=== PATIENT | male | born 1990 | race Caucasian/White ===

== ENCOUNTER 2017-10-20 15:43 | Emergency (ER) | payer BC | END 2017-10-20 18:57 | disposition home or self-care (01) | LOC: M ED 15:43 | DX: M94.0 Chondrocostal junction syndrome [Tietze] (principal); F31.9 Bipolar disorder, unspecified; Z77.098 Contact with and (suspected) exposure to other hazardous, chiefly nonmedicinal, chemicals; Z88.2 Allergy status to sulfonamides; Z79.899 Other long term (current) drug therapy; Z79.82 Long term (current) use of aspirin | CPT/HCPCS: 71046 ==

== ENCOUNTER → 2018-10-04 | Outpatient (REF) | payer OTHER ==
[~2018-10-04] MED LIST: ASPI81CH PO; CEFD1CAP8 PO; FISH100049 PO; IBUP-1022 PO; MULT1TAB8 PO; NALT50TA4 PO; PRIL20CA9 PO; TRAZ-163 PO; TRIL600T PO; VRAY4.5C PO
== END ==
LOC: M SFHCPLAZ 13:21
PROVIDERS: ATTEND Family Medicine
DX: B07.8 Other viral warts (principal)

== ENCOUNTER → 2018-11-08 | Outpatient (CLI) | payer OTHER ==
[~2018-11-08] MED LIST changes: -ASPI81CH PO; +ASPI81CH49 PO
--- NOTE | 2018-11-11 20:46 | SLEEPHOME ---
DATE OF PROCEDURE: 11/08/2018 ORDERED BY: Katy Howard Diagnostic home sleep testing was performed due to concern for the obstructive sleep apnea syndrome in this patient with a history of hypertension. For testing, a nocturnal T3 respiratory monitoring device was used. Continuous record was made of pulse, oxygen saturation, airflow, chest, abdominal strain and body position. 9 hours and 59 minutes of data were reviewed. Of these, 6 hours and 5 minutes were marked as time in bed. During the interval marked time in bed, there were 83 respiratory events identified of 10 seconds in duration or greater for a respiratory event index of 13.6. The events were primarily obstructive. Baseline pulse rate 75 beats per minute, pulse rate ranged from 59 to 174. Baseline saturation 93%. Saturations fell as low as 81%. Testing was performed in both the supine and nonsupine positions. IMPRESSION: Abnormal home sleep testing with repetitive respiratory events and oxygen desaturations to 81% with a respiratory event index of 13.6 is consistent with the obstructive sleep apnea syndrome. RECOMMENDATIONS: The patient should be encouraged to undergo a formal sleep evaluation and in laboratory pressure titration.
== END ==
LOC: M SLEEP HO 10:24
PROVIDERS: ATTEND Nurse Practitioner Family
DX: R40.0 Somnolence (principal)

== ENCOUNTER 2018-12-10 02:43 | Emergency (ER) | payer OTHER ==
[~2018-12-10] VITALS: Ht 185.4 cm; Wt 161.4 kg
[2018-12-10 02:43] VITALS: BP 149/85
[2018-12-10] MEDS ORDERED: LOSA100T50 PO (03:15)
[2018-12-10] MEDS ORDERED: BENA25CA4 PO (04:19)
== END 2018-12-10 04:23 | disposition home or self-care (01) ==
LOC: M ED 02:43
DX: F43.0 Acute stress reaction (principal); I10 Essential (primary) hypertension; G47.30 Sleep apnea, unspecified; F41.9 Anxiety disorder, unspecified; K21.9 Gastro-esophageal reflux disease without esophagitis; E66.9 Obesity, unspecified; Z72.0 Tobacco use; Z79.899 Other long term (current) drug therapy; Z88.2 Allergy status to sulfonamides

== ENCOUNTER → 2019-04-05 | Outpatient (CLI) | payer OTHER ==
[~2019-04-05] MED LIST changes: +BENA25CA4 PO; +LOSA100T50 PO; -TRAZ-163 PO; +TRAZ-257 PO
--- NOTE | 2019-04-09 08:09 | SLEEPCENT ---
DATE OF PROCEDURE: 04/05/2019 ORDERING PROVIDER: Katy Howard NP, copy to JIGAR Ames. INTERPRETATION: Nocturnal polysomnography was performed for the titration of pressure therapy in this patient with a clinical diagnosis of obstructive sleep apnea syndrome confirmed by home testing revealing respiratory event index of 13.6. For testing a ResMed 20 AirFit full-face mask initially of small size was used and 5 cm of water pressure were applied to the circuit, and the lights were extinguished. 7 hours and 27 minutes of data were reviewed. There were 315.5 minutes of sleep identified. Sleep latency was normal at 17.5 minutes. Rapid eye movement (REM) latency was delayed at 182 minutes. Sleep architecture was quite fragmented early in the study. Overall sleep efficiency was 71.3%. The patient's electrocardiogram showed sinus rhythm with an average heart rate of 78 beats per minute. EEG showed some coarsening in background, otherwise, normal waveforms for awake and sleep. Respiratory events persisted prompting a change to a medium sized mask later in the study. Best sleep was seen on a CPAP pressure of +8 delivered via medium sized mask. There was some scattered limb activity noted as well. Limb movement arousal index of 5.7. IMPRESSION: Obstructive sleep apnea syndrome (G47.33) RECOMMENDATIONS: Initiation of pressure therapy with CPAP 8 cm would seem reasonable based on these results. Given the difficulty the patient had in the lab, close clinical followup is recommended.
== END ==
LOC: M SLEEP 15:05
PROVIDERS: ATTEND Nurse Practitioner Family
DX: G47.33 Obstructive sleep apnea (adult) (pediatric) (principal)

== ENCOUNTER → 2019-04-10 | Outpatient (REF) | payer OTHER ==
[2019-04-10 13:51] LABS: CREATININE, URINE 47.1 MG/DL; MALB URINE SIEMENS 7.8 MG/L; MAU/CREAT RATIO 16.5 MCG/MG (0.0-30.0)
[2019-04-10 13:52] LABS: ALBUMIN 3.7 GM/DL (3.2-5.2); ALT/SGPT 35 U/L (12-78); BILIRUBIN,TOTAL 0.2 MG/DL (0.2-1.0); BLOOD UREA NITROGEN 8 MG/DL (7-18); CALCIUM LEVEL 9.1 MG/DL (8.5-10.1); CARBON DIOXIDE LEVEL 26 MEQ/L (21-32); CHLORIDE LEVEL 106 MEQ/L (98-107); CHOLESTEROL LEVEL 132 MG/DL (<200); CHOLESTEROL RISK RATIO 4.551 (<5); CREATININE FOR GFR 0.89 MG/DL (0.70-1.30); GLOMERULAR FILTRATION RATE > 60.0 (>60); GLUCOSE, FASTING 104 MG/DL (70-100); HDL CHOLESTEROL 29 MG/DL (>40); LDL CHOLESTEROL 52 MG/DL (<100); NON-HDL-C 103 MG/DL; POTASSIUM SERUM 4.3 MEQ/L (3.5-5.1); SODIUM LEVEL 139 MEQ/L (136-145); TOTAL PROTEIN 6.9 GM/DL (6.4-8.2); TRIGLYCERIDES LEVEL 255 MG/DL (<150)
== END ==
LOC: M SFHCPLAZ 09:56
PROVIDERS: ATTEND Nurse Practitioner Family
DX: Z13.220 Encounter for screening for lipoid disorders (principal); E66.01 Morbid (severe) obesity due to excess calories; I10 Essential (primary) hypertension

== ENCOUNTER → 2019-08-19 | Outpatient (CLI) | payer OTHER ==
[2019-08-19 11:21] LABS: BASO # 0.1 10^3/uL (0.0-0.2); BASO % 0.6 % (0.0-1.0); EOS # 0.2 10^3/uL (0.0-0.5); EOS % 1.7 % (0.0-3.0); HEMATOCRIT 44.1 % (42.0-52.0); HEMOGLOBIN 14.3 g/dl (13.5-17.5); LYMPH # 2.4 10^3/uL (1.5-5.0); LYMPH % 28.1 % (24.0-44.0); MEAN CORPUSCULAR HEMOGLOBIN 28.3 pg (27.0-33.0); MEAN CORPUSCULAR HGB CONC 32.4 g/dl (32.0-36.5); MEAN CORPUSCULAR VOLUME 87.2 fl (80.0-96.0); MONO # 0.9 10^3/uL (0.0-0.8); MONO % 9.8 % (0.0-5.0); NEUTROPHILS # 5.1 10^3/uL (1.5-8.5); NEUTROPHILS % 58.4 % (36.0-66.0); PLATELET COUNT, AUTOMATED 232 10^3/uL (150-450); RED BLOOD COUNT 5.06 10^6/uL (4.30-6.10); WHITE BLOOD COUNT 8.7 10^3/uL (4.0-10.0)
[2019-08-19 11:52] LABS: ALBUMIN 3.7 GM/DL (3.2-5.2); ALT/SGPT 52 U/L (12-78); BILIRUBIN,TOTAL 0.2 MG/DL (0.2-1.0); BLOOD UREA NITROGEN 9 MG/DL (7-18); CALCIUM LEVEL 8.4 MG/DL (8.5-10.1); CARBON DIOXIDE LEVEL 25 MEQ/L (21-32); CHLORIDE LEVEL 108 MEQ/L (98-107); CHOLESTEROL LEVEL 154 MG/DL (<200); CHOLESTEROL RISK RATIO 6.416 (<5); CREATININE FOR GFR 0.93 MG/DL (0.70-1.30); FREE T4 0.93 NG/DL (0.76-1.46); GLOMERULAR FILTRATION RATE > 60.0 (>60); GLUCOSE, FASTING 119 MG/DL (70-100); HDL CHOLESTEROL 24 MG/DL (>40); LDL CHOLESTEROL 53 MG/DL (<100); NON-HDL-C 130 MG/DL; POTASSIUM SERUM 4.5 MEQ/L (3.5-5.1); SODIUM LEVEL 141 MEQ/L (136-145); TOTAL PROTEIN 6.4 GM/DL (6.4-8.2); TRIGLYCERIDES LEVEL 385 MG/DL (<150)
[2019-08-19 11:54] LABS: TOTAL 25(OH) VITAMIN D 15.5 NG/ML (30.0-100.0)
[2019-08-19 11:55] LABS: VITAMIN B12 LEVEL 521 PG/ML (247-911)
--- NOTE | 2019-08-19 21:22 | ECGEPIP ---
[facility] Test Date: 2019-08-19 Pat Name: KATHERYN BLACKMON Department: Room: - Gender: Male Client Leader: IRAM : 1990 Requested By: Diallo Leiva Order Number: [id number] Reading MD: Silver Melo Measurements Intervals [place] Rate: 78 P: 35 HI: 137 QRS: 0 QRSD: 98 T: 56 QT: 376 QTc: 429 Interpretive Statements SINUS RHYTHM Electronically Signed on 08-19-2019 21:21:46 EST by Silver Melo
== END ==
LOC: M LAB 10:36
PROVIDERS: ATTEND Psychiatry & Neurology Child & Adolescent Psychiatry
DX: F31.9 Bipolar disorder, unspecified (principal)

== ENCOUNTER → 2020-09-07 | Outpatient (REF) | payer OTHER ==
[2020-09-07 14:33] LABS: HEMOGLOBIN A1c 6.2 %
[2020-09-07 14:37] LABS: ALBUMIN 3.7 GM/DL (3.2-5.2); ALT/SGPT 49 U/L (12-78); BILIRUBIN,TOTAL 0.2 MG/DL (0.2-1.0); BLOOD UREA NITROGEN 21 MG/DL (7-18); CALCIUM LEVEL 9.2 MG/DL (8.5-10.1); CARBON DIOXIDE LEVEL 28 MEQ/L (21-32); CHLORIDE LEVEL 103 MEQ/L (98-107); CHOLESTEROL LEVEL 175 MG/DL (<200); CREATININE FOR GFR 0.96 MG/DL (0.70-1.30); FREE T4 0.96 NG/DL (0.76-1.46); GLOMERULAR FILTRATION RATE > 60.0 (>60); GLUCOSE, FASTING 137 MG/DL (70-100); HDL CHOLESTEROL 35 MG/DL (>40); LDL CHOLESTEROL 80 MG/DL (<100); MAGNESIUM LEVEL 2.3 MG/DL (1.8-2.4); NON-HDL-C 140 MG/DL; POTASSIUM SERUM 4.7 MEQ/L (3.5-5.1); SODIUM LEVEL 140 MEQ/L (136-145); TOTAL PROTEIN 6.8 GM/DL (6.4-8.2); TRIGLYCERIDES LEVEL 301 MG/DL (<150)
[2020-09-07 14:39] LABS: TOTAL 25(OH) VITAMIN D 24.4 NG/ML (30.0-100.0)
== END ==
LOC: M SFHCPLAZ 12:01
PROVIDERS: ATTEND Nurse Practitioner Family
DX: I10 Essential (primary) hypertension (principal); E66.01 Morbid (severe) obesity due to excess calories; E78.2 Mixed hyperlipidemia; R73.03 Prediabetes; F17.290 Nicotine dependence, other tobacco product, uncomplicated

== ENCOUNTER → 2020-12-27 | Outpatient (REF) | payer OTHER ==
[2020-12-27 13:54] LABS: HEMOGLOBIN A1c 6.5 %
[2020-12-27 14:04] LABS: ALBUMIN 3.6 GM/DL (3.2-5.2); ALT/SGPT 76 U/L (12-78); BILIRUBIN,TOTAL 0.3 MG/DL (0.2-1.0); BLOOD UREA NITROGEN 16 MG/DL (7-18); CALCIUM LEVEL 8.8 MG/DL (8.5-10.1); CARBON DIOXIDE LEVEL 26 MEQ/L (21-32); CHLORIDE LEVEL 104 MEQ/L (98-107); CHOLESTEROL LEVEL 155 MG/DL (<200); CHOLESTEROL RISK RATIO 4.843 (<5); CREATININE FOR GFR 0.94 MG/DL (0.70-1.30); GLOMERULAR FILTRATION RATE > 60.0 (>60); GLUCOSE, FASTING 143 MG/DL (70-100); HDL CHOLESTEROL 32 MG/DL (>40); LDL CHOLESTEROL 49 MG/DL (<100); NON-HDL-C 123 MG/DL; POTASSIUM SERUM 4.2 MEQ/L (3.5-5.1); SODIUM LEVEL 139 MEQ/L (136-145); TOTAL PROTEIN 7.1 GM/DL (6.4-8.2); TRIGLYCERIDES LEVEL 368 MG/DL (<150)
[2020-12-27 14:15] LABS: MAU/CREAT RATIO 78.3 MCG/MG (0.0-30.0)
[2020-12-27 14:16] LABS: TOTAL 25(OH) VITAMIN D 30.2 NG/ML (30.0-100.0)
== END ==
LOC: M PLALAB 11:06
PROVIDERS: ATTEND Nurse Practitioner Family
DX: R73.03 Prediabetes (principal); E78.2 Mixed hyperlipidemia; I10 Essential (primary) hypertension; E55.9 Vitamin D deficiency, unspecified

== ENCOUNTER → 2021-04-19 | Outpatient (CLI) | payer OTHER ==
[2021-04-19 15:12] LABS: ALBUMIN 3.6 GM/DL (3.2-5.2); ALT/SGPT 82 U/L (12-78); BILIRUBIN,TOTAL 0.4 MG/DL (0.2-1.0); BLOOD UREA NITROGEN 12 MG/DL (7-18); CALCIUM LEVEL 8.7 MG/DL (8.5-10.1); CARBON DIOXIDE LEVEL 26 MEQ/L (21-32); CHLORIDE LEVEL 108 MEQ/L (98-107); CREATININE FOR GFR 0.73 MG/DL (0.70-1.30); GLOMERULAR FILTRATION RATE > 60.0 (>60); GLUCOSE, FASTING 114 MG/DL (70-100); POTASSIUM SERUM 4.6 MEQ/L (3.5-5.1); SODIUM LEVEL 141 MEQ/L (136-145); TOTAL PROTEIN 6.7 GM/DL (6.4-8.2)
[2021-04-19 15:17] LABS: TOTAL 25(OH) VITAMIN D 45.9 NG/ML (30.0-100.0)
[2021-04-19 15:38] LABS: MALB URINE SIEMENS 29.7 MG/L; MAU/CREAT RATIO 17.6 MCG/MG (0.0-30.0)
[2021-04-19 16:40] LABS: HEMOGLOBIN A1c 6.2 %
== END ==
LOC: M PLALAB 11:18
PROVIDERS: ATTEND Nurse Practitioner Family
DX: E11.9 Type 2 diabetes mellitus without complications (principal); I10 Essential (primary) hypertension; E55.9 Vitamin D deficiency, unspecified

== ENCOUNTER → 2021-06-02 | Outpatient (CLI) | payer OTHER ==
--- NOTE | 2021-06-02 13:17 | REP ---
INDICATION: PRE EMPLOYMENT. COMPARISON: 10/20/2017 the latest prior TECHNIQUE: PA and lateral FINDINGS: The superior mediastinal structures are midline. The cardiac silhouette is unremarkable in size, shape, and position. The diaphragmatic surfaces of the lungs are regular, and the costophrenic angles are clear. The pulmonary rush are clear. The imaged osseous structures are intact. IMPRESSION: There is no acute cardiopulmonary disease. <Electronically signed by Jake Patel > 06/02/21 [id number]
== END ==
LOC: M WUC 10:51
PROVIDERS: ATTEND Nurse Practitioner Family
DX: Z02.1 Encounter for pre-employment examination (principal)

== ENCOUNTER 2021-06-17 16:47 | Inpatient (IN) | payer OTHER ==
[~2021-06-17] VITALS: Ht 185.4 cm; Wt 186.4 kg
--- OUTSIDE RECORDS SUMMARY | 2021-06-17 17:01 | CCD ---
Author Author Trae Denson Organization Unknown Address [address] [place] [address] Phone Care Team Providers Care Psychologist Developmental Name Role Phone Zackary Denson PCP Allergies, Adverse Reactions, Alerts Concept Allergy Name Reaction Severity Onset Date Status Documentation Date Phone Number Npid Taxonomy Code Taxonomy Desc Author Last Name Author Fi rst Name Concept Type 402767 lithium carbonate unspecified 07/08/2015 Active 015 [id number] [facility] RXNORM [id number] Zyprexa unspecified 07/08/2015 Active 07/08/2015 [id number] [facility] 123856 Lamictal rash 07/08/2015 Active 07/08/2015 [id number] 747 [id number] [facility]iat[facility] RXNORM 491 Sulfa (Sulfonamide Antibiotics) Group unspecified Ac tive 12/01/2014 [facility]DC Problem List Concept Problem Description Status Start Date Created Date Resolv ed Date Snomed Code F31.31 Bipolar I Disorder, Current or most rece nt episode depressed, Mild Active 06/05/2018 06/05/2018 F10.120 Alcohol abuse with intoxication, uncomplicated Active 05/06/2021 F17.290 Nicotine dependence, other tobacco product, uncomplica kamille Active 05/06/2021 F12.10 Cannabis Use Disorder, Mild Active 05/06/2021 Medications Rx Norm Medication Route Route Concept Start Date Stop Date Dosage García quency Duration Formula Strength Dosage Form Dosage Form Code Dosage Description Medication Id Account Npid Author First Name Author Last Name Taxonomy Code Taxonomy Desc Phone Number [phone] Vraylar by mouth [id number] 03/15/2021 05/21/2021 every other day 30 1.5 mg capsule 43417 [phone] Trena Sierra [id number] N urse Practitioner [phone] [id number] Vraylar by mouth [id number] 03/15/2021 05/21/2021 every night 30 3 mg capsule 38351 [id number] Trena Sierra [id number] N urse Practitioner [id number] Strattera by mouth [id number] 02/01/2021 06/20/2021 every morning 30 80 mg capsule 87393 129910 [id number] Trena Sierra [id number] N urse Practitioner [id number] Social History Social History Element Description Concept Effective Date Smoking Status Unknown if ever smoked [id number] Immunizations No Data in Section Vital Signs No Data in Section Procedures Date Concept Id Description Targeted Site Concept Targeted Site Concept Type 05/03/2021 45166 Extended Individual Psychotherapy - 45 min CPT Patient has no history of implantable de vices Encounters Encounter Start Date End Date Encounter Type Description Diagnosis Di agnosis Desc Location Author First Name Author Last Name Npid Taxonomy Cod e Taxonomy Desc Phone Number Location Addr1 Location Addr2 Location [facility] Location Sta te Location Zip [id number] 05/03/2021 05/03/2021 73038 Extended Individual Psych otherapy - 45 min F31.31 Bipolar Disorder, Current Episode Depressed, Mild Comm [facility] [phone] [id number] Office Support Associate [phone] [phone] Plan of Treatment No Data in Section Lab Results No Data in Section Instructions No Data in Section Insurance Providers Insurance Id Policy Effective Date Policy Thru Date Company N jeyson [id number] 2018 [facility]
--- OUTSIDE RECORDS SUMMARY | 2021-06-17 17:01 | CCD ---
Author Author Trae Hameed Organization Unknown Address [address] [place] [address] Phone Care Team Providers Care Clinical Social Work Aide Name Role Phone Henny Hameed PCP Allergies, Adverse Reactions, Alerts Concept Allergy Name Reaction Severity Onset Date Status Documentation Date Phone Number Npid Taxonomy Code Taxonomy Desc Author Last Name Author Fi rst Name Concept Type 833064 lithium carbonate unspecified 07/08/2015 Active 015 [id number] [facility] 532197 Zyprexa unspecified 07/08/2015 Active 07/08/2015 [id number] [facility]iat[facility] RXNORM 236387 Lamictal rash 07/08/2015 Active 07/08/2015 [id number] Psychiatry [facility] RXNORM 491 Sulfa (Sulfonamide Antibiotics) Group unspecified Ac tive 12/01/2014 [facility]DC Problem List Concept Problem Description Status Start Date Created Date Resolv ed Date Snomed Code F31.31 Bipolar I Disorder, Current or most rece nt episode depressed, Mild Active 06/05/2018 06/05/2018 F10.120 Alcohol abuse with intoxication, uncomplicated Active 04/15/2021 F17.290 Nicotine dependence, other tobacco product, uncomplica kamille Active 04/15/2021 F12.10 Cannabis Use Disorder, Mild Active 04/15/2021 Medications Rx Norm Medication Route Route Concept Start Date Stop Date Dosage García quency Duration Formula Strength Dosage Form Dosage Form Code Dosage Description Medication Id Account Npid Author First Name Author Last Name Taxonomy Code Taxonomy Desc Phone Number [phone] Vraylar by mouth [id number] 03/15/2021 05/12/2021 every other day 30 1.5 mg capsule 08732 [phone] Brian Franks [id number] Psychia try [phone] [id number] Vraylar by mouth S90464 03/15/2021 05/12/2021 every night 30 3 mg capsule 77702 557583 [id number] Brian Franks [id number] Psychia try [id number] 731067 Strattera by mouth [id number] 02/01/2021 06/11/2021 every morning 30 80 mg capsule 18775 482812 [id number] Brian Joyarez [id number] Psychia try [id number] Social History Social History Element Description Concept Effective Date Smoking Status Unknown if ever smoked [id number] Immunizations No Data in Section Vital Signs No Data in Section Procedures Date Concept Id Description Targeted Site Concept Targeted Site Concept Type 04/14/2021 15809 Extended Individual Psychotherapy - 45 min CPT Patient has no history of implantable de vices Encounters Encounter Start Date End Date Encounter Type Description Diagnosis Di agnosis Desc Location Author First Name Author Last Name Npid Taxonomy Cod e Taxonomy Desc Phone Number Location Addr1 Location Addr2 Location City Location Sta [place] Location Zip [id number] 04/14/2021 04/14/2021 94436 Extended Individual Psych otherapy - 45 min F31.31 Bipolar Disorder, Current Episode Depressed, Mild Comm [facility] Yoseph Inman [phone] [id number] Custom Seamstress [phone] [address] Plan of Treatment No Data in Section Lab Results No Data in Section Instructions No Data in Section Insurance Providers Insurance Id Policy Effective Date Policy Thru Date Company N [employer]yson [id number] [facility]
--- OUTSIDE RECORDS SUMMARY | 2021-06-17 17:01 | CCD ---
Author Author Trae Hameed Organization Unknown Address [address] [place] [address] Phone Care Team Providers Care Chisel Trimmer Name Role Phone Henny Hameed PCP Allergies, Adverse Reactions, Alerts Concept Allergy Name Reaction Severity Onset Date Status Documentation Date Phone Number Npid Taxonomy Code Taxonomy Desc Author Last Name Author Fi rst Name Concept Type 492340 lithium carbonate unspecified 07/08/2015 Active 015 [id number] [facility] 473657 Zyprexa unspecified 07/08/2015 Active 07/08/2015 [id number] [facility]iatry [facility] RXNORM 920771 Lamictal rash 07/08/2015 Active 07/08/2015 [id number] 649 [id number] Psychiatry [facility] RXNORM 491 Sulfa (Sulfonamide Antibiotics) Group unspecified Ac tive 12/01/2014 [facility]DC Problem List Concept Problem Description Status Start Date Created Date Resolv ed Date Snomed Code F31.31 Bipolar I Disorder, Current or most rece nt episode depressed, Mild Active 06/05/2018 06/05/2018 F10.120 Alcohol abuse with intoxication, uncomplicated Active 04/08/2021 F17.290 Nicotine dependence, other tobacco product, uncomplica kamille Active 04/08/2021 F12.10 Cannabis Use Disorder, Mild Active 04/08/2021 Medications Rx Norm Medication Route Route Concept Start Date Stop Date Dosage García quency Duration Formula Strength Dosage Form Dosage Form Code Dosage Description Medication Id Account Npid Author First Name Author Last Name Taxonomy Code Taxonomy Desc Phone Number [phone] Vraylar by mouth [id number] 03/15/2021 04/14/2021 every other day 30 1.5 mg capsule 04699 [id number] Brian Franks [id number] Psychia try [phone] 7564962 Vraylar by mouth R31069 03/15/2021 04/14/2021 every night 30 3 mg capsule 19092 905730 [id number] Brian Franks [id number] Psychia try [phone] 307747 Strattera by mouth R89232 02/01/2021 04/30/2021 every morning 30 80 mg capsule 28100 792947 [id number] Brian Joyarez [id number] Psychia try [id number] Social History Social History Element Description Concept Effective Date Smoking Status Unknown if ever smoked [id number] Immunizations No Data in Section Vital Signs No Data in Section Procedures Date Concept Id Description Targeted Site Concept Targeted Site Concept Type 04/07/2021 26309 Extended Individual Psychotherapy - 45 min CPT Patient has no history of implantable de vices Encounters Encounter Start Date End Date Encounter Type Description Diagnosis Di agnosis Desc Location Author First Name Author Last Name Npid Taxonomy Cod e Taxonomy Desc Phone Number Location Addr1 Location Addr2 Location City Location Sta te Location Zip [id number] 04/07/2021 04/07/2021 79697 Extended Individual Psych otherapy - 45 min F31.31 Bipolar Disorder, Current Episode Depressed, Mild Comm [facility] Yoseph Inman [phone] [id number] Aircraft Line Assembler [phone] [address] Plan of Treatment No Data in Section Lab Results No Data in Section Instructions No Data in Section Insurance Providers Insurance Id Policy Effective Date Policy Thru Date Company N jeyson [id number] 2018 [facility]
--- OUTSIDE RECORDS SUMMARY | 2021-06-17 17:01 | CCD ---
Author Author [facility] Organization [facility] Address Unknown Phone Unavailable Care Team Providers Care Bulk Plant Supervisor Name Role Phone Laly Franks MD Unavailable Unavailable Laly Franks MD Unavailable Unavailable Laly Franks MD Unavailable Unavailable Laly Franks MD Unavailable Unavailable Zackary Denson Unavailable Zackary Denson Unavailable TERRI KRISS VIC TRANSIT BUS OPERATOR-C Unavailable Unavailable TERRI KRISS VIC TRANSIT BUS OPERATOR-C Unavailable Unavailable TERRI, KRISS VIC TRANSIT BUS OPERATOR-C Unavailable Unavailable TERRI, KRISS VIC TRANSIT BUS OPERATOR-C Unavailable Unavailable TERRI, KRISS VIC TRANSIT BUS OPERATOR-C Unavailable Unavailable TERRI, KRISS VIC TRANSIT BUS OPERATOR-C Unavailable Unavailable TERRI, KRISS VIC TRANSIT BUS OPERATOR-C Unavailable Unavailable TERRI, KRISS VIC TRANSIT BUS OPERATOR-C Unavailable Unavailable TERRI, KRISS VIC TRANSIT BUS OPERATOR-C Unavailable Unavailable TERRI, KRISS VIC TRANSIT BUS OPERATOR-C Unavailable Unavailable TERRI, KRISS VIC TRANSIT BUS OPERATOR-C Unavailable Unavailable TERRI, KRISS VIC TRANSIT BUS OPERATOR-C Unavailable Unavailable TERRI, KRISS VIC TRANSIT BUS OPERATOR-C Unavailable Unavailable TERRI, KRISS VIC TRANSIT BUS OPERATOR-C Unavailable Unavailable TERRI, KRISS VIC TRANSIT BUS OPERATOR-C Unavailable Unavailable TERRI, KRISS VIC TRANSIT BUS OPERATOR-C Unavailable Unavailable TERRI, KRISS VIC TRANSIT BUS OPERATOR-C Unavailable Unavailable Henny Hameed Unavailable Re-disclosure Warning The records that you are about to access may contain information from federally-assisted alcohol or drug abuse programs. If such information is present, then the following federally mandated warning applies: This information has been disclosed to you from records protected by federal confidentiality rules (42 CFR part 2). The federal rules prohibit you from making any further disclosure of this information unless further disclosure is expressly permitted by the written consent of the person to whom it pertains or as otherwise permitted by 42 CFR part 2. A general authorization for the release of medical or other information is NOT sufficient for this purpose. The Federal rules restrict any use of the information to criminally investigate or prosecute any alcohol or drug abuse patient.The records that you are about to access may contain highly sensitive health information, the redisclosure of which is protected by Article 27-F of the [facility] Public Health law. If you continue you may have access to information: Regarding HIV / AIDS; Provided by facilities licensed or operated by the [facility] Office of Mental Health; or Provided by the [facility] Office for People With Developmental Disabilities. If such information is present, then the following [facility] mandated warning applies: This information has been disclosed to you from confidential records which are protected by state law. State law prohibits you from making any further disclosure of this information without the specific written consent of the person to whom it pertains, or as otherwise permitted by law. Any unauthorized further disclosure in violation of state law may result in a fine or group home sentence or both. A general authorization for the release of medical or other information is NOT sufficient authorization for further disc losure. Allergies and Adverse Reactions Type Description Substance Reaction Status Data Source(s ) Propensity to adverse reactions to substance Sulfa (Joy lfonamide Antibiotics) Group Sulfa (Sulfonamide Antibiotics) Group Active [facility] ([facility]) Propensity to adverse reactions to substance Lamictal lamotrigine 25 MG Oral Tablet [Lamictal] rash Active [facility] ([facility]) Propensity to adverse reactions to substance Zyprexa olanzapine 5 MG/ML Injectable Solution [Zyprexa] Active [facility] ([facility]) Propensity to adverse reactions to substance lithium carbona te [place] Carbonate 150 MG Oral Capsule Active [facility] ([facility]) Propensity to adverse reactions to substance Sulfa (Joy lfonamide Antibiotics) Group Sulfa (Sulfonamide Antibiotics) Group Active [facility] ([facility]) Propensity to adverse reactions to substance Lamictal lamotrigine 25 MG Oral Tablet [Lamictal] rash Active [facility] ([facility]) Propensity to adverse reactions to substance Zyprexa olanzapine 5 MG/ML Injectable Solution [Zyprexa] Active [facility] ([facility]) Propensity to adverse reactions to substance lithium carbona te [place] Carbonate 150 MG Oral Capsule Active [facility] ([facility]) Family History Family Member Name Family Member Gender Family Member Status Date o f Status Description Data Source(s) Unknown Male Problem [facility] ([facility]) Encounters Encounter Providers Location Date Indications Data Source(s ) Attender: Zackary Denson 05/06/2021 12:00:00 AM EDT [facility] ([facility]) Extended Individual Psychotherapy - 45 min Attender: Jayson Denson [facility] 05/03/2021 04:45:00 AM EDT - 05/03/2021 04:45:00 AM EDT [facility] ([facility]) Extended Individual Psychotherapy - 45 min Attender: Aguilar Hameed [facility] 04/21/2021 02:00:00 AM EDT - 04/21/2021 02:00:00 AM EDT [facility] ([facility]) [place] [address] [place] [address] 04/21/2021 12:00:00 AM EDT [facility] Attender: Henny Hameed 04/21/2021 12:00:00 AM EDT [facility] ([facility]) Attender: Henny Hameed 04/15/2021 12:00:00 AM EDT [facility] ([facility]) Extended Individual Psychotherapy - 45 min Attender: Aguilar Hameed [facility] 04/14/2021 02:00:00 AM EDT - 04/14/2021 02:00:00 AM EDT [facility] ([facility]) Attender: Henny Hameed 04/08/2021 12:00:00 AM EDT [facility] ([facility]) Extended Individual Psychotherapy - 45 min Attender: Aguilar vinay Hameed [facility] 04/07/2021 02:00:00 AM EDT - 04/07/2021 02:00:00 AM EDT [facility] ([facility]) Attender: Henny Hameed 03/18/2021 12:00:00 AM EDT [facility] ([facility]) Extended Individual Psychotherapy - 45 min Attender: Aguilar Hameed [facility] 03/17/2021 03:30:00 AM EDT - 03/17/2021 03:30:00 AM EDT [facility] ([facility]) Unknown [address] [place] [address] 02/28/2021 12:00:00 AM EDT [facility] Attender: Henny Hameed 02/25/2021 12:00:00 AM EDT [facility] ([facility]) Extended Individual Psychotherapy - 45 min Attender: Aguilar Hameed [facility] 02/24/2021 02:00:00 AM EDT - 02/24/2021 02:00:00 AM EDT [facility] ([facility]) Extended Individual Psychotherapy - 45 min Attender: Aguilar Hameed [facility] 02/03/2021 02:00:00 AM EDT - 02/03/2021 02:00:00 AM EDT [facility] ([facility]) Attender: Henny Hameed 02/03/2021 12:00:00 AM EDT [facility] ([facility]) [place] [address] [place] [address] 01/28/2021 12:00:00 AM EDT [facility]) Extended Individual Psychotherapy - 45 min Attender: Aguilar Hameed [facility] 01/27/2021 02:00:00 AM EDT - 01/27/2021 02:00:00 AM EDT [facility] ([facility]) Attender: Henny Thomsonan 01/27/2021 12:00:00 AM EDT [facility] ([facility]) Extended Individual Psychotherapy - 45 min Attender: Aguilar Hameed [facility] 01/20/2021 02:15:00 AM EDT - 01/20/2021 02:15:00 AM EDT [facility] ([facility]) Attender: Henny Thomsonan 01/20/2021 12:00:00 AM EDT [facility] ([facility]) [place] [address] [place] [address] 01/18/2021 12:00:00 AM EDT [facility] [place] [address] [place] [address] 01/17/2021 12:00:00 AM EDT [facility]) Outpatient Attender: VIC Burk/Linwood/Geo/Walker gary 01/07/2021 11:15:00 AM EDT [facility] ([facility]) Outpatient Attender: Brian Franks MD [facility] Yonathan padron 01/04/2021 01:30:00 AM EDT - 01/04/2021 01:30:00 AM EDT [facility] ([facility]) Attender: Brian Franks MD 01/04/2021 12:00:00 AM EDT [facility] ([facility]) Extended Individual Psychotherapy - 45 min Attender: Aguilar Hameed [facility] 12/30/2020 02:00:00 AM EDT - 12/30/2020 02:00:00 AM EDT [facility] ([facility]) Attender: Henny Hameed 12/30/2020 12:00:00 AM EDT [facility] ([facility]) Outpatient [address] [facility] [address] 12/28/2020 12:00:00 AM EDT [facility] Attender: Henny Hameed 12/24/2020 12:00:00 AM EDT [facility] ([facility]) Extended Individual Psychotherapy - 45 min Attender: Aguilar Hameed [facility] 12/23/2020 02:00:00 AM EDT - 12/23/2020 02:00:00 AM EDT [facility] ([facility]) Attender: Henny Hameed 12/17/2020 12:00:00 AM EDT [facility] ([facility]) Extended Individual Psychotherapy - 45 min Attender: Aguilarisaac mclean Yoseph [facility] 12/16/2020 02:00:00 AM EDT - 12/16/2020 02:00:00 AM EDT [facility] ([facility]) Attender: Henny Hameed 12/15/2020 12:00:00 AM EDT [facility] ([facility]) TEMPMHCTelemed--Crisis Brief Attender: Henny Hameed [facility] 12/13/2020 01:40:00 AM EDT - 12/13/2020 01:40:00 AM EDT [facility] ([facility]) Attender: Henny Hameed 12/10/2020 12:00:00 AM EDT [facility] ([facility]) Extended Individual Psychotherapy - 45 min Attender: Aguilar Hameed [facility] 12/09/2020 02:00:00 AM EDT - 12/09/2020 02:00:00 AM EDT [facility] ([facility]) [facility] 12/07/2020 01:30:00 AM EDT - 12/07/2020 01:30:00 AM EDT [facility] ([facility]) Attender: Brian Franks MD 12/07/2020 12:00:00 AM EDT [facility] ([facility]) Extended Individual Psychotherapy - 45 min Attender: Aguilar Hameed [facility] 11/25/2020 02:00:00 AM EDT - 11/25/2020 02:00:00 AM EDT [facility] ([facility]) Attender: Henny Hameed 11/25/2020 12:00:00 AM EDT [facility] ([facility]) Attender: Henny Hameed 11/19/2020 12:00:00 AM EDT [facility] ([facility]) Extended Individual Psychotherapy - 45 min Attender: Aguilar Hameed [facility] 11/18/2020 02:00:00 AM EDT - 11/18/2020 02:00:00 AM EDT [facility] ([facility]) Attender: Henny Hameed 10/07/2020 12:00:00 AM EST [facility] ([facility]) Extended Individual Psychotherapy - 45 min Attender: Aguilar vinay Hameed [facility] 10/06/2020 05:00:00 AM EST - 10/06/2020 05:00:00 AM EST [facility] ([facility]) Attender: Henny Hameed 09/23/2020 12:00:00 AM EST [facility] ([facility]) Extended Individual Psychotherapy - 45 min Attender: Aguilarisaac mclean Yoseph [facility] 09/22/2020 05:00:00 AM EST - 09/22/2020 05:00:00 AM EST [facility] ([facility]) [place]patient [address] [place] [address] 09/14/2020 12:00:00 AM EST [facility] Outpatient Attender: Brian Franks MD [facility] nereida 09/09/2020 02:00:00 AM EST - 09/09/2020 02:00:00 AM EST [facility] ([facility]) Attender: Henny Hameed 09/09/2020 12:00:00 AM EST [facility] ([facility]) Attender: Brian Franks MD 09/09/2020 12:00:00 AM EST [facility] ([facility]) Extended Individual Psychotherapy - 45 min Attender: Aguilar Hameed [facility] 09/08/2020 05:15:00 AM EST - 09/08/2020 05:15:00 AM EST [facility] ([facility]) [place] [address] [place] [address] 09/07/2020 12:00:00 AM EST [facility] Unknown [address] [address] 08/24/2020 12:00:00 AM EST [facility] Unknown [address] [address] 08/02/2020 12:00:00 AM EST [facility] Attender: Henny Hameed 07/22/2020 12:00:00 AM EST [facility] ([facility]) Extended Individual Psychotherapy - 45 min Attender: Aguilar Hameed [facility] 07/21/2020 05:00:00 AM EST - 07/21/2020 05:00:00 AM EST [facility] ([facility]) Attender: Henny Hameed 07/09/2020 12:00:00 AM EST [facility] ([facility]) Extended Individual Psychotherapy - 45 min Attender: Aguilar Hameed [facility] 07/07/2020 05:00:00 AM EST - 07/07/2020 05:00:00 AM EST [facility] ([facility]) Attender: Henny Hameed 06/11/2020 12:00:00 AM EST [facility] ([facility]) Extended Individual Psychotherapy - 45 min Attender: Aguilar Hameed [facility] 06/10/2020 03:00:00 AM EST - 06/10/2020 03:00:00 AM EST [facility] ([facility]) [id number]"Psychotherapy Attender: Henny Yoseph [facility] 05/21/2020 01:15:00 AM EDT - 05/21/2020 01:15:00 AM EDT [facility] ([facility]) Attender: Henny Hameed 05/21/2020 12:00:00 AM EDT [facility] ([facility]) [id number]"Psychotherapy Attender: Henny Yoseph [facility] 05/14/2020 01:15:00 AM EDT - 05/14/2020 01:15:00 AM EDT [facility] ([facility]) Attender: Henny Hameed 05/14/2020 12:00:00 AM EDT [facility] ([facility]) [id number]"Psychotherapy Attender: Henny Thomsonan [facility] 04/30/2020 01:15:00 AM EDT - 04/30/2020 01:15:00 AM EDT [facility] ([facility]) Attender: Henny Hameed 04/30/2020 12:00:00 AM EDT [facility] ([facility]) Attender: Henny Hameed 04/26/2020 12:00:00 AM EDT [facility] ([facility]) [id number]"Psychotherapy Attender: Hennypilar Hameed [facility] 04/23/2020 01:15:00 AM EDT - 04/23/2020 01:15:00 AM EDT [facility] ([facility] Functional Status Immunizations Vaccine Date Status Description Data Source(s) COVID-19 dose #2 given elsewhere Unspecified 12/28/2020 02:2 5:00 PM EDT completed [facility] COVID-19 dose #2 given elsewhere Unspecified 12/28/2020 02:2 5:00 PM EDT completed [facility] ([facility]) COVID-19 dose #2 given elsewhere Unspecified 12/28/2020 02:2 5:00 PM EDT completed [facility]1 ([facility]) COVID-19 dose #2 given elsewhere Unspecified 12/28/2020 02:2 5:00 PM EDT completed [facility] ([facility]) COVID-19 dose #2 given elsewhere Unspecified 12/28/2020 02:2 5:00 PM EDT completed [facility] ([facility]) COVID-19 dose #2 given elsewhere Unspecified 12/28/2020 02:2 5:00 PM EDT completed [facility] ([facility]) COVID-19 dose #1 given elsewhere Unspecified 12/28/2020 02:2 4:00 PM EDT completed [facility] ([facility]) COVID-19 dose #1 given elsewhere Unspecified 12/28/2020 02:2 4:00 PM EDT completed [facility] ([facility]) COVID-19 dose #1 given elsewhere Unspecified 12/28/2020 02:2 4:00 PM EDT completed [facility] ([facility]) COVID-19 dose #1 given elsewhere Unspecified 12/28/2020 02:2 4:00 PM EDT completed [facility] ([facility]) COVID-19 dose #1 given elsewhere Unspecified 12/28/2020 02:2 4:00 PM EDT completed [facility] ([facility]) COVID-19 dose #1 given elsewhere Unspecified 12/28/2020 02:2 4:00 PM EDT completed [facility] ([facility]) COVID-19 VACCINE Moderna 12/18/2020 12:00:00 AM EDT completed [facility] Vaccine Series Complete: YESThis Data wa s Submitted to [facility] Via [employer]. COVID-19 VACCINE Moderna 11/20/2020 12:00:00 AM EDT completed [facility] Vaccine Series Complete: NOThis Data was Submitted to [facility] Via [employer]. Medications Medication Brand Name Start Date Product Form Dose Route Admi nistrative Instructions Pharmacy Instructions Status Indications Reaction Description Data Source(s) Vraylar Vraylar 03/15/2021 12:00:00 AM EDT 3 mg by mouth completed <td ID="MedicationRxNorm_2">4091953</td><td ID="MedicationMedication_2">Vraylar</td><td ID="MedicationRoute_2">by mouth</td><td ID="MedicationRouteConcept_2">S77013</td><td ID="MedicationStartDate_2">03/15/2021</td><td ID="MedicationStopDate_2">05/21/2021</td><td ID="MedicationDosageFrequency_2">every night</td><td ID="MedicationDuration_2">30</td><td ID="MedicationFormulaStrength_2">3 mg</td><td ID="MedicationDosageForm_2">capsule</td><td ID="MedicationDosageFormCode_2"></td><td ID="MedicationDosageDescription_2"></td><td ID="MedicationMedicationId_2">[id number]</td><td ID="MedicationAccount_2">[id number]</td><td ID="MedicationNpid_2">[id number]</td><td ID="MedicationAuthorFirstName_2">Trena</td><td ID="MedicationAuthorLastName_2">Rigo</td><td ID="MedicationTaxonomyCode_2">[id number]</td><td ID="MedicationTaxonomyDesc_2">Nurse Practitioner</td><td ID="MedicationPhoneNumber_2">[phone]</td> [facility] Vraylar Vraylar 03/15/2021 12:00:00 AM EDT 1.5 mg by mouth completed <td ID="MedicationRxNorm_1">[id number]</td><td ID="MedicationMedication_1">Vraylar</td><td ID="MedicationRoute_1">by mouth</td><td ID="MedicationRouteConcept_1">J54556</td><td ID="MedicationStartDate_1">03/15/2021</td><td ID="MedicationStopDate_1">05/21/2021</td><td ID="MedicationDosageFrequency_1">every other day</td><td ID="MedicationDuration_1">30</td><td ID="MedicationFormulaStrength_1">1.5 mg</td><td ID="MedicationDosageForm_1">capsule</td><td ID="MedicationDosageFormCode_1"></td><td ID="MedicationDosageDescription_1"> </td><td ID="MedicationMedicationId_1">[id number]</td><td ID="MedicationAccount_1">[id number]</td><td ID="MedicationNpid_1">[id number]</td><td ID="MedicationAuthorFirstName_1">Trena</td><td ID="MedicationAuthorLastName_1">Rigo</td><td ID="MedicationTaxonomyCode_1">[id number]</td><td ID="MedicationTaxonomyDesc_1">Nurse Practitioner</td><td ID="MedicationPhoneNumber_1">[phone]</td> [facility] ([facility]) Docusate Sodium 100 MG Oral Capsule [Colace] Colace 100 MG C olace 100 MG 02/01/2021 12:00:00 AM EDT 1.0 {capsule_as_needed} active Colace 100 MG eCW1 ([facility] Docusate Sodium 100 MG Oral Capsule [Colace] Colace 100 MG C olace 100 MG 02/01/2021 12:00:00 AM EDT 1.0 {capsule_as_needed} active Colace 100 MG eCW1 ([facility]) Docusate Sodium 100 MG Oral Capsule [Colace] Colace 100 MG C olace 100 MG 02/01/2021 12:00:00 AM EDT 1.0 {capsule_as_needed} active Colace 100 MG eCW1 ([facility]) atomoxetine 80 MG Oral Capsule [Strattera] Strattera 02/01 12:00:00 AM EDT 80 mg by mouth completed <td ID="Medic ationRxNorm_3">112790</td><td ID="MedicationMedication_3">Strattera</td><td ID="MedicationRoute_3">by mouth</td><td ID="MedicationRouteConcept_3">Y32131</td><td ID="MedicationStartDate_3">02/01/2021</td><td ID="MedicationStopDate_3">06/20/2021</td><td ID="MedicationDosageFrequency_3">every morning</td><td ID="MedicationDuration_3">30</td><td ID="MedicationFormulaStrength_3">80 mg</td><td ID="MedicationDosageForm_3">capsule</td><td ID="MedicationDosageFormCode_3"></td><td ID="MedicationDosageDescription_3"> </td><td ID="MedicationMedicationId_3">[id number]</td><td ID="MedicationAccount_3">[id number]</td><td ID="MedicationNpid_3">[id number]</td><td ID="MedicationAuthorFirstName_3">Trena</td><td ID="MedicationAuthorLastName_3">Rigo</td><td ID="MedicationTaxonomyCode_3">[id number]</td><td ID="MedicationTaxonomyDesc_3">Nurse Practitioner</td><td ID="MedicationPhoneNumber_3">[phone]</td> [facility] ([facility]) atomoxetine 80 MG Oral Capsule [Strattera] Strattera 02/01 12:00:00 AM EDT 80 mg by mouth completed <td ID="Medic ationRxNorm_1">[id number]</td><td ID="MedicationMedication_1">Strattera</td><td ID="MedicationRoute_1">by mouth</td><td ID="MedicationRouteConcept_1">I89220</td><td ID="MedicationStartDate_1">02/01/2021</td><td ID="MedicationStopDate_1">04/02/2021</td><td ID="MedicationDosageFrequency_1">every morning</td><td ID="MedicationDuration_1">30</td><td ID="MedicationFormulaStrength_1">80 mg</td><td ID="MedicationDosageForm_1">capsule</td><td ID="MedicationDosageFormCode_1"></td><td ID="MedicationDosageDescription_1"> </td><td ID="MedicationMedicationId_1">[id number]</td><td ID="MedicationAccount_1">[id number]</td><td ID="MedicationNpid_1">[id number]</td><td ID="MedicationAuthorFirstName_1">Brian</td><td ID="MedicationAuthorLastName_1">Franks</td><td ID="MedicationTaxonomyCode_1">[id number]</td><td ID="MedicationTaxonomyDesc_1">Psychiatry</td><td ID="MedicationPhoneNumber_1">[phone]</td> [facility] ([facility]) Betamethasone 0.5 MG/ML / Clotrimazole 1 0 MG/ML Topical Cream Clotrimazole- Betamethasone 1-0.05 % Clotrimazole-Betamethasone 1-0.05 % 01/18/2021 12:00:0 0 AM EDT active Clotrimazole-Beta methasone 1-0.05 % eCW1 ([facility]) Betamethasone 0.5 MG/ML / Clotrimazole 1 0 MG/ML Topical Cream Clotrimazole- Betamethasone 1-0.05 % Clotrimazole-Betamethasone 1-0.05 % 01/18/2021 12:00:0 0 AM EDT active Clotrimazole-Beta methasone 1-0.05 % eCW1 ([facility]) Betamethasone 0.5 MG/ML / Clotrimazole 1 0 MG/ML Topical Cream Clotrimazole- Betamethasone 1-0.05 % Clotrimazole-Betamethasone 1-0.05 % 01/18/2021 12:00:0 0 AM EDT active Clotrimazole-Beta methasone 1-0.05 % eCW1 ([facility]) Betamethasone 0.5 MG/ML / Clotrimazole 1 0 MG/ML Topical Cream Clotrimazole- Betamethasone 1-0.05 % Clotrimazole-Betamethasone 1-0.05 % 01/18/2021 12:00:0 0 AM EDT active Clotrimazole-Beta methasone 1-0.05 % eCW1 ([facility]) Betamethasone 0.5 MG/ML / Clotrimazole 1 0 MG/ML Topical Cream Clotrimazole- Betamethasone 1-0.05 % Clotrimazole-Betamethasone 1-0.05 % 01/18/2021 12:00:0 0 AM EDT active Clotrimazole-Beta methasone 1-0.05 % eCW1 ([facility]) 24 HR Metformin hydrochloride 500 MG Ext ended Release Oral Tablet MetFORMIN HCl ER 500 MG MetFORMIN HCl ER 500 MG 12/28/2020 12:00:00 AM EDT active MetFORMIN HCl ER 500 MG [facility]) 24 HR Metformin hydrochloride 500 MG Ext ended Release Oral Tablet metFORMIN HCl ER 500 MG metFORMIN HCl ER 500 MG 12/28/2020 12:00:00 AM EDT active metFORMIN HCl ER 500 MG eCW1 ([facility]) 24 HR Metformin hydrochloride 500 MG Ext ended Release Oral Tablet metFORMIN HCl ER 500 MG metFORMIN HCl ER 500 MG 12/28/2020 12:00:00 AM EDT active metFORMIN HCl ER 500 MG eCW1 ([facility]) 24 HR Metformin hydrochloride 500 MG Ext ended Release Oral Tablet metFORMIN HCl ER 500 MG metFORMIN HCl ER 500 MG 12/28/2020 12:00:00 AM EDT active metFORMIN HCl ER 500 MG eCW1 ([facility]) 24 HR Metformin hydrochloride 500 MG Ext ended Release Oral Tablet metFORMIN HCl ER 500 MG metFORMIN HCl ER 500 MG 12/28/2020 12:00:00 AM EDT active metFORMIN HCl ER 500 MG eCW1 ([facility]) Covid-19 vaccine, Unspecified 12/18/2020 12:00:00 AM EDT completed [facility] ([place] [facility] Medication administered onsite Covid-19 vaccine, Unspecified 11/20/2020 12:00:00 AM EDT completed MEDENT ([facility]) Medication administered onsite Vitamin D3 125 MCG (5000 UT) Vitamin D3 125 MCG (5000 UT) 12:00:00 AM EST 1.0 {capsule} active Vitamin D3 125 MCG (5000 UT) eCW1 ([facility]) Vitamin D3 125 MCG (5000 UT) Vitamin D3 125 MCG (5000 UT) 12:00:00 AM EST 1.0 {capsule} active Vitamin D3 125 MCG (5000 UT) eCW1 ([facility]) Vitamin D3 125 MCG (5000 UT) Vitamin D3 125 MCG (5000 UT) 12:00:00 AM EST 1.0 {capsule} active Vitamin D3 125 MCG (5000 UT) eCW1 ([facility]) Vitamin D3 125 MCG (5000 UT) Vitamin D3 125 MCG (5000 UT) 12:00:00 AM EST 1.0 {capsule} active Vitamin D3 125 MCG (5000 UT) eCW1 ([facility]) Vitamin D3 125 MCG (5000 UT) Vitamin D3 125 MCG (5000 UT) 12:00:00 AM EST 1.0 {capsule} active Vitamin D3 125 MCG (5000 UT) eCW1 ([facility]) Vitamin D3 125 MCG (5000 UT) Vitamin D3 125 MCG (5000 UT) 12:00:00 AM EST 1.0 {capsule} active Vitamin D3 125 MCG (5000 UT) eCW1 ([facility]) 3 mg 05/07/2020 12:00:00 AM EDT capsule 30 TAKE ONE CAPSULE BY MOUTH EVERY DAY TAKE ONE CAPSULE BY MOUTH EVERY DAY SOLD: 05/07/2020 [facility] 3 mg 05/07/2020 12:00:00 AM EDT capsule 30 TAKE ONE CAPSULE BY MOUTH EVERY DAY TAKE ONE CAPSULE BY MOUTH EVERY DAY SOLD: 06/04/2020 [facility] 3 mg 05/07/2020 12:00:00 AM EDT capsule 30 TAKE ONE CAPSULE BY MOUTH EVERY DAY TAKE ONE CAPSULE BY MOUTH EVERY DAY SOLD: 07/02/2020 [facility] 40 mg 01/12/2020 12:00:00 AM EDT capsule,delayed release (DR/EC) 30 TAKE ONE CAPSULE BY MOUTH EVERY DAY TAKE ONE CAPSULE BY MOUTH EVERY DAY SOLD: 06/13/2020 [facility] 40 mg 01/12/2020 12:00:00 AM EDT capsule,delayed release (DR/EC) 30 TAKE ONE CAPSULE BY MOUTH EVERY DAY TAKE ONE CAPSULE BY MOUTH EVERY DAY SOLD: 07/10/2020 [facility] 40 mg 01/12/2020 12:00:00 AM EDT capsule,delayed release (DR/EC) 30 TAKE ONE CAPSULE BY MOUTH EVERY DAY TAKE ONE CAPSULE BY MOUTH EVERY DAY SOLD: 05/16/2020 [facility] 100 mg 01/01/2020 12:00:00 AM EDT tablet 30 TAKE ONE TABLET BY MOUTH EVERY DAY TAKE ONE TABLET BY MOUTH EVERY DAY SOLD: 05/16/2020 [facility] 100 mg 01/01/2020 12:00:00 AM EDT tablet 30 TAKE ONE TABLET BY MOUTH EVERY DAY TAKE ONE TABLET BY MOUTH EVERY DAY SOLD: 06/13/2020 [facility] Insurance Providers Payer name Policy type / Coverage type Policy ID Covered constitution party ID Covered constitution party's relationship to eklly Policy Kelly Plan Information BLUE CROSS [id number] BLUE CROSS [id number] F [id number] [place] PPO 302/[id number] FA2 [id number] [facility] [id number] SP [id number] ANSI-Not a Secondary Insurance [id number] BLUE CROSS [id number] STEPAR [id number] ANSI-Not a Secondary Insurance [id number] ANSI-Not a Secondary Insurance [id number] ANSI-Not a Secondary Insurance [id number] ANSI-Not a Secondary Insurance [id number] [facility] U/W Commercial [id number] Family Dependent VY [id number] [facility] U/W Commercial [id number] Family Dependent VY [id number] [employer] BCBS B [id number] C [id number] BCBS OF [facility] 306/806 [id number] [employer]CE[employer] BCBS FEDERAL [id number] BCBS OF [facility] 306/806 [id number] [id number] PROCLAIM [facility] [id number] FA [id number] [facility] [id number] FA [id number] SELF PAY UNAVAILABLE SP UNAVAILA BLE BCBS OF [facility] 306/806 [id number] FA [id number] BC [facility] [id number] [facility] TRANSITIONSAL LI 1 SP 1 [id number] [facility] [id number] SP [id number] [facility] [id number] SP [id number] Problems, Conditions, and Diagnoses Code Display Name Description Problem Type Effective Dates Data Source(s) F12.10 Cannabis abuse, uncomplicated Cannabis Use Disorder, M ild Condition 05/06/2021 12:00:00 AM EDT [facility] ([facility]) F17.290 Nicotine dependence, other tobacco produ ct, uncomplicated Nicotine dependence, other tobacco product, uncomplicated Condition 05/06 12:00:00 AM EDT [facility] ([facility]) F10.120 Alcohol abuse with intoxication, uncompl icated Alcohol abuse with intoxication, uncomplicated Condition 05/06/2021 12:00:00 AM EDT [facility] ([facility]) F31.31 Bipolar disorder, current episode depres sed, mild Bipolar I Disorder, Current or most recent episode depressed, Mild Condition 021 12:00:00 AM EDT [facility] ([facility]) Z68.44 [id number] BMI 60.0-69.9, adult Problem 12/28/2020 12:0 0:00 AM EDT eCW1 ([facility]) E11.9 [id number] Type 2 diabetes tana itus without complication, without long-term current use of insulin Problem 12/28/2020 12:00:00 AM EDT eCW1 ([facility]) E55.9 Vitamin D deficiency Vitamin D deficiency Problem 09/14/2020 12:00:00 AM EST eCW1 ([facility]) F10.19 Alcohol abuse with unspecified alcohol-i nduced disorder Alcohol abuse with unspecified alcohol-induced disorder Condition 09/09/2020 12:00:0 0 AM EST [facility] ([facility]) F17.290 Tobacco user Other tobacco product nicotine d ependence, uncomplicated Problem 09/07/2020 12:00:00 AM EST eCW1 ([facility]) Z68.44 [id number] Adult BMI 60.0-69.9 kg/sq m Problem 09/07/19 12:00:00 AM EST eCW1 ([facility]) F10.10 Alcohol abuse, uncomplicated Alcohol Use Disorder, Mil d Condition 06/11/2020 12:00:00 AM EST [facility] ([facility]) Surgeries/Procedures Procedure Description Date Indications Data Source(s) Extended Individual Psychotherapy - 45 min 05/06/2021 12:00:00 AM EDT - 05/06/2021 12:00:00 AM EDT [facility] ([facility]) Extended Individual Psychotherapy - 45 min 12:00:00 AM EDT [facility] ([facility]) Extended Individual Psychotherapy - 45 min 04/21/2021 12:00:00 AM EDT - 04/21/2021 12:00:00 AM EDT [facility] ([facility]) Extended Individual Psychotherapy - 45 min 12:00:00 AM EDT [facility] ([facility]) Extended Individual Psychotherapy - 45 min 04/15/2021 12:00:00 AM EDT - 04/15/2021 12:00:00 AM EDT [facility] ([facility]) Extended Individual Psychotherapy - 45 min 12:00:00 AM EDT [facility] ([facility]) Extended Individual Psychotherapy - 45 min 04/08/2021 12:00:00 AM EDT - 04/08/2021 12:00:00 AM EDT [facility] ([facility]) Extended Individual Psychotherapy - 45 min 12:00:00 AM EDT [facility] ([facility]) Extended Individual Psychotherapy - 45 min 03/18/2021 12:00:00 AM EDT - 03/18/2021 12:00:00 AM EDT [facility] ([facility]) Extended Individual Psychotherapy - 45 min 12:00:00 AM EDT [facility] ([facility]) Extended Individual Psychotherapy - 45 min 02/25/2021 12:00:00 AM EDT - 02/25/2021 12:00:00 AM EDT [facility] ([facility]) Extended Individual Psychotherapy - 45 min 12:00:00 AM EDT [facility] ([facility]) Extended Individual Psychotherapy - 45 min 02/03/2021 12:00:00 AM EDT - 02/03/2021 12:00:00 AM EDT [facility] ([facility]) Extended Individual Psychotherapy - 45 min 12:00:00 AM EDT [facility] ([facility]) Extended Individual Psychotherapy - 45 min 01/27/2021 12:00:00 AM EDT - 01/27/2021 12:00:00 AM EDT [facility] ([facility]) Extended Individual Psychotherapy - 45 min 12:00:00 AM EDT [facility] ([facility]) Extended Individual Psychotherapy - 45 min 01/20/2021 12:00:00 AM EDT - 01/20/2021 12:00:00 AM EDT [facility] ([facility]) Extended Individual Psychotherapy - 45 min 12:00:00 AM EDT [facility] ([facility]) MHCTelemed E/M Lvl 4--Est pt 01/04/2021 12:00:00 AM EDT - 01/04/2021 12:00:00 AM EDT [facility] ([facility]) MHCTelemed E/M Lvl 4--Est pt 01/04/2021 12:00:00 AM ED T [facility] ([facility]) Extended Individual Psychotherapy - 45 min 12/30/2020 12:00:00 AM EDT - 12/30/2020 12:00:00 AM EDT [facility] ([facility]) Extended Individual Psychotherapy - 45 min 12:00:00 AM EDT [facility] ([facility]) Extended Individual Psychotherapy - 45 min 12/24/2020 12:00:00 AM EDT - 12/24/2020 12:00:00 AM EDT [facility] ([facility]) Extended Individual Psychotherapy - 45 min 12:00:00 AM EDT [facility] ([facility]) Extended Individual Psychotherapy - 45 min 12/17/2020 12:00:00 AM EDT - 12/17/2020 12:00:00 AM EDT [facility] ([facility]) Extended Individual Psychotherapy - 45 min 12:00:00 AM EDT [facility] ([facility]) TEMPMHCTelemed--Crisis Brief 12/15/2020 12:00:00 AM EDT - 12/15/2020 12:00:00 AM EDT [facility] ([facility]) TEMPMHCTelemed--Crisis Brief 12/13/2020 12:00:00 AM ED T [facility] ([facility]) Extended Individual Psychotherapy - 45 min 12/10/2020 12:00:00 AM EDT - 12/10/2020 12:00:00 AM EDT [facility] ([facility]) Extended Individual Psychotherapy - 45 min 12:00:00 AM EDT [facility] ([facility]) MHC Telemed E/M Lvl 3--Est pt 12/07/2020 12:00:00 AM EDT - 12/07/2020 12:00:00 AM EDT [facility] ([facility]) MHC Telemed E/M Lvl 3--Est pt 12/07/2020 12:00:00 AM E DT [facility] ([facility]) Extended Individual Psychotherapy - 45 min 11/25/2020 12:00:00 AM EDT - 11/25/2020 12:00:00 AM EDT [facility] ([facility]) Extended Individual Psychotherapy - 45 min 12:00:00 AM EDT [facility] ([facility]) Extended Individual Psychotherapy - 45 min 11/19/2020 12:00:00 AM EDT - 11/19/2020 12:00:00 AM EDT [facility] ([facility]) Extended Individual Psychotherapy - 45 min 12:00:00 AM EDT [facility] ([facility]) Extended Individual Psychotherapy - 45 min 10/07/2020 12:00:00 AM EST - 10/07/2020 12:00:00 AM EST [facility] ([facility]) Extended Individual Psychotherapy - 45 min 12:00:00 AM EST [facility] ([facility]) Extended Individual Psychotherapy - 45 min 09/23/2020 12:00:00 AM EST - 09/23/2020 12:00:00 AM EST [facility] ([facility]) Extended Individual Psychotherapy - 45 min 1 12:00:00 AM EST [facility] ([facility]) Extended Individual Psychotherapy - 45 min 09/09/2020 12:00:00 AM EST - 09/09/2020 12:00:00 AM EST [facility] ([facility]) MHC Telemed E/M Lvl 3--Est pt 09/09/2020 12:00:00 AM EST - 09/09/2020 12:00:00 AM EST [facility] ([facility]) MHC Telemed E/M Lvl 3--Est pt 09/09/2020 12:00:[address] [facility] ([facility]) Extended Individual Psychotherapy - 45 min 1 12:00:00 AM EST [facility] ([facility]) Extended Individual Psychotherapy - 45 min 07/22/2020 12:00:00 AM EST - 07/22/2020 12:00:00 AM EST [facility] ([facility]) Extended Individual Psychotherapy - 45 min 0 12:00:00 AM EST [facility] ([facility]) Extended Individual Psychotherapy - 45 min 07/09/2020 12:00:00 AM EST - 07/09/2020 12:00:00 AM EST [facility] ([facility]) Extended Individual Psychotherapy - 45 min 0 12:00:00 AM EST [facility] ([facility]) Extended Individual Psychotherapy - 45 min 06/11/2020 12:00:00 AM EST - 06/11/2020 12:00:00 AM EST [facility] ([facility]) Extended Individual Psychotherapy - 45 min 0 12:00:00 AM EST [facility] ([facility]) [id number]"Psychotherapy 0 12:00:00 AM EDT - 05/21/2020 12:00:00 AM EDT [facility] ([facility]) [id number]"Psychotherapy 05/21/2020 12:00:00 AM EDT [facility] ([facility]) [id number]"Psychotherapy 0 12:00:00 AM EDT - 05/14/2020 12:00:00 AM EDT [facility] ([facility]) [id number]"Psychotherapy 05/14/2020 12:00:00 AM EDT [facility] ([facility]) [id number]"Psychotherapy 0 12:00:00 AM EDT - 04/30/2020 12:00:00 AM EDT [facility] ([facility]) [id number]"Psychotherapy 04/30/2020 12:00:00 AM EDT [facility] ([facility]) [id number]"Psychotherapy 0 12:00:00 AM EDT - 04/26/2020 12:00:00 AM EDT [facility] ([facility]) [id number]"Psychotherapy 04/23/2020 12:00:00 AM EDT [facility] ([facility]) Results ID Date Data Source LIPID PANEL (CARDIAC RISK) 09/07/2020 12:00:00 AM EST eCW1 ( [facility]) Name Value Range Interpretation Code Description Data Edwige rce(s) Supporting Document(s) Cholesterol [Moles/volume] in Serum or Plasma 175 <200 CHOLESTEROL LEVEL eCW1 ([facility]) Triglyceride [Mass/volume] in Serum or Plasma by calculation 301 <150 TRIGLYCERIDES LEVEL eCW1 ([facility]) Cholesterol in HDL [Moles/volume] in Serum or Plasma 35 >40 HDL CHOLESTEROL eCW1 ([facility]) 5.000 <5 CHOLESTEROL RISK RATIO eCW1 ([facility]) Cholesterol in LDL [Mass/volume] in Serum or Plasma by calculation 80 <100 LDL CHOLESTEROL eCW1 ([facility]) 140 NON-HDL-C eCW1 ([facility]) ID Date Data Source MAGNESIUM LEVEL 09/07/2020 12:00:00 AM EST eCW1 ([facility]) Name Value Range Interpretation Code Description Data Edwige rce(s) Supporting Document(s) 2.3 1.8-2.4 eCW1 ([facility]) ID Date Data Source VITAMIN D [id number] 09/07/2020 12:00:00 AM EST eCW1 ([facility]) Name Value Range Interpretation Code Description Data Edwige rce(s) Supporting Document(s) 24.4 30.0-100.0 eCW1 ([facility]) ID Date Data Source [id number] 09/07/2020 12:00:00 AM EST eCW1 ([facility]) Name Value Range Interpretation Code Description Data Edwige rce(s) Supporting Document(s) Hemoglobin A1c/Hemoglobin.total in Blood 6.2 eCW1 ([facility]) ID Date Data Source FREE T4 & TSH PANEL 09/07/2020 12:00:00 AM EST eCW1 ([facility]) Name Value Range Interpretation Code Description Data Edwige rce(s) Supporting Document(s) 2.230 0.358-3.740 eCW1 ([facility]) 0.96 0.76-1.46 eCW1 ([facility]) ID Date Data Source Comprehensive Metabolic Profile (CMP) 09/07/2020 12:00:00 AM EST eCW1 ([facility]) Name Value Range Interpretation Code Description Data Edwige rce(s) Supporting Document(s) 137 70-100 GLUCOSE, FASTING eCW1 ([facility]) 0.96 0.70-1.30 CREATININE FOR GFR eCW1 ([facility]) 4.7 3.5-5.1 POTASSIUM SERUM eCW1 ([facility]) > 60.0 >60 GLOMERULAR FILTRATION RATE eCW 1 ([facility]) 140 136-145 SODIUM LEVEL eCW1 ([facility]) 21 7-18 BLOOD UREA NITROGEN eCW1 ([facility]) 28 21-32 CARBON DIOXIDE LEVEL eCW1 ([facility]) 27 7-37 AST/SGOT eCW1 ([facility]) 103 98-107 CHLORIDE LEVEL eCW1 ([facility]) 9.2 8.5-10.1 CALCIUM LEVEL eCW1 ([facility]) 49 12-78 ALT/SGPT eCW1 ([facility]) 84 45-117 ALKALINE PHOSPHATASE eCW1 ([facility]) 6.8 6.4-8.2 TOTAL PROTEIN eCW1 ([facility]) 1.2 ALBUMIN/GLOBULIN RATIO eCW1 ([facility]) 0.2 0.2-1.0 BILIRUBIN,TOTAL eCW1 ([facility]) 3.7 3.2-5.2 ALBUMIN eCW1 ([facility]) Procedure Social History Code Duration Value Status Description Data Source(s ) Smoking 05/06/2021 12:00:00 AM EDT Unknown if ever smoked comp leted Unknown if ever smoked [facility] ([facility]) Smoking 04/21/2021 12:00:00 AM EDT Former Smoker completed Former Smoker eCW1 ([facility]) Smoking 04/21/2021 12:00:00 AM EDT Unknown if ever smoked comp leted Unknown if ever smoked [facility] ([facility]) Smoking 04/15/2021 12:00:00 AM EDT Unknown if ever smoked comp leted Unknown if ever smoked [facility] ([facility]) Smoking 04/08/2021 12:00:00 AM EDT Unknown if ever smoked comp leted Unknown if ever smoked [facility] ([facility]) Smoking 03/18/2021 12:00:00 AM EDT Unknown if ever smoked comp leted Unknown if ever smoked [facility] ([facility]) Smoking 02/25/2021 12:00:00 AM EDT Unknown if ever smoked comp leted Unknown if ever smoked [facility] ([facility]) Smoking 02/03/2021 12:00:00 AM EDT Unknown if ever smoked comp leted Unknown if ever smoked [facility] ([facility]) Smoking 01/27/2021 12:00:00 AM EDT Unknown if ever smoked comp leted Unknown if ever smoked [facility] ([facility]) Smoking 01/20/2021 12:00:00 AM EDT Unknown if ever smoked comp leted Unknown if ever smoked [facility] ([facility]) Smoking 01/18/2021 12:00:00 AM EDT Former Smoker completed Former Smoker eCW1 ([facility]) Smoking 01/18/2021 12:00:00 AM EDT Former Smoker completed Former Smoker eCW1 ([facility]) Smoking 01/18/2021 12:00:00 AM EDT Former Smoker completed Former Smoker eCW1 ([facility]) Smoking 01/18/2021 12:00:00 AM EDT Former Smoker completed Former Smoker eCW1 ([facility]) Smoking 01/04/2021 12:00:00 AM EDT Unknown if ever smoked comp leted Unknown if ever smoked [facility] ([facility]) Smoking 12/30/2020 12:00:00 AM EDT Unknown if ever smoked comp leted Unknown if ever smoked [facility] ([facility]) Smoking 12/28/2020 12:00:00 AM EDT Former Smoker completed Former Smoker eCW1 ([facility]) Smoking 12/24/2020 12:00:00 AM EDT Unknown if ever smoked comp leted Unknown if ever smoked [facility] ([facility]) Smoking 12/17/2020 12:00:00 AM EDT Unknown if ever smoked comp leted Unknown if ever smoked [facility] ([facility]) Smoking 12/15/2020 12:00:00 AM EDT Unknown if ever smoked comp leted Unknown if ever smoked [facility] ([facility]) Smoking 12/10/2020 12:00:00 AM EDT Unknown if ever smoked comp leted Unknown if ever smoked [facility] ([facility]) Smoking 12/07/2020 12:00:00 AM EDT Unknown if ever smoked comp leted Unknown if ever smoked [facility] ([facility]) Smoking 11/25/2020 12:00:00 AM EDT Unknown if ever smoked comp leted Unknown if ever smoked [facility] ([facility]) Smoking 11/19/2020 12:00:00 AM EDT Unknown if ever smoked comp leted Unknown if ever smoked [facility] ([facility]) Smoking 10/07/2020 12:00:00 AM EST Unknown if ever smoked comp leted Unknown if ever smoked [facility] ([facility]) Smoking 09/23/2020 12:00:00 AM EST Unknown if ever smoked comp leted Unknown if ever smoked [facility] ([facility]) Smoking 09/14/2020 12:00:00 AM EST Former Smoker completed Former Smoker eCW1 ([facility]) Smoking 09/09/2020 12:00:00 AM EST Unknown if ever smoked comp leted Unknown if ever smoked [facility] ([facility]) Smoking 09/07/2020 12:00:00 AM EST Former Smoker completed Former Smoker eCW1 ([facility]) Smoking 07/22/2020 12:00:00 AM EST Unknown if ever smoked comp leted Unknown if ever smoked [facility] ([facility]) Smoking 07/09/2020 12:00:00 AM EST Unknown if ever smoked comp leted Unknown if ever smoked [facility] ([facility]) Smoking 06/11/2020 12:00:00 AM EST Unknown if ever smoked comp leted Unknown if ever smoked [facility] ([facility]) Smoking 05/21/2020 12:00:00 AM EDT Unknown if ever smoked comp leted Unknown if ever smoked [facility] ([facility]) Smoking 05/14/2020 12:00:00 AM EDT Unknown if ever smoked comp leted Unknown if ever smoked [facility] ([facility]) Smoking 04/30/2020 12:00:00 AM EDT Unknown if ever smoked comp leted Unknown if ever smoked [facility] ([facility]) Smoking 04/26/2020 12:00:00 AM EDT Unknown if ever smoked comp leted Unknown if ever smoked [facility] ([facility]) Vital Signs ID Date Data Source UNK Name Value Range Interpretation Code Description Data Source(s) Body weight 455 [lb_av] 455 [lb_av] eCW1 ([facility]) Body height 73 [in_i] 73 [in_i] eCW1 ([facility]) Body mass index (BMI) [Ratio] 60.02 kg/m2 60.02 kg/m2 eCW1 ([facility]) Heart rate 88 /min 88 /min eCW1 ([facility]) Respiratory rate 20 /min 20 /min eCW1 ([facility]) Body temperature 97 [degF] 97 [degF] eCW1 ([facility]) Systolic blood pressure 140 mm[Hg] 140 mm[Hg] e CW1 ([facility]) Diastolic blood pressure 80 mm[Hg] 80 mm[Hg] eCW1 ([facility]) Body weight 483 [lb_av] 483 [lb_av] eCW1 ([facility]) Body height 73 [in_i] 73 [in_i] eCW1 ([facility]) Body mass index (BMI) [Ratio] 63.72 kg/m2 63.72 kg/m2 eCW1 ([facility]) Heart rate 88 /min 88 /min eCW1 ([facility]) Respiratory rate 22 /min 22 /min eCW1 ([facility]) Body temperature 97 [degF] 97 [degF] eCW1 ([facility]) Systolic blood pressure 140 mm[Hg] 140 mm[Hg] e CW1 ([facility]) Diastolic blood pressure 80 mm[Hg] 80 mm[Hg] eCW1 ([facility]) [place] body weight 184 [lb_av] 184 [lb_av] MEDEN T ([facility], ) Body weight 222.264 kg 222.264 kg [facility] ([facility], ) Body surface area Derived from formula 3.15 m2 3.15 m2 MED[facility] ([facility], ) Heart rate 95 /min 95 /min [facility] ([facility], ) Oxygen saturation in Arterial blood by Pulse oximetry 98 % 98 % [facility] ([facility], ) Body height 73 [in_i] 73 [in_i] [facility] 6'1" Body weight 490.00 [lb_av] 490.00 [lb_av] MEDEN T ([facility], ) Body mass index (BMI) [Ratio] 64.6 kg/m2 64.6 k g/m2 MEDENT ([facility], ) Systolic blood pressure 140 mm[Hg] 140 mm[Hg] M EDENT ([facility], ) Diastolic blood pressure 90 mm[Hg] 90 mm[Hg] [facility] ([facility], ) Body height 0.00 in Normal (applies to non-numeric resu lts) 0.00 in [facility] ([facility]) Body weight Measured 0.00 lbs Normal (applies to n on-numeric results) 0.00 lbs [facility] ([facility]) Body mass index (BMI) [Ratio] 0.00 kg/m2 No rmal (applies to non-numeric results) 0.00 kg/m2 [facility] ([facility]) Systolic blood pressure 0 mm[Hg] Normal (applies t o non-numeric results) 0 mm[Hg] [facility] ([facility]) Diastolic blood pressure 0 mm[Hg] Normal (applies to non-numeric results) 0 mm[Hg] [facility] ([facility]) Body weight 488 [lb_av] 488 [lb_av] eCW1 ([facility]) Body height 73 [in_i] 73 [in_i] eCW1 ([facility]) Body mass index (BMI) [Ratio] 64.38 kg/m2 64.38 kg/m2 eCW1 ([facility]) Heart rate 88 /min 88 /min eCW1 ([facility]) Respiratory rate 22 /min 22 /min eCW1 ([facility]) Body temperature 98.2 [degF] 98.2 [degF] eCW1 ( [facility]) Systolic blood pressure 140 mm[Hg] 140 mm[Hg] e CW1 ([facility]) Diastolic blood pressure 80 mm[Hg] 80 mm[Hg] eCW1 ([facility]) Body height 0.00 in Normal (applies to non-numeric resu lts) 0.00 in [facility] ([facility]) Body weight Measured 0.00 lbs Normal (applies to n on-numeric results) 0.00 lbs [facility] ([facility]) Body mass index (BMI) [Ratio] 0.00 kg/m2 No rmal (applies to non-numeric results) 0.00 kg/m2 [facility] ([facility]) Systolic blood pressure 0 mm[Hg] Normal (applies t o non-numeric results) 0 mm[Hg] [facility] ([facility]) Diastolic blood pressure 0 mm[Hg] Normal (applies to non-numeric results) 0 mm[Hg] [facility] ([facility]) Body weight 469 [lb_av] 469 [lb_av] eCW1 ([facility]) Body height 73 [in_i] 73 [in_i] eCW1 ([facility]) Body mass index (BMI) [Ratio] 61.87 kg/m2 61.87 kg/m2 W1 ([facility]) Heart rate 90 /min 90 /min eCW1 ([facility]) Respiratory rate 22 /min 22 /min eCW1 ([facility]) Body temperature 97.4 [degF] 97.4 [degF] eCW1 ( [facility]) Systolic blood pressure 140 mm[Hg] 140 mm[Hg] e CW1 ([facility]) Diastolic blood pressure 80 mm[Hg] 80 mm[Hg] eCW1 ([facility]) Body mass index (BMI) [Ratio] 0.00 kg/m2 No rmal (applies to non-numeric results) 0.00 kg/m2 [facility]) Systolic blood pressure 0 mm[Hg] Normal (applies t o non-numeric results) 0 mm[Hg] [facility] ([facility]) Diastolic blood pressure 0 mm[Hg] Normal (applies to non-numeric results) 0 mm[Hg] [facility]) Body height 0.00 in Normal (applies to non-numeric resu lts) 0.00 in [facility] ([facility]) Body weight Measured 0.00 lbs Normal (applies to n on-numeric results) 0.00 lbs [facility] ([facility]) Heart rate 90 /min 90 /min eCW1 ([facility]) Body mass index (BMI) [Ratio] 62.53 kg/m2 62.53 kg/m2 eCW1 ([facility]) Body temperature 97 [degF] 97 [degF] eCW1 ([facility]) Body weight 474 [lb_av] 474 [lb_av] eCW1 ([facility]) Body height 73 [in_i] 73 [in_i] eCW1 ([facility]) Respiratory rate 20 /min 20 /min eCW1 ([facility]) Systolic blood pressure 130 mm[Hg] 130 mm[Hg] e CW1 ([facility]) Diastolic blood pressure 80 mm[Hg] 80 mm[Hg] eCW1 ([facility]) Patient Treatment Plan of Care Planned Activity Planned Date Details Description Data Source (s) Docusate Sodium 100 MG Oral Capsule [Colace] 02/01/2021 12:00:00 AM EDT eCW1 ([facility]) Docusate Sodium 100 MG Oral Capsule [Colace] 02/01/2021 12:00:00 AM EDT eCW1 ([facility]) Betamethasone 0.5 MG/ML / Clotrimazole 10 MG/ML Topica l Cream 01/18/2021 12:00:00 AM EDT eCW1 ([facility]) Betamethasone 0.5 MG/ML / Clotrimazole 10 MG/ML Topica l Cream 01/18/2021 12:00:00 AM EDT eCW1 ([facility]) Betamethasone 0.5 MG/ML / Clotrimazole 10 MG/ML Topica l Cream 01/18/2021 12:00:00 AM EDT eCW1 ([facility]) Betamethasone 0.5 MG/ML / Clotrimazole 10 MG/ML Topica l Cream 01/18/2021 12:00:00 AM EDT eCW1 ([facility]) 24 HR Metformin hydrochloride 500 MG Extended Release Oral Tablet 12/28/2020 12:00:00 AM EDT eCW1 ([facility]) Vitamin D3 125 MCG (5000 UT) 09/14/2020 12:00:00 AM EST eCW1 ([facility]) Vitamin D3 125 MCG (5000 UT) 09/14/2020 12:00:00 AM EST eCW1 ([facility])
--- OUTSIDE RECORDS SUMMARY | 2021-06-17 17:01 | CCD ---
Author Author Trae Hameed Organization Unknown Address [address] [place] [address] Phone Care Team Providers Care Control Room Helper Name Role Phone Henny Hameed PCP Allergies, Adverse Reactions, Alerts Concept Allergy Name Reaction Severity Onset Date Status Documentation Date Phone Number Npid Taxonomy Code Taxonomy Desc Author Last Name Author Fi rst Name Concept Type 223847 lithium carbonate unspecified 07/08/2015 Active 015 [id number] [facility] 033784 Zyprexa unspecified 07/08/2015 Active 07/08/2015 [id number] [facility] 991904 Lamictal rash 07/08/2015 Active 07/08/2015 [id number] [facility] 491 Sulfa (Sulfonamide Antibiotics) Group unspecified Ac tive 12/01/2014 [facility] Problem List Concept Problem Description Status Start Date Created Date Resolv ed Date Snomed Code F31.31 Bipolar I Disorder, Current or most rece nt episode depressed, Mild Active 06/05/2018 06/05/2018 F10.120 Alcohol abuse with intoxication, uncomplicated Active 04/21/2021 F17.290 Nicotine dependence, other tobacco product, uncomplica kamille Active 04/21/2021 F12.10 Cannabis Use Disorder, Mild Active 04/21/2021 Medications Rx Norm Medication Route Route Concept Start Date Stop Date Dosage García quency Duration Formula Strength Dosage Form Dosage Form Code Dosage Description Medication Id Account Npid Author First Name Author Last Name Taxonomy Code Taxonomy Desc Phone Number [id number] Vraylar by mouth [id number] 03/15/2021 05/12/2021 every other day 30 1.5 mg capsule 41317 [id number] Brian Franks [id number] Psychia try [id number] Vraylar by mouth [id number] 03/15/2021 05/12/2021 every night 30 3 mg capsule 49244 [id number] Brian Franks [id number] Psychia try [id number] 045874 Strattera by mouth [id number] 02/01/2021 06/11/2021 every morning 30 80 mg capsule 34720 [id number] Brian Joyarez [id number] Psychia try [id number] Social History Social History Element Description Concept Effective Date Smoking Status Unknown if ever smoked [id number] Immunizations No Data in Section Vital Signs No Data in Section Procedures Date Concept Id Description Targeted Site Concept Targeted Site Concept Type 04/21/2021 00859 Extended Individual Psychotherapy - 45 min CPT Patient has no history of implantable de vices Encounters Encounter Start Date End Date Encounter Type Description Diagnosis Di agnosis Desc Location Author First Name Author Last Name Npid Taxonomy Cod e Taxonomy Desc Phone Number Location Addr1 Location Addr2 Location City Location Sta te Location Zip [id number] 04/21/2021 04/21/2021 37774 Extended Individual Psych otherapy - 45 min F31.31 Bipolar Disorder, Current Episode Depressed, Mild Comm [facility] [id number] Room Service Waiter [id number] [phone] [phone] Plan of Treatment No Data in Section Lab Results No Data in Section Instructions No Data in Section Insurance Providers Insurance Id Policy Effective Date Policy Thru Date Company N jeyson [id number] [facility]
--- OUTSIDE RECORDS SUMMARY | 2021-06-17 17:01 | CCD ---
Author Author [facility] Organization [facility] Address Unknown Phone Unavailable Care Team Providers Care Transporter Driver Name Role Phone Anne Nguyen Unavailable PROBLEMS Type Condition ICD9-CM Code [id number] Code Onset Dates Condition S tatus W/U Status Risk SNOMED Code Notes Problem Bipolar disorder with depression F31.30 Active confirmed 192839446 Problem Hypertension, unspecified type I10 Active confir med 81362001 Problem Morbid (severe) obesity due to excess calories E66 .01 Active confirmed 35094534482731 Problem Daytime somnolence R40.0 Active confirmed 1 40365823714 Problem 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 Active confirmed 398 779495 Problem CRISTIAN (obstructive sleep apnea) G47.33 Active confirm ed 81001263 Problem BMI 50.0-59.9, adult Z68.43 Active confirmed 899246363 Problem Type 2 diabetes mellitus wit hout complication, without long-term current use of insulin E11.9 Active confirmed 736868441 Problem Body mass index (BMI) of 45.0-49.9 in adult Z68.42 Active confirmed 257978376 Problem BMI 60.0-69.9, adult Z68.44 Active confirmed 439793783 Problem Gastroesophageal reflux disease, esophagitis pre sence not specified K21.9 Active confirmed 471114064 Problem Mixed hyperlipidemia E78.2 Active confirmed 668728861 Problem Pre-diabetes R73.03 Active confirmed 7803422 02 Problem Other tobacco product nicotine dependence, uncomplicated F17.290 Active confirmed 643963188 Problem Vitamin D deficiency E55.9 Active confirmed 53654175 ALLERGIES Allergen (clinical drug ingredient) Drug/Non Drug Allergy do cumented on EMR Reaction Allergy Type Onset Date Status Sulfa (for allergy use only) infant reaction- hives Drug A llergy Active Dog dander dog dander runny nose, itchy eyes Non Drug Allergy Active ENCOUNTERS from 1992 to 2021-04-25 Encounter Location Date Provider Diagnosis [facility] [address] [facility] [phone] [place] [address] 16 Apr, 2021 Anne Nguyen Type 2 diabetes mellitus wit hout complication, without long-term current use of insulin E11.9 ; Mixed hyperlipidemia E78.2 ; Hypertension, unspecified type I10 ; Gastroesophageal reflux disease, esophagitis presence not specified K21.9 ; Vitamin D deficiency E55.9 ; Morbid (severe) obesity due to excess calories E66.01 and BMI 60.0-69.9, adult Z68.44 IMMUNIZATIONS Vaccine Route Administration Date Status COVID-19 dose #2 given elsewhere Unspecified Unknown December 28, 2020 Administered COVID-19 dose #1 given elsewhere Unspecified Unknown December 28, 2020 Administered Influenza 18 yrs & older Flublok IM Intramuscular Sep 25, 2019 Administered SOCIAL HISTORY Tobacco Use: Social History Observation Description Date Details (start date - stop date) Former Smoker Sex Assigned At : Social History Observation Description Sex Assigned At Unknown Education: Question Answer Notes Level of Education: College Audit Question Answer Notes Total Score: 0 Interpretation: Alcohol Education Language: Question Answer Notes Languages spoken: Icelandic [facility]: Question Answer Notes [employer] Sexual Hx: Question Answer Notes Had sex in the last 12 months (vaginal, oral, or anal)? Yes Have you ever had an STD? No Prevention Strategies discussed: Condoms with Women only Use protection? No Drug and Alcohol Question Answer Notes Total Score: 0 Interpretation: No problems reported BMI Care Goal Follow-Up Question Answer Notes Above Normal BMI Follow-Up Giving encouragement to exercise Tobacco Use: Question Answer Notes Are you a: former smoker How long has it been since you last smoked? 1-5 years REASON FOR REFERRAL from 1992 to 2021-04-25 Reason please eval for MNT for type 2 DM with HTN, HLD and morbid obesity Diagnosis 1 Type 2 diabetes mellitus wit hout complication, without long-term current use of insulin (E11.9) Referral Organization [facility] Referring Provider First Name Referring Provider Last Name Nguyen Referring Provider Specialty Family Medicine Referred Organization [facility] Referred Provider Veronica Campos Referred Address [address] [facility] [facility],,[place], [place],[address] Referred Provider Specialty Nutrition Referral Priority Routine VITAL SIGNS Weight 455 lbs Apr, Height 73 in Apr, BMI 60.02 kg/m2 Apr, Heart Rate 88 /min Apr, Respiratory Rate 20 /min Apr, Temperature 97 degrees Fahrenheit Apr, Oximetry 97 Apr, Blood pressure systolic 140 mm Hg Apr, Blood pressure diastolic 80 mm Hg Apr, MEDICATIONS Medication SIG (Take, Route, Frequency, Duration) Notes Start Da te End Date Status metFORMIN HCl ER 500 MG TAKE 2 TABLET BY MOUTH FOR X 1 WEEK, THEN 2 TABS WITH EVENING MEAL ONCE A DAY orally once daily Active Clotrimazole-Betamethasone 1-0.05 % 1 application to a ffected area of rectum Externally Twice a day for 14 day(s) Jan, Active Vitamin D3 125 MCG (5000 UT) 1 capsule Orally Once a day with a meal Active Colace 100 MG 1 capsule as needed Orally Once a day for 30 day (s) Jan, Active Losartan Potassium 100 1 tablet once a day oral 30 day(s) for 90 day( s) Active Omeprazole 40 MG take 1 capsule by mouth daily for 90 day(s) Active metFORMIN HCl ER 500 MG 2 tablets with evening meal Orally Once a day for 90 day(s) Active Vraylar 3 MG 1 capsule Orally Once a day. 1.5 every other day [facility] Active Strattera 80 MG 1 capsule in the morning Orally Once a day Active PROCEDURES No Information RESULTS No Results REASON FOR VISIT r/s 3 mo FU labs, HTN MEDICAL (GENERAL) HISTORY Type Description Date Medical History HTN Medical History Bioplar Disorder type 1 Medical History childhood asthma Medical History Sleep apnea Medical History GERD Medical History Mixed hyperlipidemia Medical History Pre-diabetes Medical History Vitamin D deficiency Medical History Other tobacco product nicotine dependenc e, uncomplicated Medical History Morbid (severe) obesity due to excess ca lories Medical History Type 2 DM Surgical History hydrocele repair- infant Surgical History ECT -[facility] 2013 Hospitalization History [facility]- dx bipolar disorder type1 Hospitalization History [facility] 2013 Hospitalization History [facility] 2014 Goals Section No Information Health Concerns No Information MEDICAL EQUIPMENT No Information MENTAL STATUS No Information FUNCTIONAL STATUS No Information ASSESSMENTS Encounter Date Diagnosis Assessment Notes Treatment Notes Treatm ent Clinical Notes Apr, Type 2 diabetes mellitus wit hout complication, without long-term current use of insulin (ICD-10 - E11.9) improved on med - advised to schedule eye exam Apr, Mixed hyperlipidemia (ICD-10 - E78.2) . We discussed the importance of lifestyle modifications to lower cardiovascular disease risk. These recommendations included eating a heart healthy diet, regular aerobic exercise and working towards a desirable body weight Apr, Hypertension, unspecified type (ICD-10 - I10) continue current med Apr, Gastroesophageal reflux dise ase, esophagitis presence not specified (ICD-10 - K21.9) Apr, Vitamin D deficiency (ICD-10 - E55.9) Apr, Morbid (severe) obesity due to excess calories ( ICD-10 - E66.01) diet & exercise reviewed with patient Apr, BMI 60.0-69.9, adult (ICD-10 - Z68.44) PLAN OF TREATMENT Medication Medication Name Sig Start Date Stop Date Omeprazole 40 MG take 1 capsule by mouth daily for 90 day(s) metFORMIN HCl ER 500 MG 2 tablets with evening meal Orally Once a day for 90 day(s) Losartan Potassium 100 1 tablet once a day oral 30 day(s) for 90 day(s) Vitamin D3 125 MCG (5000 UT) 1 capsule Orally Once a day with a meal Treatment Notes Assessment Notes Clinical Notes Type 2 diabetes mellitus without complic ation, without long-term current use of insulin improved on med - advised to schedule eye exam Mixed hyperlipidemia . We discussed the importanc e of lifestyle modifications to lower cardiovascular disease risk. These recommendations included eating a heart healthy diet, regular aerobic exercise and working towards a desirable body weight Hypertension, unspecified type continue current med Morbid (severe) obesity due to excess calories diet & exercise reviewed with patient Referrals Referral Date Details please eval for MNT for type 2 DM with HTN, HLD and morbid obesity, Veronica Campos, [address] [place], [phone], Next Appt Details 3 months - transfer care Reason: Insurance Providers Payer Name Payer Address Payer Phone Insured Name Patient Relati onship to Insured Coverage Start Date Coverage End Date [facility] [address] [facility] [phone] KATHERYN BLACKMON self
[2021-06-17] MEDS ORDERED: METF-838 PO (17:22)
[2021-06-17] MEDS ORDERED: LOSARTAN 50MG TABLET PO ONE (23:30)
[2021-06-17] MEDS ORDERED: OMEPRAZOLE 20 MG CAP PO ONE (23:30)
[2021-06-17] MEDS ORDERED: CARIPRAZINE 1.5MG CAPSULE (VRAYLAR) PO STA (23:42)
[2021-06-18] MEDS ORDERED: metFORMIN XR 500MG TAB *GLUCOPHAGE XR PO ONE (00:35)
[2021-06-18 01:32] LABS: HEMATOCRIT 45.4 % (42.0-52.0); HEMOGLOBIN 15.6 g/dl (13.5-17.5); MEAN CORPUSCULAR HEMOGLOBIN 29.8 pg (27.0-33.0); MEAN CORPUSCULAR HGB CONC 34.4 g/dl (32.0-36.5); MEAN CORPUSCULAR VOLUME 86.8 fl (80.0-96.0); PLATELET COUNT, AUTOMATED 278 10^3/uL (150-450); RED BLOOD COUNT 5.23 10^6/uL (4.30-6.10); WHITE BLOOD COUNT 11.3 10^3/uL (4.0-10.0)
[2021-06-18 02:04] LABS: ACETAMINOPHEN LEVEL < 2.0 UG/ML (10.0-30.0); ALBUMIN 3.9 GM/DL (3.2-5.2); ALT/SGPT 53 U/L (12-78); BILIRUBIN,DIRECT 0.1 MG/DL (0.0-0.2); BILIRUBIN,TOTAL 0.4 MG/DL (0.2-1.0); BLOOD UREA NITROGEN 11 MG/DL (7-18); CALCIUM LEVEL 9.3 MG/DL (8.5-10.1); CARBON DIOXIDE LEVEL 26 MEQ/L (21-32); CHLORIDE LEVEL 106 MEQ/L (98-107); CREATININE FOR GFR 0.91 MG/DL (0.70-1.30); GLOMERULAR FILTRATION RATE > 60.0 (>60); GLUCOSE, FASTING 147 MG/DL (70-100); POTASSIUM SERUM 3.3 MEQ/L (3.5-5.1); SALICYLATE LEVEL < 1.7 MG/DL (5.0-30.0); SODIUM LEVEL 140 MEQ/L (136-145)
[2021-06-18 02:05] LABS: ETHYL ALCOHOL (ETHANOL) < 0.003 % (0.000-0.010)
[2021-06-18 02:51] LABS: AMPHETAMINES LEVEL URINE NEGATIVE (NEGATIVE); BARBITURATES URINE NEGATIVE (NEGATIVE); BENZODIAZEPINES URINE NEGATIVE (NEGATIVE); CANNABINOIDS URINE POSITIVE (NEGATIVE); COCAINE METABOLITE URINE NEGATIVE (NEGATIVE); METHADONE URINE NEGATIVE (NEGATIVE); OPIATES URINE NEGATIVE (NEGATIVE); PHENCYCLIDINE URINE NEGATIVE (NEGATIVE)
--- OUTSIDE RECORDS SUMMARY | 2021-06-18 02:59 | CCD ---
Author Author [facility] Organization [facility] Address Unknown Phone Unavailable Care Team Providers Care Livestock Inspector Name Role Phone Laly Franks MD Unavailable Unavailable Laly Franks MD Unavailable Unavailable Laly Franks MD Unavailable Unavailable Laly Franks MD Unavailable Unavailable Zackary Denson Unavailable Zackary Denson Unavailable TERRI KRISS VIC ASSISTANT CORPORATION COUNSEL-C Unavailable Unavailable TERRI KRISS VIC ASSISTANT CORPORATION COUNSEL-C Unavailable Unavailable TERRI, KRISS VIC ASSISTANT CORPORATION COUNSEL-C Unavailable Unavailable TERRI, KRISS VIC ASSISTANT CORPORATION COUNSEL-C Unavailable Unavailable TERRI, KRISS VIC ASSISTANT CORPORATION COUNSEL-C Unavailable Unavailable TERRI, KRISS VIC ASSISTANT CORPORATION COUNSEL-C Unavailable Unavailable TERRI, KRISS VIC ASSISTANT CORPORATION COUNSEL-C Unavailable Unavailable TERRI, KRISS VIC ASSISTANT CORPORATION COUNSEL-C Unavailable Unavailable TERRI, KRISS VIC ASSISTANT CORPORATION COUNSEL-C Unavailable Unavailable TERRI, KRISS VIC ASSISTANT CORPORATION COUNSEL-C Unavailable Unavailable TERRI, KRISS VIC ASSISTANT CORPORATION COUNSEL-C Unavailable Unavailable TERRI, KRISS VIC ASSISTANT CORPORATION COUNSEL-C Unavailable Unavailable TERRI, KRISS VIC ASSISTANT CORPORATION COUNSEL-C Unavailable Unavailable TERRI, KRISS VIC ASSISTANT CORPORATION COUNSEL-C Unavailable Unavailable TERRI, KRISS VIC ASSISTANT CORPORATION COUNSEL-C Unavailable Unavailable TERRI, KRISS VIC ASSISTANT CORPORATION COUNSEL-C Unavailable Unavailable TERRI, KRISS VIC ASSISTANT CORPORATION COUNSEL-C Unavailable Unavailable Henny Hameed Unavailable Re-disclosure Warning [...] is protected by Article 27-F of the [facility] Public Health law. If you continue you may have access to information: Regarding HIV / AIDS; Provided by facilities licensed or operated by the [facility] Office of Mental Health; or Provided by the [facility] Office for People With Developmental Disabilities. If such information is present, then the following [facility] mandated warning applies: This information has been [...] law may result in a fine or intermediate sentence or both. A general authorization for the release of medical or other information is NOT sufficient authorization for further disc losure. Allergies and Adverse Reactions Type Description Substance Reaction Status Data Source(s ) Propensity to adverse reactions to substance Sulfa (Joy lfonamide Antibiotics) Group Sulfa (Sulfonamide Antibiotics) Group Active [facility] ([facility]) Propensity to adverse reactions to substance Lamictal lamotrigine 25 MG Oral Tablet [Lamictal] rash Active [facility] ([facility]) Propensity to adverse reactions to substance Zyprexa olanzapine 5 MG/ML Injectable Solution [Zyprexa] Active [facility] ([facility]) Propensity to adverse reactions to substance lithium carbon[place] Carbonate 150 MG Oral Capsule Active [facility] ([facility]) Propensity to adverse reactions to substance Sulfa (Joy lfonamide Antibiotics) Group Sulfa (Sulfonamide Antibiotics) Group Active [facility] ([facility]) Propensity to adverse reactions to substance Lamictal lamotrigine 25 MG Oral Tablet [Lamictal] rash Active [facility] ([facility]) Propensity to adverse reactions to substance Zyprexa olanzapine 5 MG/ML Injectable Solution [Zyprexa] Active [facility] ([facility]) Propensity to adverse reactions to substance lithium carbona [place] Carbonate 150 MG Oral Capsule Active [facility] ([facility]) Family History Family Member Name Family Member Gender Family Member Status Date o f Status Description Data Source(s) Unknown Male Problem [facility] ([facility]) Encounters Encounter Providers Location Date Indications Data Source(s ) Attender: Zackary Denson 05/06/2021 12:00:00 AM EDT [facility] ([facility]) Extended Individual Psychotherapy - 45 min Attender: Jayson Denson [facility] 05/03/2021 04:45:00 AM EDT - 05/03/2021 04:45:00 AM EDT [facility] ([facility]) Extended Individual Psychotherapy - 45 min Attender: Aguilar Hameed [facility] 04/21/2021 02:00:00 AM EDT - 04/21/2021 02:00:00 AM EDT [facility] ([facility]) [place] [address] [address] 04/21/2021 12:00:00 AM EDT eCW1 ([facility]) Attender: Henny Hameed 04/21/2021 12:00:00 AM EDT [facility] ([facility]) Attender: Henny Hameed 04/15/2021 12:00:00 AM EDT [facility] ([facility]) Extended Individual Psychotherapy - 45 min Attender: Aguilar Hameed [facility] 04/14/2021 02:00:00 AM EDT - 04/14/2021 02:00:00 AM EDT [facility] ([facility]) Attender: Henny Hameed 04/08/2021 12:00:00 AM EDT [facility] ([facility]) Extended Individual Psychotherapy - 45 min Attender: Aguilar vinay Hameed [facility] 04/07/2021 02:00:00 AM EDT - 04/07/2021 02:00:00 AM EDT [facility] ([facility]) Attender: Henny Hameed 03/18/2021 12:00:00 AM EDT [facility] ([facility]) Extended Individual Psychotherapy - 45 min Attender: Aguilar Hameed [facility] 03/17/2021 03:30:00 AM EDT - 03/17/2021 03:30:00 AM EDT [facility] ([facility]) [place] [address] [address] 02/28/2021 12:00:00 AM EDT eCW1 ([facility]) Attender: Henny Hameed 02/25/2021 12:00:00 AM EDT [facility] ([facility]) Extended Individual Psychotherapy - 45 min Attender: Aguilar Hameed [facility] 02/24/2021 02:00:00 AM EDT - 02/24/2021 02:00:00 AM EDT [facility] ([facility]) Extended Individual Psychotherapy - 45 min Attender: Aguilar Hameed [facility] 02/03/2021 02:00:00 AM EDT - 02/03/2021 02:00:00 AM EDT [facility] ([facility]) Attender: Henny Hameed 02/03/2021 12:00:00 AM EDT [facility] ([facility]) [place] [address] [address] 01/28/2021 12:00:00 AM EDT eCW1 ([facility]) Extended Individual Psychotherapy - 45 min Attender: Aguilar Hameed [facility] 01/27/2021 02:00:00 AM EDT - 01/27/2021 02:00:00 AM EDT [facility] ([facility]) Attender: Henny Thomsonan 01/27/2021 12:00:00 AM EDT [facility] ([facility]) Extended Individual Psychotherapy - 45 min Attender: Aguilar Hameed [facility] 01/20/2021 02:15:00 AM EDT - 01/20/2021 02:15:00 AM EDT [facility] ([facility]) Attender: Henny Thomsonan 01/20/2021 12:00:00 AM EDT [facility] ([facility]) [place] [address] [address] 01/18/2021 12:00:00 AM EDT eCW1 ([facility]) [place] [address] [address] 01/17/2021 12:00:00 AM EDT eCW1 ([facility]) Outpatient Attender: VIC Burk/Linwood/Geo/Walker gary 01/07/2021 11:15:00 AM EDT [facility] ([facility]) Outpatient Attender: Brian Franks MD [facility] Yonathan padron 01/04/2021 01:30:00 AM EDT - 01/04/2021 01:30:00 AM EDT [facility] ([facility]) Attender: Brian Franks MD 01/04/2021 12:00:00 AM EDT [facility] ([facility]) Extended Individual Psychotherapy - 45 min Attender: Aguilar Hameed [facility] 12/30/2020 02:00:00 AM EDT - 12/30/2020 02:00:00 AM EDT [facility] ([facility]) Attender: Henny Hameed 12/30/2020 12:00:00 AM EDT [facility] ([facility]) Outpatient [address] [id number] 12/28/2020 12:00:00 AM EDT eCW1 ([facility]) Attender: Henny Hameed 12/24/2020 12:00:00 AM EDT [facility] ([facility]) Extended Individual Psychotherapy - 45 min Attender: Aguilar Hameed [facility] 12/23/2020 02:00:00 AM EDT - 12/23/2020 02:00:00 AM EDT [facility] ([facility]) Attender: Henny Hameed 12/17/2020 12:00:00 AM EDT [facility] ([facility]) Extended Individual Psychotherapy - 45 min Attender: Aguilarisaac mclean Yoseph [facility] 12/16/2020 02:00:00 AM EDT - 12/16/2020 02:00:00 AM EDT [facility] ([facility]) Attender: Henny Hameed 12/15/2020 12:00:00 AM EDT [facility] ([facility]) TEMPMHCTelemed--Crisis Brief Attender: Henny Hameed [facility] 12/13/2020 01:40:00 AM EDT - 12/13/2020 01:40:00 AM EDT [facility] ([facility]) Attender: Henny Hameed 12/10/2020 12:00:00 AM EDT [facility] ([facility]) Extended Individual Psychotherapy - 45 min Attender: Aguilar Hameed [facility] 12/09/2020 02:00:00 AM EDT - 12/09/2020 02:00:00 AM EDT [facility] ([facility]) [facility] 12/07/2020 01:30:00 AM EDT - 12/07/2020 01:30:00 AM EDT [facility] ([facility]) Attender: Brian Franks MD 12/07/2020 12:00:00 AM EDT [facility] ([facility]) Extended Individual Psychotherapy - 45 min Attender: Aguilar Hameed [facility] 11/25/2020 02:00:00 AM EDT - 11/25/2020 02:00:00 AM EDT [facility] ([facility]) Attender: Henny Hameed 11/25/2020 12:00:00 AM EDT [facility] ([facility]) Attender: Henny Hameed 11/19/2020 12:00:00 AM EDT [facility] ([facility]) Extended Individual Psychotherapy - 45 min Attender: Aguilar Hameed [facility] 11/18/2020 02:00:00 AM EDT - 11/18/2020 02:00:00 AM EDT [facility] ([facility]) Attender: Henny Hameed 10/07/2020 12:00:00 AM EST [facility] ([facility]) Extended Individual Psychotherapy - 45 min Attender: Aguilar vinay Hameed [facility] 10/06/2020 05:00:00 AM EST - 10/06/2020 05:00:00 AM EST [facility] ([facility]) Attender: Henny Hameed 09/23/2020 12:00:00 AM EST [facility] ([facility]) Extended Individual Psychotherapy - 45 min Attender: Aguilarisaac mclean Yoseph [facility] 09/22/2020 05:00:00 AM EST - 09/22/2020 05:00:00 AM EST [facility] ([facility]) [place] [address] [address] 09/14/2020 12:00:00 AM EST [facility] Outpatient Attender: Brian Franks MD [facility] nere[facility] 09/09/2020 02:00:00 AM EST - 09/09/2020 02:00:00 AM EST [facility] ([facility]) Attender: Henny Hameed 09/09/2020 12:00:00 AM EST [facility] ([facility]) Attender: Brian Franks MD 09/09/2020 12:00:00 AM EST [facility] ([facility]) Extended Individual Psychotherapy - 45 min Attender: Aguilar Hameed [facility] 09/08/2020 05:15:00 AM EST - 09/08/2020 05:15:00 AM EST [facility] ([facility]) [place] [address] [address] 09/07/2020 12:00:00 AM EST [facility]CW1 [facility] [place] [address] [address] 08/24/2020 12:00:00 AM EST [facility]CW1 [facility] [place] [address] [place] [address] 08/02/2020 12:00:00 AM EST [facility]CW1 [facility] Attender: Henny Hameed 07/22/2020 12:00:00 AM EST [facility] ([facility]) Extended Individual Psychotherapy - 45 min Attender: Aguilar Hameed [facility] 07/21/2020 05:00:00 AM EST - 07/21/2020 05:00:00 AM EST [facility] ([facility]) Attender: Henny Hameed 07/09/2020 12:00:00 AM EST [facility] ([facility]) Extended Individual Psychotherapy - 45 min Attender: Aguilar Hameed [facility] 07/07/2020 05:00:00 AM EST - 07/07/2020 05:00:00 AM EST [facility] ([facility]) Attender: Henny Hameed 06/11/2020 12:00:00 AM EST [facility] ([facility]) Extended Individual Psychotherapy - 45 min Attender: Aguilar Hameed [facility] 06/10/2020 03:00:00 AM EST - 06/10/2020 03:00:00 AM EST [facility] ([facility]) [id number]"Psychotherapy Attender: Henny Yoseph [facility] 05/21/2020 01:15:00 AM EDT - 05/21/2020 01:15:00 AM EDT [facility] ([facility]) Attender: Henny Hameed 05/21/2020 12:00:00 AM EDT [facility] ([facility]) [id number]"Psychotherapy Attender: Henny Yoseph [facility] 05/14/2020 01:15:00 AM EDT - 05/14/2020 01:15:00 AM EDT [facility] ([facility]) Attender: Henny Hameed 05/14/2020 12:00:00 AM EDT [facility] ([facility]) [id number]"Psychotherapy Attender: Henny Thomsonan [facility] 04/30/2020 01:15:00 AM EDT - 04/30/2020 01:15:00 AM EDT [facility] ([facility]) Attender: Henny Hameed 04/30/2020 12:00:00 AM EDT [facility] ([facility]) Attender: Henny Hameed 04/26/2020 12:00:00 AM EDT [facility] ([facility]) [id number]"Psychotherapy Attender: Hennypilar Hameed [facility] 04/23/2020 01:15:00 AM EDT - 04/23/2020 01:15:00 AM EDT [facility] ([facility]) Functional Status Immunizations Vaccine Date Status Description Data Source(s) COVID-19 dose #2 given elsewhere Unspecified 12/28/2020 02:2 5:00 PM EDT completed eCW1 ([facility]) COVID-19 dose #2 given elsewhere Unspecified 12/28/2020 02:2 5:00 PM EDT completed eCW1 ([facility]) COVID-19 dose #2 given elsewhere Unspecified 12/28/2020 02:2 5:00 PM EDT completed eCW1 ([facility]) COVID-19 dose #2 given elsewhere Unspecified 12/28/2020 02:2 5:00 PM EDT completed eCW1 ([facility]) COVID-19 dose #2 given elsewhere Unspecified 12/28/2020 02:2 5:00 PM EDT completed eCW1 ([facility]) COVID-19 dose #2 given elsewhere Unspecified 12/28/2020 02:2 5:00 PM EDT completed eCW1 ([facility]) COVID-19 dose #1 given elsewhere Unspecified 12/28/2020 02:2 4:00 PM EDT completed eCW1 ([facility]) COVID-19 dose #1 given elsewhere Unspecified 12/28/2020 02:2 4:00 PM EDT completed eCW1 ([facility]) COVID-19 dose #1 given elsewhere Unspecified 12/28/2020 02:2 4:00 PM EDT completed eCW1 ([facility]) COVID-19 dose #1 given elsewhere Unspecified 12/28/2020 02:2 4:00 PM EDT completed eCW1 ([facility]) COVID-19 dose #1 given elsewhere Unspecified 12/28/2020 02:2 4:00 PM EDT completed eCW1 ([facility]) COVID-19 dose #1 given elsewhere Unspecified 12/28/2020 02:2 4:00 PM EDT completed eC1 ([facility]) COVID-19 VACCINE Moderna 12/18/2020 12:00:00 AM EDT completed NYSIIS Vaccine Series Complete: YESThis Data wa s Submitted to [facility] Via [employer]. COVID-19 VACCINE Moderna 11/20/2020 12:00:00 AM EDT completed NYSIIS Vaccine Series Complete: NOThis Data was Submitted to [facility] Via [employer]. Medications Medication Brand Name Start Date Product Form Dose Route Admi nistrative Instructions Pharmacy Instructions Status Indications Reaction Description Data Source(s) Vraylar Vraylar 03/15/2021 12:00:00 AM EDT 3 mg by mouth completed <td ID="MedicationRxNorm_2">[id number]</td><td ID="MedicationMedication_2">Vraylar</td><td ID="MedicationRoute_2">by mouth</td><td ID="MedicationRouteConcept_2">[id number]</td><td ID="MedicationStartDate_2">03/15/2021</td><td ID="MedicationStopDate_2">05/21/2021</td><td ID="MedicationDosageFrequency_2">every night</td><td ID="MedicationDuration_2">30</td><td ID="MedicationFormulaStrength_2">3 mg</td><td ID="MedicationDosageForm_2">capsule</td><td ID="MedicationDosageFormCode_2"></td><td ID="MedicationDosageDescription_2"></td><td ID="MedicationMedicationId_2">[id number]</td><td ID="MedicationAccount_2">[id number]</td><td ID="MedicationNpid_2">[id number]</td><td ID="MedicationAuthorFirstName_2">Trena</td><td ID="MedicationAuthorLastName_2">Rigo</td><td ID="MedicationTaxonomyCode_2">[id number]</td><td ID="MedicationTaxonomyDesc_2">Nurse Practitioner</td><td ID="MedicationPhoneNumber_2">[phone]</td> [facility] ([facility]) Vraylar Vraylar 03/15/2021 12:00:00 AM EDT 1.5 mg by mouth completed <td ID="MedicationRxNorm_1">[id number]</td><td ID="MedicationMedication_1">Vraylar</td><td ID="MedicationRoute_1">by mouth</td><td ID="MedicationRouteConcept_1">[id number]</td><td ID="MedicationStartDate_1">03/15/2021</td><td ID="MedicationStopDate_1">05/21/2021</td><td ID="MedicationDosageFrequency_1">every other day</td><td ID="MedicationDuration_1">30</td><td ID="MedicationFormulaStrength_1">1.5 mg</td><td ID="MedicationDosageForm_1">capsule</td><td ID="MedicationDosageFormCode_1"></td><td ID="MedicationDosageDescription_1"> </td><td ID="MedicationMedicationId_1">[id number]</td><td ID="MedicationAccount_1">[id number]</td><td ID="MedicationNpid_1">[id number]</td><td ID="MedicationAuthorFirstName_1">Trena</td><td ID="MedicationAuthorLastName_1">Rigo</td><td ID="MedicationTaxonomyCode_1">[id number]</td><td ID="MedicationTaxonomyDesc_1">Nurse Practitioner</td><td ID="MedicationPhoneNumber_1">[phone]</td> [facility] ([facility]) Docusate Sodium 100 MG Oral Capsule [Colace] Colace 100 MG C olace 100 MG 02/01/2021 12:00:00 AM EDT 1.0 {capsule_as_needed} active Colace 100 MG eCW1 ([facility]) Docusate Sodium 100 MG Oral Capsule [Colace] Colace 100 MG C olace 100 MG 02/01/2021 12:00:00 AM EDT 1.0 {capsule_as_needed} active Colace 100 MG eCW1 ([facility]) Docusate Sodium 100 MG Oral Capsule [Colace] Colace 100 MG C olace 100 MG 02/01/2021 12:00:00 AM EDT 1.0 {capsule_as_needed} active Colace 100 MG eCW1 ([facility]) atomoxetine 80 MG Oral Capsule [Strattera] Strattera 02/01 12:00:00 AM EDT 80 mg by mouth completed <td ID="Medic ationRxNorm_3">[id number]</td><td ID="MedicationMedication_3">Strattera</td><td ID="MedicationRoute_3">by mouth</td><td ID="MedicationRouteConcept_3">[id number]</td><td ID="MedicationStartDate_3">02/01/2021</td><td ID="MedicationStopDate_3">06/20/2021</td><td ID="MedicationDosageFrequency_3">every morning</td><td ID="MedicationDuration_3">30</td><td ID="MedicationFormulaStrength_3">80 mg</td><td ID="MedicationDosageForm_3">capsule</td><td ID="MedicationDosageFormCode_3"></td><td ID="MedicationDosageDescription_3"> </td><td ID="MedicationMedicationId_3">[id number]</td><td ID="MedicationAccount_3">[id number]</td><td ID="MedicationNpid_3">[id number]</td><td ID="MedicationAuthorFirstName_3">Trena</td><td ID="MedicationAuthorLastName_3">Rigo</td><td ID="MedicationTaxonomyCode_3">[id number]</td><td ID="MedicationTaxonomyDesc_3">Nurse Practitioner</td><td ID="MedicationPhoneNumber_3">[phone]</td> [facility] ([facility]) atomoxetine 80 MG Oral Capsule [Strattera] Strattera 02/01 12:00:00 AM EDT 80 mg by mouth completed <td ID="Medic ationRxNorm_1">[id number]</td><td ID="MedicationMedication_1">Strattera</td><td ID="MedicationRoute_1">by mouth</td><td ID="MedicationRouteConcept_1">[id number]</td><td ID="MedicationStartDate_1">02/01/2021</td><td ID="MedicationStopDate_1">04/02/2021</td><td ID="MedicationDosageFrequency_1">every morning</td><td ID="MedicationDuration_1">30</td><td ID="MedicationFormulaStrength_1">80 mg</td><td ID="MedicationDosageForm_1">capsule</td><td ID="MedicationDosageFormCode_1"></td><td ID="MedicationDosageDescription_1"> </td><td ID="MedicationMedicationId_1">[id number]</td><td ID="MedicationAccount_1">[id number]</td><td ID="MedicationNpid_1">[id number]</td><td ID="MedicationAuthorFirstName_1">Brian</td><td ID="MedicationAuthorLastName_1">Franks</td><td ID="MedicationTaxonomyCode_1">[id number]</td><td ID="MedicationTaxonomyDesc_1">Psychiatry</td><td ID="MedicationPhoneNumber_1">[phone]</td> [facility] ([facility]) Betamethasone 0.5 MG/ML / Clotrimazole 1 0 MG/ML Topical Cream Clotrimazole- Betamethasone 1-0.05 % Clotrimazole-Betamethasone 1-0.05 % 01/18/2021 12:00:0 0 AM EDT active Clotrimazole-Beta methasone 1-0.05 % eCW1 ([facility]) Betamethasone 0.5 MG/ML / Clotrimazole 1 0 MG/ML Topical Cream Clotrimazole- Betamethasone 1-0.05 % Clotrimazole-Betamethasone 1-0.05 % 01/18/2021 12:00:0 0 AM EDT active Clotrimazole-Beta methasone 1-0.05 % eCW1 ([facility]) Betamethasone 0.5 MG/ML / Clotrimazole 1 0 MG/ML Topical Cream Clotrimazole- Betamethasone 1-0.05 % Clotrimazole-Betamethasone 1-0.05 % 01/18/2021 12:00:0 0 AM EDT active Clotrimazole-Beta methasone 1-0.05 % eCW1 ([facility]) Betamethasone 0.5 MG/ML / Clotrimazole 1 0 MG/ML Topical Cream Clotrimazole- Betamethasone 1-0.05 % Clotrimazole-Betamethasone 1-0.05 % 01/18/2021 12:00:0 0 AM EDT active Clotrimazole-Beta methasone 1-0.05 % eCW1 ([facility]) Betamethasone 0.5 MG/ML / Clotrimazole 1 0 MG/ML Topical Cream Clotrimazole- Betamethasone 1-0.05 % Clotrimazole-Betamethasone 1-0.05 % 01/18/2021 12:00:0 0 AM EDT active Clotrimazole-Beta methasone 1-0.05 % eCW1 ([facility]) 24 HR Metformin hydrochloride 500 MG Ext ended Release Oral Tablet MetFORMIN HCl ER 500 MG MetFORMIN HCl ER 500 MG 12/28/2020 12:00:00 AM EDT active MetFORMIN HCl ER 500 MG eCW1 ([facility]) 24 HR Metformin hydrochloride 500 MG Ext ended Release Oral Tablet metFORMIN HCl ER 500 MG metFORMIN HCl ER 500 MG 12/28/2020 12:00:00 AM EDT active metFORMIN HCl ER 500 MG eCW1 ([facility]) 24 HR Metformin hydrochloride 500 MG Ext ended Release Oral Tablet metFORMIN HCl ER 500 MG metFORMIN HCl ER 500 MG 12/28/2020 12:00:00 AM EDT active metFORMIN HCl ER 500 MG eCW1 ([facility]) 24 HR Metformin hydrochloride 500 MG Ext ended Release Oral Tablet metFORMIN HCl ER 500 MG metFORMIN HCl ER 500 MG 12/28/2020 12:00:00 AM EDT active metFORMIN HCl ER 500 MG eCW1 ([facility]) 24 HR Metformin hydrochloride 500 MG Ext ended Release Oral Tablet metFORMIN HCl ER 500 MG metFORMIN HCl ER 500 MG 12/28/2020 12:00:00 AM EDT active metFORMIN HCl ER 500 MG eCW1 ([facility]) Covid-19 vaccine, Unspecified 12/18/2020 12:00:00 AM EDT completed MEDENT ([facility], ) Medication administered onsite Covid-19 vaccine, Unspecified 11/20/2020 12:00:00 AM EDT completed MEDENT ([facility]) Medication administered onsite Vitamin D3 125 MCG (5000 UT) Vitamin D3 125 MCG (5000 UT) 12:00:00 AM EST 1.0 {capsule} active Vitamin D3 125 MCG (5000 UT) eCW1 ([facility]) Vitamin D3 125 MCG (5000 UT) Vitamin D3 125 MCG (5000 UT) 12:00:00 AM EST 1.0 {capsule} active Vitamin D3 125 MCG (5000 UT) eCW1 ([facility]) Vitamin D3 125 MCG (5000 UT) Vitamin D3 125 MCG (5000 UT) 12:00:00 AM EST 1.0 {capsule} active Vitamin D3 125 MCG (5000 UT) eCW1 ([facility]) Vitamin D3 125 MCG (5000 UT) Vitamin D3 125 MCG (5000 UT) 12:00:00 AM EST 1.0 {capsule} active Vitamin D3 125 MCG (5000 UT) eCW1 ([facility]) Vitamin D3 125 MCG (5000 UT) Vitamin D3 125 MCG (5000 UT) 12:00:00 AM EST 1.0 {capsule} active Vitamin D3 125 MCG (5000 UT) eCW1 ([facility]) Vitamin D3 125 MCG (5000 UT) Vitamin D3 125 MCG (5000 UT) 12:00:00 AM EST 1.0 {capsule} active Vitamin D3 125 MCG (5000 UT) eCW1 ([facility]) 3 mg 05/07/2020 12:00:00 AM EDT capsule [...] type / Coverage type Policy ID Covered democrat ID Covered democrat's relationship to kelly Policy Kelly Plan Information BLUE CROSS [id number] BLUE CROSS [id number] BCBS [place] PPO 302/307 [id number] FA2 [id number] [facility] [id number] SP [id number] ANSI-Not a Secondary Insurance [id number] BLUE CROSS [id number] STEPAR [id number] ANSI-Not a Secondary Insurance [id number] ANSI-Not a Secondary Insurance [id number] ANSI-Not a Secondary Insurance [id number] ANSI-Not a Secondary Insurance [id number] [facility] U/W Commercial [id number] Family Dependent VY [id number] [facility] U/W Commercial [id number] Family Dependent VY [id number] [employer] BCBS B [id number] C [id number] [facility] [facility] 306/806 [id number] FA2 [id number] [employer]CELL[employer] BCBS FEDERAL [id number] [employer] [facility] 306/806 [id number] [id number] PROCLAIM [facility] [id number] FA [id number] PROCLAIM [facility] [id number] FA [id number] SELF PAY UNAVAILABLE SP UNAVAILA BLE [employer] [facility] 306/806 [id number] FA [id number] BC BS [facility] [id number] [facility] TRANSITIONSAL LI 1 SP 1 [id number] [facility] [id number] SP [id number] [facility] [id number] SP [id number] Problems, Conditions, and Diagnoses Code Display Name Description Problem Type Effective Dates Data Source(s) F12.10 Cannabis abuse, uncomplicated Cannabis Use Disorder, M ild Condition 05/06/2021 12:00:00 AM EDT [facility] ([facility]) F17.290 Nicotine dependence, other tobacco produ ct, uncomplicated Nicotine dependence, other tobacco product, uncomplicated Condition 05/06 12:00:00 AM EDT [facility] ([facility]) F10.120 Alcohol abuse with intoxication, uncompl icated Alcohol abuse with intoxication, uncomplicated Condition 05/06/2021 12:00:00 AM EDT [facility] ([facility]) F31.31 Bipolar disorder, current episode depres sed, mild Bipolar I Disorder, Current or most recent episode depressed, Mild Condition 021 12:00:00 AM EDT [facility] ([facility]) Z68.44 [id number] BMI 60.0-69.9, adult Problem 12/28/2020 12:0 0:00 AM EDT eCW1 ([facility]) E11.9 [id number] Type 2 diabetes tana itus without complication, without long-term current use of insulin Problem 12/28/2020 12:00:00 AM EDT eCW1 ([facility]) E55.9 Vitamin D deficiency Vitamin D deficiency Problem 09/14/2020 12:00:00 AM EST eCW1 ([facility]) F10.19 Alcohol abuse with unspecified alcohol-i nduced disorder Alcohol abuse with unspecified alcohol-induced disorder Condition 09/09/2020 12:00:0 0 AM EST [facility] ([facility]) F17.290 Tobacco user Other tobacco product nicotine d ependence, uncomplicated Problem 09/07/2020 12:00:00 AM EST eCW1 ([facility]) Z68.44 [id number] Adult BMI 60.0-69.9 kg/sq m Problem 09/07/19 12:00:00 AM EST eCW1 ([facility]) F10.10 Alcohol abuse, uncomplicated Alcohol Use Disorder, Mil d Condition 06/11/2020 12:00:00 AM EST [facility] ([facility]) Surgeries/Procedures Procedure Description Date Indications Data Source(s) Extended Individual Psychotherapy - 45 min 05/06/2021 12:00:00 AM EDT - 05/06/2021 12:00:00 AM EDT [facility] ([facility]) Extended Individual Psychotherapy - 45 min 12:00:00 AM EDT [facility] ([facility]) Extended Individual Psychotherapy - 45 min 04/21/2021 12:00:00 AM EDT - 04/21/2021 12:00:00 AM EDT [facility] ([facility]) Extended Individual Psychotherapy - 45 min 12:00:00 AM EDT [facility] ([facility]) Extended Individual Psychotherapy - 45 min 04/15/2021 12:00:00 AM EDT - 04/15/2021 12:00:00 AM EDT [facility] ([facility]) Extended Individual Psychotherapy - 45 min 12:00:00 AM EDT [facility] ([facility]) Extended Individual Psychotherapy - 45 min 04/08/2021 12:00:00 AM EDT - 04/08/2021 12:00:00 AM EDT [facility] ([facility]) Extended Individual Psychotherapy - 45 min 12:00:00 AM EDT [facility] ([facility]) Extended Individual Psychotherapy - 45 min 03/18/2021 12:00:00 AM EDT - 03/18/2021 12:00:00 AM EDT [facility] ([facility]) Extended Individual Psychotherapy - 45 min 12:00:00 AM EDT [facility] ([facility]) Extended Individual Psychotherapy - 45 min 02/25/2021 12:00:00 AM EDT - 02/25/2021 12:00:00 AM EDT [facility] ([facility]) Extended Individual Psychotherapy - 45 min 12:00:00 AM EDT [facility] ([facility]) Extended Individual Psychotherapy - 45 min 02/03/2021 12:00:00 AM EDT - 02/03/2021 12:00:00 AM EDT [facility] ([facility]) Extended Individual Psychotherapy - 45 min 12:00:00 AM EDT [facility] ([facility]) Extended Individual Psychotherapy - 45 min 01/27/2021 12:00:00 AM EDT - 01/27/2021 12:00:00 AM EDT [facility] ([facility]) Extended Individual Psychotherapy - 45 min 12:00:00 AM EDT [facility] ([facility]) Extended Individual Psychotherapy - 45 min 01/20/2021 12:00:00 AM EDT - 01/20/2021 12:00:00 AM EDT [facility] ([facility]) Extended Individual Psychotherapy - 45 min 12:00:00 AM EDT [facility] ([facility]) MHCTelemed E/M Lvl 4--Est pt 01/04/2021 12:00:00 AM EDT - 01/04/2021 12:00:00 AM EDT [facility] ([facility]) MHCTelemed E/M Lvl 4--Est pt 01/04/2021 12:00:00 AM ED T [facility] ([facility]) Extended Individual Psychotherapy - 45 min 12/30/2020 12:00:00 AM EDT - 12/30/2020 12:00:00 AM EDT [facility] ([facility]) Extended Individual Psychotherapy - 45 min 12:00:00 AM EDT [facility] ([facility]) Extended Individual Psychotherapy - 45 min 12/24/2020 12:00:00 AM EDT - 12/24/2020 12:00:00 AM EDT [facility] ([facility]) Extended Individual Psychotherapy - 45 min 12:00:00 AM EDT [facility] ([facility]) Extended Individual Psychotherapy - 45 min 12/17/2020 12:00:00 AM EDT - 12/17/2020 12:00:00 AM EDT [facility] ([facility]) Extended Individual Psychotherapy - 45 min 12:00:00 AM EDT [facility] ([facility]) TEMPMHCTelemed--Crisis Brief 12/15/2020 12:00:00 AM EDT - 12/15/2020 12:00:00 AM EDT [facility] ([facility]) TEMPMHCTelemed--Crisis Brief 12/13/2020 12:00:00 AM ED T [facility] ([facility]) Extended Individual Psychotherapy - 45 min 12/10/2020 12:00:00 AM EDT - 12/10/2020 12:00:00 AM EDT [facility] ([facility]) Extended Individual Psychotherapy - 45 min 12:00:00 AM EDT [facility] ([facility]) MHC Telemed E/M Lvl 3--Est pt 12/07/2020 12:00:00 AM EDT - 12/07/2020 12:00:00 AM EDT [facility] ([facility]) MHC Telemed E/M Lvl 3--Est pt 12/07/2020 12:00:00 AM E DT [facility] ([facility]) Extended Individual Psychotherapy - 45 min 11/25/2020 12:00:00 AM EDT - 11/25/2020 12:00:00 AM EDT [facility] ([facility]) Extended Individual Psychotherapy - 45 min 12:00:00 AM EDT [facility] ([facility]) Extended Individual Psychotherapy - 45 min 11/19/2020 12:00:00 AM EDT - 11/19/2020 12:00:00 AM EDT [facility] ([facility]) Extended Individual Psychotherapy - 45 min 12:00:00 AM EDT [facility] ([facility]) Extended Individual Psychotherapy - 45 min 10/07/2020 12:00:00 AM EST - 10/07/2020 12:00:00 AM EST [facility] ([facility]) Extended Individual Psychotherapy - 45 min 12:00:00 AM EST [facility] ([facility]) Extended Individual Psychotherapy - 45 min 09/23/2020 12:00:00 AM EST - 09/23/2020 12:00:00 AM EST [facility] ([facility]) Extended Individual Psychotherapy - 45 min 1 12:00:00 AM EST [facility] ([facility]) Extended Individual Psychotherapy - 45 min 09/09/2020 12:00:00 AM EST - 09/09/2020 12:00:00 AM EST [facility] ([facility]) MHC Telemed E/M Lvl 3--Est pt 09/09/2020 12:00:00 AM EST - 09/09/2020 12:00:00 AM EST [facility] ([facility]) MHC Telemed E/M Lvl 3--Est pt 09/09/2020 12:00:[address] [facility] ([facility]) Extended Individual Psychotherapy - 45 min 1 12:00:00 AM EST [facility] ([facility]) Extended Individual Psychotherapy - 45 min 07/22/2020 12:00:00 AM EST - 07/22/2020 12:00:00 AM EST [facility] ([facility]) Extended Individual Psychotherapy - 45 min 0 12:00:00 AM EST [facility] ([facility]) Extended Individual Psychotherapy - 45 min 07/09/2020 12:00:00 AM EST - 07/09/2020 12:00:00 AM EST [facility] ([facility]) Extended Individual Psychotherapy - 45 min 0 12:00:00 AM EST [facility] ([facility]) Extended Individual Psychotherapy - 45 min 06/11/2020 12:00:00 AM EST - 06/11/2020 12:00:00 AM EST [facility] ([facility]) Extended Individual Psychotherapy - 45 min 0 12:00:00 AM EST [facility] ([facility]) [id number]"Psychotherapy 0 12:00:00 AM EDT - 05/21/2020 12:00:00 AM EDT [facility] ([facility]) [id number]"Psychotherapy 05/21/2020 12:00:00 AM EDT [facility] ([facility]) [id number]"Psychotherapy 0 12:00:00 AM EDT - 05/14/2020 12:00:00 AM EDT [facility] ([facility]) [id number]"Psychotherapy 05/14/2020 12:00:00 AM EDT [facility] ([facility]) [id number]"Psychotherapy 0 12:00:00 AM EDT - 04/30/2020 12:00:00 AM EDT [facility] ([facility]) [id number]"Psychotherapy 04/30/2020 12:00:00 AM EDT [facility] ([facility]) [id number]"Psychotherapy 0 12:00:00 AM EDT - 04/26/2020 12:00:00 AM EDT [facility] ([facility]) [id number]"Psychotherapy 04/23/2020 12:00:00 AM EDT [facility] ([facility]) Results ID Date Data Source LIPID PANEL (CARDIAC RISK) 09/07/2020 12:00:00 AM EST eCW1 ( [facility]) Name Value Range Interpretation Code Description Data Edwige rce(s) Supporting Document(s) Cholesterol [Moles/volume] in Serum or Plasma 175 <200 CHOLESTEROL LEVEL eCW1 ([facility]) Triglyceride [Mass/volume] in Serum or Plasma by calculation 301 <150 TRIGLYCERIDES LEVEL eCW1 ([facility]) Cholesterol in HDL [Moles/volume] in Serum or Plasma 35 >40 HDL CHOLESTEROL eCW1 ([facility]) 5.000 <5 CHOLESTEROL RISK RATIO eCW1 ([facility]) Cholesterol in LDL [Mass/volume] in Serum or Plasma by calculation 80 <100 LDL CHOLESTEROL eCW1 ([facility]) 140 NON-HDL-C eCW1 ([facility] 1928[facility]) ID Date Data Source MAGNESIUM LEVEL 09/07/2020 12:00:00 AM EST eCW1 ([facility]) Name Value Range Interpretation Code Description Data Edwige rce(s) Supporting Document(s) 2.3 1.8-2.4 eCW1 ([facility]) ID Date Data Source VITAMIN D [id number] 09/07/2020 12:00:00 AM EST eCW1 ([facility]) Name Value Range Interpretation Code Description Data Edwige rce(s) Supporting Document(s) 24.4 30.0-100.0 eCW1 ([facility]) ID Date Data Source [id number] 09/07/2020 12:00:00 AM EST eCW1 ([facility]) Name Value Range Interpretation Code Description Data Edwige rce(s) Supporting Document(s) Hemoglobin A1c/Hemoglobin.total in Blood 6.2 eCW1 ([facility]) ID Date Data Source FREE T4 & TSH PANEL 09/07/2020 12:00:00 AM EST eCW1 ([facility]) Name Value Range Interpretation Code Description Data Edwige rce(s) Supporting Document(s) 2.230 0.358-3.740 eCW1 ([facility]) 0.96 0.76-1.46 eCW1 ([facility]) ID Date Data Source Comprehensive Metabolic Profile (CMP) 09/07/2020 12:00:00 AM EST eCW1 ([facility]) Name Value Range Interpretation Code Description Data Edwige rce(s) Supporting Document(s) 137 70-100 GLUCOSE, FASTING eCW1 ([facility]) 0.96 0.70-1.30 CREATININE FOR GFR eCW1 ([facility]) 4.7 3.5-5.1 POTASSIUM SERUM eCW1 ([facility], [facility]) > 60.0 >60 GLOMERULAR FILTRATION RATE eCW 1 ([facility]) 140 136-145 SODIUM LEVEL eCW1 ([facility]) 21 7-18 BLOOD UREA NITROGEN eCW1 ([facility]) 28 21-32 CARBON DIOXIDE LEVEL eCW1 ([facility]) 27 7-37 AST/SGOT eCW1 ([facility]) 103 98-107 CHLORIDE LEVEL eCW1 ([facility]) 9.2 8.5-10.1 CALCIUM LEVEL eCW1 ([facility]) 49 12-78 ALT/SGPT eCW1 ([facility] 1928[facility]) 84 45-117 ALKALINE PHOSPHATASE eCW1 ([facility]) 6.8 6.4-8.2 TOTAL PROTEIN eCW1 ([facility]) 1.2 ALBUMIN/GLOBULIN RATIO eCW1 ([facility]) 0.2 0.2-1.0 BILIRUBIN,TOTAL eCW1 ([facility]) 3.7 3.2-5.2 ALBUMIN eCW1 ([facility]) Procedure Social History Code Duration Value Status Description Data Source(s ) Smoking 05/06/2021 12:00:00 AM EDT Unknown if ever smoked comp leted Unknown if ever smoked [facility] ([facility]) Smoking 04/21/2021 12:00:00 AM EDT Former Smoker completed Former Smoker eCW1 ([facility]) Smoking 04/21/2021 12:00:00 AM EDT Unknown if ever smoked comp leted Unknown if ever smoked [facility] ([facility]) Smoking 04/15/2021 12:00:00 AM EDT Unknown if ever smoked comp leted Unknown if ever smoked [facility] ([facility]) Smoking 04/08/2021 12:00:00 AM EDT Unknown if ever smoked comp leted Unknown if ever smoked [facility] ([facility]) Smoking 03/18/2021 12:00:00 AM EDT Unknown if ever smoked comp leted Unknown if ever smoked [facility] ([facility]) Smoking 02/25/2021 12:00:00 AM EDT Unknown if ever smoked comp leted Unknown if ever smoked [facility] ([facility]) Smoking 02/03/2021 12:00:00 AM EDT Unknown if ever smoked comp leted Unknown if ever smoked [facility] ([facility]) Smoking 01/27/2021 12:00:00 AM EDT Unknown if ever smoked comp leted Unknown if ever smoked [facility] ([facility]) Smoking 01/20/2021 12:00:00 AM EDT Unknown if ever smoked comp leted Unknown if ever smoked [facility] ([facility]) Smoking 01/18/2021 12:00:00 AM EDT Former Smoker completed Former Smoker eCW1 ([facility]) Smoking 01/18/2021 12:00:00 AM EDT Former Smoker completed Former Smoker eCW1 ([facility]) Smoking 01/18/2021 12:00:00 AM EDT Former Smoker completed Former Smoker eCW1 ([facility]) Smoking 01/18/2021 12:00:00 AM EDT Former Smoker completed Former Smoker eCW1 ([facility]) Smoking 01/04/2021 12:00:00 AM EDT Unknown if ever smoked comp leted Unknown if ever smoked [facility] ([facility]) Smoking 12/30/2020 12:00:00 AM EDT Unknown if ever smoked comp leted Unknown if ever smoked [facility] ([facility]) Smoking 12/28/2020 12:00:00 AM EDT Former Smoker completed Former Smoker eCW1 ([facility]) Smoking 12/24/2020 12:00:00 AM EDT Unknown if ever smoked comp leted Unknown if ever smoked [facility] ([facility]) Smoking 12/17/2020 12:00:00 AM EDT Unknown if ever smoked comp leted Unknown if ever smoked [facility] ([facility]) Smoking 12/15/2020 12:00:00 AM EDT Unknown if ever smoked comp leted Unknown if ever smoked [facility] ([facility]) Smoking 12/10/2020 12:00:00 AM EDT Unknown if ever smoked comp leted Unknown if ever smoked [facility] ([facility]) Smoking 12/07/2020 12:00:00 AM EDT Unknown if ever smoked comp leted Unknown if ever smoked [facility] ([facility]) Smoking 11/25/2020 12:00:00 AM EDT Unknown if ever smoked comp leted Unknown if ever smoked [facility] ([facility]) Smoking 11/19/2020 12:00:00 AM EDT Unknown if ever smoked comp leted Unknown if ever smoked [facility] ([facility]) Smoking 10/07/2020 12:00:00 AM EST Unknown if ever smoked comp leted Unknown if ever smoked [facility] ([facility]) Smoking 09/23/2020 12:00:00 AM EST Unknown if ever smoked comp leted Unknown if ever smoked [facility] ([facility]) Smoking 09/14/2020 12:00:00 AM EST Former Smoker completed Former Smoker eCW1 ([facility]) Smoking 09/09/2020 12:00:00 AM EST Unknown if ever smoked comp leted Unknown if ever smoked [facility] ([facility]) Smoking 09/07/2020 12:00:00 AM EST Former Smoker completed Former Smoker eCW1 ([facility]) Smoking 07/22/2020 12:00:00 AM EST Unknown if ever smoked comp leted Unknown if ever smoked [facility] ([facility]) Smoking 07/09/2020 12:00:00 AM EST Unknown if ever smoked comp leted Unknown if ever smoked [facility] ([facility]) Smoking 06/11/2020 12:00:00 AM EST Unknown if ever smoked comp leted Unknown if ever smoked [facility] ([facility]) Smoking 05/21/2020 12:00:00 AM EDT Unknown if ever smoked comp leted Unknown if ever smoked [facility] ([facility]) Smoking 05/14/2020 12:00:00 AM EDT Unknown if ever smoked comp leted Unknown if ever smoked [facility] ([facility]) Smoking 04/30/2020 12:00:00 AM EDT Unknown if ever smoked comp leted Unknown if ever smoked [facility] ([facility]) Smoking 04/26/2020 12:00:00 AM EDT Unknown if ever smoked comp leted Unknown if ever smoked [facility] ([facility]) Vital Signs ID Date Data Source UNK Name Value Range Interpretation Code Description Data Source(s) Body weight 455 [lb_av] 455 [lb_av] eCW1 ([facility]) Body height 73 [in_i] 73 [in_i] eCW1 ([facility]) Body mass index (BMI) [Ratio] 60.02 kg/m2 60.02 kg/m2 eCW1 ([facility]) Heart rate 88 /min 88 /min eCW1 ([facility]) Respiratory rate 20 /min 20 /min eCW1 ([facility]) Body temperature 97 [degF] 97 [degF] eCW1 ([facility]) Systolic blood pressure 140 mm[Hg] 140 mm[Hg] e CW1 ([facility]) Diastolic blood pressure 80 mm[Hg] 80 mm[Hg] eCW1 ([facility]) Body weight 483 [lb_av] 483 [lb_av] eCW1 ([facility]) Body height 73 [in_i] 73 [in_i] eCW1 ([facility]) Body mass index (BMI) [Ratio] 63.72 kg/m2 63.72 kg/m2 eCW1 ([facility]) Heart rate 88 /min 88 /min eCW1 ([facility]) Respiratory rate 22 /min 22 /min eCW1 ([facility]) Body temperature 97 [degF] 97 [degF] eCW1 ([facility]) Systolic blood pressure 140 mm[Hg] 140 mm[Hg] e CW1 ([facility]) Diastolic blood pressure 80 mm[Hg] 80 mm[Hg] eCW1 ([facility]) [place] body weight 184 [lb_av] 184 [lb_av] MEDEN T ([facility], ) Body weight 222.264 kg 222.264 kg MEDENT ([facility], ) Body surface area Derived from formula 3.15 m2 3.15 m2 [facility] ([facility] Systolic blood pressure 140 mm[Hg] 140 mm[Hg] M EDENT ([facility]) Diastolic blood pressure 90 mm[Hg] 90 mm[Hg] [facility] ([facility]) Heart rate 95 /min 95 /min [facility] ([facility]) Oxygen saturation in Arterial blood by Pulse oximetry 98 % 98 % [facility] ([facility]) Body height 73 [in_i] 73 [in_i] [facility] ([facility], ) 6'1" Body weight 490.00 [lb_av] 490.00 [lb_av] MEDEN T ([facility]) Body mass index (BMI) [Ratio] 64.6 kg/m2 64.6 k g/m2 [facility] ([facility]) Body height 0.00 in Normal (applies to non-numeric resu lts) 0.00 in [facility] ([facility]) Body weight Measured 0.00 lbs Normal (applies to n on-numeric results) 0.00 lbs [facility] ([facility]) Body mass index (BMI) [Ratio] 0.00 kg/m2 No rmal (applies to non-numeric results) 0.00 kg/m2 [facility] ([facility]) Systolic blood pressure 0 mm[Hg] Normal (applies t o non-numeric results) 0 mm[Hg] [facility] ([facility]) Diastolic blood pressure 0 mm[Hg] Normal (applies to non-numeric results) 0 mm[Hg] [facility] ([facility]) Body weight 488 [lb_av] 488 [lb_av] eCW1 ([facility]) Body height 73 [in_i] 73 [in_i] eCW1 ([facility]) Body mass index (BMI) [Ratio] 64.38 kg/m2 64.38 kg/m2 eCW1 ([facility]) Heart rate 88 /min 88 /min eCW1 ([facility]) Respiratory rate 22 /min 22 /min eCW1 ([facility]) Body temperature 98.2 [degF] 98.2 [degF] eCW1 ( [facility]) Systolic blood pressure 140 mm[Hg] 140 mm[Hg] e CW1 ([facility]) Diastolic blood pressure 80 mm[Hg] 80 mm[Hg] eCW1 ([facility]) Body height 0.00 in Normal (applies to non-numeric resu lts) 0.00 in [facility] ([facility]) Body weight Measured 0.00 lbs Normal (applies to n on-numeric results) 0.00 lbs [facility] ([facility]) Body mass index (BMI) [Ratio] 0.00 kg/m2 No rmal (applies to non-numeric results) 0.00 kg[facility]m2 [facility] Systolic blood pressure 0 mm[Hg] Normal (applies t o non-numeric results) 0 mm[Hg] [facility] ([facility]) Diastolic blood pressure 0 mm[Hg] Normal (applies to non-numeric results) 0 mm[Hg] [facility] ([facility]) Body weight 469 [lb_av] 469 [lb_av] eCW1 ([facility]) Body height 73 [in_i] 73 [in_i] eCW1 ([facility]) Body mass index (BMI) [Ratio] 61.87 kg/m2 61.87 kg/m2 W1 ([facility]) Heart rate 90 /min 90 /min eCW1 ([facility], [facility]) Respiratory rate 22 /min 22 /min eCW1 ([facility]) Body temperature 97.4 [degF] 97.4 [degF] eCW1 ( [facility]) Systolic blood pressure 140 mm[Hg] 140 mm[Hg] e CW1 ([facility]) Diastolic blood pressure 80 mm[Hg] 80 mm[Hg] eCW1 ([facility]) Body height 0.00 in Normal (applies to non-numeric resu lts) 0.00 in [facility] ([facility]) Body mass index (BMI) [Ratio] 0.00 kg/m2 No rmal (applies to non-numeric results) 0.00 kg/m2 [facility] ([facility]) Body weight Measured 0.00 lbs Normal (applies to n on-numeric results) 0.00 lbs [facility] ([facility]) Systolic blood pressure 0 mm[Hg] Normal (applies t o non-numeric results) 0 mm[Hg] [facility] ([facility]) Diastolic blood pressure 0 mm[Hg] Normal (applies to non-numeric results) 0 mm[Hg] [facility] ([facility]) Body weight 474 [lb_av] 474 [lb_av] eCW1 ([facility]) Body height 73 [in_i] 73 [in_i] eCW1 ([facility]) Body mass index (BMI) [Ratio] 62.53 kg/m2 62.53 kg/m2 eCW1 ([facility]) Heart rate 90 /min 90 /min eCW1 ([facility], [facility]) Respiratory rate 20 /min 20 /min eCW1 ([facility]) Body temperature 97 [degF] 97 [degF] eCW1 ([facility]) Systolic blood pressure 130 mm[Hg] 130 mm[Hg] e CW1 ([facility]) Diastolic blood pressure 80 mm[Hg] 80 mm[Hg] eCW1 ([facility]) Patient Treatment Plan of Care Planned Activity Planned Date Details Description Data Source (s) Docusate Sodium 100 MG Oral Capsule [Colace] 02/01/2021 12:00:00 AM EDT eCW1 ([facility]) Docusate Sodium 100 MG Oral Capsule [Colace] 02/01/2021 12:00:00 AM EDT eCW1 ([facility]) Betamethasone 0.5 MG/ML / Clotrimazole 10 MG/ML Topica l Cream 01/18/2021 12:00:00 AM EDT eCW1 ([facility], 1928–1983) Betamethasone 0.5 MG/ML / Clotrimazole 10 MG/ML Topica l Cream 01/18/2021 12:00:00 AM EDT eCW1 ([facility], [facility]1983) Betamethasone 0.5 MG/ML / Clotrimazole 10 MG/ML Topica l Cream 01/18/2021 12:00:00 AM EDT eCW1 ([facility], [facility]1983) Betamethasone 0.5 MG/ML / Clotrimazole 10 MG/ML Topica l Cream 01/18/2021 12:00:00 AM EDT eCW1 ([facility], [facility]1983) 24 HR Metformin hydrochloride 500 MG Extended Release Oral Tablet 12/28/2020 12:00:00 AM EDT eCW1 ([facility], [facility]) Vitamin D3 125 MCG (5000 UT) 09/14/2020 12:00:00 AM EST eCW1 ([facility]) Vitamin D3 125 MCG (5000 UT) 09/14/2020 12:00:00 AM EST eCW1 ([facility])
[2021-06-18] MEDS ORDERED: ATOM80CA6 PO (07:30)
[2021-06-18] MEDS ORDERED: OMEP-221 PO (07:30)
[2021-06-18] MEDS ORDERED: CARIPRAZINE 1.5MG CAPSULE (VRAYLAR) PO SCH (09:00)
[2021-06-18] MEDS: ATOMOXETINE HCL 40 MG CAP (STRATTERA) PO SCH (09:00)
[2021-06-18] MEDS ORDERED: LORazepam 1 MG TAB PO ONE (09:25)
[2021-06-18] MEDS ORDERED: VRAY1.5C PO (09:40)
[2021-06-18] MEDS ORDERED: VRAY3CAP PO (09:40)
[2021-06-18] MEDS ORDERED: HOME MED LIST COMPLETE! XX SCH (09:45)
[2021-06-18] MEDS ORDERED: OLANZapine ORAL DISINTEGRATING TAB 5MG PO ONE (10:55)
[2021-06-18] MEDS ORDERED: NICOTINE 21MG/24HR 1 EA TRANSDERMAL TD ONE (13:00)
--- NOTE | 2021-06-18 18:31 | ECGEPIP ---
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
[2021-06-18] MEDS: OMEPRAZOLE 20 MG CAP PO SCH (21:29)
[2021-06-18] MEDS: LOSARTAN 50MG TABLET PO SCH (21:29)
[2021-06-18] MEDS: metFORMIN XR 500MG TAB *GLUCOPHAGE XR PO SCH (21:30)
[2021-06-18] MEDS: CARIPRAZINE 1.5MG CAPSULE (VRAYLAR) PO SCH (21:30)
[2021-06-18] MEDS ORDERED: LORazepam 1 MG TAB PO STA (22:34)
[2021-06-19] MEDS: ATOMOXETINE HCL 40 MG CAP (STRATTERA) PO SCH (08:21)
[2021-06-19] MEDS ORDERED: OMEPRAZOLE 20 MG CAP PO ONE (09:00)
[2021-06-19] MEDS ORDERED: ATOMOXETINE HCL 40 MG CAP (STRATTERA) PO SCH (09:00)
[2021-06-19] MEDS ORDERED: LORazepam 1 MG TAB PO ONE (10:40)
[2021-06-19] MEDS ORDERED: OLANZapine ORAL DISINTEGRATING TAB 5MG PO ONE (12:05)
[2021-06-19] MEDS: metFORMIN XR 500MG TAB *GLUCOPHAGE XR PO SCH (18:20)
[2021-06-19] MEDS: OMEPRAZOLE 20 MG CAP PO SCH (22:34)
[2021-06-19] MEDS: LOSARTAN 50MG TABLET PO SCH (22:35)
[2021-06-19] MEDS: CARIPRAZINE 1.5MG CAPSULE (VRAYLAR) PO SCH (22:37)
[2021-06-20] MEDS ORDERED: LORazepam 1 MG TAB PO ONE (03:20)
[2021-06-20] MEDS: ATOMOXETINE HCL 40 MG CAP (STRATTERA) PO SCH (07:44)
[2021-06-20] MEDS ORDERED: LORazepam 2 MG TAB PO STA (08:47)
[2021-06-20] MEDS ORDERED: POTASSIUM CHLORIDE 10MEQ SR TABLET PO ONE (09:30)
[2021-06-20 12:19] LABS: RSV AMPLIFICATION NEGATIVE (NEGATIVE)
[2021-06-20] MEDS ORDERED: NICOTINE 7 MG/24 HR TRANSDERMAL TD ONE (14:20)
[2021-06-20] MEDS ORDERED: CARIPRAZINE 1.5MG CAPSULE (VRAYLAR) PO PRN (14:25)
[2021-06-20] MEDS ORDERED: ACETAMINOPHEN TAB 650MG DOSE (2X325MG) PO PRN (14:25)
[2021-06-20] MEDS ORDERED: MAALOX 30 ML SUSP *UDC PO PRN (14:25)
[2021-06-20] MEDS ORDERED: MOM 30ML SUSPENSION UDC PO PRN (14:25)
--- OUTSIDE RECORDS SUMMARY | 2021-06-20 15:26 | CCD ---
Author Author [facility] Organization [facility] Address Unknown Phone Unavailable Care Team Providers Care Print Press Operator Name Role Phone Laly Franks MD Unavailable Unavailable Laly Franks MD Unavailable Unavailable Laly Franks MD Unavailable Unavailable Laly Franks MD Unavailable Unavailable Zackary Denson Unavailable Zackary Denson Unavailable TERRI KRISS VIC COMMERCIAL RELATIONSHIP MANAGER-C Unavailable Unavailable TERRI KRISS VIC COMMERCIAL RELATIONSHIP MANAGER-C Unavailable Unavailable TERRI, KRISS VCI COMMERCIAL RELATIONSHIP MANAGER-C Unavailable Unavailable TERRI, KRISS VIC COMMERCIAL RELATIONSHIP MANAGER-C Unavailable Unavailable TERRI, KRISS VIC COMMERCIAL RELATIONSHIP MANAGER-C Unavailable Unavailable TERRI, KRISS VIC COMMERCIAL RELATIONSHIP MANAGER-C Unavailable Unavailable TERRI, KRISS VIC COMMERCIAL RELATIONSHIP MANAGER-C Unavailable Unavailable TERRI, KRISS VIC COMMERCIAL RELATIONSHIP MANAGER-C Unavailable Unavailable TERRI, KRISS VIC COMMERCIAL RELATIONSHIP MANAGER-C Unavailable Unavailable TERRI, KRISS VIC COMMERCIAL RELATIONSHIP MANAGER-C Unavailable Unavailable TERRI, KRISS VIC COMMERCIAL RELATIONSHIP MANAGER-C Unavailable Unavailable TERRI, KRISS VIC COMMERCIAL RELATIONSHIP MANAGER-C Unavailable Unavailable TERRI, KRISS VIC COMMERCIAL RELATIONSHIP MANAGER-C Unavailable Unavailable TERRI, KRISS VIC COMMERCIAL RELATIONSHIP MANAGER-C Unavailable Unavailable TERRI, KRISS VIC COMMERCIAL RELATIONSHIP MANAGER-C Unavailable Unavailable TERRI, KRISS VIC COMMERCIAL RELATIONSHIP MANAGER-C Unavailable Unavailable TERRI, KRISS VIC COMMERCIAL RELATIONSHIP MANAGER-C Unavailable Unavailable Henny Hameed Unavailable Re-disclosure Warning [...] is protected by Article 27-F of the [facility] Public Health law. If you continue you may have access to information: Regarding HIV / AIDS; Provided by facilities licensed or operated by the [facility] Office of Mental Health; or Provided by the [facility] Office for People With Developmental Disabilities. If such information is present, then the following [facility] mandated warning applies: This information has [...] law may result in a fine or assisted sentence or both. A general authorization for the release of medical or other information is NOT sufficient authorization for further disc losure. Allergies and Adverse Reactions Type Description Substance Reaction Status Data Source(s ) Propensity to adverse reactions to substance Sulfa (Joy lfonamide Antibiotics) Group Sulfa (Sulfonamide Antibiotics) Group Active [facility] ([facility]) Propensity to adverse reactions to substance Lamictal lamotrigine 25 MG Oral Tablet [Lamictal] rash Active [facility] ([facility]) Propensity to adverse reactions to substance Zyprexa olanzapine 5 MG/ML Injectable Solution [Zyprexa] Active [facility] ([facility]) Propensity to adverse reactions to substance lithium carbona te Callery Carbonate 150 MG Oral Capsule Active [facility] ([facility]) Propensity to adverse reactions to substance Sulfa (Joy lfonamide Antibiotics) Group Sulfa (Sulfonamide Antibiotics) Group Active [facility] ([facility]) Propensity to adverse reactions to substance Lamictal lamotrigine 25 MG Oral Tablet [Lamictal] rash Active [facility] ([facility]) Propensity to adverse reactions to substance Zyprexa olanzapine 5 MG/ML Injectable Solution [Zyprexa] Active [facility] ([facility]) Propensity to adverse reactions to substance lithium carbona te Callery Carbonate 150 MG Oral Capsule Active [facility] ([facility]) Family History Family Member Name Family Member Gender Family Member Status Date o f Status Description Data Source(s) Unknown Male Problem [facility] ([facility]) Encounters Encounter Providers Location Date Indications Data Source(s ) Attender: Zackary Denson 05/06/2021 12:00:00 AM EDT [facility] ([facility]) Extended Individual Psychotherapy - 45 min Attender: Jayson Denson [facility] 05/03/2021 04:45:00 AM EDT - 05/03/2021 04:45:00 AM EDT [facility] ([facility]) Extended Individual Psychotherapy - 45 min Attender: Aguilar Hameed [facility] 04/21/2021 02:00:00 AM EDT - 04/21/2021 02:00:00 AM EDT [facility] ([facility]) [place] [address] [address] 04/21/2021 12:00:00 AM EDT eCW1 ([facility]) Attender: Henny Hameed 04/21/2021 12:00:00 AM EDT [facility] ([facility]) Attender: Henny Hameed 04/15/2021 12:00:00 AM EDT [facility] ([facility]) Extended Individual Psychotherapy - 45 min Attender: Aguilar Hameed [facility] 04/14/2021 02:00:00 AM EDT - 04/14/2021 02:00:00 AM EDT [facility] ([facility]) Attender: Henny Hameed 04/08/2021 12:00:00 AM EDT [facility] ([facility]) Extended Individual Psychotherapy - 45 min Attender: Aguilar vinay Hameed [facility] 04/07/2021 02:00:00 AM EDT - 04/07/2021 02:00:00 AM EDT [facility] ([facility]) Attender: Henny Hameed 03/18/2021 12:00:00 AM EDT [facility] ([facility]) Extended Individual Psychotherapy - 45 min Attender: Aguilar Hameed [facility] 03/17/2021 03:30:00 AM EDT - 03/17/2021 03:30:00 AM EDT [facility] ([facility]) [place] [address] [address] 02/28/2021 12:00:00 AM EDT eCW1 ([facility]) Attender: Henny Hameed 02/25/2021 12:00:00 AM EDT [facility] ([facility]) Extended Individual Psychotherapy - 45 min Attender: Aguilar Hameed [facility] 02/24/2021 02:00:00 AM EDT - 02/24/2021 02:00:00 AM EDT [facility] ([facility]) Extended Individual Psychotherapy - 45 min Attender: Aguilar Hameed [facility] 02/03/2021 02:00:00 AM EDT - 02/03/2021 02:00:00 AM EDT [facility] ([facility]) Attender: Henny Hameed 02/03/2021 12:00:00 AM EDT [facility] ([facility]) [place] [address] [address] 01/28/2021 12:00:00 AM EDT eCW1 ([facility]) Extended Individual Psychotherapy - 45 min Attender: Aguilar Hameed [facility] 01/27/2021 02:00:00 AM EDT - 01/27/2021 02:00:00 AM EDT [facility] ([facility]) Attender: Henny Thomsonan 01/27/2021 12:00:00 AM EDT [facility] ([facility]) Extended Individual Psychotherapy - 45 min Attender: Aguilar Hameed [facility] 01/20/2021 02:15:00 AM EDT - 01/20/2021 02:15:00 AM EDT [facility] ([facility]) Attender: Henny Thomsonan 01/20/2021 12:00:00 AM EDT [facility] ([facility]) [place] [address] [address] 01/18/2021 12:00:00 AM EDT eCW1 ([facility]) [place] [address] [address] 01/17/2021 12:00:00 AM EDT eCW1 ([facility]) Outpatient Attender: VIC Burk/Linwood/Geo/Walker gary 01/07/2021 11:15:00 AM EDT [facility] ([facility]) Outpatient Attender: Brian Franks MD [facility] Yonathan padron 01/04/2021 01:30:00 AM EDT - 01/04/2021 01:30:00 AM EDT [facility] ([facility]) Attender: Brian Franks MD 01/04/2021 12:00:00 AM EDT [facility] ([facility]) Extended Individual Psychotherapy - 45 min Attender: Aguilar Hameed [facility] 12/30/2020 02:00:00 AM EDT - 12/30/2020 02:00:00 AM EDT [facility] ([facility]) Attender: Henny Hameed 12/30/2020 12:00:00 AM EDT [facility] ([facility]) Outpatient [address] [facility] [address] 12/28/2020 12:00:00 AM EDT eCW1 ([facility]) Attender: Henny Hameed 12/24/2020 12:00:00 AM EDT [facility] ([facility]) Extended Individual Psychotherapy - 45 min Attender: Aguilar Hameed [facility] 12/23/2020 02:00:00 AM EDT - 12/23/2020 02:00:00 AM EDT [facility] ([facility]) Attender: Henny Hameed 12/17/2020 12:00:00 AM EDT [facility] ([facility]) Extended Individual Psychotherapy - 45 min Attender: Aguilarisaac mclean Yoseph [facility] 12/16/2020 02:00:00 AM EDT - 12/16/2020 02:00:00 AM EDT [facility] ([facility]) Attender: Henny Hameed 12/15/2020 12:00:00 AM EDT [facility] ([facility]) TEMPMHCTelemed--Crisis Brief Attender: Henny Hameed [facility] 12/13/2020 01:40:00 AM EDT - 12/13/2020 01:40:00 AM EDT [facility] ([facility]) Attender: Henny Hameed 12/10/2020 12:00:00 AM EDT [facility] ([facility]) Extended Individual Psychotherapy - 45 min Attender: Aguilar Hameed [facility] 12/09/2020 02:00:00 AM EDT - 12/09/2020 02:00:00 AM EDT [facility] ([facility]) Outpatient [facility] 12/07/2020 01:30:00 AM EDT - 12/07/2020 01:30:00 AM EDT [facility] ([facility]) Attender: Brian Franks MD 12/07/2020 12:00:00 AM EDT [facility] ([facility]) Extended Individual Psychotherapy - 45 min Attender: Aguilar Hameed [facility] 11/25/2020 02:00:00 AM EDT - 11/25/2020 02:00:00 AM EDT [facility] ([facility]) Attender: Henny Hameed 11/25/2020 12:00:00 AM EDT [facility] ([facility]) Attender: Henny Hameed 11/19/2020 12:00:00 AM EDT [facility] ([facility]) Extended Individual Psychotherapy - 45 min Attender: Aguilar Hameed [facility] 11/18/2020 02:00:00 AM EDT - 11/18/2020 02:00:00 AM EDT [facility] ([facility]) Attender: Henny Hameed 10/07/2020 12:00:00 AM EST [facility] ([facility]) Extended Individual Psychotherapy - 45 min Attender: Aguilar vinay Hameed [facility] 10/06/2020 05:00:00 AM EST - 10/06/2020 05:00:00 AM EST [facility] ([facility]) Attender: Henny Hameed 09/23/2020 12:00:00 AM EST [facility] ([facility]) Extended Individual Psychotherapy - 45 min Attender: Aguilarisaac mclean Yoseph [facility] 09/22/2020 05:00:00 AM EST - 09/22/2020 05:00:00 AM EST [facility] ([facility]) [place] [address] [address] 09/14/2020 12:00:00 AM EST [facility] Outpatient Attender: Brian Franks MD [facility] nereida 09/09/2020 02:00:00 AM EST - 09/09/2020 02:00:00 AM EST [facility] ([facility]) Attender: Henny Hameed 09/09/2020 12:00:00 AM EST [facility] ([facility]) Attender: Brian Franks MD 09/09/2020 12:00:00 AM EST [facility] ([facility]) Extended Individual Psychotherapy - 45 min Attender: Aguilar Hameed [facility] 09/08/2020 05:15:00 AM EST - 09/08/2020 05:15:00 AM EST [facility] ([facility]) [place] [address] [address] 09/07/2020 12:00:00 AM EST [facility]CW1 ([facility]) [place] [address] [place] [address] 08/24/2020 12:00:00 AM EST [facility]CW1 ([facility]) Unknown [address] [place] [address] 08/02/2020 12:00:00 AM EST [facility]CW1 [facility] Attender: Henny Hameed 07/22/2020 12:00:00 AM EST [facility] ([facility]) Extended Individual Psychotherapy - 45 min Attender: Aguilar Hameed [facility] 07/21/2020 05:00:00 AM EST - 07/21/2020 05:00:00 AM EST [facility] ([facility]) Attender: Henny Hameed 07/09/2020 12:00:00 AM EST [facility] ([facility]) Extended Individual Psychotherapy - 45 min Attender: Aguilar Hameed [facility] 07/07/2020 05:00:00 AM EST - 07/07/2020 05:00:00 AM EST [facility] ([facility]) Attender: Henny Hameed 06/11/2020 12:00:00 AM EST [facility] ([facility]) Extended Individual Psychotherapy - 45 min Attender: Aguilar Hameed [facility] 06/10/2020 03:00:00 AM EST - 06/10/2020 03:00:00 AM EST [facility] ([facility]) [id number]"Psychotherapy Attender: Henny Yoseph [facility] 05/21/2020 01:15:00 AM EDT - 05/21/2020 01:15:00 AM EDT [facility] ([facility]) Attender: Henny Hameed 05/21/2020 12:00:00 AM EDT [facility] ([facility]) [id number]"Psychotherapy Attender: Henny Yoseph [facility] 05/14/2020 01:15:00 AM EDT - 05/14/2020 01:15:00 AM EDT [facility] ([facility]) Attender: Henny Hameed 05/14/2020 12:00:00 AM EDT [facility] ([facility]) [id number]"Psychotherapy Attender: Henny Thomsonan [facility] 04/30/2020 01:15:00 AM EDT - 04/30/2020 01:15:00 AM EDT [facility] ([facility]) Attender: Henny Hameed 04/30/2020 12:00:00 AM EDT [facility] ([facility]) Attender: Henny Hameed 04/26/2020 12:00:00 AM EDT [facility] ([facility]) [id number]"Psychotherapy Attender: Hennypilar Hameed [facility] 04/23/2020 01:15:00 AM EDT - 04/23/2020 01:15:00 AM EDT [facility] ([facility]) Functional Status Immunizations Vaccine Date Status Description Data Source(s) COVID-19 dose #2 given elsewhere Unspecified 12/28/2020 02:2 5:00 PM EDT completed eCW1 ([facility]) COVID-19 dose #2 given elsewhere Unspecified 12/28/2020 02:2 5:00 PM EDT completed eCW1 ([facility]) COVID-19 dose #2 given elsewhere Unspecified 12/28/2020 02:2 5:00 PM EDT completed eCW1 ([facility]) COVID-19 dose #2 given elsewhere Unspecified 12/28/2020 02:2 5:00 PM EDT completed eCW1 ([facility]) COVID-19 dose #2 given elsewhere Unspecified 12/28/2020 02:2 5:00 PM EDT completed eCW1 ([facility]) COVID-19 dose #2 given elsewhere Unspecified 12/28/2020 02:2 5:00 PM EDT completed eCW1 ([facility]) COVID-19 dose #1 given elsewhere Unspecified 12/28/2020 02:2 4:00 PM EDT completed eCW1 ([facility]) COVID-19 dose #1 given elsewhere Unspecified 12/28/2020 02:2 4:00 PM EDT completed eCW1 ([facility]) COVID-19 dose #1 given elsewhere Unspecified 12/28/2020 02:2 4:00 PM EDT completed eCW1 ([facility]) COVID-19 dose #1 given elsewhere Unspecified 12/28/2020 02:2 4:00 PM EDT completed eCW1 ([facility]) COVID-19 dose #1 given elsewhere Unspecified 12/28/2020 02:2 4:00 PM EDT completed eCW1 ([facility]) COVID-19 dose #1 given elsewhere Unspecified 12/28/2020 02:2 4:00 PM EDT completed eC1 ([facility]) COVID-19 VACCINE Moderna 12/18/2020 12:00:00 AM EDT completed [facility]IS Vaccine Series Complete: YESThis Data wa s Submitted to [facility] [employer]. COVID-19 VACCINE Moderna 11/20/2020 12:00:00 AM EDT completed [facility]SIIS Vaccine Series Complete: NOThis Data was Submitted to [facility] [employer]. Medications Medication Brand Name Start Date Product Form Dose Route Admi nistrative Instructions Pharmacy Instructions Status Indications Reaction Description Data Source(s) Vraylar Vraylar 03/15/2021 12:00:00 AM EDT 3 mg by mouth completed <td ID="MedicationRxNorm_2">2703307</td><td ID="MedicationMedication_2">Vraylar</td><td ID="MedicationRoute_2">by mouth</td><td ID="MedicationRouteConcept_2">F87506</td><td ID="MedicationStartDate_2">03/15/2021</td><td ID="MedicationStopDate_2">05/21/2021</td><td ID="MedicationDosageFrequency_2">every night</td><td ID="MedicationDuration_2">30</td><td ID="MedicationFormulaStrength_2">3 mg</td><td ID="MedicationDosageForm_2">capsule</td><td ID="MedicationDosageFormCode_2"></td><td ID="MedicationDosageDescription_2"></td><td ID="MedicationMedicationId_2">[id number]</td><td ID="MedicationAccount_2">[id number]</td><td ID="MedicationNpid_2">[id number]</td><td ID="MedicationAuthorFirstName_2">Trena</td><td ID="MedicationAuthorLastName_2">Rigo</td><td ID="MedicationTaxonomyCode_2">[id number]</td><td ID="MedicationTaxonomyDesc_2">Nurse Practitioner</td><td ID="MedicationPhoneNumber_2">[phone]</td> [facility] ([facility]) Vraylar Vraylar 03/15/2021 12:00:00 AM EDT 1.5 mg by mouth completed <td ID="MedicationRxNorm_1">[id number]</td><td ID="MedicationMedication_1">Vraylar</td><td ID="MedicationRoute_1">by mouth</td><td ID="MedicationRouteConcept_1">X74470</td><td ID="MedicationStartDate_1">03/15/2021</td><td ID="MedicationStopDate_1">05/21/2021</td><td ID="MedicationDosageFrequency_1">every other day</td><td ID="MedicationDuration_1">30</td><td ID="MedicationFormulaStrength_1">1.5 mg</td><td ID="MedicationDosageForm_1">capsule</td><td ID="MedicationDosageFormCode_1"></td><td ID="MedicationDosageDescription_1"> </td><td ID="MedicationMedicationId_1">[id number]</td><td ID="MedicationAccount_1">[id number]</td><td ID="MedicationNpid_1">[id number]</td><td ID="MedicationAuthorFirstName_1">Trena</td><td ID="MedicationAuthorLastName_1">Rigo</td><td ID="MedicationTaxonomyCode_1">[id number]</td><td ID="MedicationTaxonomyDesc_1">Nurse Practitioner</td><td ID="MedicationPhoneNumber_1">[phone]</td> [facility] ([facility]) Docusate Sodium 100 MG Oral Capsule [Colace] Colace 100 MG C olace 100 MG 02/01/2021 12:00:00 AM EDT 1.0 {capsule_as_needed} active Colace 100 MG eCW1 ([facility]) Docusate Sodium 100 MG Oral Capsule [Colace] Colace 100 MG C olace 100 MG 02/01/2021 12:00:00 AM EDT 1.0 {capsule_as_needed} active Colace 100 MG eCW1 ([facility]) Docusate Sodium 100 MG Oral Capsule [Colace] Colace 100 MG C olace 100 MG 02/01/2021 12:00:00 AM EDT 1.0 {capsule_as_needed} active Colace 100 MG eCW1 ([facility]) atomoxetine 80 MG Oral Capsule [Strattera] Strattera 02/01 12:00:00 AM EDT 80 mg by mouth completed <td ID="Medic ationRxNorm_3">[id number]</td><td ID="MedicationMedication_3">Strattera</td><td ID="MedicationRoute_3">by mouth</td><td ID="MedicationRouteConcept_3">T74004</td><td ID="MedicationStartDate_3">02/01/2021</td><td ID="MedicationStopDate_3">06/20/2021</td><td ID="MedicationDosageFrequency_3">every morning</td><td ID="MedicationDuration_3">30</td><td ID="MedicationFormulaStrength_3">80 mg</td><td ID="MedicationDosageForm_3">capsule</td><td ID="MedicationDosageFormCode_3"></td><td ID="MedicationDosageDescription_3"> </td><td ID="MedicationMedicationId_3">[id number]</td><td ID="MedicationAccount_3">[id number]</td><td ID="MedicationNpid_3">[id number]</td><td ID="MedicationAuthorFirstName_3">Trena</td><td ID="MedicationAuthorLastName_3">Rigo</td><td ID="MedicationTaxonomyCode_3">[id number]</td><td ID="MedicationTaxonomyDesc_3">Nurse Practitioner</td><td ID="MedicationPhoneNumber_3">[phone]</td> [facility] ([facility]) atomoxetine 80 MG Oral Capsule [Strattera] Strattera 02/01 12:00:00 AM EDT 80 mg by mouth completed <td ID="Medic ationRxNorm_1">[id number]</td><td ID="MedicationMedication_1">Strattera</td><td ID="MedicationRoute_1">by mouth</td><td ID="MedicationRouteConcept_1">M32236</td><td ID="MedicationStartDate_1">02/01/2021</td><td ID="MedicationStopDate_1">04/02/2021</td><td ID="MedicationDosageFrequency_1">every morning</td><td ID="MedicationDuration_1">30</td><td ID="MedicationFormulaStrength_1">80 mg</td><td ID="MedicationDosageForm_1">capsule</td><td ID="MedicationDosageFormCode_1"></td><td ID="MedicationDosageDescription_1"> </td><td ID="MedicationMedicationId_1">[id number]</td><td ID="MedicationAccount_1">[id number]</td><td ID="MedicationNpid_1">[id number]</td><td ID="MedicationAuthorFirstName_1">Brian</td><td ID="MedicationAuthorLastName_1">Franks</td><td ID="MedicationTaxonomyCode_1">[id number]</td><td ID="MedicationTaxonomyDesc_1">Psychiatry</td><td ID="MedicationPhoneNumber_1">[phone]</td> [facility] ([facility]) Betamethasone 0.5 MG/ML / Clotrimazole 1 0 MG/ML Topical Cream Clotrimazole- Betamethasone 1-0.05 % Clotrimazole-Betamethasone 1-0.05 % 01/18/2021 12:00:0 0 AM EDT active Clotrimazole-Beta methasone 1-0.05 % eCW1 ([facility]) Betamethasone 0.5 MG/ML / Clotrimazole 1 0 MG/ML Topical Cream Clotrimazole- Betamethasone 1-0.05 % Clotrimazole-Betamethasone 1-0.05 % 01/18/2021 12:00:0 0 AM EDT active Clotrimazole-Beta methasone 1-0.05 % eCW1 ([facility]) Betamethasone 0.5 MG/ML / Clotrimazole 1 0 MG/ML Topical Cream Clotrimazole- Betamethasone 1-0.05 % Clotrimazole-Betamethasone 1-0.05 % 01/18/2021 12:00:0 0 AM EDT active Clotrimazole-Beta methasone 1-0.05 % eCW1 ([facility]) Betamethasone 0.5 MG/ML / Clotrimazole 1 0 MG/ML Topical Cream Clotrimazole- Betamethasone 1-0.05 % Clotrimazole-Betamethasone 1-0.05 % 01/18/2021 12:00:0 0 AM EDT active Clotrimazole-Beta methasone 1-0.05 % eCW1 ([facility]) Betamethasone 0.5 MG/ML / Clotrimazole 1 0 MG/ML Topical Cream Clotrimazole- Betamethasone 1-0.05 % Clotrimazole-Betamethasone 1-0.05 % 01/18/2021 12:00:0 0 AM EDT active Clotrimazole-Beta methasone 1-0.05 % eCW1 ([facility]) 24 HR Metformin hydrochloride 500 MG Ext ended Release Oral Tablet MetFORMIN HCl ER 500 MG MetFORMIN HCl ER 500 MG 12/28/2020 12:00:00 AM EDT active MetFORMIN HCl ER 500 MG eCW1 ([facility]) 24 HR Metformin hydrochloride 500 MG Ext ended Release Oral Tablet metFORMIN HCl ER 500 MG metFORMIN HCl ER 500 MG 12/28/2020 12:00:00 AM EDT active metFORMIN HCl ER 500 MG eCW1 ([facility]) 24 HR Metformin hydrochloride 500 MG Ext ended Release Oral Tablet metFORMIN HCl ER 500 MG metFORMIN HCl ER 500 MG 12/28/2020 12:00:00 AM EDT active metFORMIN HCl ER 500 MG eCW1 ([facility]) 24 HR Metformin hydrochloride 500 MG Ext ended Release Oral Tablet metFORMIN HCl ER 500 MG metFORMIN HCl ER 500 MG 12/28/2020 12:00:00 AM EDT active metFORMIN HCl ER 500 MG eCW1 ([facility]) 24 HR Metformin hydrochloride 500 MG Ext ended Release Oral Tablet metFORMIN HCl ER 500 MG metFORMIN HCl ER 500 MG 12/28/2020 12:00:00 AM EDT active metFORMIN HCl ER 500 MG eCW1 ([facility]) Covid-19 vaccine, Unspecified 12/18/2020 12:00:00 AM EDT completed MEDENT ([facility] ) Medication administered onsite Covid-19 vaccine, Unspecified 11/20/2020 12:00:00 AM EDT completed MEDENT ([facility]) Medication administered onsite Vitamin D3 125 MCG (5000 UT) Vitamin D3 125 MCG (5000 UT) 12:00:00 AM EST 1.0 {capsule} active Vitamin D3 125 MCG (5000 UT) eCW1 ([facility]) Vitamin D3 125 MCG (5000 UT) Vitamin D3 125 MCG (5000 UT) 12:00:00 AM EST 1.0 {capsule} active Vitamin D3 125 MCG (5000 UT) eCW1 ([facility]) Vitamin D3 125 MCG (5000 UT) Vitamin D3 125 MCG (5000 UT) 12:00:00 AM EST 1.0 {capsule} active Vitamin D3 125 MCG (5000 UT) eCW1 ([facility]) Vitamin D3 125 MCG (5000 UT) Vitamin D3 125 MCG (5000 UT) 12:00:00 AM EST 1.0 {capsule} active Vitamin D3 125 MCG (5000 UT) eCW1 ([facility]) Vitamin D3 125 MCG (5000 UT) Vitamin D3 125 MCG (5000 UT) 12:00:00 AM EST 1.0 {capsule} active Vitamin D3 125 MCG (5000 UT) eCW1 ([facility]) Vitamin D3 125 MCG (5000 UT) Vitamin D3 125 MCG (5000 UT) 12:00:00 AM EST 1.0 {capsule} active Vitamin D3 125 MCG (5000 UT) eCW1 ([facility]) 3 mg 05/07/2020 12:00:00 AM EDT capsule [...] type / Coverage type Policy ID Covered green party ID Covered green party's relationship to kelly Policy Kelly Plan Information BLUE CROSS [id number] F [id number] BLUE CROSS [id number] F [id number] [place] PPO 302/307 [id number] FA2 [id number] [facility] [id number] SP [id number] ANSI-Not a Secondary Insurance [id number] BLUE CROSS [id number] STEPAR [id number] ANSI-Not a Secondary Insurance [id number] ANSI-Not a Secondary Insurance [id number] ANSI-Not a Secondary Insurance [id number] ANSI-Not a Secondary Insurance [id number] [facility] U/W Commercial [id number] Family Dependent VY [id number] [facility] [employer] Commercial [id number] Family Dependent VY [id number] [employer] BCBS B [id number] C [id number] [id number] BCBS OF [facility] 306/806 [id number] [employer]CELL[employer] BCBS FEDERAL [id number] BCBS OF [facility] 306/806 [id number] FA2 [id number] PROCLAIM [facility] [id number] FA [id number] PROCLAIM [facility] [id number] FA [id number] SELF PAY UNAVAILABLE SP UNAVAILA BLE BCBS OF [facility] 306/806 [id number] FA [id number] BC BS [facility] [id number] [facility] TRANSITIONSAL LI 1 SP 1 [id number] [facility] [id number] SP [id number] [facility] [id number] SP [id number] Problems, Conditions, and Diagnoses Code Display Name Description Problem Type Effective Dates Data Source(s) F12.10 Cannabis abuse, uncomplicated Cannabis Use Disorder, M ild Condition 05/06/2021 12:00:00 AM EDT [facility] ([facility]) F17.290 Nicotine dependence, other tobacco produ ct, uncomplicated Nicotine dependence, other tobacco product, uncomplicated Condition 05/06 12:00:00 AM EDT [facility] ([facility]) F10.120 Alcohol abuse with intoxication, uncompl icated Alcohol abuse with intoxication, uncomplicated Condition 05/06/2021 12:00:00 AM EDT [facility] ([facility]) F31.31 Bipolar disorder, current episode depres sed, mild Bipolar I Disorder, Current or most recent episode depressed, Mild Condition 021 12:00:00 AM EDT [facility] ([facility]) Z68.44 [id number] BMI 60.0-69.9, adult Problem 12/28/2020 12:0 0:00 AM EDT eCW1 ([facility]) E11.9 [id number] Type 2 diabetes tana itus without complication, without long-term current use of insulin Problem 12/28/2020 12:00:00 AM EDT eCW1 ([facility]) E55.9 Vitamin D deficiency Vitamin D deficiency Problem 09/14/2020 12:00:00 AM EST eCW1 ([facility]) F10.19 Alcohol abuse with unspecified alcohol-i nduced disorder Alcohol abuse with unspecified alcohol-induced disorder Condition 09/09/2020 12:00:0 0 AM EST [facility] ([facility]) F17.290 Tobacco user Other tobacco product nicotine d ependence, uncomplicated Problem 09/07/2020 12:00:00 AM EST eCW1 ([facility]) Z68.44 [id number] Adult BMI 60.0-69.9 kg/sq m Problem 09/07/19 12:00:00 AM EST eCW1 ([facility]) F10.10 Alcohol abuse, uncomplicated Alcohol Use Disorder, Mil d Condition 06/11/2020 12:00:00 AM EST [facility] ([facility]) Surgeries/Procedures Procedure Description Date Indications Data Source(s) Extended Individual Psychotherapy - 45 min 05/06/2021 12:00:00 AM EDT - 05/06/2021 12:00:00 AM EDT [facility] ([facility]) Extended Individual Psychotherapy - 45 min 12:00:00 AM EDT [facility] ([facility]) Extended Individual Psychotherapy - 45 min 04/21/2021 12:00:00 AM EDT - 04/21/2021 12:00:00 AM EDT [facility] ([facility]) Extended Individual Psychotherapy - 45 min 12:00:00 AM EDT [facility] ([facility]) Extended Individual Psychotherapy - 45 min 04/15/2021 12:00:00 AM EDT - 04/15/2021 12:00:00 AM EDT [facility] ([facility]) Extended Individual Psychotherapy - 45 min 12:00:00 AM EDT [facility] ([facility]) Extended Individual Psychotherapy - 45 min 04/08/2021 12:00:00 AM EDT - 04/08/2021 12:00:00 AM EDT [facility] ([facility]) Extended Individual Psychotherapy - 45 min 12:00:00 AM EDT [facility] ([facility]) Extended Individual Psychotherapy - 45 min 03/18/2021 12:00:00 AM EDT - 03/18/2021 12:00:00 AM EDT [facility] ([facility]) Extended Individual Psychotherapy - 45 min 12:00:00 AM EDT [facility] ([facility]) Extended Individual Psychotherapy - 45 min 02/25/2021 12:00:00 AM EDT - 02/25/2021 12:00:00 AM EDT [facility] ([facility]) Extended Individual Psychotherapy - 45 min 12:00:00 AM EDT [facility] ([facility]) Extended Individual Psychotherapy - 45 min 02/03/2021 12:00:00 AM EDT - 02/03/2021 12:00:00 AM EDT [facility] ([facility]) Extended Individual Psychotherapy - 45 min 12:00:00 AM EDT [facility] ([facility]) Extended Individual Psychotherapy - 45 min 01/27/2021 12:00:00 AM EDT - 01/27/2021 12:00:00 AM EDT [facility] ([facility]) Extended Individual Psychotherapy - 45 min 12:00:00 AM EDT [facility] ([facility]) Extended Individual Psychotherapy - 45 min 01/20/2021 12:00:00 AM EDT - 01/20/2021 12:00:00 AM EDT [facility] ([facility]) Extended Individual Psychotherapy - 45 min 12:00:00 AM EDT [facility] ([facility]) MHCTelemed E/M Lvl 4--Est pt 01/04/2021 12:00:00 AM EDT - 01/04/2021 12:00:00 AM EDT [facility] ([facility]) MHCTelemed E/M Lvl 4--Est pt 01/04/2021 12:00:00 AM ED T [facility] ([facility]) Extended Individual Psychotherapy - 45 min 12/30/2020 12:00:00 AM EDT - 12/30/2020 12:00:00 AM EDT [facility] ([facility]) Extended Individual Psychotherapy - 45 min 12:00:00 AM EDT [facility] ([facility]) Extended Individual Psychotherapy - 45 min 12/24/2020 12:00:00 AM EDT - 12/24/2020 12:00:00 AM EDT [facility] ([facility]) Extended Individual Psychotherapy - 45 min 12:00:00 AM EDT [facility] ([facility]) Extended Individual Psychotherapy - 45 min 12/17/2020 12:00:00 AM EDT - 12/17/2020 12:00:00 AM EDT [facility] ([facility]) Extended Individual Psychotherapy - 45 min 12:00:00 AM EDT [facility] ([facility]) TEMPMHCTelemed--Crisis Brief 12/15/2020 12:00:00 AM EDT - 12/15/2020 12:00:00 AM EDT [facility] ([facility]) TEMPMHCTelemed--Crisis Brief 12/13/2020 12:00:00 AM ED T [facility] ([facility]) Extended Individual Psychotherapy - 45 min 12/10/2020 12:00:00 AM EDT - 12/10/2020 12:00:00 AM EDT [facility] ([facility]) Extended Individual Psychotherapy - 45 min 12:00:00 AM EDT [facility] ([facility]) MHC Telemed E/M Lvl 3--Est pt 12/07/2020 12:00:00 AM EDT - 12/07/2020 12:00:00 AM EDT [facility] ([facility]) MHC Telemed E/M Lvl 3--Est pt 12/07/2020 12:00:00 AM E DT [facility] ([facility]) Extended Individual Psychotherapy - 45 min 11/25/2020 12:00:00 AM EDT - 11/25/2020 12:00:00 AM EDT [facility] ([facility]) Extended Individual Psychotherapy - 45 min 12:00:00 AM EDT [facility] ([facility]) Extended Individual Psychotherapy - 45 min 11/19/2020 12:00:00 AM EDT - 11/19/2020 12:00:00 AM EDT [facility] ([facility]) Extended Individual Psychotherapy - 45 min 12:00:00 AM EDT [facility] ([facility]) Extended Individual Psychotherapy - 45 min 10/07/2020 12:00:00 AM EST - 10/07/2020 12:00:00 AM EST [facility] ([facility]) Extended Individual Psychotherapy - 45 min 12:00:00 AM EST [facility] ([facility]) Extended Individual Psychotherapy - 45 min 09/23/2020 12:00:00 AM EST - 09/23/2020 12:00:00 AM EST [facility] ([facility]) Extended Individual Psychotherapy - 45 min 1 12:00:00 AM EST [facility] ([facility]) Extended Individual Psychotherapy - 45 min 09/09/2020 12:00:00 AM EST - 09/09/2020 12:00:00 AM EST [facility] ([facility]) MHC Telemed E/M Lvl 3--Est pt 09/09/2020 12:00:00 AM EST - 09/09/2020 12:00:00 AM EST [facility] ([facility]) MHC Telemed E/M Lvl 3--Est pt 09/09/2020 12:00:[address] [facility] ([facility]) Extended Individual Psychotherapy - 45 min 1 12:00:00 AM EST [facility] ([facility]) Extended Individual Psychotherapy - 45 min 07/22/2020 12:00:00 AM EST - 07/22/2020 12:00:00 AM EST [facility] ([facility]) Extended Individual Psychotherapy - 45 min 0 12:00:00 AM EST [facility] ([facility]) Extended Individual Psychotherapy - 45 min 07/09/2020 12:00:00 AM EST - 07/09/2020 12:00:00 AM EST [facility] ([facility]) Extended Individual Psychotherapy - 45 min 0 12:00:00 AM EST [facility] ([facility]) Extended Individual Psychotherapy - 45 min 06/11/2020 12:00:00 AM EST - 06/11/2020 12:00:00 AM EST [facility] ([facility]) Extended Individual Psychotherapy - 45 min 0 12:00:00 AM EST [facility] ([facility]) [id number]"Psychotherapy 0 12:00:00 AM EDT - 05/21/2020 12:00:00 AM EDT [facility] ([facility]) [id number]"Psychotherapy 05/21/2020 12:00:00 AM EDT [facility] ([facility]) [id number]"Psychotherapy 0 12:00:00 AM EDT - 05/14/2020 12:00:00 AM EDT [facility] ([facility]) [id number]"Psychotherapy 05/14/2020 12:00:00 AM EDT [facility] ([facility]) [id number]"Psychotherapy 0 12:00:00 AM EDT - 04/30/2020 12:00:00 AM EDT [facility] ([facility]) [id number]"Psychotherapy 04/30/2020 12:00:00 AM EDT [facility] ([facility]) [id number]"Psychotherapy 0 12:00:00 AM EDT - 04/26/2020 12:00:00 AM EDT [facility] ([facility]) [id number]"Psychotherapy 04/23/2020 12:00:00 AM EDT [facility] ([facility]) Results ID Date Data Source LIPID PANEL (CARDIAC RISK) 09/07/2020 12:00:00 AM EST eCW1 ( [facility]) Name Value Range Interpretation Code Description Data Edwige rce(s) Supporting Document(s) Cholesterol [Moles/volume] in Serum or Plasma 175 <200 CHOLESTEROL LEVEL eCW1 ([facility]) Triglyceride [Mass/volume] in Serum or Plasma by calculation 301 <150 TRIGLYCERIDES LEVEL eCW1 ([facility]) Cholesterol in HDL [Moles/volume] in Serum or Plasma 35 >40 HDL CHOLESTEROL eCW1 ([facility]) 5.000 <5 CHOLESTEROL RISK RATIO eCW1 ([facility]) Cholesterol in LDL [Mass/volume] in Serum or Plasma by calculation 80 <100 LDL CHOLESTEROL eCW1 ([facility]) 140 NON-HDL-C eCW1 ([facility]) ID Date Data Source MAGNESIUM LEVEL 09/07/2020 12:00:00 AM EST eCW1 ([facility]) Name Value Range Interpretation Code Description Data Edwige rce(s) Supporting Document(s) 2.3 1.8-2.4 eCW1 ([facility]) ID Date Data Source VITAMIN D 25-[id number] 09/07/2020 12:00:00 AM EST eCW1 ([facility]) Name Value Range Interpretation Code Description Data Edwige rce(s) Supporting Document(s) 24.4 30.0-100.0 eCW1 ([facility]) ID Date Data Source [id number] 09/07/2020 12:00:00 AM EST eCW1 ([facility]) Name Value Range Interpretation Code Description Data Edwige rce(s) Supporting Document(s) Hemoglobin A1c/Hemoglobin.total in Blood 6.2 eCW1 ([facility]) ID Date Data Source FREE T4 & TSH PANEL 09/07/2020 12:00:00 AM EST eCW1 ([facility]) Name Value Range Interpretation Code Description Data Edwige rce(s) Supporting Document(s) 2.230 0.358-3.740 eCW1 ([facility]) 0.96 0.76-1.46 eCW1 ([facility]) ID Date Data Source Comprehensive Metabolic Profile (CMP) 09/07/2020 12:00:00 AM EST eCW1 ([facility]) Name Value Range Interpretation Code Description Data Edwige rce(s) Supporting Document(s) 137 70-100 GLUCOSE, FASTING eCW1 ([facility]) 0.96 0.70-1.30 CREATININE FOR GFR eCW1 ([facility]) 4.7 3.5-5.1 POTASSIUM SERUM eCW1 ([facility]) > 60.0 >60 GLOMERULAR FILTRATION RATE eCW 1 ([facility]) 140 136-145 SODIUM LEVEL eCW1 ([facility]) 21 7-18 BLOOD UREA NITROGEN eCW1 ([facility]) 28 21-32 CARBON DIOXIDE LEVEL eCW1 ([facility]) 27 7-37 AST/SGOT eCW1 ([facility]) 103 98-107 CHLORIDE LEVEL eCW1 ([facility]) 9.2 8.5-10.1 CALCIUM LEVEL eCW1 ([facility]) 49 12-78 ALT/SGPT eCW1 ([facility]) 84 45-117 ALKALINE PHOSPHATASE eCW1 ([facility]) 6.8 6.4-8.2 TOTAL PROTEIN eCW1 ([facility]) 1.2 ALBUMIN/GLOBULIN RATIO eCW1 ([facility]) 0.2 0.2-1.0 BILIRUBIN,TOTAL eCW1 ([facility]) 3.7 3.2-5.2 ALBUMIN eCW1 ([facility]) Procedure Social History Code Duration Value Status Description Data Source(s ) Smoking 05/06/2021 12:00:00 AM EDT Unknown if ever smoked comp leted Unknown if ever smoked [facility] ([facility]) Smoking 04/21/2021 12:00:00 AM EDT Former Smoker completed Former Smoker eCW1 ([facility]) Smoking 04/21/2021 12:00:00 AM EDT Unknown if ever smoked comp leted Unknown if ever smoked [facility] ([facility]) Smoking 04/15/2021 12:00:00 AM EDT Unknown if ever smoked comp leted Unknown if ever smoked [facility] ([facility]) Smoking 04/08/2021 12:00:00 AM EDT Unknown if ever smoked comp leted Unknown if ever smoked [facility] ([facility]) Smoking 03/18/2021 12:00:00 AM EDT Unknown if ever smoked comp leted Unknown if ever smoked [facility] ([facility]) Smoking 02/25/2021 12:00:00 AM EDT Unknown if ever smoked comp leted Unknown if ever smoked [facility] ([facility]) Smoking 02/03/2021 12:00:00 AM EDT Unknown if ever smoked comp leted Unknown if ever smoked [facility] ([facility]) Smoking 01/27/2021 12:00:00 AM EDT Unknown if ever smoked comp leted Unknown if ever smoked [facility] ([facility]) Smoking 01/20/2021 12:00:00 AM EDT Unknown if ever smoked comp leted Unknown if ever smoked [facility] ([facility]) Smoking 01/18/2021 12:00:00 AM EDT Former Smoker completed Former Smoker eCW1 ([facility]) Smoking 01/18/2021 12:00:00 AM EDT Former Smoker completed Former Smoker eCW1 ([facility]) Smoking 01/18/2021 12:00:00 AM EDT Former Smoker completed Former Smoker eCW1 ([facility]) Smoking 01/18/2021 12:00:00 AM EDT Former Smoker completed Former Smoker eCW1 ([facility]) Smoking 01/04/2021 12:00:00 AM EDT Unknown if ever smoked comp leted Unknown if ever smoked [facility] ([facility]) Smoking 12/30/2020 12:00:00 AM EDT Unknown if ever smoked comp leted Unknown if ever smoked [facility] ([facility]) Smoking 12/28/2020 12:00:00 AM EDT Former Smoker completed Former Smoker eCW1 ([facility]) Smoking 12/24/2020 12:00:00 AM EDT Unknown if ever smoked comp leted Unknown if ever smoked [facility] ([facility]) Smoking 12/17/2020 12:00:00 AM EDT Unknown if ever smoked comp leted Unknown if ever smoked [facility] ([facility]) Smoking 12/15/2020 12:00:00 AM EDT Unknown if ever smoked comp leted Unknown if ever smoked [facility] ([facility]) Smoking 12/10/2020 12:00:00 AM EDT Unknown if ever smoked comp leted Unknown if ever smoked [facility] ([facility]) Smoking 12/07/2020 12:00:00 AM EDT Unknown if ever smoked comp leted Unknown if ever smoked [facility] ([facility]) Smoking 11/25/2020 12:00:00 AM EDT Unknown if ever smoked comp leted Unknown if ever smoked [facility] ([facility]) Smoking 11/19/2020 12:00:00 AM EDT Unknown if ever smoked comp leted Unknown if ever smoked [facility] ([facility]) Smoking 10/07/2020 12:00:00 AM EST Unknown if ever smoked comp leted Unknown if ever smoked [facility] ([facility]) Smoking 09/23/2020 12:00:00 AM EST Unknown if ever smoked comp leted Unknown if ever smoked [facility] ([facility]) Smoking 09/14/2020 12:00:00 AM EST Former Smoker completed Former Smoker eCW1 ([facility]) Smoking 09/09/2020 12:00:00 AM EST Unknown if ever smoked comp leted Unknown if ever smoked [facility] ([facility]) Smoking 09/07/2020 12:00:00 AM EST Former Smoker completed Former Smoker eCW1 ([facility]) Smoking 07/22/2020 12:00:00 AM EST Unknown if ever smoked comp leted Unknown if ever smoked [facility] ([facility]) Smoking 07/09/2020 12:00:00 AM EST Unknown if ever smoked comp leted Unknown if ever smoked [facility] ([facility]) Smoking 06/11/2020 12:00:00 AM EST Unknown if ever smoked comp leted Unknown if ever smoked [facility] ([facility]) Smoking 05/21/2020 12:00:00 AM EDT Unknown if ever smoked comp leted Unknown if ever smoked [facility] ([facility]) Smoking 05/14/2020 12:00:00 AM EDT Unknown if ever smoked comp leted Unknown if ever smoked [facility] ([facility]) Smoking 04/30/2020 12:00:00 AM EDT Unknown if ever smoked comp leted Unknown if ever smoked [facility] ([facility]) Smoking 04/26/2020 12:00:00 AM EDT Unknown if ever smoked comp leted Unknown if ever smoked [facility] ([facility]) Vital Signs ID Date Data Source UNK Name Value Range Interpretation Code Description Data Source(s) Body weight 455 [lb_av] 455 [lb_av] eCW1 ([facility]) Body height 73 [in_i] 73 [in_i] eCW1 ([facility]) Body mass index (BMI) [Ratio] 60.02 kg/m2 60.02 kg/m2 eCW1 ([facility]) Heart rate 88 /min 88 /min eCW1 ([facility]) Respiratory rate 20 /min 20 /min eCW1 ([facility]) Body temperature 97 [degF] 97 [degF] eCW1 ([facility]) Systolic blood pressure 140 mm[Hg] 140 mm[Hg] e CW1 ([facility]) Diastolic blood pressure 80 mm[Hg] 80 mm[Hg] eCW1 ([facility]) Body weight 483 [lb_av] 483 [lb_av] eCW1 ([facility]) Body height 73 [in_i] 73 [in_i] eCW1 ([facility]) Body mass index (BMI) [Ratio] 63.72 kg/m2 63.72 kg/m2 eCW1 ([facility]) Heart rate 88 /min 88 /min eCW1 ([facility]) Respiratory rate 22 /min 22 /min eCW1 ([facility]) Body temperature 97 [degF] 97 [degF] eCW1 ([facility]) Systolic blood pressure 140 mm[Hg] 140 mm[Hg] e CW1 ([facility]) Diastolic blood pressure 80 mm[Hg] 80 mm[Hg] eCW1 ([facility]) [place] body weight 184 [lb_av] 184 [lb_av] MEDEN T ([facility], ) Body weight 222.264 kg 222.264 kg MEDENT ([facility], ) Body surface area Derived from formula 3.15 m2 3.15 m2 [facility]ENT [facility] Systolic blood pressure 140 mm[Hg] 140 mm[Hg] M EDENT ([facility]) Diastolic blood pressure 90 mm[Hg] 90 mm[Hg] [facility] ([facility]) Heart rate 95 /min 95 /min [facility] ([facility]) Oxygen saturation in Arterial blood by Pulse oximetry 98 % 98 % [facility] ([facility]) Body height 73 [in_i] 73 [in_i] [facility] ([facility], ) 6'1" Body weight 490.00 [lb_av] 490.00 [lb_av] MEDEN T ([facility]) Body mass index (BMI) [Ratio] 64.6 kg/m2 64.6 k g/m2 [facility] ([facility]) Body height 0.00 in Normal (applies to non-numeric resu lts) 0.00 in [facility] ([facility]) Body weight Measured 0.00 lbs Normal (applies to n on-numeric results) 0.00 lbs [facility] ([facility]) Body mass index (BMI) [Ratio] 0.00 kg/m2 No rmal (applies to non-numeric results) 0.00 kg/m2 [facility] ([facility]) Systolic blood pressure 0 mm[Hg] Normal (applies t o non-numeric results) 0 mm[Hg] [facility] ([facility]) Diastolic blood pressure 0 mm[Hg] Normal (applies to non-numeric results) 0 mm[Hg] [facility] ([facility]) Body weight 488 [lb_av] 488 [lb_av] eCW1 ([facility]) Body height 73 [in_i] 73 [in_i] eCW1 ([facility]) Body mass index (BMI) [Ratio] 64.38 kg/m2 64.38 kg/m2 eCW1 ([facility]) Heart rate 88 /min 88 /min eCW1 ([facility]) Respiratory rate 22 /min 22 /min eCW1 ([facility]) Body temperature 98.2 [degF] 98.2 [degF] eCW1 ( [facility]) Systolic blood pressure 140 mm[Hg] 140 mm[Hg] e CW1 ([facility]) Diastolic blood pressure 80 mm[Hg] 80 mm[Hg] eCW1 ([facility]) Body height 0.00 in Normal (applies to non-numeric resu lts) 0.00 in [facility] ([facility]) Body weight Measured 0.00 lbs Normal (applies to n on-numeric results) [facility] Body mass index (BMI) [Ratio] 0.00 kg/m2 No rmal (applies to non-numeric results) 0.00 kg/m2 [facility] ([facility]) Systolic blood pressure 0 mm[Hg] Normal (applies t o non-numeric results) 0 mm[Hg] [facility] ([facility]) Diastolic blood pressure 0 mm[Hg] Normal (applies to non-numeric results) 0 mm[Hg] [facility] ([facility]) Body weight 469 [lb_av] 469 [lb_av] eCW1 ([facility]) Body height 73 [in_i] 73 [in_i] eCW1 ([facility]) Body mass index (BMI) [Ratio] 61.87 kg/m2 61.87 kg/m2 W1 ([facility]) Heart rate 90 /min 90 /min eCW1 ([facility]) Respiratory rate 22 /min 22 /min eCW1 ([facility]) Body temperature 97.4 [degF] 97.4 [degF] eCW1 ( [facility]) Systolic blood pressure 140 mm[Hg] 140 mm[Hg] e CW1 ([facility]) Diastolic blood pressure 80 mm[Hg] 80 mm[Hg] eCW1 ([facility]) Body height 0.00 in Normal (applies to non-numeric resu lts) 0.00 in [facility] ([facility]) Body weight Measured 0.00 lbs Normal (applies to n on-numeric results) 0.00 lbs [facility] ([facility]) Body mass index (BMI) [Ratio] 0.00 kg/m2 No rmal (applies to non-numeric results) 0.00 kg/m2 [facility] ([facility]) Systolic blood pressure 0 mm[Hg] Normal (applies t o non-numeric results) 0 mm[Hg] [facility] ([facility]) Diastolic blood pressure 0 mm[Hg] Normal (applies to non-numeric results) 0 mm[Hg] [facility] ([facility]) Body weight 474 [lb_av] 474 [lb_av] eCW1 ([facility]) Body height 73 [in_i] 73 [in_i] eCW1 ([facility]) Body mass index (BMI) [Ratio] 62.53 kg/m2 62.53 kg/m2 eCW1 ([facility]) Heart rate 90 /min 90 /min eCW1 ([facility]) Respiratory rate 20 /min 20 /min eCW1 ([facility]) Body temperature 97 [degF] 97 [degF] eCW1 ([facility]) Systolic blood pressure 130 mm[Hg] 130 mm[Hg] e CW1 ([facility]) Diastolic blood pressure 80 mm[Hg] 80 mm[Hg] eCW1 ([facility]) Patient Treatment Plan of Care Planned Activity Planned Date Details Description Data Source (s) Docusate Sodium 100 MG Oral Capsule [Colace] 02/01/2021 12:00:00 AM EDT eCW1 ([facility]) Docusate Sodium 100 MG Oral Capsule [Colace] 02/01/2021 12:00:00 AM EDT eCW1 ([facility]) Betamethasone 0.5 MG/ML / Clotrimazole 10 MG/ML Topica l Cream 01/18/2021 12:00:00 AM EDT eCW1 ([facility]) Betamethasone 0.5 MG/ML / Clotrimazole 10 MG/ML Topica l Cream 01/18/2021 12:00:00 AM EDT eCW1 ([facility]) Betamethasone 0.5 MG/ML / Clotrimazole 10 MG/ML Topica l Cream 01/18/2021 12:00:00 AM EDT eCW1 ([facility]) Betamethasone 0.5 MG/ML / Clotrimazole 10 MG/ML Topica l Cream 01/18/2021 12:00:00 AM EDT eCW1 ([facility]) 24 HR Metformin hydrochloride 500 MG Extended Release Oral Tablet 12/28/2020 12:00:00 AM EDT eCW1 ([facility]) Vitamin D3 125 MCG (5000 UT) 09/14/2020 12:00:00 AM EST eCW1 ([facility]) Vitamin D3 125 MCG (5000 UT) 09/14/2020 12:00:00 AM EST eCW1 ([facility])
[2021-06-20] MEDS: metFORMIN XR 500MG TAB *GLUCOPHAGE XR PO SCH (19:02)
[2021-06-20] MEDS: traZODone 50 MG TAB PO PRN (20:21)
[2021-06-20] MEDS: LOSARTAN 50MG TABLET PO SCH (20:22)
[2021-06-20] MEDS ORDERED: CARIPRAZINE 3MG CAPSULE (VRAYLAR) PO SCH (21:00)
[2021-06-21] MEDS: NICOTINE 7 MG/24 HR TRANSDERMAL TD SCH (08:26)
[2021-06-21] MEDS ORDERED: NICOTINE 21MG/24HR 1 EA TRANSDERMAL TD SCH (09:00)
[2021-06-21] MEDS ORDERED: OMEPRAZOLE 20 MG CAP PO SCH (09:00)
[2021-06-21] MEDS ORDERED: LORazepam 2 MG TAB PO STA (10:22)
[2021-06-21] MEDS: ATOMOXETINE HCL 40 MG CAP (STRATTERA) PO SCH (10:33)
--- NOTE | 2021-06-21 10:38 | MHHPEPDOC ---
General Date Of Admission: Jun 20, 2021 Legal Status: 9.39 Chief Complaint " I was referring myself to the Anti-Estevan and that concerned my family History of Present Illness HISTORY OF THE PRESENT ILLNESS: Patient is a 31 -year-old Single (Engaged), Unemployed, Domiciled, , male, who was brought to [facility] for manic symptoms. He was referring to himself as the Anti-Estevan and this concerned his family (Mother and Brother) and he was encouraged to be seen in the ED. 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 He has been very religiously preoccupied for several weeks. States that his manic episode started about a week ago on Sunday night "I put 2 and 2 together and I learned that Dev Miranda was possibly Osito." And he reports various religions thoughts about prayer and was praying to repetitively to Base79an, states he has a powerful vision about these visions and is going to the clergy to ask jainism concerns/. Admits that he missed his Vraylar several times this past week and was decompensating from the weaning himself off Cannabis. PER ED REPORT: Pt states he has been increasingly stressed which has caused jainism ideations, pt states he is the antichrist, feels cursed, has been stating the rosary constantly praying to Satan. Pt feels toxically empathetic to the point he no called/no showed for work at [employer] and states he cannot return. Pt states he found out his fiance is with their second child which has increased stress for not being able to support a second child. [facility], and states he called to request weekly appointments. Pt has vague S/I with no plan. Psychiatric Review of Systems Depression (2 or more weeks): denies Diamond (4 or more days of): irritable/elevated mood, expansive mood, grandiosity , decreased need for sleep (was pacing in the hallways. ), still with energy, talkativity, pressured, flight of ideas, distractibility, goal-directed activities, other (feels overwhelmed) Psychosis: other (has messages from belinda and Joy) PTSD: denies Past Psychiatric History Previous Psychiatric Diagnosis: Bipolar I disorder, ADHD, feels that he may be Autistic ("I struggled in high school") Previous Psychiatric Admissions: [facility] and [facility] Suicide Attempts: None, suicidal ideations in the past [facility] Psychiatric medications: Vraylar, Javonera Past Medical History Medical Problems Diabetes HTN Obesity Bipolar I Surgeries - Hydrocele, ECT Txs (Zhang Contreras) Head Injury: No Seizures: No Hospitalizations: Yes Surgeries: Yes (as a baby) Family Medical/Psychiatric HX Medical Problems Dad- HTN Maternal Grandmother - diabetes Bilateral family - Obesity Psychiatric Disorders: Yes Addiction: Yes (EToh, SMoker) Suicide Attemps/Completions: No Addiction History nicotine (2 a day), alcohol (occasional), other (cannabis but was weaning himself) Social History Childhood: Born in [place], [place] to both parents. Parents when he was 12 years old. Has a younger brother. He did well in school until "[employer]" - describes his childhood "naive but pleasant" Abuse/Trauma: None, "I have accused my mother of abuse but not really" Current Living Situation: Lives his with aarti Education: Lots of College Employment: Unemployed Social Support: Aarti`and other close friends Legal: none Marital: Not , engaged, has a child, and aarti is Mental Status Examination General Appearance: unkempt, disheveled, personal clothing, other Build: overweight, tall Demeanor: other Eye Contact: average Activity: average Behavior: cooperative Speech: rapid, other (tangential and circumstantial) Mood: elevated Affect: other Thought Process: tangential, flight of ideas Thought Content (Delusions): persecutory (jainism persecutory themes) Thought Content (Other): preoccupied, obsessional Thought Content (Aggressive): none reported Perception (Hallucinations): other ("messages from demons and Satan") Perception (Other): none reported Cognition (Impairment of): attention/concentration Cognition(Intelligence Est.): above average Oriented: Awake, Alert, Oriented times three Insight: fair Judgment: Fair Diagnoses Bipolar I Disorder, Current Episode, Manic with Psychotic Features Attention Deficit Hyperactivity Disorder A-FIB/CHADSVASC A-FIB History Current/History of A-Fib/PAF?: No Current PO Anticoag Therapy: No Assessment Patient is a 31 year old Single, Unemployed, Domiciled, Male with a history of Bipolar disorder is admitted to the unit for manic and psychotic symptoms. Patient is reporting that he is the Anti-Estevan and stating that he feels cursed, has been stating the rosary constantly praying to Joy. 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 He is agreeable to starting his Vraylar at 4.5 mg and continue all his other home medications. Patient requesting to be discharged as soon as he possibly can. Patient is showing good insight and judgment although very manic in his speech and is tangential and circumstantial throughout interview. Will continue all inpatient therapies and management of medications. Will discharge when stable. Initial Treatment Plan 1. Patient was admitted on a [9.39] status. 2. Complete history was obtained. 3. With patients permission, family will be contacted and database will be expanded. 4. Patients medication regimen will be reviewed and changed accordingly. 5. Patient will be provided with protected environment. 6. Patient will be treated with individual, group, and milieu therapies. 7. Patient will receive supportive psych-education. 8. Discharge planning will commence immediately. 9. Outpatient follow-up treatment will be strongly recommended. 10. The initial treatment plan will focus initially on: * Depression. * Risk for suicide. ESTIMATED LENGTH OF STAY: 3-5 DAYS. TIME SPENT COUNSELING AND COORDINATING INITIAL CARE: 60 minutes. Tobacco Cessation Screen If Patient is a Smoker Patient smokes 1-2 cigarettes a day Ordered/Pending Vital Signs Vital Signs Date Time Temp Pulse Resp B/P (MAP) Pulse Ox O2 Delivery O2 Flow Rate FiO2 06/20/21 20:22 167/90 06/20/21 14:27 97.6 106 16 95 Room Air Laboratory Data 24H Labs Laboratory Tests 2 06/20/21 11:20: Coronavirus (COVID-19)(PCR) NEGATIVE, Influenza Type A (RT-PCR) NEGATIVE, Influenza Type B (RT-PCR) NEGATIVE, Respiratory Syncytial Virus (PCR) NEGATIVE Medications Scheduled Atomoxetine HCl (Atomoxetine HCl) 80 Mg Capsule, 80 MG PO DAILY, (Reported) Cariprazine HCl (Vraylar) 3 Mg Capsule, 3 MG PO QHS, (Reported) Losartan Potassium (Losartan Potassium) 100 Mg Tablet, 100 MG PO QHS, (Reported) Metformin HCl (Metformin HCl ER) 500 Mg Tab.er.24h, 1,000 MG PO QHS, (Reported) Omeprazole (Omeprazole) 40 Mg Capsule.dr, 40 MG PO DAILY, (Reported) Scheduled PRN Cariprazine HCl (Vraylar) 1.5 Mg Capsule, 1.5 MG PO QHS PRN for DEPRESSION, (Reported) Allergies Coded Allergies: Sulfa (Sulfonamide Antibiotics) (Verified Allergy, Intermediate, Hives, 12/10/18) BILLIE PLASENCIA NP Jun 21, 2021 10:22
--- NOTE | 2021-06-21 15:04 | HPEPDOC ---
[facility] Medical History & Physical Date of Admission Jun 21, 2021 Date of Service: Jun 21, 2021 History and Physical CHIEF COMPLAINT: " Family wanted me to be evaluated because I was referring to myself as antichrist" HISTORY OF PRESENT ILLNESS: 31-year-old male with a past medical history of diabetes, hypertension, obesity, bipolar disorder was brought to the emergency room department for a manic episode. Patient reports being anti-Estevan and his family (mother and brother) were concerned and encouraged him to come to the emergency room department. He continues to have these believes. He also reported having vague suicidal ideations considering he was antichrist, which he denies now. Presently, he denies headaches, chest pain, shortness of breath, abdominal pain, nausea, vomiting, problem with urination and bowel movements. However, of note he did report having intermittent bowel movements with blood in the past and once in the emergency room department. He has been told he may have hemorrhoids and was given topical ointment in the past. PAST MEDICAL HISTORY: As mentioned above PAST SURGICAL HISTORY: Hydrocele, ECT for depression SOCIAL HISTORY: Smokes approximately 2 cigarettes daily, occasional alcohol use, marijuana but reportedly weaning himself off FAMILY HISTORY: Father: Hypertension ALLERGIES: Please see below. REVIEW OF SYSTEMS: 10 point review of system was negative except for what is noted in the [facility] HOME MEDICATIONS: Please see below. PHYSICAL EXAMINATION: VITAL SIGNS: Please see below General: Lying in bed, no acute distress Head/Neck/Throat: Trachea midline, mucous membranes moist Eyes: Sclera anicteric, no erythema or discharge appreciated bilaterally Thorax: Normal respiratory effort on room air, lungs clear to auscultation bilaterally, no wheezes/rales/rhonchi Cardiovascular: Normal rate, regular rhythm, normal S1, S2; no S3, S4, rubs/gallops/murmurs Abdomen: Bowel sounds present, soft/nontender/nondistended. Deferred rectal exam to his primary care physician Genitourinary: No CVA tenderness, no Spivey in place Musculoskeletal: Moving all extremities, no edema Skin: Warm, dry Neurologic: AAOx3, speech fluent and goal-directed, no focal deficits, grossly intact LABORATORY DATA: See below. IMAGING: No imaging to review at this time MICROBIOLOGY: Please see below. ASSESSMENT/PLAN: #Mood disorder -defer management to psych team. #Electrolyte abnormality -Repeat chemistry to ensure potassium is within normal limits #GI bleed/hemorrhoid -Hemodynamically remains stable. Repeat CBC to ensure her H&H is stable. Does not want further evaluation during this hospitalization and wants further evaluation/management to his primary care physician. Risks were explained to the patient at length. #Diabetes -continue with metformin #HTN -Uncontrolled. Continue losartan. Will add amlodipine for better control #Obesity -Encourage weight loss #DVT ppx -Ambulation History and physical examination done in the presence of a dairy chemist. Thank you for involving us in the care of Mr. Meier. Please reconsult medicine team if needed. Vital Signs Vital Signs Date Time Temp Pulse Resp B/P (MAP) Pulse Ox O2 Delivery O2 Flow Rate FiO2 06/20/21 20:22 167/90 06/20/21 14:27 97.6 106 16 95 Room Air Home Medications Scheduled Atomoxetine HCl (Atomoxetine HCl) 80 Mg Capsule, 80 MG PO DAILY Cariprazine HCl (Vraylar) 3 Mg Capsule, 3 MG PO QHS Losartan Potassium (Losartan Potassium) 100 Mg Tablet, 100 MG PO QHS Metformin HCl (Metformin HCl ER) 500 Mg Tab.er.24h, 1,000 MG PO QHS Omeprazole (Omeprazole) 40 Mg Capsule.dr, 40 MG PO DAILY Scheduled PRN Cariprazine HCl (Vraylar) 1.5 Mg Capsule, 1.5 MG PO QHS PRN for DEPRESSION Allergies Coded Allergies: Sulfa (Sulfonamide Antibiotics) (Verified Allergy, Intermediate, Hives, 12/10/18) A-FIB/CHADSVASC A-FIB History Current/History of A-Fib/PAF?: No LISA BLUNT M.D. Jun 21, 2021 15:04
[2021-06-21] MEDS: metFORMIN XR 500MG TAB *GLUCOPHAGE XR PO SCH (17:24)
[2021-06-21 18:41] VITALS: BP 161/95
[2021-06-21] MEDS: LOSARTAN 50MG TABLET PO SCH (20:28)
[2021-06-21] MEDS: OMEPRAZOLE 20 MG CAP PO SCH (20:29)
[2021-06-21] MEDS ORDERED: CARIPRAZINE 1.5MG CAPSULE (VRAYLAR) PO SCH (21:00)
[2021-06-22 06:00] VITALS: BP 119/74
[2021-06-22] MEDS: ATOMOXETINE HCL 40 MG CAP (STRATTERA) PO SCH (09:10)
[2021-06-22] MEDS: NICOTINE 7 MG/24 HR TRANSDERMAL TD SCH (09:12)
[2021-06-22 11:36] LABS: HEMATOCRIT 44.4 % (42.0-52.0); MEAN CORPUSCULAR HGB CONC 33.8 g/dl (32.0-36.5); MEAN CORPUSCULAR VOLUME 88.8 fl (80.0-96.0); PLATELET COUNT, AUTOMATED 235 10^3/uL (150-450); WHITE BLOOD COUNT 7.9 10^3/uL (4.0-10.0)
[2021-06-22 12:17] LABS: BLOOD UREA NITROGEN 12 MG/DL (7-18); CALCIUM LEVEL 9.4 MG/DL (8.5-10.1); CARBON DIOXIDE LEVEL 25 MEQ/L (21-32); CHLORIDE LEVEL 108 MEQ/L (98-107); CREATININE FOR GFR 0.83 MG/DL (0.70-1.30); GLOMERULAR FILTRATION RATE > 60.0 (>60); GLUCOSE, FASTING 123 MG/DL (70-100); SODIUM LEVEL 141 MEQ/L (136-145)
[2021-06-22] MEDS: hydrOXYzine 50 MG TAB PO PRN ×2 (14:43→22:59)
--- NOTE | 2021-06-22 15:21 | MHIPNPDOC ---
[facility] Progress Note Progress Note DATE OF SERVICE: 06/22/21 HISTORY: Patient is a 31 -year-old Single (Engaged), Unemployed, Domiciled, , male, who was brought to [facility] for manic symptoms. He was referring to himself as the Anti-Estevan and this concerned his family (Mother and Brother) and he was encouraged to be seen in the ED. 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 He has been very religiously preoccupied for several weeks. States that his manic episode started about a week ago on Sunday night "I put 2 and 2 together and I learned that Dev Miranda was possibly Osito." And he reports various religions thoughts about prayer and was praying to repetitively to Satan, states he has a powerful vision about these visions and is going to the clergy to ask oriental orthodox concerns/. Admits that he missed his Vraylar several times this past week and was decompensating from the weaning himself off Cannabis. PER ED REPORT: Pt states he has been increasingly stressed which has caused oriental orthodox ideatio ns, pt states he is the antichrist, feels cursed, has been stating the rosary constantly praying to Satan. Pt feels toxically empathetic to the point he no called/no showed for work at [employer] and states he cannot return. Pt states he found out his fiance is with their second child which has increased stress for not being able to support a second child. [facility], and states he called to request weekly appointments. Pt has vague S/I with no plan. VITAL SIGNS: See below. NEW TEST RESULTS: CURRENT MEDICATIONS: See below. MENTAL STATUS EXAMINATION: Patient is a 31 -year-old Single (Engaged), Unemployed, Domiciled, , male, who was brought to [facility] for manic symptoms Speech: Is fast, pressured, normal rate, tone and volume Language skills are intact Thought processes including: mildly disorganized and flight of ideas Thought content: denies depression and anxiety. He appears very anxious. Denies suicidal/homicidal ideation, planning or intent. Abstract reasoning, and computation: fair Description of associations: denies, none observed Description of abnormal or psychotic thoughts: denies, none observed. Judgment: poor to fair at times Insight: poor to fair at times Orientation: alert and oriented to person, place, time and situation Recent and remote memory: intact Attention span and concentration: good Language: expansive Fund of knowledge: average Mood: Hypomanic Mood Affect: animated, congruent with mood DIAGNOSES: Bipolar I Disorder, Current Episode, Manic with Psychotic Features Attention Deficit Hyperactivity Disorder ASSESSMENT: Patient is pleasantly hypomanic. He is aware of his hypomanic although is talking about his being gas lighted by ER staff. Wants to be discharged and is requesting court for retention. He states that he is going to ronald people if he is not discharged. Reviewed with the patient that he currently is exhibiting manic symptoms, he agrees that he is more energized and that he is manic, speaking very fast and that he has racing thoughts. We reviewed his medications and he agreed to another increase of Vraylar to 6 mg HS. Patient was medicated this afternoon for anxiety - Hydroxyzine 75 mg every 6 hours PRN for anxiety ordered. Patient is observed to be with fair to poor insight many times throughout the day. He is disheveled and unkempt today. MANAGEMENT PLAN: Patient is agreeable to increase of Vraylar to 6 mg HS. Remains hypomanic TIME SPENT: 25 minutes. Vital Signs Vital Signs Date Time Temp Pulse Resp B/P (MAP) Pulse Ox O2 Delivery O2 Flow Rate FiO2 06/22/21 09:10 107 182/104 06/22/21 08:17 Room Air 06/22/21 06:00 97.4 18 96 Current Medications Current Medications Medications (Trade) Dose Ordered Sig/Alia Route PRN Reason Start Time Stop Time Status Last Admin Dose Admin Acetaminophen (Tylenol Tab) 650 mg Q6HP PRN PO HEADACHE or MILD DISCOMFORT 06/20/21 14:25 Al Hydrox/Mg Hydrox/Simethicone (Mylanta) 30 ml Q4HP PRN PO HEARTBURN/INDIGESTION 06/20/21 14:25 06/20/21 20:22 Amlodipine Besylate (Norvasc) 2.5 mg DAILY PO 06/21/21 09:00 06/22/21 09:10 Atomoxetine HCl (Strattera (Atomoxetine)) 80 mg QAM PO 06/18/21 09:00 06/20/21 16:30 DC 06/20/21 07:44 Atomoxetine HCl (Strattera (Atomoxetine)) 80 mg QAM PO 06/19/21 09:00 06/19/21 08:55 DC Atomoxetine HCl (Strattera (Atomoxetine)) 80 mg QAM PO 06/21/21 09:00 06/22/21 09:10 Cariprazine (Vraylar) 1.5 mg QHS PRN PO DEPRESSION 06/20/21 14:25 06/21/21 10:25 DC Cariprazine (Vraylar) 3 mg QHS PO 06/20/21 21:00 06/21/21 10:25 DC 06/20/21 20:21 Cariprazine (Vraylar) 4.5 mg DAILY PO 06/18/21 09:00 06/18/21 18:37 DC Cariprazine (Vraylar) 4.5 mg QHS PO 06/18/21 21:00 06/20/21 16:32 DC 06/19/21 22:37 Cariprazine (Vraylar) 4.5 mg QHS PO 06/21/21 21:00 06/21/21 20:29 Cariprazine (Vraylar) 4.5 mg STAT STAT PO 06/17/21 23:42 06/17/21 23:44 DC 06/17/21 23:42 Home Med (Home Med List Complete!) ASDIRECTED XX 06/18/21 09:45 06/18/21 09:51 DC Lorazepam (Ativan) 1 mg STAT STAT PO 06/18/21 22:34 06/18/21 22:35 DC 06/18/21 23:00 Lorazepam (Ativan) 2 mg STAT STAT PO 06/20/21 08:47 06/20/21 08:48 DC 06/20/21 08:47 Lorazepam (Ativan) 2 mg STAT STAT PO 06/21/21 10:22 06/21/21 10:25 DC 06/21/21 10:33 Losartan Potassium (Cozaar) 100 mg QHS PO 06/20/21 21:00 06/21/21 20:28 Losartan Potassium (Cozaar) 100 mg QPM PO 06/18/21 21:00 06/20/21 16:32 DC 06/19/21 22:35 Magnesium Hydroxide (Milk Of Magnesia) 30 ml DAILYPRN PRN PO CONSTIPATION 06/20/21 14:25 Metformin HCl (Glucophage Xr) 1,000 mg DAILY@1800 PO 06/20/21 18:00 06/21/21 17:24 Metformin HCl (Glucophage Xr) 1,000 mg QPM@1800 PO 06/18/21 18:00 06/20/21 16:32 DC 06/19/21 18:20 Nicotine (Nicoderm Cq 21mg) 1 patch DAILY TD 06/21/21 09:00 06/21/21 08:13 DC Nicotine (Nicoderm Cq 7 Mg) 1 patch DAILY TD 06/21/21 09:00 06/22/21 09:12 Omeprazole (PriLOSEC) 40 mg DAILY PO 06/21/21 09:00 06/21/21 08:13 DC Omeprazole (PriLOSEC) 40 mg QHS PO 06/21/21 21:00 06/21/21 20:29 Omeprazole (PriLOSEC) 40 mg QPM PO 06/18/21 21:00 06/20/21 16:32 DC 06/19/21 22:34 Trazodone HCl (Desyrel) 50 mg QHSP PRN PO INSOMNIA 06/20/21 14:25 06/20/21 20:21 Allergies Coded Allergies: Sulfa (Sulfonamide Antibiotics) (Verified Allergy, Intermediate, Hives, 12/10/18) BILLIE PLASENCIA SUPERVISOR [employer] Jun 22, 2021 10:45
[2021-06-22] MEDS: metFORMIN XR 500MG TAB *GLUCOPHAGE XR PO SCH (17:22)
[2021-06-22] MEDS ORDERED: DIVALPROEX 250 MG TAB PO SCH (17:25)
[2021-06-22] MEDS ORDERED: DIVALPROEX 250MG *ER* TAB PO PRN (17:30)
[2021-06-22] MEDS: CARIPRAZINE 3MG CAPSULE (VRAYLAR) PO SCH (21:03)
[2021-06-22] MEDS: OMEPRAZOLE 20 MG CAP PO SCH (21:03)
[2021-06-22] MEDS: LOSARTAN 50MG TABLET PO SCH (21:05)
[2021-06-22] MEDS: PILL CUTTER 1 EACH XX PRN (22:59)
[2021-06-22] MEDS: traZODone 50 MG TAB PO PRN (22:59)
[2021-06-22] MEDS: QUEtiapine FUMARATE 100 MG TAB PO SCH (23:47)
[2021-06-23] MEDS: QUEtiapine FUMARATE 100 MG TAB PO SCH ×2 (02:30→20:20)
[2021-06-23] MEDS ORDERED: OLANZapine ORAL DISINTEGRATING TAB 5MG PO ONE (03:55)
[2021-06-23] MEDS: hydrOXYzine 50 MG TAB PO PRN ×3 (06:04→23:25)
[2021-06-23] MEDS: PILL CUTTER 1 EACH XX PRN ×3 (06:04→20:19)
[2021-06-23] MEDS: ATOMOXETINE HCL 40 MG CAP (STRATTERA) PO SCH (10:02)
[2021-06-23] MEDS: NICOTINE 7 MG/24 HR TRANSDERMAL TD SCH (10:03)
--- NOTE | 2021-06-23 13:23 | MHIPNPDOC ---
[facility] Progress Note Progress Note DATE OF SERVICE: 06/23/21 HISTORY: Patient is a 31 -year-old Single (Engaged), Unemployed, Domiciled, , male, who was brought to [facility] for manic symptoms. He was referring to himself as the Anti-Estevan and this concerned his family (Mother and Brother) and he was encouraged to be seen in the ED. 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 He has been very religiously preoccupied for several weeks. States that his manic episode started about a week ago on Sunday night "I put 2 and 2 together and I learned that Dev Miranda was possibly Osito." And he reports various religions thoughts about prayer and was praying to repetitively to Satan, states he has a powerful vision about these visions and is going to the clergy to ask gnosticism concerns/. Admits that he missed his Vraylar several times this past week and was decompensating from the weaning himself off Cannabis. PER ED REPORT: Pt states he has been increasingly stressed which has caused gnosticism ideatio ns, pt states he is the antichrist, feels cursed, has been stating the rosary constantly praying to Satan. Pt feels toxically empathetic to the point he no called/no showed for work at [employer] and states he cannot return. Pt states he found out his fiance is with their second child which has increased stress for not being able to support a second child. [facility], and states he called to request weekly appointments. Pt has vague S/I with no plan. VITAL SIGNS: See below. NEW TEST RESULTS: CURRENT MEDICATIONS: See below. MENTAL STATUS EXAMINATION: Patient is a 31 -year-old Single (Engaged), Unemployed, Domiciled, , male, who was brought to [facility] for manic symptoms Speech: normal rate, tone and volume Language skills are intact Thought processes including: more organized and mild flight of ideas Thought content: denies depression and anxiety. Denies suicidal/homicidal ideation, planning or intent. Abstract reasoning, and computation: fair Description of associations: denies, none observed Description of abnormal or psychotic thoughts: denies, none observed. Judgment: fair Insight: fair Orientation: alert and oriented to person, place, time and situation Recent and remote memory: intact Attention span and concentration: good Language: expansive Fund of knowledge: average Mood: neutral Affect: flat DIAGNOSES: Bipolar I Disorder, Current Episode, Manic with Psychotic Features Attention Deficit Hyperactivity Disorder ASSESSMENT: Per staff, patient was hypomanic, received hydroxyzine 75mg prior to interview. During interview patient was less hypomanic had normal tone and volume of speech. He was tagential and had mild flight of ideas, but this appe ars to be an improvement from yesterday. He acknowledges that people perceive his size as threatening, that his racing thoughts might be manic, but he denies that he is more energized than normal. He appears to have more improved insight and judgment in his interview. Patient is requesting to be discharged tomorrow, states that he does not feel that he needs to continue hospitalization, although he is agreeable to staying over the weekend. 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 Pt. appears to be rapid cycling according to staff report vs this provider sees in the interview, the administration of the anxiolytic prior to interview with provider may have decreased his reported hypomania. MANAGEMENT PLAN: Patient is agreeable to increase of Vraylar to 6 mg HS. Will start depakote 125 mg BID. TIME SPENT: 25 minutes. Vital Signs Vital Signs Date Time Temp Pulse Resp B/P (MAP) Pulse Ox O2 Delivery O2 Flow Rate FiO2 06/23/21 10:05 120 109/61 06/23/21 08:40 Room Air 06/22/21 06:00 97.4 18 96 Current Medications Current Medications Medications (Trade) Dose Ordered Sig/Alia Route PRN Reason Start Time Stop Time Status Last Admin Dose Admin Acetaminophen (Tylenol Tab) 650 mg Q6HP PRN PO HEADACHE or MILD DISCOMFORT 06/20/21 14:25 Al Hydrox/Mg Hydrox/Simethicone (Mylanta) 30 ml Q4HP PRN PO HEARTBURN/INDIGESTION 06/20/21 14:25 06/20/21 20:22 Amlodipine Besylate (Norvasc) 2.5 mg DAILY PO 06/21/21 09:00 06/23/21 10:05 Atomoxetine HCl (Strattera (Atomoxetine)) 80 mg QAM PO 06/18/21 09:00 06/20/21 16:30 DC 06/20/21 07:44 Atomoxetine HCl (Strattera (Atomoxetine)) 80 mg QAM PO 06/19/21 09:00 06/19/21 08:55 DC Atomoxetine HCl (Strattera (Atomoxetine)) 80 mg QAM PO 06/21/21 09:00 06/23/21 10:02 Cariprazine (Vraylar) 1.5 mg QHS PRN PO DEPRESSION 06/20/21 14:25 06/21/21 10:25 DC Cariprazine (Vraylar) 3 mg QHS PO 06/20/21 21:00 06/21/21 10:25 DC 06/20/21 20:21 Cariprazine (Vraylar) 4.5 mg DAILY PO 06/18/21 09:00 06/18/21 18:37 DC Cariprazine (Vraylar) 4.5 mg QHS PO 06/18/21 21:00 06/20/21 16:32 DC 06/19/21 22:37 Cariprazine (Vraylar) 4.5 mg QHS PO 06/21/21 21:00 06/22/21 10:25 DC 06/21/21 20:29 Cariprazine (Vraylar) 4.5 mg STAT STAT PO 06/17/21 23:42 06/17/21 23:44 DC 06/17/21 23:42 Cariprazine (Vraylar) 6 mg QHS PO 06/22/21 21:00 06/22/21 21:03 Divalproex Sodium (Depakote Er) 250 mg Q6HP PRN PO MANIC SYMPTOMS 06/22/21 17:30 Divalproex Sodium (Depakote) 250 mg Q6HP PO 06/22/21 17:25 06/22/21 17:28 DC Home Med (Home Med List Complete!) ASDIRECTED XX 06/18/21 09:45 06/18/21 09:51 DC Hydroxyzine HCl (Atarax) 75 mg Q6HP PRN PO ANXIETY/AGITATION 06/22/21 14:30 06/23/21 06:04 Lorazepam (Ativan) 1 mg STAT STAT PO 06/18/21 22:34 06/18/21 22:35 DC 06/18/21 23:00 Lorazepam (Ativan) 2 mg STAT STAT PO 06/20/21 08:47 06/20/21 08:48 DC 06/20/21 08:47 Lorazepam (Ativan) 2 mg STAT STAT PO 06/21/21 10:22 06/21/21 10:25 DC 06/21/21 10:33 Losartan Potassium (Cozaar) 100 mg QHS PO 06/20/21 21:00 06/22/21 21:05 Losartan Potassium (Cozaar) 100 mg QPM PO 06/18/21 21:00 06/20/21 16:32 DC 06/19/21 22:35 Magnesium Hydroxide (Milk Of Magnesia) 30 ml DAILYPRN PRN PO CONSTIPATION 06/20/21 14:25 Metformin HCl (Glucophage Xr) 1,000 mg DAILY@1800 PO 06/20/21 18:00 06/22/21 17:22 Metformin HCl (Glucophage Xr) 1,000 mg QPM@1800 PO 06/18/21 18:00 06/20/21 16:32 DC 06/19/21 18:20 Nicotine (Nicoderm Cq 21mg) 1 patch DAILY TD 06/21/21 09:00 06/21/21 08:13 DC Nicotine (Nicoderm Cq 7 Mg) 1 patch DAILY TD 06/21/21 09:00 06/23/21 10:03 Omeprazole (PriLOSEC) 40 mg DAILY PO 06/21/21 09:00 06/21/21 08:13 DC Omeprazole (PriLOSEC) 40 mg QHS PO 06/21/21 21:00 06/22/21 21:03 Omeprazole (PriLOSEC) 40 mg QPM PO 06/18/21 21:00 06/20/21 16:32 DC 06/19/21 22:34 Quetiapine Fumarate (SEROquel) 100 mg QHS PO 06/22/21 21:00 06/23/21 02:30 Trazodone HCl (Desyrel) 50 mg QHSP PRN PO INSOMNIA 06/20/21 14:25 06/22/21 22:59 Allergies Coded Allergies: Sulfa (Sulfonamide Antibiotics) (Verified Allergy, Intermediate, Hives, 12/10/18) BILLIE PLASENCIA BLASTING GANG MINER Jun 23, 2021 11:22
[2021-06-23 17:28] VITALS: BP 142/89
[2021-06-23] MEDS: metFORMIN XR 500MG TAB *GLUCOPHAGE XR PO SCH (17:36)
[2021-06-23] MEDS: CARIPRAZINE 3MG CAPSULE (VRAYLAR) PO SCH (20:20)
[2021-06-23] MEDS: OMEPRAZOLE 20 MG CAP PO SCH (20:20)
[2021-06-23] MEDS: DIVALPROEX 125 MG TAB PO SCH (20:20)
[2021-06-23] MEDS: LOSARTAN 50MG TABLET PO SCH (20:21)
[2021-06-23] MEDS: traZODone 50 MG TAB PO PRN (23:38)
[2021-06-23] MEDS ORDERED: LORazepam 1 MG TAB PO ONE (23:40)
[2021-06-23] MEDS ORDERED: diphenhydrAMINE 50MG CAP PO ONE (23:40)
[2021-06-23] MEDS ORDERED: haloperidoL 5 MG TAB PO ONE (23:40)
[2021-06-24 06:39] VITALS: BP 137/82
[2021-06-24] MEDS: DIVALPROEX 125 MG TAB PO SCH ×2 (08:36→20:55)
[2021-06-24] MEDS: NICOTINE 7 MG/24 HR TRANSDERMAL TD SCH (08:36)
[2021-06-24] MEDS: ATOMOXETINE HCL 40 MG CAP (STRATTERA) PO SCH (08:36)
--- NOTE | 2021-06-24 09:45 | MHIPNPDOC ---
[facility] Progress Note Progress Note DATE OF SERVICE: 06/24/21 HISTORY: Patient is a 31 -year-old Single (Engaged), Unemployed, Domiciled, , male, who was brought to [facility] for manic symptoms. He was referring to himself as the Anti-Estevan and this concerned his family (Mother and Brother) and he was encouraged to be seen in the ED. 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 He has been very religiously preoccupied for several weeks. States that his manic episode started about a week ago on Sunday night "I put 2 and 2 together and I learned that Dev Miranda was possibly Osito." And he reports various religions thoughts about prayer and was praying to repetitively to Satan, states he has a powerful vision about these visions and is going to the clergy to ask episcopalian concerns/. Admits that he missed his Vraylar several times this past week and was decompensating from the weaning himself off Cannabis. PER ED REPORT: Pt states he has been increasingly stressed which has caused episcopalian ideatio ns, pt states he is the antichrist, feels cursed, has been stating the rosary constantly praying to Satan. Pt feels toxically empathetic to the point he no called/no showed for work at [employer] and states he cannot return. Pt states he found out his fiance is with their second child which has increased stress for not being able to support a second child. [facility], and states he called to request weekly appointments. Pt has vague S/I with no plan. VITAL SIGNS: See below. NEW TEST RESULTS: CURRENT MEDICATIONS: See below. MENTAL STATUS EXAMINATION: Patient is a 31 -year-old Single (Engaged), Unemployed, Domiciled, , male, who was brought to [facility] for manic symptoms Speech: normal rate, tone and volume, tangential Language skills are intact Thought processes including: organized and tangential Thought content: denies depression and anxiety. Denies suicidal/homicidal ideation, planning or intent. Abstract reasoning, and computation: fair Description of associations: denies, none observed Description of abnormal or psychotic thoughts: denies, none observed. Judgment: fair Insight: fair Orientation: alert and oriented to person, place, time and situation Recent and remote memory: intact Attention span and concentration: good Language: expansive Fund of knowledge: average Mood: euthymic Affect: reactive DIAGNOSES: Bipolar I Disorder, Current Episode, Manic with Psychotic Features Attention Deficit Hyperactivity Disorder ASSESSMENT: Patient is alert and oriented. He is less hypomanic and he states that he is almost to his baseline. Patient can be quite tangential but his thought process is coherent and linear. He reports a decrease in racing thoug hts and is comfortable about leaving today but feels strongly that his fiance` will object. Patient asked to call his fiance, they had discussion and she feels that he needs to stay over the weekend to continue treatment inpatient. Patient is in agreement to stay over the weekend, will convert patient to voluntary. Patient had decreased flight of ideas in today's interview and he denies depression, anxiety, suicidal or homicidal thoughts. He is not observed with any abnormal psychiatric symptoms of paranoia, delusions, auditory or visual hallucinations. Patient is organized in his thought process, is well kempt and his hygiene is good today. His mood and affect has greatly improved. He denies any side effects of Depakote, discussed this medication at length, wants to continue the Seroquel 100 mg at at bedtime. Reports no side effects or adverse reactions to any of the medications. MANAGEMENT PLAN: Patient is agreeable to increase of Vraylar to 6 mg HS. discharge on Sunday TIME SPENT: 25 minutes. Vital Signs Vital Signs Date Time Temp Pulse Resp B/P (MAP) Pulse Ox O2 Delivery O2 Flow Rate FiO2 06/24/21 06:39 97.5 101 14 137/82 (100) 96 Room Air Laboratory Data 24H Labs Laboratory Tests 2 06/23/21 14:03: Bedside Glucose (Misc Panel) 105 Current Medications Current Medications Medications (Trade) Dose Ordered Sig/Alia Route PRN Reason Start Time Stop Time Status Last Admin Dose Admin Acetaminophen (Tylenol Tab) 650 mg Q6HP PRN PO HEADACHE or MILD DISCOMFORT 06/20/21 14:25 Al Hydrox/Mg Hydrox/Simethicone (Mylanta) 30 ml Q4HP PRN PO HEARTBURN/INDIGESTION 06/20/21 14:25 06/20/21 20:22 Amlodipine Besylate (Norvasc) 2.5 mg DAILY PO 06/21/21 09:00 06/23/21 10:05 Atomoxetine HCl (Strattera (Atomoxetine)) 80 mg QAM PO 06/18/21 09:00 06/20/21 16:30 DC 06/20/21 07:44 Atomoxetine HCl (Strattera (Atomoxetine)) 80 mg QAM PO 06/19/21 09:00 06/19/21 08:55 DC Atomoxetine HCl (Strattera (Atomoxetine)) 80 mg QAM PO 06/21/21 09:00 06/23/21 10:02 Cariprazine (Vraylar) 1.5 mg QHS PRN PO DEPRESSION 06/20/21 14:25 06/21/21 10:25 DC Cariprazine (Vraylar) 3 mg QHS PO 06/20/21 21:00 06/21/21 10:25 DC 06/20/21 20:21 Cariprazine (Vraylar) 4.5 mg DAILY PO 06/18/21 09:00 06/18/21 18:37 DC Cariprazine (Vraylar) 4.5 mg QHS PO 06/18/21 21:00 06/20/21 16:32 DC 06/19/21 22:37 Cariprazine (Vraylar) 4.5 mg QHS PO 06/21/21 21:00 06/22/21 10:25 DC 06/21/21 20:29 Cariprazine (Vraylar) 4.5 mg STAT STAT PO 06/17/21 23:42 06/17/21 23:44 DC 06/17/21 23:42 Cariprazine (Vraylar) 6 mg QHS PO 06/22/21 21:00 06/23/21 20:20 Divalproex Sodium (Depakote Er) 250 mg Q6HP PRN PO MANIC SYMPTOMS 06/22/21 17:30 06/23/21 13:25 DC Divalproex Sodium (Depakote) 125 mg BID PO 06/23/21 21:00 06/23/21 20:20 Divalproex Sodium (Depakote) 250 mg Q6HP PO 06/22/21 17:25 06/22/21 17:28 DC Home Med (Home Med List Complete!) ASDIRECTED XX 06/18/21 09:45 06/18/21 09:51 DC Hydroxyzine HCl (Atarax) 75 mg Q6HP PRN PO ANXIETY/AGITATION 06/22/21 14:30 06/23/21 23:25 Lorazepam (Ativan) 1 mg STAT STAT PO 06/18/21 22:34 06/18/21 22:35 DC 06/18/21 23:00 Lorazepam (Ativan) 2 mg STAT STAT PO 06/20/21 08:47 06/20/21 08:48 DC 06/20/21 08:47 Lorazepam (Ativan) 2 mg STAT STAT PO 06/21/21 10:22 06/21/21 10:25 DC 06/21/21 10:33 Losartan Potassium (Cozaar) 100 mg QHS PO 06/20/21 21:00 06/23/21 20:21 Losartan Potassium (Cozaar) 100 mg QPM PO 06/18/21 21:00 06/20/21 16:32 DC 06/19/21 22:35 Magnesium Hydroxide (Milk Of Magnesia) 30 ml DAILYPRN PRN PO CONSTIPATION 06/20/21 14:25 Metformin HCl (Glucophage Xr) 1,000 mg DAILY@1800 PO 06/20/21 18:00 06/23/21 17:36 Metformin HCl (Glucophage Xr) 1,000 mg QPM@1800 PO 06/18/21 18:00 06/20/21 16:32 DC 06/19/21 18:20 Nicotine (Nicoderm Cq 21mg) 1 patch DAILY TD 06/21/21 09:00 06/21/21 08:13 DC Nicotine (Nicoderm Cq 7 Mg) 1 patch DAILY TD 06/21/21 09:00 06/23/21 10:03 Omeprazole (PriLOSEC) 40 mg DAILY PO 06/21/21 09:00 06/21/21 08:13 DC Omeprazole (PriLOSEC) 40 mg QHS PO 06/21/21 21:00 06/23/21 20:20 Omeprazole (PriLOSEC) 40 mg QPM PO 06/18/21 21:00 06/20/21 16:32 DC 06/19/21 22:34 Quetiapine Fumarate (SEROquel) 100 mg QHS PO 06/22/21 21:00 06/23/21 20:20 Trazodone HCl (Desyrel) 50 mg QHSP PRN PO INSOMNIA 06/20/21 14:25 06/23/21 23:38 Allergies Coded Allergies: Sulfa (Sulfonamide Antibiotics) (Verified Allergy, Intermediate, Hives, 12/10/18) BILLIE PLASENCIA NP Jun 24, 2021 08:06
[2021-06-24] MEDS: PILL CUTTER 1 EACH XX PRN (11:04)
[2021-06-24] MEDS: hydrOXYzine 50 MG TAB PO PRN (11:05)
[2021-06-24] MEDS: metFORMIN XR 500MG TAB *GLUCOPHAGE XR PO SCH (17:11)
[2021-06-24 17:52] VITALS: BP 145/83
[2021-06-24] MEDS: CARIPRAZINE 3MG CAPSULE (VRAYLAR) PO SCH (20:55)
[2021-06-24] MEDS: QUEtiapine FUMARATE 100 MG TAB PO SCH (20:55)
[2021-06-24] MEDS: OMEPRAZOLE 20 MG CAP PO SCH (20:55)
[2021-06-24] MEDS: LOSARTAN 50MG TABLET PO SCH (20:55)
[2021-06-25] MEDS: traZODone 50 MG TAB PO PRN ×2 (01:42→21:30)
[2021-06-25] MEDS: hydrOXYzine 50 MG TAB PO PRN ×3 (02:15→21:33)
[2021-06-25 06:43] VITALS: BP 133/82
[2021-06-25] MEDS: ATOMOXETINE HCL 40 MG CAP (STRATTERA) PO SCH (08:19)
[2021-06-25] MEDS: NICOTINE 7 MG/24 HR TRANSDERMAL TD SCH (08:19)
[2021-06-25] MEDS: DIVALPROEX 125 MG TAB PO SCH ×2 (08:19→21:29)
[2021-06-25] MEDS: PILL CUTTER 1 EACH XX PRN ×2 (15:16→21:29)
[2021-06-25] MEDS: metFORMIN XR 500MG TAB *GLUCOPHAGE XR PO SCH (17:34)
[2021-06-25 19:03] VITALS: BP 124/72
[2021-06-25] MEDS: QUEtiapine FUMARATE 100 MG TAB PO SCH (21:30)
[2021-06-25] MEDS: CARIPRAZINE 3MG CAPSULE (VRAYLAR) PO SCH (21:30)
[2021-06-25] MEDS: OMEPRAZOLE 20 MG CAP PO SCH (21:30)
[2021-06-25] MEDS: LOSARTAN 50MG TABLET PO SCH (21:32)
[2021-06-26 06:39] VITALS: BP 136/78
[2021-06-26] MEDS: NICOTINE 7 MG/24 HR TRANSDERMAL TD SCH (08:16)
[2021-06-26] MEDS: DIVALPROEX 125 MG TAB PO SCH ×2 (08:16→21:43)
[2021-06-26] MEDS: ATOMOXETINE HCL 40 MG CAP (STRATTERA) PO SCH (08:16)
[2021-06-26] MEDS: metFORMIN XR 500MG TAB *GLUCOPHAGE XR PO SCH (18:08)
[2021-06-26 18:44] VITALS: BP 158/74
[2021-06-26] MEDS: LOSARTAN 50MG TABLET PO SCH (20:26)
[2021-06-26] MEDS: traZODone 50 MG TAB PO PRN (20:26)
[2021-06-26] MEDS: OMEPRAZOLE 20 MG CAP PO SCH (20:26)
[2021-06-26] MEDS: QUEtiapine FUMARATE 100 MG TAB PO SCH (20:26)
[2021-06-26] MEDS: CARIPRAZINE 3MG CAPSULE (VRAYLAR) PO SCH (20:27)
[2021-06-27] MEDS: hydrOXYzine 50 MG TAB PO PRN ×2 (03:27→12:23)
[2021-06-27 06:26] VITALS: BP 133/86
[2021-06-27 08:06] VITALS: BP 140/84
[2021-06-27] MEDS: NICOTINE 7 MG/24 HR TRANSDERMAL TD SCH (08:06)
[2021-06-27] MEDS: ATOMOXETINE HCL 40 MG CAP (STRATTERA) PO SCH (08:06)
[2021-06-27] MEDS: DIVALPROEX 125 MG TAB PO SCH (09:00)
[2021-06-27] MEDS ORDERED: TRAZ-252 PO (09:12)
[2021-06-27] MEDS ORDERED: VRAY6CAP PO (09:12)
[2021-06-27] MEDS ORDERED: NICO7PA TD (09:12)
[2021-06-27] MEDS ORDERED: AMLO25TA PO (09:12)
[2021-06-27] MEDS ORDERED: DEPA1TAB PO (09:12)
[2021-06-27] MEDS: PILL CUTTER 1 EACH XX PRN (12:23)
--- NOTE | 2021-06-27 15:39 | MHDSPDOC ---
[facility] Discharge Summary Discharge Summary DATE OF ADMISSION: Jun 20, 2021 at 14:21 DATE OF DISCHARGE: Jun 27, 2021 at 12:50 DISCHARGE DIAGNOSES: Bipolar I Disorder, Current Episode, Manic with Psychotic Features Attention Deficit Hyperactivity Disorder REASON FOR ADMISSION: Patient is a 31 -year-old Single (Engaged), Unemployed, Domiciled, , male, who was brought to [facility] for manic symptoms. He was referring to himself as the Anti-Estevan and this concerned his family (Mother and Brother) and he was encouraged to be seen in the ED. 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 He has been very religiously preoccupied for several weeks. States that his manic episode started about a week ago on Sunday night "I put 2 and 2 together and I learned that Dev Miranda was possibly Osito." And he reports various religions thoughts about prayer and was praying to repetitively to Satan, states he has a powerful vision about these visions and is going to the clergy to ask quaker concerns/. Admits that he missed his Vraylar several times this past week and was decompensating from the weaning himself off Cannabis. PER ED REPORT: Pt states he has been increasingly stressed which has caused quaker ideations, pt states he is the antichrist, feels cursed, has been stating the rosary constantly praying to Satan. Pt feels toxically empathetic to the point he no called/no showed for work at [employer] and states he cannot return. Pt states he found out his fiance is with their second child which has increased stress for not being able to support a second child. [facility], and states he called to request weekly appointments. Pt has vague S/I with no plan. VITAL SIGNS: See below. CONSULTANTS INVOLVED: See Medical H + P by Hospitalist TREATMENT AND PROGRESS ON THE UNIT: Patient was admitted to the [facility] on a legal status was afforded the following treatment modalities: 1) Individual Therapy 2) Group Therapy 3) Medication Management 4) Milieu Therapy 5) Safe Environment HOSPITAL COURSE: Patient was admitted to [facility] on a legal status. Patient was admitted for his manic behavior, what was perceived as psychotic thinking as he was stating that he was the "Antichrist" patient was already taking Vraylar 3 mg at bedtime with an additional 1.5 mg as needed for depression. He was agreeable to an increase to 4.5 scheduled and this was eventually titrated up to the maximum dose of 6 mg. Patient continued to have manic behaviors, we introduced Depakote with his understanding of what this medication was for, dosing, frequency, side effects and adverse reactions. He was reluctant but agreeable pt found medications beneficial and tolerated them well. The patient was quite hypomanic on this admission, had some mild delusional thoughts, and extreme flight of ideas . He requested court for retentionthis was scheduled for the this week. The patient's mood, anxiety, and intrusive thoughts improved with treatment. Pt attended groups daily during stay. Pts symptoms improved and currently he is less manic. On day of discharge pt. denied depression, anxiety, insomnia, SI/HI, hallucinations, delusions. Pt was discharged home with follow-up with [facility]. Pt felt safe for discharge. DISCHARGE ASSESSMENT: In today's interview, patient is alert and oriented, pt.s dress is appropriate. Hygiene and grooming is well-kempt. Smiles on approach and is pleasant and engaged in the interview. Denies depression and anxiety. Denies suicidal and homicidal ideation, planning or intent. Denies and is not observed with ron, psychotic symptoms of delusions, bizarre thinking, obsessions, paranoia, ruminations illogical thoughts, flight of ideas or having poor insight and judgement. Reinforced with patient need to abstain from alcohol and drugs. At discharge patient has normal mentation, declines further hospitalization on a voluntary status and meets criteria for discharge today. Discussed indications of medications, potential benefits and risks, alternatives (including no treatment) and questions were encouraged and answered. Patient encouraged to return to hospital if symptoms worsen or change and encouraged to call unit if he/she/they needs to speak to provider for questions regarding medications or care. MENTAL STATUS EXAMINATION ON DISCHARGE: Patient is a 31 -year-old Single (Engaged), Unemployed, Domiciled, , male, who was brought to [facility] for manic symptoms. Speech: Is fluid, conversant, normal rate, tone and volume Language skills are intact Thought processes including: linear and goal oriented Thought content: denies depression and anxiety. Denies suicidal/homicidal ideation, planning or intent. Abstract reasoning, and computation: fair Description of associations: denies, none observed Description of abnormal or psychotic thoughts: denies, none observed. Judgment: fair Insight: fair Orientation: alert and oriented to person, place, time and situation Recent and remote memory: intact Attention span and concentration: good Language: expansive Fund of knowledge: average Mood: Euthymic Mood Affect: reactive Suicide Risk Assessment: 1) Does the patient wish to be ? No 2) Since your admission, have you had any actual thought of killing yourself? No 3) Since your admission, have you been thinking about how you might do this? No 4) Since your admission, have you had these thoughts and had some intention of acting on them? No 5) Since your admission, have you started to work out or worked out the details of how to kill yourself? No 5A) Do you intent to carry out this plan? No and NA 6) Have you ever done anything, started anything, or prepared to do anything with any intent to ? No 6A) How long since your admission did you do any of these? NA MEDICATIONS ON DISCHARGE: See Medication Reconciliation PLAN/FOLLOWUP ARRANGEMENTS: Medical * Medical Follow Up [facility] * Established With This Provider Yes * Therapist RUSS * Date Jul 18, 2021 * Time 14:00 * Address of Clinic or Practice [address] [place] [address] * Mental Health Appt 1 * Mental Health [facility] * Established With This Provider Yes * Therapist NAKUL * Date Jun 29, 2021 * Time 11:00 * Address of Clinic or Practice [address] [place] [address] * v Follow Up Care Education Label * Mental Health Appt 2 * [facility] * Established With This Provider Yes * Therapist * Date Jul 12, 2021 * Time 14:30 * Address [place] [facility] [address] * The amount of time spent in the coordination of care for this patient was approximately 25 minutes. ETOH/Disorder Med Rx ETOH/DRUG DISORDER RX: N/A Vital Signs/I&Os Vital Signs Date Time Temp Pulse Resp B/P (MAP) Pulse Ox O2 Delivery O2 Flow Rate FiO2 06/27/21 08:06 109 140/84 06/27/21 06:26 97.7 18 97 Room Air Medications Scheduled Amlodipine Besylate (Amlodipine Besylate) 2.5 Mg Tablet, 2.5 MG PO DAILY for Blood Pressure for 7 Days, #7 Atomoxetine HCl (Atomoxetine HCl) 80 Mg Capsule, 80 MG PO DAILY, (Reported) Cariprazine HCl (Vraylar) 6 Mg Capsule, 6 MG PO QHS for Ron for 7 Days, #7 Divalproex Sodium (Depakote) 125 Mg Tablet.dr, 125 MG PO BID for Mood, #14 Losartan Potassium (Losartan Potassium) 100 Mg Tablet, 100 MG PO QHS, (Reported) Metformin HCl (Metformin HCl ER) 500 Mg Tab.er.24h, 1,000 MG PO QHS, (Reported) Nicotine (Nicotine Patch) 7 Mg Patch.td24, 1 PATCH TD DAILY for Nicotine Withdrawal, #7 Omeprazole (Omeprazole) 40 Mg Capsule.dr, 40 MG PO DAILY, (Reported) Scheduled PRN Trazodone HCl (Trazodone HCl) 50 Mg Tablet, 50 MG PO QHSP PRN for INSOMNIA, #7 Allergies Coded Allergies: Sulfa (Sulfonamide Antibiotics) (Verified Allergy, Intermediate, Hives, 12/10/18) BILLIE PLASENCIA [id number] DIRECTORY ASSISTANCE OPERATOR Jun 27, 2021 15:39
--- NOTE | 2021-06-28 10:02 | MHIPN ---
[facility] PROGRESS NOTE DATE: 06/25/2021 VITAL SIGNS: Blood pressure 123/82, pulse 102, temperature 98. This is a video assessment, we are doing this because of the pandemic, he is aware of it, agrees to it, and its limitations. He is in the inpatient unit at [facility], he is seen in the presence of staff, I am at home. CHIEF COMPLAINT: Says feels better. SUBJECTIVE: Seen for followup. Indicates feels better, though somewhat vague on this, indicates has been eating well, and that he got about 5 hours of sleep, and better sleep with the "cocktail" that he had, though would like a bit more sleep. MENTAL STATUS EXAMINATION: He is fairly neat, he is cooperative, he is obese. He displays no psychomotor retardation, no agitation. Speech normal in amount and rate, but is tangential, also possible flight of ideas. Fair range of affect. No evidence of any active thoughts of harming himself or anyone else. Somewhat grandiose. Judgment and insight are compromised. ASSESSMENT: Bipolar disorder, current episode manic with psychotic features. Attention deficit hyperactivity disorder. PLAN: Continue current care, observations, including the Depakote, Seroquel 100 mg at night, Vraylar (cariprazine) 6 mg at night. Encourage participation in activities as tolerated. May need to increase, for example, the Depakote, if his moods do not settle, probably preferable increasing that rather than the Seroquel. Further recommendations will be made depending on the clinical picture.
== END 2021-06-27 12:50 | disposition home or self-care (01) | DRG 753 ==
LOC: M ED 16:47 → M ED INP 06-20 14:21 → M ED 06-20 14:30 → M PSY 06-20 15:03
PROVIDERS: ADMIT Psychiatry & Neurology Psychiatry; ATTEND Psychiatry & Neurology Psychiatry
DX: F31.2 Bipolar disorder, current episode manic severe with psychotic features (principal); F90.9 Attention-deficit hyperactivity disorder, unspecified type; Z56.0 Unemployment, unspecified; Z91.14 Patient's other noncompliance with medication regimen; E11.9 Type 2 diabetes mellitus without complications; I10 Essential (primary) hypertension; E66.9 Obesity, unspecified; F17.210 Nicotine dependence, cigarettes, uncomplicated; F12.10 Cannabis abuse, uncomplicated; Z20.822 Contact with and (suspected) exposure to COVID-19; Z79.899 Other long term (current) drug therapy; Z88.2 Allergy status to sulfonamides; K92.2 Gastrointestinal hemorrhage, unspecified

== ENCOUNTER → 2021-08-17 | Outpatient (CLI) | payer OTHER ==
[~2021-08-17] MED LIST changes: +AMLO25TA PO; +ATOM80CA6 PO; -CEFD1CAP8 PO; +CEFD300C41 PO; +DEPA1TAB PO; +LOSA100T45 PO; -LOSA100T50 PO; +METF-838 PO; +NICO7PA TD; +OMEP-221 PO; +TRAZ-252 PO; +VRAY1.5C PO; +VRAY3CAP PO; +VRAY6CAP PO
== END ==
LOC: M LABSMTC 11:15
PROVIDERS: ATTEND Pediatrics
DX: Z11.52 Encounter for screening for COVID-19 (principal)

== ENCOUNTER 2021-08-22 15:10 | Emergency (ER) | payer OTHER ==
[~2021-08-22 15:10] MED LIST changes: -OMEP-221 PO; +OMEP40CA5 PO
== END 2021-08-23 15:51 | disposition left against medical advice (07) ==
LOC: M ED 15:10
DX: Z53.21 Procedure and treatment not carried out due to patient leaving prior to being seen by health care provider (principal)

== ENCOUNTER 2021-08-24 21:08 | Inpatient (IN) | payer OTHER ==
[~2021-08-24] VITALS: Ht 185.4 cm; Wt 184.2 kg
[2021-08-25] MEDS ORDERED: AMLO2.5T3 PO (01:02)
[2021-08-25] MEDS ORDERED: D31000TA2 PO (01:02)
[2021-08-25] MEDS ORDERED: TRAZ1TAB10 PO (01:02)
[2021-08-25] MEDS ORDERED: VRAY6CAP PO (01:02)
[2021-09-05 06:16] VITALS: BP 109/52
[2021-09-05] MEDS ORDERED: ABIL10TA9 PO (08:14)
[2021-09-05] MEDS ORDERED: OXCA300T14 PO (08:14)
[2021-09-05] MEDS ORDERED: QUET100T2 PO (08:14)
[2021-09-05] MEDS ORDERED: ABIL1TAB11 PO (08:14)
[2021-09-05 08:21] VITALS: BP 136/86
== END 2021-09-05 10:27 | disposition home or self-care (01) | DRG 753 ==
LOC: M ED 21:08 → M ED INP 08-25 13:13 → M PSY 08-25 14:15
PROVIDERS: ADMIT Student in an Organized Health Care Education/Training Program; ATTEND Psychiatry & Neurology Psychiatry
DX: F31.2 Bipolar disorder, current episode manic severe with psychotic features (principal); E11.9 Type 2 diabetes mellitus without complications; K76.0 Fatty (change of) liver, not elsewhere classified; F17.290 Nicotine dependence, other tobacco product, uncomplicated; E66.9 Obesity, unspecified; I10 Essential (primary) hypertension; Z86.16 Personal history of COVID-19; Z88.2 Allergy status to sulfonamides; Z79.84 Long term (current) use of oral hypoglycemic drugs; Z79.899 Other long term (current) drug therapy

== ENCOUNTER → 2022-01-26 | Outpatient (CLI) | payer OTHER ==
[~2022-01-26] MED LIST changes: +ABIL10TA9 PO; +ABIL1TAB11 PO; +AMLO2.5T3 PO; +OXCA300T14 PO; +QUET100T2 PO; +TRAZ1TAB10 PO; +VITA100093 PO
[2022-01-26 17:13] LABS: BASO # 0.1 10^3/uL (0.0-0.2); BASO % 0.5 % (0.0-1.0); EOS # 0.2 10^3/uL (0.0-0.5); EOS % 1.3 % (0.0-3.0); HEMATOCRIT 46.8 % (42.0-52.0); HEMOGLOBIN 15.4 g/dl (13.5-17.5); LYMPH # 2.5 10^3/uL (1.5-5.0); LYMPH % 17.2 % (24.0-44.0); MEAN CORPUSCULAR HEMOGLOBIN 28.6 pg (27.0-33.0); MEAN CORPUSCULAR HGB CONC 32.9 g/dl (32.0-36.5); MONO % 6.8 % (2.0-8.0); NEUTROPHILS # 10.8 10^3/uL (1.5-8.5); NEUTROPHILS % 73.3 % (36.0-66.0); PLATELET COUNT, AUTOMATED 288 10^3/uL (150-450); RED BLOOD COUNT 5.38 10^6/uL (4.30-6.10); WHITE BLOOD COUNT 14.8 10^3/uL (4.0-10.0)
[2022-01-26 17:40] LABS: ALT/SGPT 23 U/L (12-78); BILIRUBIN,TOTAL 0.2 MG/DL (0.2-1.0); BLOOD UREA NITROGEN 14 MG/DL (7-18); CALCIUM LEVEL 9.4 MG/DL (8.5-10.1); CARBON DIOXIDE LEVEL 27 MEQ/L (21-32); CHLORIDE LEVEL 110 MEQ/L (98-107); CHOLESTEROL LEVEL 161 MG/DL (<200); CHOLESTEROL RISK RATIO 4.878 (<5); GLOMERULAR FILTRATION RATE > 60.0 (>60); GLUCOSE, FASTING 112 MG/DL (70-100); HDL CHOLESTEROL 33 MG/DL (>40); LDL CHOLESTEROL 80 MG/DL (<100); NON-HDL-C 128 MG/DL; POTASSIUM SERUM 4.4 MEQ/L (3.5-5.1); SODIUM LEVEL 143 MEQ/L (136-145); TOTAL PROTEIN 7.1 GM/DL (6.4-8.2); TRIGLYCERIDES LEVEL 239 MG/DL (<150)
== END ==
LOC: M PLALAB 14:29
PROVIDERS: ATTEND Physician Assistant Medical
DX: E11.9 Type 2 diabetes mellitus without complications (principal)

== ENCOUNTER 2022-06-14 16:11 | Inpatient (IN) | payer OTHER ==
[~2022-06-14] VITALS: Ht 186.7 cm; Wt 201.5 kg
[2022-06-14] MEDS ORDERED: TRUL10IN SC (16:18)
[2022-06-14] MEDS ORDERED: BUPR-69 PO (16:18)
[2022-06-14 17:27] LABS: HEMATOCRIT 45.9 % (42.0-52.0); HEMOGLOBIN 14.8 g/dl (13.5-17.5); MEAN CORPUSCULAR HEMOGLOBIN 27.9 pg (27.0-33.0); MEAN CORPUSCULAR HGB CONC 32.2 g/dl (32.0-36.5); MEAN CORPUSCULAR VOLUME 86.6 fl (80.0-96.0); PLATELET COUNT, AUTOMATED 260 10^3/uL (150-450); WHITE BLOOD COUNT 13.9 10^3/uL (4.0-10.0)
[2022-06-14 17:58] LABS: RSV AMPLIFICATION NEGATIVE (NEGATIVE)
[2022-06-14 18:14] LABS: ACETAMINOPHEN LEVEL < 2.0 UG/ML (10.0-30.0); ALBUMIN 3.5 GM/DL (3.2-5.2); ALT/SGPT 32 U/L (12-78); BILIRUBIN,DIRECT < 0.1 MG/DL (0.0-0.2); BILIRUBIN,TOTAL 0.2 MG/DL (0.2-1.0); BLOOD UREA NITROGEN 18 MG/DL (7-18); CALCIUM LEVEL 8.6 MG/DL (8.5-10.1); CARBON DIOXIDE LEVEL 28 MEQ/L (21-32); CHLORIDE LEVEL 105 MEQ/L (98-107); CREATININE FOR GFR 1.07 MG/DL (0.70-1.30); ETHYL ALCOHOL (ETHANOL) < 0.003 % (0.000-0.010); GLOMERULAR FILTRATION RATE > 60.0 (>60); GLUCOSE, FASTING 100 MG/DL (70-100); POTASSIUM SERUM 4.5 MEQ/L (3.5-5.1); SALICYLATE LEVEL < 1.7 MG/DL (5.0-30.0); SODIUM LEVEL 139 MEQ/L (136-145); TOTAL PROTEIN 6.7 GM/DL (6.4-8.2)
[2022-06-14 20:33] LABS: AMPHETAMINES LEVEL URINE NEGATIVE (NEGATIVE); BARBITURATES URINE NEGATIVE (NEGATIVE); BENZODIAZEPINES URINE NEGATIVE (NEGATIVE); CANNABINOIDS URINE POSITIVE (NEGATIVE); COCAINE METABOLITE URINE NEGATIVE (NEGATIVE); METHADONE URINE NEGATIVE (NEGATIVE); OPIATES URINE NEGATIVE (NEGATIVE); PHENCYCLIDINE URINE NEGATIVE (NEGATIVE)
[2022-06-14] MEDS ORDERED: med rec comment (20:50)
[2022-06-14] MEDS ORDERED: HOME MED LIST COMPLETE! XX SCH (20:55)
[2022-06-14] MEDS ORDERED: OMEPRAZOLE 20MG CAP PO SCH (21:00)
[2022-06-14] MEDS ORDERED: LOSARTAN 50MG TABLET PO SCH (21:00)
[2022-06-14] MEDS ORDERED: metFORMIN (GLUCOPHAGE) 1000MG TABLET PO ONE (21:00)
[2022-06-14] MEDS ORDERED: ARIPiprazole 10 MG TAB PO SCH (21:00)
[2022-06-14] MEDS ORDERED: NICOTINE 21MG/24HR 1 EA TRANSDERMAL TD ONE (21:05)
[2022-06-14] MEDS: OXcarbazepine 300 MG TAB PO SCH (23:36)
[2022-06-15] MEDS: OXcarbazepine 300 MG TAB PO SCH ×2 (08:54→20:45)
[2022-06-15] MEDS ORDERED: buPROPion 100 MG TAB PO SCH ×2 (09:00→21:00)
[2022-06-15] MEDS ORDERED: VITAMIN D 1,000 INTERNATIONAL UNITS TABLET PO SCH (09:00)
[2022-06-15] MEDS: NICOTINE 21MG/24HR 1 EA TRANSDERMAL TD SCH (09:00)
[2022-06-15] MEDS ORDERED: amLODIPine 5 MG TAB PO SCH (09:00)
[2022-06-15] MEDS ORDERED: MAALOX 30 ML SUSP *UDC PO PRN (11:05)
[2022-06-15] MEDS ORDERED: IBUPROFEN 400MG TAB PO PRN (11:05)
[2022-06-15] MEDS ORDERED: MOM 30ML SUSPENSION UDC PO PRN (11:05)
[2022-06-15] MEDS ORDERED: diphenhydrAMINE 25MG CAP PO PRN (11:05)
[2022-06-15 15:16] VITALS: BP 158/81
[2022-06-15] MEDS ORDERED: DULAGLUTIDE 0.75 MG/0.5 ML SC SCH (19:00)
[2022-06-15] MEDS: OMEPRAZOLE 20MG CAP PO SCH (20:45)
[2022-06-15] MEDS: traZODone 50 MG TAB PO PRN (20:45)
[2022-06-15] MEDS: LOSARTAN 50MG TABLET PO SCH (20:47)
[2022-06-15] MEDS ORDERED: ARIPiprazole 10 MG TAB PO SCH (21:00)
[2022-06-15] MEDS ORDERED: metFORMIN XR 500MG TAB *GLUCOPHAGE XR PO SCH (21:00)
[2022-06-16 05:57] VITALS: BP 145/89
[2022-06-16] MEDS: NICOTINE 21MG/24HR 1 EA TRANSDERMAL TD SCH (08:15)
[2022-06-16] MEDS: buPROPion 100 MG TAB PO SCH ×2 (08:18→11:58)
[2022-06-16] MEDS: VITAMIN D 1,000 INTERNATIONAL UNITS TABLET PO SCH (08:18)
[2022-06-16] MEDS: OXcarbazepine 300 MG TAB PO SCH ×2 (08:18→20:15)
[2022-06-16] MEDS ORDERED: INFLUENZA QUADRIVALENT PF VACCINE 0.5ML SYRINGE IM.IMMUN ONE (14:10)
[2022-06-16 16:06] VITALS: BP 140/88
[2022-06-16] MEDS: metFORMIN XR 500MG TAB *GLUCOPHAGE XR PO SCH (17:58)
[2022-06-16] MEDS: LURASIDONE 20 MG TAB (LATUDA) PO SCH (17:58)
[2022-06-16] MEDS: OMEPRAZOLE 20MG CAP PO SCH (20:15)
[2022-06-16] MEDS: LOSARTAN 50MG TABLET PO SCH (20:20)
[2022-06-16] MEDS: traZODone 50 MG TAB PO PRN (22:05)
[2022-06-17 06:31] VITALS: BP 159/92
[2022-06-17] MEDS: NICOTINE 21MG/24HR 1 EA TRANSDERMAL TD SCH (08:09)
[2022-06-17] MEDS: OXcarbazepine 300 MG TAB PO SCH ×2 (08:13→20:36)
[2022-06-17] MEDS: LURASIDONE 20 MG TAB (LATUDA) PO SCH ×2 (08:14→18:06)
[2022-06-17] MEDS: buPROPion 100 MG TAB PO SCH ×2 (08:15→12:17)
[2022-06-17] MEDS: VITAMIN D 1,000 INTERNATIONAL UNITS TABLET PO SCH (08:16)
[2022-06-17 16:09] VITALS: BP 142/87
[2022-06-17] MEDS: metFORMIN XR 500MG TAB *GLUCOPHAGE XR PO SCH (18:06)
[2022-06-17] MEDS: LOSARTAN 50MG TABLET PO SCH (20:36)
[2022-06-17] MEDS: OMEPRAZOLE 20MG CAP PO SCH (20:36)
[2022-06-17] MEDS: traZODone 50 MG TAB PO PRN (22:01)
[2022-06-18 06:28] VITALS: BP 141/87
[2022-06-18] MEDS: OXcarbazepine 300 MG TAB PO SCH ×2 (08:23→20:43)
[2022-06-18] MEDS: buPROPion 100 MG TAB PO SCH ×2 (08:24→12:16)
[2022-06-18] MEDS: LURASIDONE 20 MG TAB (LATUDA) PO SCH ×2 (08:24→18:03)
[2022-06-18] MEDS: VITAMIN D 1,000 INTERNATIONAL UNITS TABLET PO SCH (08:26)
[2022-06-18] MEDS: NICOTINE 21MG/24HR 1 EA TRANSDERMAL TD SCH (08:26)
[2022-06-18 16:06] VITALS: BP 142/65
[2022-06-18] MEDS: metFORMIN XR 500MG TAB *GLUCOPHAGE XR PO SCH (18:03)
[2022-06-18] MEDS: LOSARTAN 50MG TABLET PO SCH (20:43)
[2022-06-18] MEDS: OMEPRAZOLE 20MG CAP PO SCH (20:43)
[2022-06-18] MEDS: traZODone 50 MG TAB PO PRN (22:46)
[2022-06-19 06:27] VITALS: BP 131/69
[2022-06-19] MEDS: NICOTINE 21MG/24HR 1 EA TRANSDERMAL TD SCH (08:09)
[2022-06-19] MEDS: buPROPion 100 MG TAB PO SCH ×2 (08:11→12:13)
[2022-06-19] MEDS: VITAMIN D 1,000 INTERNATIONAL UNITS TABLET PO SCH (08:11)
[2022-06-19] MEDS: OXcarbazepine 300 MG TAB PO SCH ×2 (08:11→20:47)
[2022-06-19] MEDS: LURASIDONE 20 MG TAB (LATUDA) PO SCH ×2 (08:11→18:29)
[2022-06-19 18:03] VITALS: BP 141/80
[2022-06-19] MEDS: metFORMIN XR 500MG TAB *GLUCOPHAGE XR PO SCH (18:29)
[2022-06-19] MEDS: LOSARTAN 50MG TABLET PO SCH (20:49)
[2022-06-19] MEDS: OMEPRAZOLE 20MG CAP PO SCH (20:49)
[2022-06-19] MEDS: traZODone 50 MG TAB PO PRN (23:07)
[2022-06-20 06:40] VITALS: BP 155/71
[2022-06-20 08:04] VITALS: BP 155/71
[2022-06-20] MEDS: OXcarbazepine 300 MG TAB PO SCH (08:04)
[2022-06-20] MEDS: LURASIDONE 20 MG TAB (LATUDA) PO SCH (08:04)
[2022-06-20] MEDS: buPROPion 100 MG TAB PO SCH (08:04)
[2022-06-20] MEDS: VITAMIN D 1,000 INTERNATIONAL UNITS TABLET PO SCH (08:04)
[2022-06-20] MEDS: NICOTINE 21MG/24HR 1 EA TRANSDERMAL TD SCH (08:06)
[2022-06-20 08:18] LABS: CHOLESTEROL RISK RATIO 5.096 (<5)
[2022-06-20] MEDS ORDERED: LATU20TA PO (09:19)
[2022-06-20] MEDS ORDERED: TRAZ-252 PO (09:19)
[2022-06-20] MEDS ORDERED: BUPR-69 PO (09:19)
[2022-06-20] MEDS ORDERED: OXCA300T14 PO (09:19)
== END 2022-06-20 12:15 | disposition home or self-care (01) | DRG 753 ==
LOC: M ED 16:11 → M ED INP 06-15 11:01 → M PSY 06-15 15:15
PROVIDERS: ADMIT Student in an Organized Health Care Education/Training Program; ATTEND Psychiatry & Neurology Psychiatry
DX: F31.30 Bipolar disorder, current episode depressed, mild or moderate severity, unspecified (principal); R45.851 Suicidal ideations; Z56.0 Unemployment, unspecified; E11.9 Type 2 diabetes mellitus without complications; I10 Essential (primary) hypertension; E66.9 Obesity, unspecified; Z79.84 Long term (current) use of oral hypoglycemic drugs; Z79.899 Other long term (current) drug therapy; Z88.2 Allergy status to sulfonamides; F17.200 Nicotine dependence, unspecified, uncomplicated; Z20.822 Contact with and (suspected) exposure to COVID-19

== ENCOUNTER → 2022-08-16 | Outpatient (CLI) | payer OTHER ==
[~2022-08-16] MED LIST changes: +BUPR-69 PO; +LATU20TA PO; +TRUL10IN SC; +med rec comment
[2022-08-16 15:29] LABS: BASO # 0.1 10^3/uL (0.0-0.2); BASO % 0.5 % (0.0-1.0); EOS # 0.1 10^3/uL (0.0-0.5); EOS % 0.9 % (0.0-3.0); HEMATOCRIT 47.8 % (42.0-52.0); HEMOGLOBIN 15.3 g/dl (13.5-17.5); LYMPH # 2.7 10^3/uL (1.5-5.0); MEAN CORPUSCULAR HEMOGLOBIN 27.9 pg (27.0-33.0); MEAN CORPUSCULAR VOLUME 87.1 fl (80.0-96.0); MONO % 6.9 % (2.0-8.0); NEUTROPHILS # 10.6 10^3/uL (1.5-8.5); NEUTROPHILS % 71.9 % (36.0-66.0); PLATELET COUNT, AUTOMATED 277 10^3/uL (150-450); RED BLOOD COUNT 5.49 10^6/uL (4.30-6.10); WHITE BLOOD COUNT 14.7 10^3/uL (4.0-10.0)
[2022-08-16 15:54] LABS: CALCIUM LEVEL 9.3 MG/DL (8.5-10.1)
[2022-08-16 16:01] LABS: THYROID STIMULATING HORMONE 2.012 uIU/ML (0.55-4.78)
[2022-08-16 16:02] LABS: FREE T4 0.82 NG/DL (0.89-1.76)
[2022-08-16 16:08] LABS: HEMOGLOBIN A1c 5.8 % (4.0-6.0)
[2022-08-16 16:58] LABS: PTH INTACT 30.4 PG/ML (18.5-88.0)
[2022-08-17 14:42] LABS: TOTAL 25(OH) VITAMIN D 32.3 NG/ML (20.0-100.0)
== END ==
LOC: M PLALAB 11:53
PROVIDERS: ATTEND Physician Assistant Medical
DX: I10 Essential (primary) hypertension (principal)

== ENCOUNTER 2022-12-29 10:50 | Inpatient (IN) | payer OTHER ==
[~2022-12-29] VITALS: Ht 185.4 cm; Wt 199.4 kg
[~2022-12-29 10:50] MED LIST changes: -LOSA100T45 PO; +LOSA100T46 PO
[2022-12-29] MEDS ORDERED: ABIL1TAB12 PO (11:00)
[2022-12-29 11:31] LABS: HEMATOCRIT 48.8 % (42.0-52.0); HEMOGLOBIN 16.2 g/dl (13.5-17.5); MEAN CORPUSCULAR HEMOGLOBIN 28.6 pg (27.0-33.0); MEAN CORPUSCULAR HGB CONC 33.2 g/dl (32.0-36.5); MEAN CORPUSCULAR VOLUME 86.1 fl (80.0-96.0); PLATELET COUNT, AUTOMATED 301 10^3/uL (150-450); RED BLOOD COUNT 5.67 10^6/uL (4.30-6.10); WHITE BLOOD COUNT 14.4 10^3/uL (4.0-10.0)
[2022-12-29 11:59] LABS: ETHYL ALCOHOL (ETHANOL) 0.006 % (0.000-0.010)
[2022-12-29 12:01] LABS: ACETAMINOPHEN LEVEL < 2.0 UG/ML (10.0-20.0); ALBUMIN 4.1 G/DL (3.2-5.2); ALKALINE PHOSPHATASE 83 U/L (46-116); ALT/SGPT 24 U/L (7.0-40); AST/SGOT 19 U/L (<34); BILIRUBIN,DIRECT < 0.1 MG/DL (<0.4); BILIRUBIN,TOTAL 0.2 MG/DL (0.3-1.2); BLOOD UREA NITROGEN 15 MG/DL (9-23); CALCIUM LEVEL 8.7 MG/DL (8.5-10.1); CARBON DIOXIDE LEVEL 25 MMOL/L (20-31); CHLORIDE LEVEL 108 MMOL/L (98-107); GLOMERULAR FILTRATION RATE > 60.0 (>60); GLUCOSE, FASTING 106 MG/DL (60-100); POTASSIUM SERUM 4.6 MMOL/L (3.5-5.1); SALICYLATE LEVEL < 3.0 MG/DL (<30); SODIUM LEVEL 141 MMOL/L (136-145)
[2022-12-29 12:31] LABS: AMPHETAMINES LEVEL URINE NEGATIVE (NEGATIVE); BARBITURATES URINE NEGATIVE (NEGATIVE); BENZODIAZEPINES URINE NEGATIVE (NEGATIVE); COCAINE METABOLITE URINE NEGATIVE (NEGATIVE); METHADONE URINE NEGATIVE (NEGATIVE); OPIATES URINE NEGATIVE (NEGATIVE); PHENCYCLIDINE URINE NEGATIVE (NEGATIVE)
[2022-12-29 12:40] LABS: CANNABINOIDS URINE POSITIVE (NEGATIVE)
[2022-12-29] MEDS ORDERED: traZODone 50 MG TAB PO PRN (13:05)
[2022-12-29] MEDS ORDERED: IBUPROFEN 400MG TAB PO PRN (13:05)
[2022-12-29] MEDS ORDERED: MAALOX 30 ML SUSP *UDC PO PRN (13:05)
[2022-12-29] MEDS ORDERED: ACETAMINOPHEN TAB 650MG DOSE (2X325MG) PO PRN (13:05)
[2022-12-29] MEDS ORDERED: MOM 30ML SUSPENSION UDC PO PRN (13:05)
[2022-12-29] MEDS ORDERED: LATU20TA PO (14:30)
[2022-12-29] MEDS ORDERED: AMLO25TA PO (14:30)
[2022-12-29] MEDS ORDERED: OXCA600T8 PO (14:30)
[2022-12-29] MEDS ORDERED: BUPR-69 PO (14:30)
[2022-12-29] MEDS ORDERED: TRUL0.5I SC (14:30)
[2022-12-29] MEDS ORDERED: HOME MED LIST COMPLETE! XX SCH (14:35)
[2022-12-29 15:17] VITALS: BP 148/76
[2022-12-29] MEDS ORDERED: LURASIDONE 20 MG TAB (LATUDA) PO SCH (18:00)
[2022-12-29] MEDS: metFORMIN XR 500MG TAB *GLUCOPHAGE XR PO SCH (18:59)
[2022-12-29] MEDS: OXcarbazepine 300 MG TAB PO SCH (20:54)
[2022-12-29] MEDS: diphenhydrAMINE 25MG CAP PO PRN (22:26)
[2022-12-30] MEDS ORDERED: LOSARTAN 50MG TABLET PO ONE (03:00)
[2022-12-30 06:15] VITALS: BP 143/88
[2022-12-30] MEDS: OXcarbazepine 300 MG TAB PO SCH ×2 (08:49→20:10)
[2022-12-30] MEDS: busPIRone 5 MG TAB PO SCH ×2 (11:24→20:10)
[2022-12-30] MEDS ORDERED: amLODIPine 5 MG TAB PO ONE (15:30)
[2022-12-30 16:44] VITALS: BP 160/70
[2022-12-30] MEDS: LURASIDONE 20 MG TAB (LATUDA) PO SCH (17:22)
[2022-12-30] MEDS: metFORMIN XR 500MG TAB *GLUCOPHAGE XR PO SCH (17:23)
[2022-12-30] MEDS: OMEPRAZOLE 20MG CAP PO SCH (20:10)
[2022-12-30] MEDS: LOSARTAN 50MG TABLET PO SCH (20:13)
[2022-12-30] MEDS: traZODone 100 MG TAB PO PRN (23:03)
[2022-12-31] MEDS: diphenhydrAMINE 25MG CAP PO PRN ×2 (02:46→11:26)
[2022-12-31 06:30] VITALS: BP 140/74
[2022-12-31] MEDS: busPIRone 5 MG TAB PO SCH ×2 (08:17→20:33)
[2022-12-31] MEDS: OXcarbazepine 300 MG TAB PO SCH ×2 (08:17→20:32)
[2022-12-31] MEDS: amLODIPine 5 MG TAB PO SCH (08:17)
[2022-12-31] MEDS ORDERED: clonazePAM 1 MG TAB PO PRN (13:40)
[2022-12-31 17:50] VITALS: BP 165/92
[2022-12-31] MEDS: LURASIDONE 20 MG TAB (LATUDA) PO SCH (18:04)
[2022-12-31] MEDS: metFORMIN XR 500MG TAB *GLUCOPHAGE XR PO SCH (18:05)
[2022-12-31 19:03] VITALS: BP 153/87
[2022-12-31] MEDS: LOSARTAN 50MG TABLET PO SCH (20:31)
[2022-12-31] MEDS: OMEPRAZOLE 20MG CAP PO SCH (20:32)
[2022-12-31] MEDS: traZODone 100 MG TAB PO PRN (20:34)
[2023-01-01 06:44] VITALS: BP 146/100
[2023-01-01] MEDS: OXcarbazepine 300 MG TAB PO SCH ×2 (08:16→20:59)
[2023-01-01] MEDS: amLODIPine 5 MG TAB PO SCH (08:16)
[2023-01-01] MEDS: busPIRone 5 MG TAB PO SCH ×2 (08:17→20:59)
[2023-01-01] MEDS ORDERED: LURASIDONE 20 MG TAB (LATUDA) PO ONE (10:00)
[2023-01-01] MEDS: diphenhydrAMINE 25MG CAP PO PRN ×2 (11:51→23:21)
[2023-01-01] MEDS: metFORMIN XR 500MG TAB *GLUCOPHAGE XR PO SCH (17:21)
[2023-01-01 18:00] VITALS: BP 137/81
[2023-01-01] MEDS ORDERED: LURASIDONE HCL 40MG TAB (LATUDA) PO SCH (18:00)
[2023-01-01] MEDS ORDERED: LURASIDONE 20 MG TAB (LATUDA) PO SCH (18:00)
[2023-01-01] MEDS: traZODone 100 MG TAB PO PRN (20:59)
[2023-01-01] MEDS: LOSARTAN 50MG TABLET PO SCH (20:59)
[2023-01-01] MEDS: OMEPRAZOLE 20MG CAP PO SCH (20:59)
[2023-01-02 06:31] VITALS: BP 152/96
[2023-01-02 08:07] VITALS: BP 145/82
[2023-01-02 08:09] VITALS: BP 145/82
[2023-01-02] MEDS: busPIRone 5 MG TAB PO SCH (08:09)
[2023-01-02] MEDS: OXcarbazepine 300 MG TAB PO SCH (08:09)
[2023-01-02] MEDS: amLODIPine 5 MG TAB PO SCH (08:09)
[2023-01-02] MEDS ORDERED: TRAZ-257 PO (09:53)
[2023-01-02] MEDS ORDERED: BUSP5TA PO (09:53)
[2023-01-02] MEDS ORDERED: OXCA600T8 PO (09:53)
[2023-01-02] MEDS ORDERED: LATU20TA PO (09:53)
[2023-01-02] MEDS ORDERED: CHLOR25TA PO (09:53)
[2023-01-02] MEDS ORDERED: LURASIDONE 20 MG TAB (LATUDA) PO SCH (18:00)
== END 2023-01-02 12:24 | disposition home or self-care (01) | DRG 753 ==
LOC: M ED 10:50 → M ED INP 13:22 → M PSY 15:13
PROVIDERS: ADMIT Student in an Organized Health Care Education/Training Program; ATTEND Student in an Organized Health Care Education/Training Program
DX: F31.81 Bipolar II disorder (principal); E11.9 Type 2 diabetes mellitus without complications; I10 Essential (primary) hypertension; F41.9 Anxiety disorder, unspecified; F60.89 Other specific personality disorders; E66.9 Obesity, unspecified; F17.290 Nicotine dependence, other tobacco product, uncomplicated; Z79.84 Long term (current) use of oral hypoglycemic drugs; Z79.899 Other long term (current) drug therapy; Z88.2 Allergy status to sulfonamides; Z56.0 Unemployment, unspecified

== ENCOUNTER 2023-02-06 07:08 | Inpatient (IN) | payer OTHER ==
[~2023-02-06] VITALS: Ht 185.4 cm; Wt 204.6 kg
[~2023-02-06 07:08] MED LIST changes: +ABIL1TAB12 PO; +BUSP5TA PO; +CHLOR25TA PO; +OXCA600T8 PO; +TRUL0.5I SC
[2023-02-06 08:10] LABS: HEMATOCRIT 45.8 % (42.0-52.0); MEAN CORPUSCULAR HEMOGLOBIN 28.1 pg (27.0-33.0); MEAN CORPUSCULAR HGB CONC 32.8 g/dl (32.0-36.5); MEAN CORPUSCULAR VOLUME 85.9 fl (80.0-96.0); PLATELET COUNT, AUTOMATED 310 10^3/uL (150-450); RED BLOOD COUNT 5.33 10^6/uL (4.30-6.10); WHITE BLOOD COUNT 15.3 10^3/uL (4.0-10.0)
[2023-02-06 08:40] LABS: AMPHETAMINES LEVEL URINE NEGATIVE (NEGATIVE); BARBITURATES URINE NEGATIVE (NEGATIVE); BENZODIAZEPINES URINE NEGATIVE (NEGATIVE); COCAINE METABOLITE URINE NEGATIVE (NEGATIVE); METHADONE URINE NEGATIVE (NEGATIVE); OPIATES URINE NEGATIVE (NEGATIVE); PHENCYCLIDINE URINE NEGATIVE (NEGATIVE)
[2023-02-06 08:43] LABS: ETHYL ALCOHOL (ETHANOL) 0.005 % (0.000-0.010)
[2023-02-06 08:44] LABS: ACETAMINOPHEN LEVEL < 2.0 UG/ML (10.0-20.0)
[2023-02-06 08:45] LABS: ALBUMIN 3.6 G/DL (3.2-5.2); ALKALINE PHOSPHATASE 84 U/L (46-116); ALT/SGPT 25 U/L (7.0-40); AST/SGOT 18 U/L (<34); BILIRUBIN,DIRECT < 0.1 MG/DL (<0.4); BILIRUBIN,TOTAL 0.3 MG/DL (0.3-1.2); BLOOD UREA NITROGEN 16 MG/DL (9-23); CALCIUM LEVEL 10.4 MG/DL (8.5-10.1); CARBON DIOXIDE LEVEL 27 MMOL/L (20-31); CHLORIDE LEVEL 104 MMOL/L (98-107); GLOMERULAR FILTRATION RATE > 60.0 (>60); GLUCOSE, FASTING 104 MG/DL (60-100); POTASSIUM SERUM 4.2 MMOL/L (3.5-5.1); SALICYLATE LEVEL < 3.0 MG/DL (<30); SODIUM LEVEL 137 MMOL/L (136-145); TOTAL PROTEIN 6.6 G/DL (5.7-8.2)
[2023-02-06 08:47] LABS: THYROID STIMULATING HORMONE 2.826 uIU/ML (0.55-4.78)
[2023-02-06 08:48] LABS: CANNABINOIDS URINE POSITIVE (NEGATIVE)
[2023-02-06] MEDS ORDERED: busPIRone 5 MG TAB PO SCH (09:00)
[2023-02-06] MEDS ORDERED: ACETAMINOPHEN TAB 650MG DOSE (2X325MG) PO PRN (09:55)
[2023-02-06] MEDS ORDERED: IBUPROFEN 400MG TAB PO PRN (09:55)
[2023-02-06] MEDS ORDERED: MOM 30ML SUSPENSION UDC PO PRN (09:55)
[2023-02-06] MEDS ORDERED: MAALOX 30 ML SUSP *UDC PO PRN (09:55)
[2023-02-06] MEDS ORDERED: OXCA600T8 PO (10:17)
[2023-02-06] MEDS ORDERED: LURA80TA PO (10:17)
[2023-02-06] MEDS ORDERED: BUSP5TAB PO (10:17)
[2023-02-06] MEDS ORDERED: ABIL1TAB12 PO (10:17)
[2023-02-06] MEDS ORDERED: HOME MED LIST COMPLETE! XX SCH (10:20)
[2023-02-06 11:51] LABS: HEMOGLOBIN A1c 5.8 % (4.0-6.0)
[2023-02-06] MEDS: LOSARTAN 50MG TABLET PO SCH ×2 (11:57→12:48)
[2023-02-06] MEDS: NICOTINE 14 MG/24 HR TRANSDERMAL TD SCH (11:59)
[2023-02-06 13:09] VITALS: BP 139/92; TEMP 98.5; O2SAT 95
[2023-02-06 17:33] VITALS: BP 160/84; TEMP 98.4; O2SAT 95
[2023-02-06] MEDS: busPIRone 5 MG TAB PO SCH (20:43)
[2023-02-06] MEDS ORDERED: OXcarbazepine 300 MG TAB PO SCH (21:00)
[2023-02-06] MEDS: diphenhydrAMINE 25MG CAP PO PRN (22:44)
[2023-02-07 06:12] VITALS: BP 149/88; TEMP 96.5; O2SAT 100
[2023-02-07] MEDS: ARIPiprazole 10 MG TAB PO SCH ×2 (09:00→10:11)
[2023-02-07] MEDS ORDERED: ARIPiprazole 15 MG TAB (AbiLIFY) PO SCH (09:00)
[2023-02-07] MEDS: OXcarbazepine 300 MG TAB PO SCH ×2 (09:00→10:12)
[2023-02-07] MEDS ORDERED: busPIRone 5 MG TAB PO SCH (09:00)
[2023-02-07] MEDS: busPIRone 5 MG TAB PO SCH ×2 (09:02→20:47)
[2023-02-07] MEDS: NICOTINE 14 MG/24 HR TRANSDERMAL TD SCH (09:03)
[2023-02-07 17:12] VITALS: BP 164/98; TEMP 97.5; O2SAT 95
[2023-02-07] MEDS: LITHIUM CARBONATE 300 MG CAP PO SCH (20:47)
[2023-02-07] MEDS: OMEPRAZOLE 20MG CAP PO SCH (20:47)
[2023-02-08] MEDS: diphenhydrAMINE 25MG CAP PO PRN ×2 (01:36→23:48)
[2023-02-08 06:28] VITALS: BP 156/82; TEMP 97.9; O2SAT 96
[2023-02-08] MEDS: busPIRone 5 MG TAB PO SCH ×2 (08:50→20:56)
[2023-02-08] MEDS: NICOTINE 14 MG/24 HR TRANSDERMAL TD SCH (08:51)
[2023-02-08] MEDS: PALIPERIDONE 3MG ER TAB (INVEGA) PO SCH ×3 (08:51→21:15)
[2023-02-08] MEDS ORDERED: LITHIUM CARBONATE 150 MG CAP PO SCH (09:00)
[2023-02-08] MEDS: OLANZapine 5 MG TAB PO PRN (13:54)
[2023-02-08 18:38] VITALS: BP 150/92; TEMP 96.7; O2SAT 96
[2023-02-08] MEDS: OMEPRAZOLE 20MG CAP PO SCH (20:56)
[2023-02-08] MEDS: LITHIUM CARBONATE 300 MG CAP PO SCH (20:56)
[2023-02-08] MEDS: traZODone 50 MG TAB PO PRN (23:48)
[2023-02-09 06:02] VITALS: BP 142/90; TEMP 97.4; O2SAT 96
[2023-02-09] MEDS: busPIRone 5 MG TAB PO SCH ×2 (08:19→20:26)
[2023-02-09] MEDS: NICOTINE 14 MG/24 HR TRANSDERMAL TD SCH (08:19)
[2023-02-09] MEDS ORDERED: LITHIUM CARBONATE 300 MG CAP PO SCH (09:00)
[2023-02-09] MEDS: PALIPERIDONE 3MG ER TAB (INVEGA) PO SCH ×2 (10:26→22:50)
[2023-02-09] MEDS: OLANZapine 5 MG TAB PO PRN (13:49)
[2023-02-09] MEDS: diphenhydrAMINE 25MG CAP PO PRN (13:49)
[2023-02-09 17:41] VITALS: BP 163/70; TEMP 98.3; O2SAT 94
[2023-02-09] MEDS: OMEPRAZOLE 20MG CAP PO SCH (20:26)
[2023-02-09] MEDS: LITHIUM CARBONATE 150 MG CAP PO SCH (20:27)
[2023-02-10] VITALS (11 sets, daily range): BP systolic 118–163; BP diastolic 58–93; TEMP 97.4–98.6; O2SAT 95–98
[2023-02-10] MEDS ORDERED: LORazepam 2 MG TAB PO STA (00:06)
[2023-02-10] MEDS: diphenhydrAMINE 25MG CAP PO PRN (00:49)
[2023-02-10] MEDS: traZODone 50 MG TAB PO PRN (00:49)
[2023-02-10] MEDS: PALIPERIDONE 3MG ER TAB (INVEGA) PO SCH ×2 (09:00→20:27)
[2023-02-10] MEDS: busPIRone 5 MG TAB PO SCH ×2 (09:06→20:27)
[2023-02-10] MEDS: NICOTINE 14 MG/24 HR TRANSDERMAL TD SCH (09:07)
[2023-02-10] MEDS: LITHIUM CARBONATE 150 MG CAP PO SCH ×2 (09:07→20:27)
[2023-02-10] MEDS ORDERED: LORazepam 2 MG/ML 1ML VIAL IM STA (14:14)
[2023-02-10] MEDS ORDERED: chlorproMAZINE INJ 50MG/2ML AMP IM STA (14:14)
[2023-02-10] MEDS: OMEPRAZOLE 20MG CAP PO SCH (20:27)
[2023-02-11] MEDS ORDERED: LOPERAMIDE 2 MG CAPLET PO ONE (02:10)
[2023-02-11 06:52] VITALS: BP 159/95; TEMP 98.6; O2SAT 95
[2023-02-11] MEDS: NICOTINE 14 MG/24 HR TRANSDERMAL TD SCH (09:22)
[2023-02-11] MEDS: PALIPERIDONE 3MG ER TAB (INVEGA) PO SCH ×2 (09:22→21:00)
[2023-02-11] MEDS: busPIRone 5 MG TAB PO SCH ×2 (09:23→20:18)
[2023-02-11] MEDS: LITHIUM CARBONATE 150 MG CAP PO SCH ×2 (09:23→20:18)
[2023-02-11 18:24] VITALS: BP 164/98; TEMP 98.5; O2SAT 95
[2023-02-11] MEDS ORDERED: LORazepam 2 MG TAB PO STA (19:25)
[2023-02-11] MEDS: diphenhydrAMINE 25MG CAP PO PRN (19:32)
[2023-02-11] MEDS: traZODone 50 MG TAB PO PRN (19:32)
[2023-02-11] MEDS: OMEPRAZOLE 20MG CAP PO SCH (20:18)
[2023-02-12 06:47] VITALS: BP 160/100; TEMP 97.1; O2SAT 95
[2023-02-12] MEDS: LITHIUM CARBONATE 150 MG CAP PO SCH ×2 (08:59→20:26)
[2023-02-12] MEDS: PALIPERIDONE 3MG ER TAB (INVEGA) PO SCH ×2 (08:59→20:26)
[2023-02-12] MEDS: busPIRone 5 MG TAB PO SCH ×2 (08:59→20:26)
[2023-02-12] MEDS: NICOTINE 14 MG/24 HR TRANSDERMAL TD SCH (09:00)
[2023-02-12 18:41] VITALS: BP 158/90; TEMP 97.8; O2SAT 100
[2023-02-12] MEDS: OMEPRAZOLE 20MG CAP PO SCH (20:26)
[2023-02-13 06:27] VITALS: BP 152/90; TEMP 97.3; O2SAT 95
[2023-02-13] MEDS: PALIPERIDONE 3MG ER TAB (INVEGA) PO SCH ×2 (08:27→20:11)
[2023-02-13] MEDS: LITHIUM CARBONATE 150 MG CAP PO SCH ×2 (08:27→20:11)
[2023-02-13] MEDS: busPIRone 5 MG TAB PO SCH ×2 (08:27→20:11)
[2023-02-13] MEDS: NICOTINE 14 MG/24 HR TRANSDERMAL TD SCH (09:02)
[2023-02-13 18:58] VITALS: BP 139/81; TEMP 99.4
[2023-02-13] MEDS: OMEPRAZOLE 20MG CAP PO SCH (20:12)
[2023-02-13 20:15] VITALS: BP 154/74
[2023-02-14 06:51] VITALS: BP 137/68; TEMP 97.6; O2SAT 96
[2023-02-14] MEDS: LITHIUM CARBONATE 150 MG CAP PO SCH (08:06)
[2023-02-14] MEDS: PALIPERIDONE 3MG ER TAB (INVEGA) PO SCH (08:06)
[2023-02-14] MEDS: busPIRone 5 MG TAB PO SCH (08:06)
[2023-02-14] MEDS: NICOTINE 14 MG/24 HR TRANSDERMAL TD SCH (09:00)
[2023-02-14] MEDS ORDERED: AMLO1TAB25 PO (11:27)
[2023-02-14] MEDS ORDERED: PALI1TAB2 PO (11:27)
[2023-02-14] MEDS ORDERED: OMEP-173 PO (11:27)
[2023-02-14] MEDS ORDERED: TRAZ-252 PO (11:27)
[2023-02-14] MEDS ORDERED: LITH150C PO (11:27)
== END 2023-02-14 12:30 | disposition home or self-care (01) | DRG 753 ==
LOC: M ED 07:08 → EDBD 07:08 → M ED INP 09:55 → M PSY 13:21
PROVIDERS: ADMIT Student in an Organized Health Care Education/Training Program; ATTEND Student in an Organized Health Care Education/Training Program
DX: F31.10 Bipolar disorder, current episode manic without psychotic features, unspecified (principal); E66.01 Morbid (severe) obesity due to excess calories; G47.33 Obstructive sleep apnea (adult) (pediatric); I10 Essential (primary) hypertension; E11.9 Type 2 diabetes mellitus without complications; E78.5 Hyperlipidemia, unspecified; K21.9 Gastro-esophageal reflux disease without esophagitis; E55.9 Vitamin D deficiency, unspecified; Z79.899 Other long term (current) drug therapy; Z20.822 Contact with and (suspected) exposure to COVID-19; Z88.2 Allergy status to sulfonamides; Z87.891 Personal history of nicotine dependence; Z56.0 Unemployment, unspecified

== ENCOUNTER 2023-03-03 20:36 | Emergency (ER) | payer OTHER ==
[~2023-03-03] VITALS: Ht 185.4 cm; Wt 208.0 kg
[~2023-03-03 20:36] MED LIST changes: +AMLO1TAB25 PO; +BUSP5TAB PO; +LITH150C PO; +LURA80TA PO; +OMEP-173 PO; +PALI1TAB2 PO
[2023-03-03 20:53] VITALS: BP 152/82; TEMP 97; O2SAT 95
[2023-03-04] MEDS ORDERED: med rec comment (11:42)
== END 2023-03-04 04:15 | disposition left against medical advice (07) ==
LOC: M ED 20:36
DX: Z53.21 Procedure and treatment not carried out due to patient leaving prior to being seen by health care provider (principal)

== ENCOUNTER 2023-03-04 08:58 | Inpatient (IN) | payer OTHER ==
[~2023-03-04] VITALS: Ht 185.4 cm; Wt 205.0 kg
[2023-03-04] MEDS ORDERED: MED REC IN PROGRESS XX SCH (09:45)
[2023-03-04 10:12] LABS: HEMATOCRIT 42.6 % (42.0-52.0); HEMOGLOBIN 13.5 g/dl (13.5-17.5); MEAN CORPUSCULAR HEMOGLOBIN 27.7 pg (27.0-33.0); MEAN CORPUSCULAR HGB CONC 31.7 g/dl (32.0-36.5); MEAN CORPUSCULAR VOLUME 87.5 fl (80.0-96.0); PLATELET COUNT, AUTOMATED 292 10^3/uL (150-450); RED BLOOD COUNT 4.87 10^6/uL (4.30-6.10); WHITE BLOOD COUNT 15.1 10^3/uL (4.0-10.0)
[2023-03-04 10:31] LABS: AMPHETAMINES LEVEL URINE NEGATIVE (NEGATIVE); BARBITURATES URINE NEGATIVE (NEGATIVE); BENZODIAZEPINES URINE NEGATIVE (NEGATIVE); COCAINE METABOLITE URINE NEGATIVE (NEGATIVE); METHADONE URINE NEGATIVE (NEGATIVE); OPIATES URINE NEGATIVE (NEGATIVE); PHENCYCLIDINE URINE NEGATIVE (NEGATIVE)
[2023-03-04 10:32] LABS: CANNABINOIDS URINE POSITIVE (NEGATIVE); ETHYL ALCOHOL (ETHANOL) < 0.003 % (0.000-0.010)
[2023-03-04 10:34] LABS: ACETAMINOPHEN LEVEL < 2.0 UG/ML (10.0-20.0); ALBUMIN 3.2 G/DL (3.2-5.2); ALKALINE PHOSPHATASE 77 U/L (46-116); ALT/SGPT 19 U/L (7.0-40); AST/SGOT 12 U/L (<34); BILIRUBIN,DIRECT < 0.1 MG/DL (<0.4); BILIRUBIN,TOTAL < 0.2 MG/DL (0.3-1.2); BLOOD UREA NITROGEN 23 MG/DL (9-23); CALCIUM LEVEL 8.4 MG/DL (8.5-10.1); CARBON DIOXIDE LEVEL 28 MMOL/L (20-31); CHLORIDE LEVEL 104 MMOL/L (98-107); CREATININE FOR GFR 0.66 MG/DL (0.70-1.30); GLOMERULAR FILTRATION RATE > 60.0 (>60); GLUCOSE, FASTING 134 MG/DL (60-100); POTASSIUM SERUM 4.1 MMOL/L (3.5-5.1); SALICYLATE LEVEL < 3.0 MG/DL (<30); SODIUM LEVEL 139 MMOL/L (136-145); TOTAL PROTEIN 5.9 G/DL (5.7-8.2)
[2023-03-04 10:38] LABS: THYROID STIMULATING HORMONE 1.342 uIU/ML (0.55-4.78)
[2023-03-04] MEDS ORDERED: MED REC CURRENTLY UNOBTAINABLE XX SCH (11:20)
[2023-03-04] MEDS ORDERED: med rec comment (11:42)
[2023-03-04] MEDS ORDERED: HOME MED LIST COMPLETE! XX SCH (11:45)
[2023-03-04] MEDS ORDERED: NICOTINE 21MG/24HR 1 EA TRANSDERMAL TD ONE (12:00)
[2023-03-04] MEDS ORDERED: OLANZapine ORAL DISINTEGRATING TAB 5MG PO ONE (14:40)
[2023-03-04] MEDS ORDERED: LORazepam 2 MG/ML 1ML VIAL IM STA (14:44)
[2023-03-04] MEDS ORDERED: HALOPERIDOL 5MG/ML 1ML VIAL IM STA (14:44)
[2023-03-05] MEDS ORDERED: HALOPERIDOL 5MG/ML 1ML VIAL IM ONE ×2 (00:50→12:10)
[2023-03-05] MEDS ORDERED: MIDAZOLAM INJ 2MG/2ML VIAL IM ONE ×2 (01:05→09:45)
[2023-03-05] MEDS ORDERED: diphenhydrAMINE 50MG/ML VIAL IM ONE ×2 (01:05→09:45)
[2023-03-05] MEDS ORDERED: HALOPERIDOL 5MG/ML 1ML VIAL IM STA (09:46)
[2023-03-05] MEDS ORDERED: MOM 30ML SUSPENSION UDC PO PRN (10:55)
[2023-03-05] MEDS ORDERED: traZODone 50 MG TAB PO PRN (10:55)
[2023-03-05] MEDS ORDERED: LORazepam 2 MG/ML 1ML VIAL IM PRN (10:55)
[2023-03-05] MEDS ORDERED: HALOPERIDOL 5MG/ML 1ML VIAL IV PRN (10:55)
[2023-03-05] MEDS ORDERED: diphenhydrAMINE 25MG CAP PO PRN (10:55)
[2023-03-05] MEDS ORDERED: IBUPROFEN 400MG TAB PO PRN (10:55)
[2023-03-05] MEDS ORDERED: ACETAMINOPHEN TAB 650MG DOSE (2X325MG) PO PRN (10:55)
[2023-03-05] MEDS ORDERED: MAALOX 30 ML SUSP *UDC PO PRN (10:55)
[2023-03-05] MEDS ORDERED: LORazepam 2 MG TAB PO PRN (11:20)
[2023-03-05 15:36] VITALS: BP 149/68; TEMP 98.2; O2SAT 95
[2023-03-06 06:40] VITALS: BP 150/88; TEMP 97.2; O2SAT 94
[2023-03-06] MEDS ORDERED: NICOTINE 14 MG/24 HR TRANSDERMAL TD PRN (07:35)
[2023-03-06] MEDS ORDERED: LITH150C PO (10:14)
[2023-03-06] MEDS ORDERED: PALI1TAB2 PO (10:14)
[2023-03-06] MEDS ORDERED: AMLO1TAB25 PO (10:14)
[2023-03-06] MEDS ORDERED: TRAZ1TAB10 PO (10:14)
[2023-03-06] MEDS ORDERED: OMEP1CAP73 PO (10:14)
[2023-03-06] MEDS ORDERED: BUSP5TA PO (10:14)
[2023-03-06] MEDS ORDERED: HOME MED LIST COMPLETE! XX SCH (10:15)
[2023-03-06] MEDS: PALIPERIDONE 3MG ER TAB (INVEGA) PO SCH ×2 (10:36→20:45)
[2023-03-06] MEDS ORDERED: traZODone 50 MG TAB PO PRN (10:50)
[2023-03-06] MEDS: busPIRone 5 MG TAB PO SCH ×2 (10:57→20:45)
[2023-03-06 16:22] VITALS: BP 139/76; TEMP 98.3; O2SAT 100
[2023-03-06 20:45] VITALS: BP 174/66
[2023-03-06] MEDS ORDERED: OMEPRAZOLE 20MG CAP PO SCH (21:00)
[2023-03-06] MEDS ORDERED: LITHIUM CARBONATE 600MG CAP PO SCH (21:00)
[2023-03-07 06:36] VITALS: BP 147/80; TEMP 98.1; O2SAT 95
[2023-03-07] MEDS: PALIPERIDONE 3MG ER TAB (INVEGA) PO SCH (08:25)
[2023-03-07] MEDS: busPIRone 5 MG TAB PO SCH (08:25)
[2023-03-07] MEDS ORDERED: NICO14PA TD (10:41)
[2023-03-07] MEDS ORDERED: LITH600C PO (10:41)
== END 2023-03-07 13:45 | disposition home or self-care (01) | DRG 753 ==
LOC: EDBD 08:58 → M ED 08:58 → M ED INP 03-05 10:55 → M PSY 03-05 15:10
PROVIDERS: ADMIT Student in an Organized Health Care Education/Training Program; ATTEND Student in an Organized Health Care Education/Training Program
DX: F31.60 Bipolar disorder, current episode mixed, unspecified (principal); Z78.1 Physical restraint status; I10 Essential (primary) hypertension; F12.10 Cannabis abuse, uncomplicated; F10.10 Alcohol abuse, uncomplicated; F17.200 Nicotine dependence, unspecified, uncomplicated; F60.3 Borderline personality disorder; F60.2 Antisocial personality disorder; G47.33 Obstructive sleep apnea (adult) (pediatric); K21.9 Gastro-esophageal reflux disease without esophagitis; F60.89 Other specific personality disorders; Z88.2 Allergy status to sulfonamides

== ENCOUNTER 2023-04-09 00:39 | Emergency (ER) | payer OTHER ==
[~2023-04-09] VITALS: Ht 185.4 cm; Wt 191.8 kg
[~2023-04-09 00:39] MED LIST changes: +LITH600C PO; +NICO14PA TD; +OMEP1CAP73 PO
[2023-04-09 01:04] VITALS: BP 175/103; TEMP 98.1
== END 2023-04-09 02:02 | disposition left against medical advice (07) ==
LOC: EDBD 00:39 → M ED 00:39
DX: Z53.21 Procedure and treatment not carried out due to patient leaving prior to being seen by health care provider (principal)

== ENCOUNTER 2023-05-11 19:14 | Emergency (ER) | payer OTHER ==
[~2023-05-11] VITALS: Ht 188 cm; Wt 190.9 kg
[2023-05-11 19:27] VITALS: BP 137/88; TEMP 96.8; O2SAT 94
== END 2023-05-11 19:46 | disposition left against medical advice (07) ==
LOC: M ED 19:14
DX: Z53.21 Procedure and treatment not carried out due to patient leaving prior to being seen by health care provider (principal)

== ENCOUNTER 2023-05-13 12:58 | Emergency (ER) | payer OTHER ==
[~2023-05-13] VITALS: Ht 188 cm; Wt 170.0 kg
[2023-05-13 13:00] VITALS: BP 108/64; TEMP 98.5; O2SAT 95
== END 2023-05-13 13:13 | disposition left against medical advice (07) ==
LOC: M ED 12:58
DX: Z53.21 Procedure and treatment not carried out due to patient leaving prior to being seen by health care provider (principal)

== ENCOUNTER 2023-05-18 17:35 | Emergency (ER) | payer OTHER ==
[~2023-05-18] VITALS: Ht 188 cm; Wt 181.8 kg
[~2023-05-18 17:35] MED LIST changes: -CEFD300C41 PO; +CEFD300C42 PO
[2023-05-18 17:52] VITALS: BP 151/93; TEMP 99.3; O2SAT 98
== END 2023-05-18 21:04 | disposition left against medical advice (07) ==
LOC: EDBD 17:35 → M ED 17:35
DX: Z53.21 Procedure and treatment not carried out due to patient leaving prior to being seen by health care provider (principal)

== ENCOUNTER 2023-05-22 01:12 | Emergency (ER) | payer OTHER ==
[~2023-05-22] VITALS: Ht 188 cm; Wt 186.0 kg
[2023-05-22 01:17] VITALS: BP 162/92; TEMP 98.8; O2SAT 97
[2023-05-22] MEDS ORDERED: HOME MED LIST COMPLETE! XX SCH (05:20)
== END 2023-05-22 05:48 | disposition home or self-care (01) ==
LOC: M ED 01:12
DX: F41.9 Anxiety disorder, unspecified (principal); Z59.00 Homelessness unspecified; F32.A Depression, unspecified; F31.9 Bipolar disorder, unspecified; F17.200 Nicotine dependence, unspecified, uncomplicated; F12.90 Cannabis use, unspecified, uncomplicated; Z88.2 Allergy status to sulfonamides

== ENCOUNTER 2023-05-22 21:40 | Emergency (ER) | payer OTHER ==
[~2023-05-22] VITALS: Ht 188 cm; Wt 220.0 kg
[2023-05-22 22:00] VITALS: TEMP 98.6
[2023-05-22 23:10] LABS: BASO % 0.5 % (0.0-1.0); EOS # 0.2 10^3/uL (0.0-0.5); EOS % 2.1 % (0.0-3.0); HEMATOCRIT 44.4 % (42.0-52.0); HEMOGLOBIN 14.4 g/dl (13.5-17.5); LYMPH # 1.9 10^3/uL (1.5-5.0); MEAN CORPUSCULAR HEMOGLOBIN 27.9 pg (27.0-33.0); MEAN CORPUSCULAR HGB CONC 32.4 g/dl (32.0-36.5); MEAN CORPUSCULAR VOLUME 85.9 fl (80.0-96.0); MONO % 12.3 % (2.0-8.0); NEUTROPHILS % 61.6 % (36.0-66.0); PLATELET COUNT, AUTOMATED 233 10^3/uL (150-450); RED BLOOD COUNT 5.17 10^6/uL (4.30-6.10); WHITE BLOOD COUNT 8.2 10^3/uL (4.0-10.0)
[2023-05-22] MEDS ORDERED: IPRATROPIUM 0.5MG/ALBUTEROL 2.5MG INH SOL UD 3ML (DUONEB) NEB ONE (23:25)
[2023-05-22 23:29] LABS: BLOOD UREA NITROGEN 9 MG/DL (9-23); CALCIUM LEVEL 8.3 MG/DL (8.5-10.1); CARBON DIOXIDE LEVEL 30 MMOL/L (20-31); CHLORIDE LEVEL 111 MMOL/L (98-107); CPK CREATINE PHOSPHOKINASE 160 U/L (46-171); CREATININE FOR GFR 0.74 MG/DL (0.70-1.30); GLOMERULAR FILTRATION RATE > 60.0 (>60); GLUCOSE, FASTING 95 MG/DL (60-100); POTASSIUM SERUM 4.1 MMOL/L (3.5-5.1); SODIUM LEVEL 146 MMOL/L (136-145)
[2023-05-22 23:30] LABS: MB/CK RELATIVE INDEX 1.25 (< OR =4)
[2023-05-22 23:34] LABS: THYROID STIMULATING HORMONE 3.121 uIU/ML (0.55-4.78)
[2023-05-23 01:00] VITALS: BP 149/73; O2SAT 97
[2023-05-23 18:39] LABS: PROCALCITONIN <0.04 ng/ml
== END 2023-05-23 01:42 | disposition left against medical advice (07) ==
LOC: M ED 21:40 → EDBD 21:40 → M ED 05-23 01:42
DX: J45.901 Unspecified asthma with (acute) exacerbation (principal); B34.8 Other viral infections of unspecified site; Z53.9 Procedure and treatment not carried out, unspecified reason; F32.A Depression, unspecified; F17.200 Nicotine dependence, unspecified, uncomplicated; Z88.2 Allergy status to sulfonamides

== ENCOUNTER 2023-05-23 01:59 | Emergency (ER) | payer OTHER ==
[~2023-05-23] VITALS: Ht 177.8 cm; Wt 183.6 kg
[2023-05-23 02:02] VITALS: BP 178/99; TEMP 97.2; O2SAT 94
== END 2023-05-23 04:17 | disposition left against medical advice (07) ==
LOC: M ED 01:59
DX: Z53.21 Procedure and treatment not carried out due to patient leaving prior to being seen by health care provider (principal)

== ENCOUNTER 2023-05-23 05:48 | Emergency (ER) | payer OTHER ==
[~2023-05-23] VITALS: Ht 188 cm; Wt 183.2 kg
[2023-05-23 08:59] VITALS: BP 170/111; TEMP 98.2; O2SAT 96
== END 2023-05-23 09:15 | disposition left against medical advice (07) ==
LOC: M ED 05:48
DX: Z71.1 Person with feared health complaint in whom no diagnosis is made (principal); Z53.9 Procedure and treatment not carried out, unspecified reason; E11.9 Type 2 diabetes mellitus without complications; I10 Essential (primary) hypertension; J45.909 Unspecified asthma, uncomplicated; F31.9 Bipolar disorder, unspecified; K21.9 Gastro-esophageal reflux disease without esophagitis; F17.200 Nicotine dependence, unspecified, uncomplicated

== ENCOUNTER 2023-05-29 04:38 | Emergency (ER) | payer OTHER ==
[~2023-05-29] VITALS: Ht 188 cm; Wt 182.4 kg
[2023-05-29] MEDS ORDERED: PRED5TA PO (04:48)
[2023-05-29 05:58] LABS: BASO % 0.2 % (0.0-1.0); EOS % 0.1 % (0.0-3.0); HEMATOCRIT 47.4 % (42.0-52.0); HEMOGLOBIN 15.5 g/dl (13.5-17.5); LYMPH # 3.9 10^3/uL (1.5-5.0); LYMPH % 20.4 % (24.0-44.0); MEAN CORPUSCULAR HEMOGLOBIN 27.4 pg (27.0-33.0); MEAN CORPUSCULAR HGB CONC 32.7 g/dl (32.0-36.5); MEAN CORPUSCULAR VOLUME 83.9 fl (80.0-96.0); MONO # 1.5 10^3/uL (0.0-0.8); MONO % 7.8 % (2.0-8.0); NEUTROPHILS # 13.4 10^3/uL (1.5-8.5); NEUTROPHILS % 70.9 % (36.0-66.0); PLATELET COUNT, AUTOMATED 305 10^3/uL (150-450); RED BLOOD COUNT 5.65 10^6/uL (4.30-6.10); WHITE BLOOD COUNT 18.9 10^3/uL (4.0-10.0)
[2023-05-29 06:21] LABS: BLOOD UREA NITROGEN 20 MG/DL (9-23); CALCIUM LEVEL 9.2 MG/DL (8.5-10.1); CARBON DIOXIDE LEVEL 28 MMOL/L (20-31); CHLORIDE LEVEL 104 MMOL/L (98-107); CREATININE FOR GFR 0.63 MG/DL (0.70-1.30); GLOMERULAR FILTRATION RATE > 60.0 (>60); GLUCOSE, FASTING 110 MG/DL (60-100); SODIUM LEVEL 139 MMOL/L (136-145)
[2023-05-29] MEDS ORDERED: IPRATROPIUM 0.5MG/ALBUTEROL 2.5MG INH SOL UD 3ML (DUONEB) NEB ONE (06:35)
[2023-05-29 08:22] VITALS: BP 142/62; TEMP 98.6; O2SAT 95
== END 2023-05-29 09:30 | disposition home or self-care (01) ==
LOC: M ED 04:38
DX: J20.9 Acute bronchitis, unspecified (principal); B97.89 Other viral agents as the cause of diseases classified elsewhere; F17.210 Nicotine dependence, cigarettes, uncomplicated; Z88.2 Allergy status to sulfonamides

== ENCOUNTER 2023-06-04 15:17 | Inpatient (IN) | payer OTHER ==
[~2023-06-04] VITALS: Ht 188 cm; Wt 185.5 kg
[~2023-06-04 15:17] MED LIST changes: +PRED5TA PO
[2023-06-04 16:13] LABS: HEMATOCRIT 45.3 % (42.0-52.0); HEMOGLOBIN 14.9 g/dl (13.5-17.5); MEAN CORPUSCULAR HGB CONC 32.9 g/dl (32.0-36.5); MEAN CORPUSCULAR VOLUME 85.2 fl (80.0-96.0); PLATELET COUNT, AUTOMATED 292 10^3/uL (150-450); RED BLOOD COUNT 5.32 10^6/uL (4.30-6.10); WHITE BLOOD COUNT 16.2 10^3/uL (4.0-10.0)
[2023-06-04 16:44] LABS: ETHYL ALCOHOL (ETHANOL) < 0.003 % (0.000-0.010)
[2023-06-04 16:45] LABS: SALICYLATE LEVEL < 3.0 MG/DL (<30)
[2023-06-04 16:46] LABS: ALBUMIN 3.4 G/DL (3.2-5.2); ALKALINE PHOSPHATASE 93 U/L (46-116); ALT/SGPT 29 U/L (7.0-40); AST/SGOT 15 U/L (<34); BILIRUBIN,DIRECT 0.1 MG/DL (<0.4); BILIRUBIN,TOTAL 0.3 MG/DL (0.3-1.2); BLOOD UREA NITROGEN 13 MG/DL (9-23); CALCIUM LEVEL 9.1 MG/DL (8.5-10.1); CARBON DIOXIDE LEVEL 28 MMOL/L (20-31); CHLORIDE LEVEL 103 MMOL/L (98-107); CREATININE FOR GFR 0.65 MG/DL (0.70-1.30); GLOMERULAR FILTRATION RATE > 60.0 (>60); GLUCOSE, FASTING 101 MG/DL (60-100); POTASSIUM SERUM 4.3 MMOL/L (3.5-5.1); SODIUM LEVEL 138 MMOL/L (136-145); TOTAL PROTEIN 6.3 G/DL (5.7-8.2)
[2023-06-04 16:47] LABS: THYROID STIMULATING HORMONE 2.704 uIU/ML (0.55-4.78)
[2023-06-04 17:06] LABS: AMPHETAMINES LEVEL URINE NEGATIVE (NEGATIVE); BARBITURATES URINE NEGATIVE (NEGATIVE); COCAINE METABOLITE URINE NEGATIVE (NEGATIVE)
[2023-06-04 17:07] LABS: BENZODIAZEPINES URINE NEGATIVE (NEGATIVE); CANNABINOIDS URINE NEGATIVE (NEGATIVE); METHADONE URINE NEGATIVE (NEGATIVE); OPIATES URINE NEGATIVE (NEGATIVE); PHENCYCLIDINE URINE NEGATIVE (NEGATIVE)
[2023-06-04] MEDS ORDERED: NICOTINE 21MG/24HR 1 EA TRANSDERMAL TD ONE (18:50)
[2023-06-04] MEDS ORDERED: MOM 30ML SUSPENSION UDC PO PRN (19:15)
[2023-06-04] MEDS ORDERED: diphenhydrAMINE 25MG CAP PO PRN (19:15)
[2023-06-04] MEDS ORDERED: ACETAMINOPHEN TAB 650MG DOSE (2X325MG) PO PRN (19:15)
[2023-06-04] MEDS ORDERED: MAALOX 30 ML SUSP *UDC PO PRN (19:15)
[2023-06-04] MEDS ORDERED: IBUPROFEN 400MG TAB PO PRN (19:15)
[2023-06-04] MEDS ORDERED: ALBU8.5H INH (23:12)
[2023-06-04] MEDS ORDERED: OMEG10002 PO (23:12)
[2023-06-04] MEDS ORDERED: HOME MED LIST COMPLETE! XX SCH (23:15)
[2023-06-04] MEDS: traZODone 50 MG TAB PO PRN (23:46)
[2023-06-05 00:05] VITALS: BP 118/73; TEMP 97.9; O2SAT 99
[2023-06-05 06:29] VITALS: BP 141/94; TEMP 98.5; O2SAT 93
[2023-06-05] MEDS: NICOTINE 14 MG/24 HR TRANSDERMAL TD SCH (11:51)
[2023-06-05] MEDS ORDERED: CEPACOL LOZENGE PO PRN (12:00)
[2023-06-05 18:00] VITALS: BP 159/88; TEMP 97; O2SAT 97
[2023-06-05] MEDS ORDERED: LURASIDONE 20 MG TAB (LATUDA) PO SCH (18:00)
[2023-06-05] MEDS: OXcarbazepine 150 MG TAB PO SCH (20:54)
[2023-06-05] MEDS: PALIPERIDONE 3MG ER TAB (INVEGA) PO SCH (20:54)
[2023-06-05] MEDS: traZODone 50 MG TAB PO PRN (21:39)
[2023-06-06 06:23] VITALS: BP 147/69; TEMP 98.2; O2SAT 98
[2023-06-06] MEDS: PALIPERIDONE 3MG ER TAB (INVEGA) PO SCH ×2 (08:39→20:48)
[2023-06-06] MEDS: OXcarbazepine 150 MG TAB PO SCH ×2 (08:39→20:48)
[2023-06-06] MEDS: NICOTINE 14 MG/24 HR TRANSDERMAL TD SCH (08:39)
[2023-06-06 15:40] VITALS: BP 152/90; TEMP 98.8; O2SAT 93
[2023-06-06] MEDS: traZODone 50 MG TAB PO PRN (20:48)
[2023-06-07 06:42] VITALS: BP 142/73; TEMP 98.1; O2SAT 95
[2023-06-07] MEDS: PALIPERIDONE 3MG ER TAB (INVEGA) PO SCH ×2 (09:15→20:50)
[2023-06-07] MEDS: NICOTINE 14 MG/24 HR TRANSDERMAL TD SCH (09:15)
[2023-06-07] MEDS: OXcarbazepine 150 MG TAB PO SCH ×2 (09:15→20:49)
[2023-06-07 16:22] VITALS: BP 160/100; TEMP 98; O2SAT 91
[2023-06-07] MEDS: traZODone 50 MG TAB PO PRN (20:50)
[2023-06-08] MEDS ORDERED: TRAZ-252 PO (07:56)
[2023-06-08] MEDS ORDERED: PALI1TAB2 PO (07:56)
[2023-06-08] MEDS ORDERED: OXCA150T21 PO (07:56)
[2023-06-08] MEDS: NICOTINE 14 MG/24 HR TRANSDERMAL TD SCH (09:00)
[2023-06-08] MEDS: OXcarbazepine 150 MG TAB PO SCH (09:21)
[2023-06-08] MEDS: PALIPERIDONE 3MG ER TAB (INVEGA) PO SCH (09:21)
== END 2023-06-08 12:16 | disposition home or self-care (01) | DRG 753 ==
LOC: M ED 15:17 → M ED INP 19:14 → M PSY 22:55
PROVIDERS: ADMIT Student in an Organized Health Care Education/Training Program; ATTEND Student in an Organized Health Care Education/Training Program
DX: F31.9 Bipolar disorder, unspecified (principal); F12.10 Cannabis abuse, uncomplicated; Z59.02 Unsheltered homelessness; F17.210 Nicotine dependence, cigarettes, uncomplicated; Z88.2 Allergy status to sulfonamides; Z88.8 Allergy status to other drugs, medicaments and biological substances; I10 Essential (primary) hypertension; K21.9 Gastro-esophageal reflux disease without esophagitis; G47.33 Obstructive sleep apnea (adult) (pediatric); E66.01 Morbid (severe) obesity due to excess calories; Z91.128 Patient's intentional underdosing of medication regimen for other reason

== ENCOUNTER 2023-06-20 13:52 | Emergency (ER) | payer MEDICAID, OTHER ==
[~2023-06-20] VITALS: Ht 190.5 cm; Wt 186.4 kg
[~2023-06-20 13:52] MED LIST changes: +ALBU8.5H INH; +OMEG10002 PO; +OXCA150T21 PO
[2023-06-20 14:16] VITALS: BP 132/67; TEMP 98.1; O2SAT 95
== END 2023-06-20 16:02 | disposition left against medical advice (07) ==
LOC: M ED 13:52
DX: Z53.21 Procedure and treatment not carried out due to patient leaving prior to being seen by health care provider (principal)

== ENCOUNTER 2023-06-27 17:23 | Emergency (ER) | payer OTHER ==
[~2023-06-27] VITALS: Ht 188 cm; Wt 174.3 kg
[2023-06-27 17:44] VITALS: TEMP 99.5; O2SAT 97
[2023-06-27] MEDS ORDERED: PRED20TA PO (18:35)
[2023-06-27] MEDS ORDERED: predniSONE 20 MG TAB PO ONE (18:35)
[2023-06-27] MEDS ORDERED: COMBIVENT RESPIMAT 100-20MCG INHALER 4GM INH STA (18:51)
[2023-06-27 18:59] VITALS: BP 176/82
[2023-06-27] MEDS ORDERED: ALBUTEROL 90 MCG/ACT 8GM HFA INHALER INH ONE (21:15)
== END 2023-06-27 21:40 | disposition home or self-care (01) ==
LOC: EDBD 17:23 → M ED 17:23
DX: B34.8 Other viral infections of unspecified site (principal); Z11.52 Encounter for screening for COVID-19; I10 Essential (primary) hypertension; J45.909 Unspecified asthma, uncomplicated; K21.9 Gastro-esophageal reflux disease without esophagitis; G47.33 Obstructive sleep apnea (adult) (pediatric); F31.9 Bipolar disorder, unspecified; E66.01 Morbid (severe) obesity due to excess calories; F17.200 Nicotine dependence, unspecified, uncomplicated; Z88.2 Allergy status to sulfonamides; Z79.899 Other long term (current) drug therapy
CPT/HCPCS: 71046; 87486; 87581; 87633; 87798; 94640; 99284; J7512

== ENCOUNTER 2023-09-19 19:54 | Emergency (ER) | payer OTHER ==
[~2023-09-19 19:54] MED LIST changes: +CEFD1CAP9 PO; -CEFD300C42 PO; +PRED20TA PO
== END 2023-09-19 20:49 | disposition left against medical advice (07) ==
LOC: M ED 19:54 → EDBD 19:54 → M ED 20:49
DX: Z53.21 Procedure and treatment not carried out due to patient leaving prior to being seen by health care provider (principal)

== ENCOUNTER 2023-09-22 17:31 | Emergency (ER) | payer OTHER ==
[~2023-09-22] VITALS: Ht 188 cm; Wt 181.8 kg
[2023-09-22 17:44] VITALS: BP 135/85; TEMP 97.9; O2SAT 96
[2023-09-22 18:21] LABS: HEMATOCRIT 46.8 % (42.0-52.0); HEMOGLOBIN 15.4 g/dl (13.5-17.5); MEAN CORPUSCULAR HEMOGLOBIN 28.7 pg (27.0-33.0); MEAN CORPUSCULAR HGB CONC 32.9 g/dl (32.0-36.5); MEAN CORPUSCULAR VOLUME 87.3 fl (80.0-96.0); PLATELET COUNT, AUTOMATED 308 10^3/uL (150-450); RED BLOOD COUNT 5.36 10^6/uL (4.30-6.10); WHITE BLOOD COUNT 12.7 10^3/uL (4.0-10.0)
[2023-09-22 18:41] LABS: AMPHETAMINES LEVEL URINE NEGATIVE (NEGATIVE); BARBITURATES URINE NEGATIVE (NEGATIVE); BENZODIAZEPINES URINE NEGATIVE (NEGATIVE); CANNABINOIDS URINE NEGATIVE (NEGATIVE); COCAINE METABOLITE URINE NEGATIVE (NEGATIVE); METHADONE URINE NEGATIVE (NEGATIVE); OPIATES URINE NEGATIVE (NEGATIVE); PHENCYCLIDINE URINE NEGATIVE (NEGATIVE)
[2023-09-22 18:43] LABS: ETHYL ALCOHOL (ETHANOL) 0.011 % (0.000-0.010); SALICYLATE LEVEL < 3.0 MG/DL (<30)
[2023-09-22 18:44] LABS: ALBUMIN 3.6 G/DL (3.2-5.2); ALKALINE PHOSPHATASE 90 U/L (46-116); ALT/SGPT 18 U/L (7.0-40); AST/SGOT 15 U/L (<34); BILIRUBIN,DIRECT < 0.1 MG/DL (<0.4); BILIRUBIN,TOTAL 0.2 MG/DL (0.3-1.2); BLOOD UREA NITROGEN 10 MG/DL (9-23); CALCIUM LEVEL 8.8 MG/DL (8.5-10.1); CARBON DIOXIDE LEVEL 30 MMOL/L (20-31); CHLORIDE LEVEL 106 MMOL/L (98-107); CREATININE FOR GFR 0.77 MG/DL (0.70-1.30); GLOMERULAR FILTRATION RATE > 60.0 (>60); GLUCOSE, FASTING 103 MG/DL (60-100); MAGNESIUM LEVEL 2.2 MG/DL (1.8-2.4); POTASSIUM SERUM 4.2 MMOL/L (3.5-5.1); SODIUM LEVEL 140 MMOL/L (136-145); TOTAL PROTEIN 6.8 G/DL (5.7-8.2)
[2023-09-22 18:46] LABS: FREE T4 1.04 NG/DL (0.89-1.76); THYROID STIMULATING HORMONE 1.476 uIU/ML (0.55-4.78)
[2023-09-22 19:03] LABS: HEMOGLOBIN A1c 5.7 % (4.0-6.0)
[2023-09-22] MEDS ORDERED: INSULIN LISPRO (NovoLOG) PER UNIT SC SCH (21:00)
[2023-09-23] MEDS ORDERED: INSULIN LISPRO (NovoLOG) PER UNIT SC SCH (07:30)
== END 2023-09-22 19:41 | disposition left against medical advice (07) ==
LOC: M ED 17:31 → EDBD 17:31 → M ED 19:41
DX: F31.9 Bipolar disorder, unspecified (principal); E11.9 Type 2 diabetes mellitus without complications; F17.210 Nicotine dependence, cigarettes, uncomplicated; F10.10 Alcohol abuse, uncomplicated; F12.10 Cannabis abuse, uncomplicated; Z88.2 Allergy status to sulfonamides; Z79.899 Other long term (current) drug therapy; Z79.51 Long term (current) use of inhaled steroids; Z79.52 Long term (current) use of systemic steroids; Z53.9 Procedure and treatment not carried out, unspecified reason

== ENCOUNTER → 2024-02-01 | Outpatient (CLI) | payer OTHER | LOC: M OUTALCOH 12:25 | PROVIDERS: ATTEND Psychiatry & Neurology Psychiatry | DX: F10.10 Alcohol abuse, uncomplicated (principal); Z72.0 Tobacco use ==

== ENCOUNTER → 2024-03-05 | Outpatient (RCR) | payer MEDICARE, MEDICAID | LOC: M OUTALCOH 02-14 10:40 | PROVIDERS: ATTEND Psychiatry & Neurology Psychiatry | DX: F10.10 Alcohol abuse, uncomplicated (principal); Z72.0 Tobacco use ==

== ENCOUNTER → 2024-03-10 | Outpatient (REF) | payer OTHER ==
[2024-03-10 15:48] LABS: ALBUMIN 3.9 G/DL (3.2-5.2); ALKALINE PHOSPHATASE 107 U/L (46-116); ALT/SGPT 26 U/L (7.0-40); AST/SGOT 14 U/L (<34); BILIRUBIN,TOTAL 0.3 MG/DL (0.3-1.2); BLOOD UREA NITROGEN 19 MG/DL (9-23); CALCIUM LEVEL 8.7 MG/DL (8.5-10.1); CARBON DIOXIDE LEVEL 26 MMOL/L (20-31); CHLORIDE LEVEL 108 MMOL/L (98-107); CHOLESTEROL LEVEL 153 MG/DL (<200); CHOLESTEROL RISK RATIO 3.84 (<5); CREATININE FOR GFR 0.64 MG/DL (0.70-1.30); GLOMERULAR FILTRATION RATE > 60.0 (>60); GLUCOSE, FASTING 125 MG/DL (60-100); HDL CHOLESTEROL 39.8 MG/DL (>40); LDL CHOLESTEROL 80.8 MG/DL (<100); MAGNESIUM LEVEL 2.3 MG/DL (1.8-2.4); NON-HDL-C 113.2 MG/DL; POTASSIUM SERUM 4.7 MMOL/L (3.5-5.1); SODIUM LEVEL 140 MMOL/L (136-145); THYROID STIMULATING HORMONE 1.793 uIU/ML (0.55-4.78); TRIGLYCERIDES LEVEL 162 MG/DL (<150)
== END ==
LOC: M LAB REF 12:47
PROVIDERS: ATTEND Nurse Practitioner Family
DX: E66.01 Morbid (severe) obesity due to excess calories (principal)

== ENCOUNTER → 2024-03-12 | Outpatient (CLI) | payer MEDICARE, MEDICAID ==
[2024-03-12 11:44] LABS: BASO # 0.1 10^3/uL (0.0-0.2); BASO % 0.5 % (0.0-1.0); EOS # 0.3 10^3/uL (0.0-0.5); EOS % 2.6 % (0.0-3.0); HEMATOCRIT 46.9 % (42.0-52.0); HEMOGLOBIN 15.5 g/dl (13.5-17.5); LYMPH # 2.2 10^3/uL (1.5-5.0); LYMPH % 18.2 % (24.0-44.0); MEAN CORPUSCULAR HEMOGLOBIN 29.8 pg (27.0-33.0); MONO # 0.9 10^3/uL (0.0-0.8); MONO % 7.6 % (2.0-8.0); NEUTROPHILS # 8.4 10^3/uL (1.5-8.5); NEUTROPHILS % 69.7 % (36.0-66.0); PLATELET COUNT, AUTOMATED 273 10^3/uL (150-450); RED BLOOD COUNT 5.21 10^6/uL (4.30-6.10); WHITE BLOOD COUNT 12.1 10^3/uL (4.0-10.0)
[2024-03-12 12:01] LABS: HEMOGLOBIN A1c 5.7 % (4.0-6.0)
[2024-03-12 12:06] LABS: ALBUMIN 3.8 G/DL (3.2-5.2); ALKALINE PHOSPHATASE 113 U/L (46-116); ALT/SGPT 25 U/L (7.0-40); AST/SGOT 12 U/L (<34); BILIRUBIN,TOTAL 0.2 MG/DL (0.3-1.2); BLOOD UREA NITROGEN 17 MG/DL (9-23); CALCIUM LEVEL 9.2 MG/DL (8.5-10.1); CARBON DIOXIDE LEVEL 27 MMOL/L (20-31); CHLORIDE LEVEL 106 MMOL/L (98-107); CHOLESTEROL LEVEL 143 MG/DL (<200); CHOLESTEROL RISK RATIO 3.98 (<5); CREATININE FOR GFR 0.65 MG/DL (0.70-1.30); GLOMERULAR FILTRATION RATE > 60.0 (>60); GLUCOSE, FASTING 119 MG/DL (60-100); HDL CHOLESTEROL 35.9 MG/DL (>40); LDL CHOLESTEROL 70.3 MG/DL (<100); NON-HDL-C 107.1 MG/DL; POTASSIUM SERUM 4.7 MMOL/L (3.5-5.1); SODIUM LEVEL 136 MMOL/L (136-145); TRIGLYCERIDES LEVEL 184 MG/DL (<150)
[2024-03-12 12:08] LABS: THYROID STIMULATING HORMONE 2.001 uIU/ML (0.55-4.78)
== END ==
LOC: M LAB 10:05
PROVIDERS: ATTEND Nurse Practitioner Family
DX: E66.01 Morbid (severe) obesity due to excess calories (principal); E07.9 Disorder of thyroid, unspecified

== ENCOUNTER 2024-04-03 10:33 | Outpatient (RCR) | payer MEDICARE, MEDICAID | END 2024-04-05 | LOC: M OUTALCOH 10:33 | PROVIDERS: ATTEND Psychiatry & Neurology Psychiatry | DX: F10.10 Alcohol abuse, uncomplicated (principal) ==

== ENCOUNTER → 2024-04-15 | Outpatient (CLI) | payer MEDICARE, MEDICAID | LOC: M SLEEP 20:00 | PROVIDERS: ATTEND Physician Assistant | DX: G47.33 Obstructive sleep apnea (adult) (pediatric) (principal); Z79.899 Other long term (current) drug therapy; Z79.83 Long term (current) use of bisphosphonates; Z79.84 Long term (current) use of oral hypoglycemic drugs; Z88.2 Allergy status to sulfonamides; F17.210 Nicotine dependence, cigarettes, uncomplicated | CPT/HCPCS: 95811; G0463 ==

== ENCOUNTER 2024-04-17 12:17 | Outpatient (RCR) | payer MEDICAID | END 2024-05-05 | LOC: M OUTALCOH 12:17 | PROVIDERS: ATTEND Psychiatry & Neurology Psychiatry | DX: F10.10 Alcohol abuse, uncomplicated (principal); Z72.0 Tobacco use | CPT/HCPCS: 99211; G0397 ==

== ENCOUNTER 2024-05-20 10:15 | Inpatient (IN) | payer MEDICAID, MEDICARE ==
[~2024-05-20] VITALS: Ht 188 cm; Wt 208.2 kg
[2024-05-20 11:35] LABS: HEMATOCRIT 47.6 % (42.0-52.0); HEMOGLOBIN 15.6 g/dl (13.5-17.5); MEAN CORPUSCULAR HEMOGLOBIN 28.6 pg (27.0-33.0); MEAN CORPUSCULAR HGB CONC 32.8 g/dl (32.0-36.5); MEAN CORPUSCULAR VOLUME 87.3 fl (80.0-96.0); PLATELET COUNT, AUTOMATED 287 10^3/uL (150-450); RED BLOOD COUNT 5.45 10^6/uL (4.30-6.10); WHITE BLOOD COUNT 12.8 10^3/uL (4.0-10.0)
[2024-05-20 11:44] LABS: ETHYL ALCOHOL (ETHANOL) < 0.003 % (0.000-0.010)
[2024-05-20 11:45] LABS: ALBUMIN 3.9 G/DL (3.2-5.2); ALKALINE PHOSPHATASE 113 U/L (46-116); ALT/SGPT 22 U/L (7.0-40); AST/SGOT 19 U/L (<34); BILIRUBIN,DIRECT 0.1 MG/DL (<0.4); BILIRUBIN,TOTAL 0.3 MG/DL (0.3-1.2); BLOOD UREA NITROGEN 13 MG/DL (9-23); CALCIUM LEVEL 9.2 MG/DL (8.5-10.1); CARBON DIOXIDE LEVEL 26 MMOL/L (20-31); CHLORIDE LEVEL 110 MMOL/L (98-107); CREATININE FOR GFR 0.73 MG/DL (0.70-1.30); GLOMERULAR FILTRATION RATE > 60.0 (>60); GLUCOSE, FASTING 114 MG/DL (60-100); SALICYLATE LEVEL < 3.0 MG/DL (<30); SODIUM LEVEL 141 MMOL/L (136-145); TOTAL PROTEIN 7.2 G/DL (5.7-8.2)
[2024-05-20 11:47] LABS: THYROID STIMULATING HORMONE 1.487 uIU/ML (0.55-4.78)
[2024-05-20] MEDS ORDERED: MAALOX 30 ML SUSP *UDC PO PRN (13:35)
[2024-05-20] MEDS ORDERED: ACETAMINOPHEN TAB 650MG DOSE (2X325MG) PO PRN (13:35)
[2024-05-20] MEDS ORDERED: MOM 30ML SUSPENSION UDC PO PRN (13:35)
[2024-05-20 14:26] LABS: AMPHETAMINES LEVEL URINE NEGATIVE (NEGATIVE); BARBITURATES URINE NEGATIVE (NEGATIVE); BENZODIAZEPINES URINE NEGATIVE (NEGATIVE); COCAINE METABOLITE URINE NEGATIVE (NEGATIVE); METHADONE URINE NEGATIVE (NEGATIVE); OPIATES URINE NEGATIVE (NEGATIVE); PHENCYCLIDINE URINE NEGATIVE (NEGATIVE)
[2024-05-20 14:27] LABS: CANNABINOIDS URINE POSITIVE (NEGATIVE)
[2024-05-20] MEDS ORDERED: AMLO2.5T3 PO (14:53)
[2024-05-20] MEDS ORDERED: ARIP1TAB6 PO (14:53)
[2024-05-20] MEDS ORDERED: HOME MED LIST COMPLETE! XX SCH (14:55)
[2024-05-20 21:25] VITALS: BP 162/98; TEMP 97.1; O2SAT 95
[2024-05-20] MEDS: LOSARTAN 50MG TABLET PO ONE (22:14)
[2024-05-21] MEDS: diphenhydrAMINE 25MG CAP PO PRN (02:27)
[2024-05-21] MEDS: LORazepam 1 MG TAB PO PRN (02:28)
[2024-05-21 06:18] VITALS: BP 158/90; TEMP 98; O2SAT 98
[2024-05-21] MEDS ORDERED: ARIPiprazole 10 MG TAB PO SCH ×2 (09:00→11:48)
[2024-05-21] MEDS ORDERED: ARIPiprazole 10 MG TAB PO ONE ×2 (11:45→11:50)
[2024-05-21] MEDS: ARIPiprazole 10 MG TAB PO SCH (11:57)
[2024-05-21] MEDS: NICOTINE 7 MG/24 HR TRANSDERMAL TD SCH (12:34)
[2024-05-21 15:16] VITALS: BP 165/107; TEMP 98.3; O2SAT 95
[2024-05-21] MEDS: FLUZONE VACCINE TRIVALENT PF(2024-25) 0.5ML SYRINGE IM.IMMUN ONE (15:30)
[2024-05-21] MEDS: LOSARTAN 50MG TABLET PO SCH (20:04)
[2024-05-21] MEDS: OMEPRAZOLE 20MG CAP PO SCH (20:07)
[2024-05-22] MEDS: traZODone 50 MG TAB PO PRN (01:15)
[2024-05-22] MEDS: LORazepam 2 MG TAB PO ONE (04:59)
[2024-05-22] MEDS: diphenhydrAMINE 50MG CAP PO ONE (04:59)
[2024-05-23 06:16] VITALS: BP 133/77; TEMP 97.4; O2SAT 96
[2024-05-23 15:21] VITALS: BP 150/71; TEMP 97.9; O2SAT 93
[2024-05-24 15:19] VITALS: BP 148/88; TEMP 98; O2SAT 97
[2024-05-24] MEDS: IBUPROFEN 400MG TAB PO PRN (17:04)
[2024-05-24] MEDS: ACETAMINOPHEN 325 MG TAB PO PRN (20:26)
[2024-05-25 06:14] VITALS: BP 137/93; TEMP 97.6; O2SAT 99
[2024-05-25] MEDS: NICOTINE 14 MG/24 HR TRANSDERMAL TD SCH (11:37)
[2024-05-25 16:29] VITALS: BP 128/63; TEMP 98.5; O2SAT 97
[2024-05-26 06:20] VITALS: BP 138/83; TEMP 97.5; O2SAT 93
[2024-05-26 14:30] VITALS: BP 139/79; TEMP 97.7; O2SAT 97
[2024-05-26] MEDS: LORazepam 1 MG TAB PO ONE (22:17)
[2024-05-27 16:51] VITALS: BP 148/85; TEMP 98.8
[2024-05-27] MEDS: LORazepam 1 MG TAB PO STA (23:16)
[2024-05-28 06:06] VITALS: BP 121/85; TEMP 97.5; O2SAT 98
[2024-05-28 15:23] VITALS: BP 137/87; TEMP 99; O2SAT 96
[2024-05-28] MEDS ORDERED: AMLO2.5T3 PO (20:18)
[2024-05-28] MEDS ORDERED: OMEP40CA5 PO (20:19)
[2024-05-28] MEDS ORDERED: LOSA100T46 PO (20:19)
[2024-05-28 20:22] VITALS: BP 137/87
[2024-05-29] MEDS ORDERED: ABIL10TA9 PO (10:46)
== END 2024-05-29 11:00 | disposition home or self-care (01) | DRG 885 ==
LOC: M ED 10:15 → M ED INP 13:35 → M PSY 15:48
PROVIDERS: ADMIT Psychiatry & Neurology Psychiatry; ATTEND Psychiatry & Neurology Psychiatry
DX: F31.9 Bipolar disorder, unspecified (principal); F12.10 Cannabis abuse, uncomplicated; E66.9 Obesity, unspecified; I10 Essential (primary) hypertension; K21.9 Gastro-esophageal reflux disease without esophagitis; D72.829 Elevated white blood cell count, unspecified; G47.33 Obstructive sleep apnea (adult) (pediatric); F17.210 Nicotine dependence, cigarettes, uncomplicated; Z56.0 Unemployment, unspecified; Z91.148 Patient's other noncompliance with medication regimen for other reason; Z79.899 Other long term (current) drug therapy

== ENCOUNTER → 2024-06-05 | Outpatient (RCR) | payer MEDICAID ==
[~2024-06-05] MED LIST changes: +ARIP1TAB6 PO
== END ==
LOC: M OUTALCOH 05-08 12:17
PROVIDERS: ATTEND Psychiatry & Neurology Psychiatry
DX: F10.10 Alcohol abuse, uncomplicated (principal); Z72.0 Tobacco use

== ENCOUNTER 2024-06-11 01:51 | Emergency (ER) | payer MEDICARE ==
[~2024-06-11] VITALS: Ht 188 cm; Wt 214.2 kg
[2024-06-11 02:02] VITALS: TEMP 97
[2024-06-11 02:28] LABS: BASO # 0.1 10^3/uL (0.0-0.2); BASO % 0.4 % (0.0-1.0); EOS # 0.3 10^3/uL (0.0-0.5); EOS % 2.1 % (0.0-3.0); HEMATOCRIT 43.7 % (42.0-52.0); HEMOGLOBIN 14.5 g/dl (13.5-17.5); LYMPH # 3.5 10^3/uL (1.5-5.0); LYMPH % 22.2 % (24.0-44.0); MEAN CORPUSCULAR HEMOGLOBIN 28.9 pg (27.0-33.0); MEAN CORPUSCULAR HGB CONC 33.2 g/dl (32.0-36.5); MEAN CORPUSCULAR VOLUME 87.1 fl (80.0-96.0); MONO # 1.4 10^3/uL (0.0-0.8); MONO % 8.9 % (2.0-8.0); NEUTROPHILS # 10.2 10^3/uL (1.5-8.5); NEUTROPHILS % 65.2 % (36.0-66.0); PLATELET COUNT, AUTOMATED 279 10^3/uL (150-450); RED BLOOD COUNT 5.02 10^6/uL (4.30-6.10); WHITE BLOOD COUNT 15.6 10^3/uL (4.0-10.0)
[2024-06-11 02:48] LABS: LIPASE 22 U/L (12-53)
[2024-06-11 02:51] LABS: ALBUMIN 3.2 G/DL (3.2-5.2); ALKALINE PHOSPHATASE 113 U/L (40-129); ALT/SGPT 18 U/L (7.0-40); AST/SGOT 11 U/L (<34); BILIRUBIN,DIRECT 0.1 MG/DL (<0.4); BILIRUBIN,TOTAL 0.2 MG/DL (0.3-1.2); BLOOD UREA NITROGEN 13 MG/DL (9-23); CALCIUM LEVEL 9.3 MG/DL (8.5-10.1); CARBON DIOXIDE LEVEL 26 MMOL/L (20-31); CHLORIDE LEVEL 104 MMOL/L (98-107); CREATININE FOR GFR 0.73 MG/DL (0.70-1.30); GLOMERULAR FILTRATION RATE > 60.0 (>60); GLUCOSE, FASTING 136 MG/DL (60-100); SODIUM LEVEL 137 MMOL/L (136-145); TOTAL PROTEIN 6.5 G/DL (5.7-8.2)
[2024-06-11 04:41] VITALS: BP 135/65; O2SAT 95
== END 2024-06-11 06:15 | disposition left against medical advice (07) ==
LOC: EDBD 01:51 → M ED 01:51
DX: R10.31 Right lower quadrant pain (principal); K21.9 Gastro-esophageal reflux disease without esophagitis; I10 Essential (primary) hypertension; F31.9 Bipolar disorder, unspecified; F20.9 Schizophrenia, unspecified; Z88.2 Allergy status to sulfonamides; Z79.899 Other long term (current) drug therapy; Z53.9 Procedure and treatment not carried out, unspecified reason

== ENCOUNTER 2024-06-25 15:51 | Inpatient (IN) | payer MEDICARE ==
[~2024-06-25] VITALS: Ht 188 cm; Wt 219.0 kg
[2024-06-25 16:30] LABS: HEMATOCRIT 42.7 % (42.0-52.0); HEMOGLOBIN 13.8 g/dl (13.5-17.5); MEAN CORPUSCULAR HEMOGLOBIN 28.3 pg (27.0-33.0); MEAN CORPUSCULAR HGB CONC 32.3 g/dl (32.0-36.5); MEAN CORPUSCULAR VOLUME 87.7 fl (80.0-96.0); PLATELET COUNT, AUTOMATED 282 10^3/uL (150-450); RED BLOOD COUNT 4.87 10^6/uL (4.30-6.10); WHITE BLOOD COUNT 13.2 10^3/uL (4.0-10.0)
[2024-06-25 17:03] LABS: AMPHETAMINES LEVEL URINE NEGATIVE (NEGATIVE); BARBITURATES URINE NEGATIVE (NEGATIVE); BENZODIAZEPINES URINE NEGATIVE (NEGATIVE); COCAINE METABOLITE URINE NEGATIVE (NEGATIVE); METHADONE URINE NEGATIVE (NEGATIVE); OPIATES URINE NEGATIVE (NEGATIVE); PHENCYCLIDINE URINE NEGATIVE (NEGATIVE)
[2024-06-25 17:04] LABS: ETHYL ALCOHOL (ETHANOL) < 0.003 % (0.000-0.010)
[2024-06-25 17:06] LABS: SALICYLATE LEVEL < 3.0 MG/DL (<30)
[2024-06-25 17:06] LABS: CANNABINOIDS URINE POSITIVE (NEGATIVE)
[2024-06-25 17:10] LABS: ALBUMIN 3.1 G/DL (3.2-5.2); ALKALINE PHOSPHATASE 102 U/L (40-129); ALT/SGPT 23 U/L (7.0-40); AST/SGOT 13 U/L (<34); BILIRUBIN,DIRECT < 0.1 MG/DL (<0.4); BILIRUBIN,TOTAL < 0.2 MG/DL (0.3-1.2); BLOOD UREA NITROGEN 14 MG/DL (9-23); CALCIUM LEVEL 8.1 MG/DL (8.5-10.1); CARBON DIOXIDE LEVEL 28 MMOL/L (20-31); CHLORIDE LEVEL 105 MMOL/L (98-107); CREATININE FOR GFR 0.68 MG/DL (0.70-1.30); GLOMERULAR FILTRATION RATE > 60.0 (>60); GLUCOSE, FASTING 107 MG/DL (60-100); POTASSIUM SERUM 4.1 MMOL/L (3.5-5.1); SODIUM LEVEL 141 MMOL/L (136-145); THYROID STIMULATING HORMONE 2.978 uIU/ML (0.55-4.78); TOTAL PROTEIN 6.5 G/DL (5.7-8.2)
[2024-06-25] MEDS ORDERED: ARIP1TAB6 PO (20:26)
[2024-06-25] MEDS ORDERED: HOME MED LIST COMPLETE! XX SCH (20:30)
[2024-06-25] MEDS: LOSARTAN 50MG TABLET PO ONE (20:30)
[2024-06-25] MEDS: amLODIPine 5 MG TAB PO ONE (21:10)
[2024-06-25] MEDS ORDERED: MOM 30ML SUSPENSION UDC PO PRN (21:45)
[2024-06-25] MEDS ORDERED: IBUPROFEN 400MG TAB PO PRN (21:45)
[2024-06-25] MEDS ORDERED: ACETAMINOPHEN 325 MG TAB PO PRN (21:45)
[2024-06-25] MEDS ORDERED: MAALOX 30 ML SUSP *UDC PO PRN (21:45)
[2024-06-25 23:35] VITALS: BP 151/75; TEMP 98.6; O2SAT 99
[2024-06-26 06:36] VITALS: BP 176/93; TEMP 96.9; O2SAT 95
[2024-06-26 06:40] VITALS: BP 148/70
[2024-06-26] MEDS: NICOTINE 14 MG/24 HR TRANSDERMAL TD PRN (08:17)
[2024-06-26 15:00] VITALS: BP 171/89; TEMP 98.6; O2SAT 95
[2024-06-26] MEDS: LOSARTAN 50MG TABLET PO SCH (22:38)
[2024-06-27] VITALS (9 sets, daily range): BP systolic 134–169; BP diastolic 69–98; TEMP 96.7–97.8; O2SAT 86–100
[2024-06-27] MEDS: diphenhydrAMINE 25MG CAP PO PRN (04:56)
[2024-06-27] MEDS: LORazepam 1 MG TAB PO STA (04:56)
[2024-06-27] MEDS: ARIPiprazole 10 MG TAB PO ONE (09:05)
[2024-06-27] MEDS: diphenhydrAMINE 50MG CAP PO ONE ×2 (09:20→13:44)
[2024-06-27] MEDS: LORazepam 1 MG TAB PO ONE ×2 (09:21→13:45)
[2024-06-27] MEDS: LORazepam 2 MG/ML 1ML VIAL IM STA (22:07)
[2024-06-27] MEDS: HALOPERIDOL LACTATE 5MG/ML VIAL IM STA (22:07)
[2024-06-28 01:13] VITALS: O2SAT 94
[2024-06-28 01:32] VITALS: O2SAT 81
[2024-06-28] MEDS: ARIPiprazole 10 MG TAB PO SCH (20:48)
[2024-06-28] MEDS: traZODone 50 MG TAB PO PRN (20:48)
[2024-06-29 06:26] VITALS: BP 119/70; TEMP 97.1; O2SAT 93
[2024-06-29] MEDS: ARIPiprazole 10 MG TAB PO SCH (10:59)
[2024-06-29 16:17] VITALS: BP 153/86; TEMP 98.7; O2SAT 95
[2024-06-30 06:55] VITALS: BP 154/65; TEMP 97.4; O2SAT 97
[2024-06-30 09:43] VITALS: BP 128/58
[2024-06-30] MEDS: METOPROLOL TART 12.5 MG PER 1/2 TAB PO SCH (09:45)
[2024-06-30 14:52] VITALS: BP 149/80; TEMP 97.5; O2SAT 92
[2024-06-30] MEDS: ARIPiprazole MONOHYDRATE 400 MG INJ (ABILIFY)(FREE PSY INPT ONLY) IM ONE (17:41)
[2024-07-01 06:43] VITALS: BP 164/94; TEMP 97.2; O2SAT 94
[2024-07-01 08:36] VITALS: BP 145/76
[2024-07-01 08:40] VITALS: BP 145/76
[2024-07-01] MEDS ORDERED: TRAZ-252 PO (10:14)
[2024-07-01] MEDS ORDERED: ABIL10TA9 PO (10:14)
[2024-07-01] MEDS ORDERED: LOSA-528 PO (10:14)
[2024-07-01] MEDS ORDERED: METO1TAB87 PO (11:42)
[2024-07-01] MEDS ORDERED: AMLO25TA PO (12:14)
[2024-07-30] MEDS ORDERED: ARIPiprazole MONOHYDRATE 400 MG INJ (ABILIFY)(FREE PSY INPT ONLY) IM SCH ×2 (09:00→18:00)
== END 2024-07-01 12:45 | disposition home or self-care (01) | DRG 885 ==
LOC: M ED 15:51 → M ED INP 21:41 → M PSY 22:37
PROVIDERS: ADMIT Psychiatry & Neurology Psychiatry; ATTEND Psychiatry & Neurology Psychiatry
DX: F31.9 Bipolar disorder, unspecified (principal); E66.01 Morbid (severe) obesity due to excess calories; I10 Essential (primary) hypertension; G47.33 Obstructive sleep apnea (adult) (pediatric); F31.2 Bipolar disorder, current episode manic severe with psychotic features; K21.9 Gastro-esophageal reflux disease without esophagitis; F17.210 Nicotine dependence, cigarettes, uncomplicated; Z79.899 Other long term (current) drug therapy; Z88.2 Allergy status to sulfonamides; Z78.1 Physical restraint status

== ENCOUNTER 2024-07-24 09:27 | Outpatient (RCR) | payer MEDICARE ==
[~2024-07-24 09:27] MED LIST changes: +LOSA-528 PO; +METO1TAB87 PO
== END 2024-08-05 ==
LOC: M OUTALCOH 09:27
PROVIDERS: ATTEND Psychiatry & Neurology Psychiatry
DX: F10.10 Alcohol abuse, uncomplicated (principal); Z72.0 Tobacco use

== ENCOUNTER 2024-09-02 20:25 | Inpatient (IN) | payer MEDICARE ==
[~2024-09-02] VITALS: Ht 188 cm; Wt 218.5 kg
[2024-09-02 21:16] LABS: HEMATOCRIT 43.9 % (42.0-52.0); HEMOGLOBIN 14.1 g/dl (13.5-17.5); MEAN CORPUSCULAR HGB CONC 32.1 g/dl (32.0-36.5); MEAN CORPUSCULAR VOLUME 84.1 fl (80.0-96.0); PLATELET COUNT, AUTOMATED 292 10^3/uL (150-450); RED BLOOD COUNT 5.22 10^6/uL (4.30-6.10)
[2024-09-02 21:40] LABS: ETHYL ALCOHOL (ETHANOL) 0.005 % (0.000-0.010)
[2024-09-02 21:42] LABS: ALBUMIN 3.5 G/DL (3.2-5.2); ALKALINE PHOSPHATASE 96 U/L (40-129); ALT/SGPT 20 U/L (7.0-40); AST/SGOT 13 U/L (<34); BILIRUBIN,DIRECT < 0.1 MG/DL (<0.4); BILIRUBIN,TOTAL 0.2 MG/DL (0.3-1.2); BLOOD UREA NITROGEN 14 MG/DL (9-23); CALCIUM LEVEL 8.8 MG/DL (8.5-10.1); CARBON DIOXIDE LEVEL 28 MMOL/L (20-31); CHLORIDE LEVEL 104 MMOL/L (98-107); CREATININE FOR GFR 0.61 MG/DL (0.70-1.30); GLOMERULAR FILTRATION RATE > 60.0 (>60); GLUCOSE, FASTING 160 MG/DL (60-100); POTASSIUM SERUM 4.3 MMOL/L (3.5-5.1); SALICYLATE LEVEL < 3.0 MG/DL (<30); SODIUM LEVEL 140 MMOL/L (136-145); TOTAL PROTEIN 6.7 G/DL (5.7-8.2)
[2024-09-02 21:44] LABS: THYROID STIMULATING HORMONE 1.914 uIU/ML (0.55-4.78)
[2024-09-02 21:59] LABS: AMPHETAMINES LEVEL URINE NEGATIVE (NEGATIVE); BARBITURATES URINE NEGATIVE (NEGATIVE); BENZODIAZEPINES URINE NEGATIVE (NEGATIVE); CANNABINOIDS URINE POSITIVE (NEGATIVE); COCAINE METABOLITE URINE NEGATIVE (NEGATIVE); METHADONE URINE NEGATIVE (NEGATIVE); OPIATES URINE NEGATIVE (NEGATIVE); PHENCYCLIDINE URINE NEGATIVE (NEGATIVE)
[2024-09-02] MEDS: NICOTINE 21MG/24HR 1 EA TRANSDERMAL TD ONE (22:00)
[2024-09-02] MEDS ORDERED: TRAZ-252 PO (22:32)
[2024-09-02] MEDS ORDERED: AMLO25TA PO (22:32)
[2024-09-02] MEDS ORDERED: OMEP40CA5 PO (22:32)
[2024-09-02] MEDS ORDERED: LOSA50TA28 PO (22:32)
[2024-09-02] MEDS ORDERED: ABIL1INJ2 INJ (22:32)
[2024-09-02] MEDS ORDERED: MOM 30ML SUSPENSION UDC PO PRN (22:35)
[2024-09-02] MEDS ORDERED: diphenhydrAMINE 25MG CAP PO PRN (22:35)
[2024-09-02] MEDS ORDERED: HOME MED LIST COMPLETE! XX SCH (22:35)
[2024-09-02] MEDS ORDERED: IBUPROFEN 400MG TAB PO PRN (22:35)
[2024-09-02] MEDS ORDERED: LORazepam 1 MG TAB PO PRN (22:35)
[2024-09-02] MEDS ORDERED: ACETAMINOPHEN 325 MG TAB PO PRN (22:35)
[2024-09-02] MEDS ORDERED: MAALOX 30 ML SUSP *UDC PO PRN (22:35)
[2024-09-02] MEDS: LOSARTAN 50MG TABLET PO SCH (22:54)
[2024-09-02 23:42] VITALS: BP 162/74; TEMP 98.1; O2SAT 93
[2024-09-03] MEDS: NICOTINE 14 MG/24 HR TRANSDERMAL TD SCH (08:12)
[2024-09-04 06:37] VITALS: BP 143/85; TEMP 97.5; O2SAT 94
[2024-09-04 16:49] VITALS: BP 131/67; TEMP 97.2; O2SAT 96
[2024-09-05 06:33] VITALS: BP 117/54; TEMP 97.4; O2SAT 96
[2024-09-05 15:50] VITALS: BP 143/65; TEMP 97.7; O2SAT 94
[2024-09-06 06:34] VITALS: BP 126/77; TEMP 97.5; O2SAT 97
[2024-09-06] MEDS: OLANZapine ORAL DISINTEGRATING TAB 5MG PO PRN (09:57)
[2024-09-06 15:18] VITALS: BP 127/60; TEMP 97.6; O2SAT 92
[2024-09-06] MEDS: traZODone 50 MG TAB PO PRN (21:24)
[2024-09-07 15:18] VITALS: BP 135/89; TEMP 97.8; O2SAT 98
[2024-09-07 20:44] VITALS: BP 160/91
[2024-09-08 07:17] VITALS: BP 116/91; TEMP 97.2; O2SAT 93
[2024-09-08] MEDS ORDERED: OLAN5ZYD PO (10:32)
== END 2024-09-08 14:01 | disposition home or self-care (01) | DRG 885 ==
LOC: M ED 20:25 → EDBD 20:25 → M ED INP 22:34 → M PSY 23:35
PROVIDERS: ADMIT Psychiatry & Neurology Neurology; ATTEND Psychiatry & Neurology Psychiatry
DX: F31.9 Bipolar disorder, unspecified (principal); R45.851 Suicidal ideations; Z68.44 Body mass index [BMI] 60.0-69.9, adult; F12.10 Cannabis abuse, uncomplicated; G47.33 Obstructive sleep apnea (adult) (pediatric); E66.813 Obesity, class 3; K21.9 Gastro-esophageal reflux disease without esophagitis; I10 Essential (primary) hypertension; F17.210 Nicotine dependence, cigarettes, uncomplicated; Z88.2 Allergy status to sulfonamides; Z79.899 Other long term (current) drug therapy

== ENCOUNTER → 2024-11-12 | Outpatient (REF) | payer MEDICARE ==
[~2024-11-12] MED LIST changes: +ABIL1INJ2 INJ; +LOSA50TA28 PO; +OLAN5ZYD PO
[2024-11-12 18:36] LABS: BASO # 0.1 10^3/uL (0.0-0.2); BASO % 0.6 % (0.0-1.0); EOS # 0.4 10^3/uL (0.0-0.5); HEMATOCRIT 47.3 % (42.0-52.0); HEMOGLOBIN 14.9 g/dl (13.5-17.5); LYMPH % 23.6 % (24.0-44.0); MEAN CORPUSCULAR HEMOGLOBIN 27.4 pg (27.0-33.0); MEAN CORPUSCULAR HGB CONC 31.5 g/dl (32.0-36.5); MEAN CORPUSCULAR VOLUME 87.1 fl (80.0-96.0); MONO # 1.1 10^3/uL (0.0-0.8); MONO % 8.7 % (2.0-8.0); NEUTROPHILS # 7.9 10^3/uL (1.5-8.5); NEUTROPHILS % 62.4 % (36.0-66.0); PLATELET COUNT, AUTOMATED 284 10^3/uL (150-450); RED BLOOD COUNT 5.43 10^6/uL (4.30-6.10); WHITE BLOOD COUNT 12.6 10^3/uL (4.0-10.0)
[2024-11-12 18:38] LABS: ALBUMIN 3.5 G/DL (3.2-5.2); ALKALINE PHOSPHATASE 99 U/L (40-129); ALT/SGPT 30 U/L (7.0-40); AST/SGOT 14 U/L (<34); BILIRUBIN,TOTAL < 0.2 MG/DL (0.3-1.2); BLOOD UREA NITROGEN 12 MG/DL (9-23); CALCIUM LEVEL 8.2 MG/DL (8.5-10.1); CARBON DIOXIDE LEVEL 24 MMOL/L (20-31); CHLORIDE LEVEL 105 MMOL/L (98-107); CHOLESTEROL LEVEL 153 MG/DL (<200); CHOLESTEROL RISK RATIO 5.06 (<5); CREATININE FOR GFR 0.62 MG/DL (0.70-1.30); GLOMERULAR FILTRATION RATE > 90.0 (>60); GLUCOSE, FASTING 135 MG/DL (60-100); HDL CHOLESTEROL 30.2 MG/DL (>40); LDL CHOLESTEROL 65.6 MG/DL (<100); MAGNESIUM LEVEL 2.1 MG/DL (1.8-2.4); NON-HDL-C 122.8 MG/DL; POTASSIUM SERUM 4.6 MMOL/L (3.5-5.1); SODIUM LEVEL 141 MMOL/L (136-145); TOTAL PROTEIN 6.8 G/DL (5.7-8.2); TRIGLYCERIDES LEVEL 286 MG/DL (<150)
[2024-11-12 18:39] LABS: TOTAL 25(OH) VITAMIN D 27.7 NG/ML (20.0-100.0)
[2024-11-12 18:40] LABS: THYROID STIMULATING HORMONE 1.733 uIU/ML (0.55-4.78)
[2024-11-12 18:48] LABS: HEMOGLOBIN A1c 6.3 % (4.0-6.0)
== END ==
LOC: M LAB REF 17:48
PROVIDERS: ATTEND Nurse Practitioner Family
DX: E66.01 Morbid (severe) obesity due to excess calories (principal); E55.9 Vitamin D deficiency, unspecified; Z79.899 Other long term (current) drug therapy

== ENCOUNTER 2024-11-25 16:47 | Emergency (ER) | payer MEDICARE ==
[~2024-11-25] VITALS: Ht 185.4 cm; Wt 229.6 kg
[2024-11-25] MEDS: ACETAMINOPHEN 325 MG TAB PO ONE (19:56)
[2024-11-25] MEDS ORDERED: CETI10CH4 PO (23:34)
[2024-11-25] MEDS ORDERED: OSEL75CA PO (23:34)
[2024-11-25 23:40] VITALS: BP 136/70; TEMP 99.6; O2SAT 92
[2024-11-25] MEDS: OSELTAMIVIR PHOSPHATE 75 MG CAP PO ONE (23:42)
== END 2024-11-25 23:45 | disposition home or self-care (01) ==
LOC: M ED 16:47
DX: J10.1 Influenza due to other identified influenza virus with other respiratory manifestations (principal); K21.9 Gastro-esophageal reflux disease without esophagitis; E11.9 Type 2 diabetes mellitus without complications; I10 Essential (primary) hypertension; E78.5 Hyperlipidemia, unspecified; J45.909 Unspecified asthma, uncomplicated; F17.210 Nicotine dependence, cigarettes, uncomplicated; Z88.2 Allergy status to sulfonamides; Z79.899 Other long term (current) drug therapy

== ENCOUNTER → 2025-02-10 | Outpatient (REF) | payer MEDICARE ==
[~2025-02-10] MED LIST changes: +BUPR150T12 PO; +CETI10CH4 PO; +OSEL75CA PO
[2025-02-10 14:44] LABS: ALT/SGPT 44 U/L (7.0-40); AST/SGOT 33 U/L (<34); CALCIUM LEVEL 9.1 MG/DL (8.5-10.1); CARBON DIOXIDE LEVEL 23 MMOL/L (20-31); CHLORIDE LEVEL 106 MMOL/L (98-107); CHOLESTEROL LEVEL 143 MG/DL (<200); CHOLESTEROL RISK RATIO 4.61 (<5); CREATININE FOR GFR 0.69 MG/DL (0.70-1.30); GLOMERULAR FILTRATION RATE > 90.0 (>60); LDL CHOLESTEROL 63.0 MG/DL (<100); NON-HDL-C 112.0 MG/DL; POTASSIUM SERUM 4.5 MMOL/L (3.5-5.1); SODIUM LEVEL 142 MMOL/L (136-145); TRIGLYCERIDES LEVEL 245 MG/DL (<150)
[2025-02-10 15:23] LABS: ESTIMATED AVERAGE GLUCOSE 143.0 MG/DL (60-110)
== END ==
LOC: M LAB REF 13:55
PROVIDERS: ATTEND Nurse Practitioner Family
DX: R73.03 Prediabetes (principal); R79.89 Other specified abnormal findings of blood chemistry

== ENCOUNTER 2025-02-18 05:25 | Inpatient (IN) | payer MEDICARE, MEDICAID ==
[~2025-02-18] VITALS: Ht 188 cm; Wt 265.0 kg
[~2025-02-18 05:25] MED LIST changes: -BUPR150T12 PO
[2025-02-18 06:14] LABS: AMPHETAMINES LEVEL URINE NEGATIVE (NEGATIVE); BARBITURATES URINE NEGATIVE (NEGATIVE); BENZODIAZEPINES URINE NEGATIVE (NEGATIVE); COCAINE METABOLITE URINE NEGATIVE (NEGATIVE); METHADONE URINE NEGATIVE (NEGATIVE); OPIATES URINE NEGATIVE (NEGATIVE); PHENCYCLIDINE URINE NEGATIVE (NEGATIVE)
[2025-02-18 06:27] LABS: PLATELET COUNT, AUTOMATED 276 10^3/uL (150-450)
[2025-02-18 06:29] LABS: CANNABINOIDS URINE POSITIVE (NEGATIVE)
[2025-02-18 06:41] LABS: ETHYL ALCOHOL (ETHANOL) < 0.003 % (0.000-0.010)
[2025-02-18 06:43] LABS: ALT/SGPT 47 U/L (7.0-40); AST/SGOT 37 U/L (<34); CALCIUM LEVEL 10.1 MG/DL (8.5-10.1); CARBON DIOXIDE LEVEL 25 MMOL/L (20-31); CHLORIDE LEVEL 104 MMOL/L (98-107); CREATININE FOR GFR 0.99 MG/DL (0.70-1.30); GLOMERULAR FILTRATION RATE > 90.0 (>60); POTASSIUM SERUM 4.0 MMOL/L (3.5-5.1); SALICYLATE LEVEL < 3.0 MG/DL (<30); SODIUM LEVEL 143 MMOL/L (136-145)
[2025-02-18 07:52] VITALS: BP 173/109
[2025-02-18] MEDS: METOPROLOL TARTRATE 100 MG TAB PO ONE (07:52)
[2025-02-18] MEDS: CHLORTHALIDONE 25 MG TAB PO ONE (07:52)
[2025-02-18] MEDS ORDERED: BUPR150T12 PO (09:27)
[2025-02-18] MEDS ORDERED: METF-838 PO (09:27)
[2025-02-18] MEDS ORDERED: HOME MED LIST COMPLETE! XX SCH (09:30)
[2025-02-18] MEDS ORDERED: MAALOX 30 ML SUSP *UDC PO PRN (12:50)
[2025-02-18] MEDS ORDERED: IBUPROFEN 400 MG TAB PO PRN (12:50)
[2025-02-18] MEDS ORDERED: MOM 30 ML SUSPENSION UDC PO PRN (12:50)
[2025-02-18] MEDS ORDERED: ACETAMINOPHEN 325 MG TAB PO PRN (12:50)
[2025-02-18 16:04] VITALS: BP 140/97; TEMP 97.9; O2SAT 96
[2025-02-18] MEDS: traZODone 50 MG TAB PO PRN (23:06)
[2025-02-19 06:27] VITALS: BP 141/92; TEMP 97; O2SAT 95
[2025-02-19] MEDS ORDERED: OMEPRAZOLE 20MG CAP PO SCH (09:00)
[2025-02-19] MEDS: buPROPion **XL** 150 MG TABLET PO SCH (09:00)
[2025-02-19] MEDS ORDERED: DEXTROSE 50% 50 ML SYRINGE IV PRN (10:20)
[2025-02-19] MEDS ORDERED: GLUCOSE 4 GM CHEW PO PRN (10:20)
[2025-02-19] MEDS ORDERED: GLUCAGON INJ 1 MG VIAL SC PRN (10:20)
[2025-02-19 15:07] VITALS: BP 160/98; TEMP 98.3; O2SAT 95
[2025-02-19] MEDS: OMEPRAZOLE 20MG CAP PO SCH (21:29)
[2025-02-20 06:50] VITALS: BP 118/55; TEMP 97; O2SAT 97
[2025-02-20 07:05] VITALS: BP 133/88; TEMP 97.8; O2SAT 96
[2025-02-20 09:28] VITALS: BP 171/104; TEMP 98.1; O2SAT 95
[2025-02-20 09:58] VITALS: BP 162/102; TEMP 98.3; O2SAT 95
[2025-03-21] MEDS ORDERED: ARIPiprazole MONOHYDRATE 400 MG INJ (FREE PSY INPT ONLY) IM SCH (09:00)
== END 2025-02-20 12:38 | disposition home or self-care (01) | DRG 885 ==
LOC: M ED 05:25 → M ED INP 12:48 → M PSY 15:14
PROVIDERS: ADMIT General Practice; ATTEND Psychiatry & Neurology Psychiatry
DX: F31.32 Bipolar disorder, current episode depressed, moderate (principal); Z68.45 Body mass index [BMI] 70 or greater, adult; G47.33 Obstructive sleep apnea (adult) (pediatric); K21.9 Gastro-esophageal reflux disease without esophagitis; I10 Essential (primary) hypertension; Z91.148 Patient's other noncompliance with medication regimen for other reason; F17.210 Nicotine dependence, cigarettes, uncomplicated; F12.10 Cannabis abuse, uncomplicated; Z79.84 Long term (current) use of oral hypoglycemic drugs; Z79.899 Other long term (current) drug therapy; E66.01 Morbid (severe) obesity due to excess calories; E11.9 Type 2 diabetes mellitus without complications; D72.829 Elevated white blood cell count, unspecified; Z88.2 Allergy status to sulfonamides

== ENCOUNTER 2025-02-22 16:34 | Inpatient (IN) | payer MEDICARE, MEDICAID ==
[~2025-02-22] VITALS: Ht 185.4 cm; Wt 229.0 kg
[~2025-02-22 16:34] MED LIST changes: +BUPR150T12 PO
[2025-02-22 17:21] LABS: PLATELET COUNT, AUTOMATED 279 10^3/uL (150-450)
[2025-02-22 17:46] LABS: ETHYL ALCOHOL (ETHANOL) 0.004 % (0.000-0.010)
[2025-02-22 17:48] LABS: SALICYLATE LEVEL < 3.0 MG/DL (<30)
[2025-02-22 17:55] LABS: ALT/SGPT 44 U/L (7.0-40); AST/SGOT 44 U/L (<34); CALCIUM LEVEL 9.0 MG/DL (8.5-10.1); CARBON DIOXIDE LEVEL 27 MMOL/L (20-31); CHLORIDE LEVEL 102 MMOL/L (98-107); CREATININE FOR GFR 0.87 MG/DL (0.70-1.30); GLOMERULAR FILTRATION RATE > 90.0 (>60); POTASSIUM SERUM 4.0 MMOL/L (3.5-5.1); SODIUM LEVEL 142 MMOL/L (136-145)
[2025-02-22 18:09] LABS: AMPHETAMINES LEVEL URINE NEGATIVE (NEGATIVE); BARBITURATES URINE NEGATIVE (NEGATIVE); BENZODIAZEPINES URINE NEGATIVE (NEGATIVE); COCAINE METABOLITE URINE NEGATIVE (NEGATIVE); METHADONE URINE NEGATIVE (NEGATIVE); OPIATES URINE NEGATIVE (NEGATIVE); PHENCYCLIDINE URINE NEGATIVE (NEGATIVE)
[2025-02-22 18:12] LABS: CANNABINOIDS URINE POSITIVE (NEGATIVE)
[2025-02-22] MEDS ORDERED: ABIL1INJ2 IM (20:49)
[2025-02-22] MEDS ORDERED: HOME MED LIST COMPLETE! XX SCH (20:50)
[2025-02-23] MEDS: LORazepam 1 MG TAB PO STA (02:51)
[2025-02-23] MEDS: buPROPion **XL** 150 MG TABLET PO SCH (08:16)
[2025-02-23] MEDS: OMEPRAZOLE 20MG CAP PO SCH (08:16)
[2025-02-23] MEDS ORDERED: ACETAMINOPHEN 325 MG TAB PO PRN (12:40)
[2025-02-23] MEDS ORDERED: MOM 30 ML SUSPENSION UDC PO PRN (12:40)
[2025-02-23 14:00] VITALS: BP 168/105; TEMP 98
[2025-02-23] MEDS: NICOTINE 14 MG/24 HR TRANSDERMAL TD SCH (17:39)
[2025-02-23] MEDS: LORazepam 1 MG TAB PO PRN (20:22)
[2025-02-23] MEDS: IBUPROFEN 400 MG TAB PO PRN (20:23)
[2025-02-23] MEDS: traZODone 50 MG TAB PO PRN (20:46)
[2025-02-23] MEDS ORDERED: traZODone 50 MG TAB PO SCH (21:00)
[2025-02-24] MEDS: HALOPERIDOL 5 MG TAB PO PRN (03:40)
[2025-02-24] MEDS: OLANZapine 5 MG TAB PO PRN (03:40)
[2025-02-24 07:00] VITALS: BP 146/89; TEMP 98.2; O2SAT 95
[2025-02-24] MEDS: buPROPion **XL** 150 MG TABLET PO SCH (08:18)
[2025-02-25 06:50] VITALS: BP 169/83; TEMP 98.5; O2SAT 97
[2025-02-25 15:26] VITALS: BP 150/98; TEMP 97.8; O2SAT 100
[2025-02-26 06:32] VITALS: BP 140/88; TEMP 98.2; O2SAT 98
[2025-02-26 10:24] VITALS: BP 140/88; TEMP 98.2; O2SAT 98
[2025-02-26 15:44] VITALS: BP 152/98; TEMP 98.3; O2SAT 95
[2025-02-26] MEDS: DIVALPROEX 500 MG *ER* TAB PO SCH (20:02)
[2025-02-27 06:36] VITALS: BP 122/79; TEMP 98.1; O2SAT 98
[2025-02-27 16:56] VITALS: BP 174/104
[2025-02-27 16:57] VITALS: TEMP 98.3; O2SAT 95
[2025-02-27] MEDS ORDERED: NYSTATIN 100,000 UNITS/GM TOPICAL PWD 15 GM TOP PRN (17:00)
[2025-02-27] MEDS: **hydrALAZINE** 50 MG TAB PO ONE (17:09)
[2025-02-27 18:45] VITALS: BP 156/98
[2025-02-28 06:38] VITALS: BP 138/91; TEMP 97; O2SAT 95
[2025-02-28 16:11] VITALS: BP 146/98; TEMP 98.4; O2SAT 95
[2025-02-28] MEDS: FIBER-CON 625 MG TAB PO SCH (20:36)
[2025-03-01 07:02] VITALS: BP 158/68; TEMP 97.9; O2SAT 96
[2025-03-01 14:49] VITALS: BP 137/80; TEMP 98.1; O2SAT 96
[2025-03-02] MEDS: MAALOX 30 ML SUSP *UDC PO PRN (00:25)
[2025-03-02 06:38] VITALS: BP 153/69; TEMP 97.7; O2SAT 96
[2025-03-02 18:37] VITALS: BP 128/60; TEMP 97.7
[2025-03-02] MEDS: DIVALPROEX 250 MG *ER* TAB PO SCH (20:23)
[2025-03-03 07:29] VITALS: BP 138/72; TEMP 97.5; O2SAT 95
[2025-03-03 15:34] VITALS: BP 136/75; TEMP 97.5; O2SAT 96
[2025-03-03 17:11] LABS: PLATELET COUNT, AUTOMATED 279 10^3/uL (150-450)
[2025-03-03 17:42] LABS: ALT/SGPT 72 U/L (7.0-40); AST/SGOT 57 U/L (<34); CALCIUM LEVEL 8.8 MG/DL (8.5-10.1); CARBON DIOXIDE LEVEL 26 MMOL/L (20-31); CHLORIDE LEVEL 104 MMOL/L (98-107); CREATININE FOR GFR 0.82 MG/DL (0.70-1.30); GLOMERULAR FILTRATION RATE > 90.0 (>60); POTASSIUM SERUM 4.4 MMOL/L (3.5-5.1); SODIUM LEVEL 141 MMOL/L (136-145)
[2025-03-04 06:29] VITALS: BP 139/81; TEMP 98.8; O2SAT 95
[2025-03-04] MEDS: ARIPiprazole 15 MG TAB PO SCH (09:12)
[2025-03-04] MEDS: LITHIUM CARBONATE 300 MG CAP PO SCH (09:13)
[2025-03-05 06:48] VITALS: BP 163/77; TEMP 97.8; O2SAT 99
[2025-03-05 15:42] VITALS: BP 145/87; TEMP 98; O2SAT 98
[2025-03-06 06:55] VITALS: BP 118/74; TEMP 97.8; O2SAT 95
[2025-03-06 15:11] VITALS: BP 147/72; TEMP 98; O2SAT 96
[2025-03-06] MEDS: LITHIUM CARBONATE 300 MG CAP PO SCH (20:12)
[2025-03-07 06:38] VITALS: BP 164/74; TEMP 98; O2SAT 100
[2025-03-07] MEDS: LOPERAMIDE 2 MG CAPLET PO ONE (11:08)
[2025-03-07 15:18] VITALS: BP 145/68; TEMP 97.7; O2SAT 95
[2025-03-08 06:40] VITALS: BP 131/75; TEMP 98.1; O2SAT 98
[2025-03-08 15:31] VITALS: BP 134/63; TEMP 97.6; O2SAT 95
[2025-03-09 06:36] VITALS: BP 121/58; TEMP 97.6; O2SAT 96
[2025-03-09] MEDS ORDERED: LOPERAMIDE 2 MG CAPLET PO PRN (10:15)
[2025-03-09 16:34] VITALS: BP 152/66; TEMP 98.5; O2SAT 97
[2025-03-09] MEDS: ARIPiprazole 15 MG TAB PO SCH (20:46)
[2025-03-10] MEDS ORDERED: ABIL1TAB12 PO (01:56)
[2025-03-10] MEDS ORDERED: LISI20TA33 PO (01:56)
[2025-03-10] MEDS ORDERED: LITH300C PO (01:56)
[2025-03-10 06:42] VITALS: BP 146/69; TEMP 98; O2SAT 99
[2025-03-10 09:24] VITALS: BP 132/78
== END 2025-03-10 09:28 | disposition home or self-care (01) | DRG 885 ==
LOC: M ED 16:34 → M ED INP 02-23 12:36 → M PSY 02-23 14:07
PROVIDERS: ADMIT Internal Medicine; ATTEND Internal Medicine
DX: F31.64 Bipolar disorder, current episode mixed, severe, with psychotic features (principal); Z68.45 Body mass index [BMI] 70 or greater, adult; F41.9 Anxiety disorder, unspecified; F12.21 Cannabis dependence, in remission; I10 Essential (primary) hypertension; F25.0 Schizoaffective disorder, bipolar type; G47.33 Obstructive sleep apnea (adult) (pediatric); K21.9 Gastro-esophageal reflux disease without esophagitis; F17.200 Nicotine dependence, unspecified, uncomplicated; E66.01 Morbid (severe) obesity due to excess calories; Z79.84 Long term (current) use of oral hypoglycemic drugs; Z79.899 Other long term (current) drug therapy; Z88.2 Allergy status to sulfonamides; R73.03 Prediabetes

== ENCOUNTER 2025-04-17 23:27 | Emergency (ER) | payer MEDICARE, MEDICAID ==
[~2025-04-17] VITALS: Ht 188 cm; Wt 231.8 kg
[~2025-04-17 23:27] MED LIST changes: +ABIL1INJ2 IM; -IBUP-1022 PO; +IBUP600T42 PO; +LISI20TA33 PO; +LITH300C PO
[2025-04-17 23:29] VITALS: BP 143/93; TEMP 97.5; O2SAT 98
[2025-04-18 00:37] LABS: PLATELET COUNT, AUTOMATED 317 10^3/uL (150-450)
[2025-04-18 00:51] LABS: ETHYL ALCOHOL (ETHANOL) < 0.003 % (0.000-0.010)
[2025-04-18 00:53] LABS: ALT/SGPT 38 U/L (7.0-40); AST/SGOT 28 U/L (<34); CALCIUM LEVEL 9.2 MG/DL (8.5-10.1); CARBON DIOXIDE LEVEL 30 MMOL/L (20-31); CHLORIDE LEVEL 103 MMOL/L (98-107); CREATININE FOR GFR 0.77 MG/DL (0.70-1.30); GLOMERULAR FILTRATION RATE > 90.0 (>60); POTASSIUM SERUM 4.6 MMOL/L (3.5-5.1); SALICYLATE LEVEL < 3.0 MG/DL (<30); SODIUM LEVEL 141 MMOL/L (136-145)
[2025-04-18 01:08] LABS: AMPHETAMINES LEVEL URINE NEGATIVE (NEGATIVE); BARBITURATES URINE NEGATIVE (NEGATIVE); BENZODIAZEPINES URINE NEGATIVE (NEGATIVE); COCAINE METABOLITE URINE NEGATIVE (NEGATIVE); METHADONE URINE NEGATIVE (NEGATIVE); OPIATES URINE NEGATIVE (NEGATIVE); PHENCYCLIDINE URINE NEGATIVE (NEGATIVE)
[2025-04-18 01:11] LABS: CANNABINOIDS URINE POSITIVE (NEGATIVE)
[2025-04-18] MEDS: NICOTINE 21 MG/24 HR 1 EA TRANSDERMAL TD ONE (03:06)
[2025-04-18 03:44] LABS: APPEARANCE, URINE CLEAR (CLEAR); BACTERIA, URINE AUTO NEGATIVE (NEGATIVE); BILIRUBIN, URINE AUTO NEGATIVE (NEGATIVE); BLOOD, URINE BLOOD NEGATIVE (NEGATIVE); GLUCOSE, URINE (UA) AUTO NEGATIVE (NEGATIVE); KETONE, URINE AUTO NEGATIVE (NEGATIVE); LEUKOCYTE ESTERASE, URINE AUTO NEGATIVE (NEGATIVE); MUCUS, URINE SMALL (NEGATIVE); NITRITE, URINE AUTO NEGATIVE (NEGATIVE); PROTEIN, URINE AUTO NEGATIVE (NEGATIVE); RBC, URINE AUTO 0 /HPF (0-3); SPECIFIC GRAVITY URINE AUTO 1.023 (1.002-1.035); SQUAMOUS EPITHELIAL CELL UR AU 0 /HPF (0-6); UROBILINOGEN, URINE AUTO 0.2 mg/dL (0.0-2.0); WBC, URINE AUTO 1 /HPF (0-3)
[2025-04-18] MEDS: OLANZapine ORAL DISINTEGRATING TAB 5MG PO ONE (03:58)
== END 2025-04-18 04:31 | disposition home or self-care (01) ==
LOC: M ED 23:27
DX: F43.0 Acute stress reaction (principal); E11.9 Type 2 diabetes mellitus without complications; I10 Essential (primary) hypertension; F31.9 Bipolar disorder, unspecified; F20.9 Schizophrenia, unspecified; F41.9 Anxiety disorder, unspecified; Z88.2 Allergy status to sulfonamides

== ENCOUNTER 2025-05-03 09:35 | Emergency (ER) | payer MEDICARE, MEDICAID ==
[2025-05-03] MEDS: NICOTINE 14 MG/24 HR TRANSDERMAL TD ONE (10:21)
[2025-05-03 13:20] VITALS: BP 160/74; TEMP 97.3; O2SAT 93
[2025-05-04] MEDS ORDERED: ARIP1TAB10 PO (08:51)
[2025-05-04] MEDS ORDERED: LISI20TA33 PO (08:54)
[2025-05-04] MEDS ORDERED: OLAN5TAB24 PO (08:54)
== END 2025-05-03 13:38 | disposition home or self-care (01) ==
LOC: M ED 09:35
DX: F31.9 Bipolar disorder, unspecified (principal); B34.1 Enterovirus infection, unspecified; I10 Essential (primary) hypertension; F17.210 Nicotine dependence, cigarettes, uncomplicated; F12.10 Cannabis abuse, uncomplicated; F10.10 Alcohol abuse, uncomplicated; Z88.2 Allergy status to sulfonamides; Z79.899 Other long term (current) drug therapy

== ENCOUNTER 2025-05-03 19:23 | Inpatient (IN) | payer MEDICARE, MEDICAID ==
[~2025-05-03] VITALS: Ht 172.7 cm; Wt 229.5 kg
[2025-05-03 19:47] LABS: PLATELET COUNT, AUTOMATED 288 10^3/uL (150-450)
[2025-05-03 20:20] LABS: CALCIUM LEVEL 8.6 MG/DL (8.5-10.1); CARBON DIOXIDE LEVEL 27 MMOL/L (20-31); CHLORIDE LEVEL 103 MMOL/L (98-107); CREATININE FOR GFR 0.62 MG/DL (0.70-1.30); GLOMERULAR FILTRATION RATE > 90.0 (>60); POTASSIUM SERUM 5.0 MMOL/L (3.5-5.1); SODIUM LEVEL 141 MMOL/L (136-145)
[2025-05-03] MEDS ORDERED: ISOVUE-370 76% 100 ML VIAL As Ordered ONE (21:43)
[2025-05-03 21:46] LABS: ALT/SGPT 36 U/L (7.0-40); AST/SGOT 42 U/L (<34); CK-MB VALUE MASS 3.5 NG/ML (<3.6); LITHIUM LEVEL < 0.10 MMOL/L (1.0-1.20)
[2025-05-03 21:48] LABS: FREE T4 1.05 NG/DL (0.89-1.76)
[2025-05-03 21:50] LABS: CPK CREATINE PHOSPHOKINASE 286 U/L (46-171); MB/CK RELATIVE INDEX 1.22 (< OR =4)
[2025-05-03] MEDS: IPRATROPIUM 0.5 MG/ALBUTEROL 2.5 MG INH SOL UD 3 ML NEB ONE (21:51)
[2025-05-03] MEDS: LABETALOL 100 MG/20 ML VIAL IV STA (21:53)
[2025-05-03 21:54] VITALS: BP 189/101
[2025-05-03] MEDS: CEFEPIME HCL 2 GM in DEXTROSE 5% (D5W) ADV/MINI-BAG 50 ML IV ONE (21:54)
[2025-05-03] MEDS: FUROSEMIDE 40 MG/4 ML VIAL IV ONE (21:54)
[2025-05-03 22:05] LABS: KETONE, URINE AUTO RFX NEGATIVE (NEGATIVE); LEUKOCYTE ESTERASE UR AUTO RFX NEGATIVE (NEGATIVE); MUCUS, URINE RFX SMALL (NEGATIVE); NITRITE, URINE AUTO RFX NEGATIVE (NEGATIVE); RBC, URINE AUTO RFX 0 /HPF (0-3); SQUAM EPITHELIAL CELL UR AURFX 0 /HPF (0-6); WBC, URINE AUTO RFX 0 /HPF (0-3)
[2025-05-03] MEDS: IPRATROPIUM 0.5 MG/ALBUTEROL 2.5 MG INH SOL UD 3 ML NEB PRN (22:09)
[2025-05-03 22:24] LABS: ABG BASE EXCESS -0.8 (-2.0-2.0); ABG HCO3 26.9 MMOL/L (22.0-26.0); ABG O2 SATURATION 93.0 % (95.0-99.0); ABG PARTIAL PRESSURE CO2 56.7 mmHg (35.0-45.0); ABG PARTIAL PRESSURE O2 73.7 mmHg (75.0-100.0); ABG STANDARD HCO3 23.7 MMOL/L. (22.0-26.0); ABG TOTAL CO2 28.6 MMOL/L (22.0-29.0); ABG pH (ARTERIAL) 7.294 UNITS (7.350-7.450)
[2025-05-03 22:30] LABS: CK-MB VALUE MASS 3.4 NG/ML (<3.6)
[2025-05-03 22:32] LABS: CPK CREATINE PHOSPHOKINASE 223.0 U/L (46-171); MB/CK RELATIVE INDEX 1.52 (< OR =4)
[2025-05-04] VITALS (20 sets, daily range): BP systolic 94–183; BP diastolic 44–89; TEMP 96.6–98.1; O2SAT 88–98
[2025-05-04] MEDS ORDERED: cefTRIAXone SOD 1 GM in DEXTROSE 5% (D5W) ADV/MINI-BAG 50 ML IV ONE (01:10)
[2025-05-04] MEDS ORDERED: LEVALBUTEROL 1.25 MG 0.5ML CONCENTRATE NEB NEB PRN (01:25)
[2025-05-04] MEDS: AZITHROMYCIN 250 MG TABLET PO ONE (02:00)
[2025-05-04 02:26] LABS: ABG BASE EXCESS -0.8 (-2.0-2.0); ABG HCO3 27.3 MMOL/L (22.0-26.0); ABG O2 SATURATION 99.0 % (95.0-99.0); ABG PARTIAL PRESSURE CO2 59.9 mmHg (35.0-45.0); ABG PARTIAL PRESSURE O2 176.1 mmHg (75.0-100.0); ABG STANDARD HCO3 23.8 MMOL/L. (22.0-26.0); ABG TOTAL CO2 29.1 MMOL/L (22.0-29.0); ABG pH (ARTERIAL) 7.276 UNITS (7.350-7.450)
[2025-05-04] MEDS: IPRATROPIUM 0.5 MG/ALBUTEROL 2.5 MG INH SOL UD 3 ML NEB SCH (03:04)
[2025-05-04] MEDS: CEFEPIME HCL 2 GM in DEXTROSE 5% (D5W) ADV/MINI-BAG 50 ML IV SCH (05:20)
[2025-05-04 07:13] LABS: ABG BASE EXCESS -3.5 (-2.0-2.0); ABG HCO3 24.2 MMOL/L (22.0-26.0); ABG O2 SATURATION 98.8 % (95.0-99.0); ABG PARTIAL PRESSURE CO2 54.3 mmHg (35.0-45.0); ABG PARTIAL PRESSURE O2 144.4 mmHg (75.0-100.0); ABG STANDARD HCO3 21.6 MMOL/L. (22.0-26.0); ABG TOTAL CO2 25.9 MMOL/L (22.0-29.0); ABG pH (ARTERIAL) 7.267 UNITS (7.350-7.450)
[2025-05-04 07:30] LABS: BASO # 0.0 10^3/uL (0.0-0.2); BASO % 0.2 % (0.0-1.0); EOS # 0.0 10^3/uL (0.0-0.5); EOS % 0.0 % (0.0-3.0); LYMPH # 0.8 10^3/uL (1.5-5.0); LYMPH % 4.5 % (24.0-44.0); MONO # 0.2 10^3/uL (0.0-0.8); MONO % 1.2 % (2.0-8.0); NEUTROPHILS # 16.4 10^3/uL (1.5-8.5); NEUTROPHILS % 92.7 % (36.0-66.0); PLATELET COUNT, AUTOMATED 304 10^3/uL (150-450)
[2025-05-04 07:50] LABS: ALT/SGPT 33 U/L (7.0-40); AST/SGOT 25 U/L (<34); CALCIUM LEVEL 8.4 MG/DL (8.5-10.1); CARBON DIOXIDE LEVEL 27 MMOL/L (20-31); CHLORIDE LEVEL 106 MMOL/L (98-107); CREATININE FOR GFR 0.74 MG/DL (0.70-1.30); GLOMERULAR FILTRATION RATE > 90.0 (>60); POTASSIUM SERUM 4.6 MMOL/L (3.5-5.1); SODIUM LEVEL 140 MMOL/L (136-145)
[2025-05-04] MEDS: PANTOPRAZOLE 40MG VIAL IV SCH (08:23)
[2025-05-04] MEDS: AZITHROMYCIN INJ 500 MG, VIAL MATE ADAPTER 1 EACH in NS 250 ML IV SCH (08:24)
[2025-05-04] MEDS: ENOXAPARIN 60 MG/0.6 ML SYRINGE (J1650 PER 10MG) SC SCH ×2 (08:24→20:24)
[2025-05-04] MEDS: FUROSEMIDE 40 MG/4 ML VIAL IV ONE (08:25)
[2025-05-04] MEDS ORDERED: ARIP1TAB10 PO (08:51)
[2025-05-04] MEDS ORDERED: LISI20TA33 PO (08:54)
[2025-05-04] MEDS ORDERED: OLAN5TAB24 PO (08:54)
[2025-05-04] MEDS ORDERED: HOME MED LIST COMPLETE! XX SCH (08:55)
[2025-05-04] MEDS ORDERED: GLUCAGON INJ 1 MG VIAL SC PRN (09:30)
[2025-05-04] MEDS ORDERED: GLUCOSE 4 GM CHEW PO PRN (09:30)
[2025-05-04] MEDS ORDERED: DEXTROSE 50% 50 ML SYRINGE IV PRN (09:30)
[2025-05-04] MEDS: INSULIN LISPRO (NovoLOG) PER UNIT SC SCH ×2 (12:28→20:23)
[2025-05-04] MEDS: cefTRIAXone SOD 2 GM in DEXTROSE 5% (D5W) ADV/MINI-BAG 50 ML IV SCH (14:29)
[2025-05-04] MEDS: traZODone 50 MG TAB PO PRN (20:06)
[2025-05-04] MEDS: ARIPiprazole 15 MG TAB PO SCH (21:15)
[2025-05-05] VITALS (11 sets, daily range): BP systolic 109–162; BP diastolic 60–82; TEMP 97.1–98.4; O2SAT 90–96
[2025-05-05 05:07] LABS: PLATELET COUNT, AUTOMATED 281 10^3/uL (150-450)
[2025-05-05 05:24] LABS: ABG BASE EXCESS 0.0 (-2.0-2.0); ABG HCO3 25.4 MMOL/L (22.0-26.0); ABG O2 SATURATION 92.8 % (95.0-99.0); ABG PARTIAL PRESSURE CO2 43.9 mmHg (35.0-45.0); ABG PARTIAL PRESSURE O2 67.9 mmHg (75.0-100.0); ABG STANDARD HCO3 24.4 MMOL/L. (22.0-26.0); ABG TOTAL CO2 26.7 MMOL/L (22.0-29.0); ABG pH (ARTERIAL) 7.380 UNITS (7.350-7.450)
[2025-05-05 05:48] LABS: ALT/SGPT 35 U/L (7.0-40); AST/SGOT 22 U/L (<34); CALCIUM LEVEL 8.4 MG/DL (8.5-10.1); CARBON DIOXIDE LEVEL 28 MMOL/L (20-31); CHLORIDE LEVEL 102 MMOL/L (98-107); CREATININE FOR GFR 0.64 MG/DL (0.70-1.30); GLOMERULAR FILTRATION RATE > 90.0 (>60); POTASSIUM SERUM 4.4 MMOL/L (3.5-5.1); SODIUM LEVEL 140 MMOL/L (136-145)
[2025-05-05] MEDS: LR 500 ML IV ONE (06:32)
[2025-05-05] MEDS: NICOTINE 14 MG/24 HR TRANSDERMAL TD SCH (06:37)
[2025-05-05] MEDS: AZITHROMYCIN 250 MG TABLET PO SCH (08:02)
[2025-05-05 11:22] LABS: PHENCYCLIDINE URINE NEGATIVE (NEGATIVE)
[2025-05-05 11:23] LABS: AMPHETAMINES LEVEL URINE NEGATIVE (NEGATIVE); BARBITURATES URINE NEGATIVE (NEGATIVE); BENZODIAZEPINES URINE NEGATIVE (NEGATIVE); COCAINE METABOLITE URINE NEGATIVE (NEGATIVE); METHADONE URINE NEGATIVE (NEGATIVE); OPIATES URINE NEGATIVE (NEGATIVE)
[2025-05-05 11:27] LABS: CANNABINOIDS URINE POSITIVE (NEGATIVE)
[2025-05-06] VITALS (20 sets, daily range): BP systolic 107–163; BP diastolic 53–80; TEMP 96.6–98; O2SAT 88–97
[2025-05-06 05:53] LABS: ABG BASE EXCESS 2.2 (-2.0-2.0); ABG HCO3 27.9 MMOL/L (22.0-26.0); ABG O2 SATURATION 97.6 % (95.0-99.0); ABG PARTIAL PRESSURE CO2 47.6 mmHg (35.0-45.0); ABG PARTIAL PRESSURE O2 99.8 mmHg (75.0-100.0); ABG STANDARD HCO3 26.4 MMOL/L. (22.0-26.0); ABG TOTAL CO2 29.4 MMOL/L (22.0-29.0); ABG pH (ARTERIAL) 7.386 UNITS (7.350-7.450)
[2025-05-06 13:24] LABS: PLATELET COUNT, AUTOMATED 285 10^3/uL (150-450)
[2025-05-06 13:42] LABS: CALCIUM LEVEL 8.4 MG/DL (8.5-10.1); CARBON DIOXIDE LEVEL 26 MMOL/L (20-31); CHLORIDE LEVEL 101 MMOL/L (98-107); CREATININE FOR GFR 0.61 MG/DL (0.70-1.30); GLOMERULAR FILTRATION RATE > 90.0 (>60); POTASSIUM SERUM 4.3 MMOL/L (3.5-5.1); SODIUM LEVEL 136 MMOL/L (136-145)
[2025-05-06] MEDS: buPROPion **XL** 150 MG TABLET PO SCH (15:10)
[2025-05-07] VITALS (8 sets, daily range): BP systolic 131–144; BP diastolic 58–62; TEMP 96.9–98; O2SAT 91–97
[2025-05-07 06:10] LABS: PLATELET COUNT, AUTOMATED 232 10^3/uL (150-450)
[2025-05-07 06:29] LABS: CALCIUM LEVEL 8.2 MG/DL (8.5-10.1); CARBON DIOXIDE LEVEL 29 MMOL/L (20-31); CHLORIDE LEVEL 102 MMOL/L (98-107); CREATININE FOR GFR 0.63 MG/DL (0.70-1.30); GLOMERULAR FILTRATION RATE > 90.0 (>60); POTASSIUM SERUM 4.6 MMOL/L (3.5-5.1); SODIUM LEVEL 139 MMOL/L (136-145)
[2025-05-07] MEDS: PANTOPRAZOLE 40MG TAB PO SCH (08:02)
[2025-05-07] MEDS: predniSONE 20 MG TAB PO SCH (08:02)
[2025-05-07] MEDS: AUGMENTIN 875 MG TAB PO SCH (09:00)
[2025-05-07] MEDS ORDERED: PRED10TA2 PO (11:58)
[2025-05-07] MEDS ORDERED: AMOX875T2 PO (11:58)
[2025-05-07] MEDS ORDERED: PANT40TA29 PO (11:58)
[2025-05-07] MEDS ORDERED: NICO14PA TD (11:58)
[2025-05-07 22:18] LABS: MYCOPLASMA PNEUMONIAE IGG 2.49 (<=0.90); MYCOPLASMA PNEUMONIAE IGM 223.0 U/mL (<770)
[2025-05-08] MEDS ORDERED: NICO1DIS12 TD (08:40)
[2025-05-08] MEDS ORDERED: VENTAER INH (13:07)
== END 2025-05-07 14:28 | disposition home or self-care (01) | DRG 189 ==
LOC: M ED 19:23 → M ED INP 05-04 01:21 → M ICU 05-04 01:59 → M PCU 05-06 02:28 → M MS5PR 05-07 08:29
PROVIDERS: ADMIT Student in an Organized Health Care Education/Training Program; ATTEND Student in an Organized Health Care Education/Training Program
PROC: B246ZZZ Ultrasonography of Right and Left Heart (ICD-10-PCS; principal; 2025-05-04)
DX: J96.21 Acute and chronic respiratory failure with hypoxia (principal); E66.2 Morbid (severe) obesity with alveolar hypoventilation; Z68.45 Body mass index [BMI] 70 or greater, adult; E87.29 Other acidosis; J96.22 Acute and chronic respiratory failure with hypercapnia; F25.0 Schizoaffective disorder, bipolar type; R73.03 Prediabetes; J20.8 Acute bronchitis due to other specified organisms; B97.89 Other viral agents as the cause of diseases classified elsewhere; K21.9 Gastro-esophageal reflux disease without esophagitis; F17.200 Nicotine dependence, unspecified, uncomplicated; Z79.84 Long term (current) use of oral hypoglycemic drugs; Z79.899 Other long term (current) drug therapy; Z88.2 Allergy status to sulfonamides

== ENCOUNTER 2025-05-08 02:26 | Emergency (ER) | payer MEDICARE, MEDICAID ==
[~2025-05-08] VITALS: Ht 188 cm; Wt 229.6 kg
[~2025-05-08 02:26] MED LIST changes: +AMOX875T2 PO; +ARIP1TAB10 PO; +OLAN5TAB24 PO; +PANT40TA29 PO; +PRED10TA2 PO
[2025-05-08 02:41] VITALS: TEMP 97.9
[2025-05-08 03:57] LABS: BASO # 0.1 10^3/uL (0.0-0.2); BASO % 0.5 % (0.0-1.0); EOS # 0.0 10^3/uL (0.0-0.5); EOS % 0.1 % (0.0-3.0); LYMPH # 4.3 10^3/uL (1.5-5.0); LYMPH % 23.3 % (24.0-44.0); MONO # 1.4 10^3/uL (0.0-0.8); MONO % 7.9 % (2.0-8.0); NEUTROPHILS # 11.7 10^3/uL (1.5-8.5); NEUTROPHILS % 64.4 % (36.0-66.0); PLATELET COUNT, AUTOMATED 262 10^3/uL (150-450)
[2025-05-08 04:09] LABS: INR 1.04
[2025-05-08 04:23] LABS: C REACTIVE PROTEIN QUANTITATIV < 0.50 MG/DL (<1.0)
[2025-05-08] MEDS: cefTRIAXone SOD 1 GM in DEXTROSE 5% (D5W) ADV/MINI-BAG 50 ML IV ONE (05:33)
[2025-05-08 05:37] LABS: APPEARANCE, URINE CLEAR (CLEAR); BACTERIA, URINE AUTO NEGATIVE (NEGATIVE); BILIRUBIN, URINE AUTO NEGATIVE (NEGATIVE); BLOOD, URINE BLOOD NEGATIVE (NEGATIVE); GLUCOSE, URINE (UA) AUTO NEGATIVE (NEGATIVE); KETONE, URINE AUTO NEGATIVE (NEGATIVE); LEUKOCYTE ESTERASE, URINE AUTO NEGATIVE (NEGATIVE); MUCUS, URINE SMALL (NEGATIVE); NITRITE, URINE AUTO NEGATIVE (NEGATIVE); PROTEIN, URINE AUTO NEGATIVE (NEGATIVE); RBC, URINE AUTO 0 /HPF (0-3); SPECIFIC GRAVITY URINE AUTO 1.027 (1.002-1.035); SQUAMOUS EPITHELIAL CELL UR AU 0 /HPF (0-6); UROBILINOGEN, URINE AUTO 0.2 mg/dL (0.0-2.0); WBC, URINE AUTO 2 /HPF (0-3)
[2025-05-08 05:37] LABS: ALT/SGPT 50 U/L (7.0-40); AST/SGOT 33 U/L (<34); CALCIUM LEVEL 7.8 MG/DL (8.5-10.1); CARBON DIOXIDE LEVEL 27 MMOL/L (20-31); CHLORIDE LEVEL 104 MMOL/L (98-107); CREATININE FOR GFR 0.79 MG/DL (0.70-1.30); GLOMERULAR FILTRATION RATE > 90.0 (>60); POTASSIUM SERUM 4.0 MMOL/L (3.5-5.1); SODIUM LEVEL 141 MMOL/L (136-145)
[2025-05-08] MEDS: IPRATROPIUM 0.5 MG/ALBUTEROL 2.5 MG INH SOL UD 3 ML NEB ONE (06:22)
[2025-05-08] MEDS: AZITHROMYCIN INJ 500 MG, VIAL MATE ADAPTER 1 EACH in NS 250 ML IV ONE (06:26)
[2025-05-08] MEDS ORDERED: NICO1DIS12 TD (08:40)
[2025-05-08] MEDS ORDERED: HOME MED LIST COMPLETE! XX SCH (08:45)
[2025-05-08 10:41] VITALS: O2SAT 92
[2025-05-08] MEDS ORDERED: OLANZapine ORAL DISINTEGRATING TAB 5MG PO PRN (10:50)
[2025-05-08 11:29] VITALS: BP 172/93
[2025-05-08] MEDS: PANTOPRAZOLE 40MG TAB PO SCH (11:29)
[2025-05-08] MEDS: predniSONE 10 MG TAB PO SCH (11:29)
[2025-05-08] MEDS: buPROPion **XL** 150 MG TABLET PO SCH (11:29)
[2025-05-08] MEDS ORDERED: ALBUTEROL SULFATE 2.5 MG/0.5 ML INH CONCENTRATE NEB SOLN INH PRN (11:35)
[2025-05-08] MEDS: NICOTINE 21 MG/24 HR 1 EA TRANSDERMAL TD SCH (11:46)
[2025-05-08] MEDS: ENOXAPARIN 60 MG/0.6 ML SYRINGE (J1650 PER 10MG) SC SCH (11:55)
[2025-05-08 12:30] VITALS: BP 188/94; O2SAT 94
[2025-05-08] MEDS: ALBUTEROL SULFATE 2.5 MG/0.5 ML INH CONCENTRATE NEB SOLN INH SCH (12:32)
[2025-05-08] MEDS ORDERED: VENTAER INH (13:07)
[2025-05-08] MEDS ORDERED: AUGMENTIN 875 MG TAB PO SCH (21:00)
== END 2025-05-08 13:45 | disposition home or self-care (01) ==
LOC: M ED 02:26
DX: J45.901 Unspecified asthma with (acute) exacerbation (principal); B34.9 Viral infection, unspecified; R00.0 Tachycardia, unspecified; F31.9 Bipolar disorder, unspecified; Z79.51 Long term (current) use of inhaled steroids; Z79.2 Long term (current) use of antibiotics; Z79.899 Other long term (current) drug therapy; Z79.52 Long term (current) use of systemic steroids
CPT/HCPCS: 71045; 80048; 80076; 81001; 82150; 83605; 84145; 85025; 85610; 85730; 86140; 86850; 86900; 86901; 87040; 93005; 93041; 94640; 94760; 96365; 96372; 96375; 99285; J0456; J0696; J1650; J2919; J7512